=== PATIENT | female | born 1945 | race Caucasian/White ===

== ENCOUNTER → 2019-10-17 | Outpatient (CLI) | payer OTHER, SELFPAY ==
[2019-10-17 10:38] LABS: Anion Gap 2 (5-15); BUN 23 mg/dL (7-18); Calcium,Total 9.3 mg/dL (8.5-10.1); Chloride 108 mmol/L (98-107); Cholesterol 159 mg/dL (200); Creatinine, Serum 0.96 mg/dL (0.55-1.02); EST Glomerular Filtration Rate 61 mL/min (>60); Est Glom Filt Rate - Afr Amer 73 mL/min (>60); Glucose 96 mg/dL (74-106); High Density Lipoprotein 46 mg/dL; Potassium 4.1 mmol/L (3.5-5.1); Sodium Level 140 mmol/L (136-145); Thyroid Stim Hormone (TSH) 2.59 uIU/mL (0.358-3.74); Triglycerides 89 mg/dL; Very Low Density Lipoprotein 18 mg/dL (5-40)
[2019-10-17 10:46] LABS: Vitamin D,25 Hydroxy 95.5 ng/mL
[2019-10-18 10:52] LABS: Carcinoembryonic Antigen 1.2 ng/mL (0.0-4.7)
== END | disposition home or self-care (01) ==
LOC: MFPLAB 08:21
PROVIDERS: PCP Family Medicine; Referring Provider Family Medicine; Visit Provider Family Medicine
DX: I10 Essential (primary) hypertension (principal); E55.9 Vitamin D deficiency, unspecified; Z85.038 Personal history of other malignant neoplasm of large intestine
CPT/HCPCS: 36415; 80048; 80061; 82306; 82378; 84443

== ENCOUNTER → 2020-01-27 11:17 | Outpatient (CLI) | payer OTHER, SELFPAY ==
[2020-01-27 09:33] VITALS: BMI 27.7
[2020-01-27 12:34] LABS: Absolute Lymphocyte Count 0.74 X10^3/uL (0.83-4.51); Basophil# 0.04 X10^3/uL; Basophil% 0.7 % (0-1); Eosinophil# 0.15 X10^3/uL; Eosinophils% 2.8 % (0-5); Hematocrit 42.9 % (37-47); Lymphocyte # 0.74 X10^3/ul (4.0); Lymphocyte % 13.8 % (19-41); Mean Corp Hgb Conc 30.3 g/dL (32-36); Mean Corpuscular Hgb 30.4 pg (27.0-32.0); Mean Corpuscular Volume 100.2 fL (81-99); Mean Platelet Vol. 9.4 fl (6.2-12.0); Monocyte# 0.45 X10^3/uL; Monocyte% 8.4 % (0-10); NRBC Flagged by Analyzer 0 % (0-5); Neutrophil # 3.99 X10^3/uL (2.7-7.7); Neutrophil % 74.1 % (47-70); Platelet Count 171 K/mm3 (150-450); RBC Distribution Width CV 13.5 % (11.6-14.6); RBC Distribution Width SD 49.9 fl (35.1-43.9); Red Blood Count 4.28 M/mm3 (4.2-5.4); White Blood Count 5.4 K/mm3 (4.4-11.0)
[2020-01-27 12:52] LABS: Vitamin D,25 Hydroxy 65.5 ng/mL
[2020-01-27 13:47] LABS: ALB/GLOB Ratio 1.2 RATIO (0.9-2.4); AST(SGOT) 19 U/L (15-37); Alanine Aminotransfer ALT/SGPT 23 U/L (13-56); Albumin, Serum 3.8 g/dL (3.2-5.0); Alkaline Phosphatase 57 U/L (45-117); Anion Gap 6 (5-15); BUN 18 mg/dL (7-18); BUN/Creat Ratio 20.3 RATIO (10-20); Calcium,Total 9.6 mg/dL (8.5-10.1); Chloride 109 mmol/L (98-107); Cholesterol 191 mg/dL (200); Creatinine, Serum 0.89 mg/dL (0.55-1.02); EST Glomerular Filtration Rate 66 mL/min (>60); Est Glom Filt Rate - Afr Amer 80 mL/min (>60); Globulin 3.3 g/dL (2.2-4.2); Glucose 92 mg/dL (74-106); High Density Lipoprotein 57 mg/dL; Potassium 4.2 mmol/L (3.5-5.1); Protein, Total 7.1 g/dL (6.4-8.2); Sodium Level 142 mmol/L (136-145); Thyroid Stim Hormone (TSH) 2.04 uIU/mL (0.358-3.74); Triglycerides 98 mg/dL; Very Low Density Lipoprotein 20 mg/dL (5-40)
[2020-01-27 14:15] LABS: Hemoglobin A1c 5.5 % (3.8-5.6)
== END ==
PROVIDERS: PCP Internal Medicine; Referring Provider Internal Medicine; Visit Provider Internal Medicine
DX: E03.9 Hypothyroidism, unspecified (principal); I10 Essential (primary) hypertension; R79.89 Other specified abnormal findings of blood chemistry; Z90.09 Acquired absence of other part of head and neck
CPT/HCPCS: 36415; 80053; 80061; 82306; 83036; 84443; 85025

== ENCOUNTER → 2020-06-24 10:31 | Outpatient (CLI) | payer MEDICARE, SELFPAY ==
[2020-01-27 09:33] VITALS: BMI 27.7
--- NOTE | 2020-06-24 10:34 | BI_ITS ---
MAMMOGRAPHY - BILATERAL SCREENING REASON FOR EXAM: Female, 74 years old. Routine annual screening examination. PERTINENT HISTORY: FM HX PAT GMA, PAT AUNT , P/H OF COLORECTAL CA 2008, RT MOLE MARKED, RT PORT SCAR TECHNIQUE: Digital bilateral breast henri (3D mammographic acquisition) in the CC and MLO projections. 2-D mediolateral oblique (MLO) and craniocaudad (CC) views of both breasts were obtained. CAD: Full Field Digital Mammography with Computer Added Detection was performed. COMPARISON: 12/19/2018 and 08/09/2017. FINDINGS: Breast Composition: The breasts are extremely dense, which lowers the sensitivity of mammography. There are no dominant masses or suspicious calcifications. No other significant abnormalities are identified. BI/SCRN MAMM (CAD)W/HENRI BILAT IMPRESSION: Stable bilateral screening mammogram. Yearly follow-up mammogram recommended. (A) ASSESSMENT CATEGORY: BIRADS Category 2: Benign. A letter regarding these results will be sent to the patient by the facility within 30 days. Approximately 10% of breast cancers are not detected by mammography. A normal mammogram should not delay biopsy of a clinically suspicious abnormality. [id number] Electronically Signed: Chiquita Ceballos MD at 16:36 EDT Tel , Service support ,
== END ==
PROVIDERS: PCP Internal Medicine; Referring Provider Internal Medicine; Visit Provider Internal Medicine
DX: Z12.31 Encounter for screening mammogram for malignant neoplasm of breast (principal)
CPT/HCPCS: 77063; 77067

== ENCOUNTER → 2020-11-02 11:28 | Outpatient (CLI) | payer MEDICARE, SELFPAY ==
[2020-11-02 10:16] VITALS: BMI 27.1
[2020-11-02 12:37] LABS: Anion Gap 3 (5-15); BUN 24 mg/dL (7-18); BUN/Creat Ratio 29.8 RATIO (10-20); Calcium,Total 9.5 mg/dL (8.5-10.1); Chloride 107 mmol/L (98-107); EST Glomerular Filtration Rate 74 mL/min (>60); Est Glom Filt Rate - Afr Amer 89 mL/min (>60); Glucose 97 mg/dL (74-106); Potassium 4.5 mmol/L (3.5-5.1); Sodium Level 141 mmol/L (136-145)
[2020-11-04 11:32] LABS: Carcinoembryonic Antigen 2139 1.4 ng/mL (0.0-4.7)
== END ==
PROVIDERS: PCP Internal Medicine; Referring Provider Internal Medicine; Visit Provider Internal Medicine
DX: E03.9 Hypothyroidism, unspecified (principal); I10 Essential (primary) hypertension; Z85.038 Personal history of other malignant neoplasm of large intestine
CPT/HCPCS: 36415; 80048; 82378

== ENCOUNTER 2021-05-24 08:56 | Outpatient (CLI) | payer MEDICARE, SELFPAY ==
[2021-05-24 12:08] LABS: Absolute Lymphocyte Count 0.91 X10^3/uL (0.83-4.51); Absolute Neutrophil Count 3.6 X10^3/uL (2.0-7.7); Basophil# 0.03 X10^3/uL; Basophil% 0.6 % (0-1); Eosinophil# 0.18 X10^3/uL; Eosinophils% 3.4 % (0-5); Hematocrit 42.9 % (37-47); Hemoglobin 13.4 g/dL (12.0-15.0); Lymphocyte # 0.91 X10^3/ul (0.83-4.51); Lymphocyte % 17.4 % (19-41); Mean Corp Hgb Conc 31.2 g/dL (32-36); Mean Corpuscular Hgb 31.6 pg (27.0-32.0); Mean Corpuscular Volume 101.2 fL (81-99); Monocyte# 0.55 X10^3/uL; Monocyte% 10.5 % (0-10); NRBC Flagged by Analyzer 0 % (0-5); Neutrophil # 3.55 X10^3/uL (2.7-7.7); Neutrophil % 67.7 % (47-70); Platelet Count 183 K/mm3 (150-450); RBC Distribution Width CV 13.5 % (11.6-14.6); RBC Distribution Width SD 50.5 fl (35.1-43.9); Red Blood Count 4.24 M/mm3 (4.2-5.4); White Blood Count 5.2 K/mm3 (4.4-11.0)
[2021-05-24 12:27] LABS: Vitamin B12 353 pg/mL (211-911); Vitamin D,25 Hydroxy 71.9 ng/mL
[2021-05-24 12:39] LABS: ALB/GLOB Ratio 1.2 RATIO (0.9-2.4); AST(SGOT) 17 U/L (15-37); Alanine Aminotransfer ALT/SGPT 17 U/L (13-56); Albumin, Serum 3.7 g/dL (3.2-5.0); Alkaline Phosphatase 63 U/L (45-117); Anion Gap 3 (5-15); BUN 24 mg/dL (7-18); BUN/Creat Ratio 25.6 RATIO (10-20); Chloride 107 mmol/L (98-107); Cholesterol 183 mg/dL (200); Creatinine, Serum 0.94 mg/dL (0.55-1.02); EST Glomerular Filtration Rate 62 mL/min (>60); Est Glom Filt Rate - Afr Amer 75 mL/min (>60); Globulin 3.2 g/dL (2.2-4.2); Glucose 96 mg/dL (74-106); High Density Lipoprotein 50 mg/dL; Potassium 4.1 mmol/L (3.5-5.1); Protein, Total 6.9 g/dL (6.4-8.2); Sodium Level 140 mmol/L (136-145); Thyroid Stim Hormone (TSH) 3.18 uIU/mL (0.358-3.74); Triglycerides 91 mg/dL; Very Low Density Lipoprotein 18 mg/dL (5-40)
[2021-05-25 14:17] LABS: Carcinoembryonic Antigen 2139 1.1 ng/mL (0.0-4.7)
== END 2021-05-24 23:59 | disposition home or self-care (01) ==
PROVIDERS: PCP Internal Medicine; Referring Provider Internal Medicine; Visit Provider Internal Medicine
DX: E03.9 Hypothyroidism, unspecified (principal); I10 Essential (primary) hypertension; E55.9 Vitamin D deficiency, unspecified; E53.8 Deficiency of other specified B group vitamins; Z85.038 Personal history of other malignant neoplasm of large intestine; R71.8 Other abnormality of red blood cells
CPT/HCPCS: 36415; 80053; 80061; 82306; 82378; 82607; 82746; 84443; 85025

== ENCOUNTER 2021-06-02 12:49 | Outpatient (CLI) | payer MEDICARE, SELFPAY ==
--- NOTE | 2021-06-02 12:51 | RAD_ITS ---
STUDY: X-RAY - CERVICAL SPINE REASON FOR EXAM: Female, 75 years old. Cervical pain TECHNIQUE: XR Spine Cervical 2 or 3 Views COMPARISON: None FINDINGS: Normal anterior atlantoaxial articulation. The odontoid process is obscured by the overlying hard palate on the open mouth view. Therefore, it is not fully evaluated by plain film. There is straightening of the normal cervical lordosis. There is multi-level endplate spondylosis. There is multi-level degenerative disc disease with multilevel disc space narrowing. There is multi-level osseous foraminal stenosis. The soft tissue structures are unremarkable. RAD/Cerv Spine 2 or 3 Views IMPRESSION: There are degenerative changes as noted above. The odontoid process is obscured by the overlying hard palate on the open mouth view. Therefore, it is not fully evaluated by plain film. Electronically Signed: Reji Parra MD at 17:11 EDT ,
--- NOTE | 2021-06-02 12:51 | RAD_ITS ---
STUDY: X-RAY - THORACIC SPINE REASON FOR EXAM: Female, 75 years old. Thoracic and neck pain TECHNIQUE: 3 view(s) of the thoracic spine were ordered. However only 2 were obtained. COMPARISON: None. FINDINGS: Normal kyphosis of the thoracic spine. There is no substantial scoliosis. There is demineralization of the thoracic spine. There is multilevel disc space narrowing of the thoracic spine. There are atherosclerotic vascular calcifications. RAD/Thoracic Spine 3 Views IMPRESSION: Normal x-ray examination of the thoracic spine. Electronically Signed: Reji Parra MD at 17:12 EDT Reading Location ID and State: [facility] / [place] , Service support ,
== END 2021-06-02 23:59 | disposition home or self-care (01) ==
LOC: MTRAD 12:51
PROVIDERS: PCP Internal Medicine; Referring Provider Internal Medicine; Visit Provider Internal Medicine
DX: M54.6 Pain in thoracic spine (principal); M54.2 Cervicalgia
CPT/HCPCS: 72040; 72072

== ENCOUNTER → 2021-08-31 | Outpatient (CLI) | payer MEDICARE, SELFPAY ==
--- NOTE | 2021-08-31 12:21 | BI_ITS ---
MAMMOGRAPHY - BILATERAL SCREENING REASON FOR EXAM: Female, 75 years old. Routine annual screening examination. PERTINENT HISTORY: Grandmother with breast cancer. Grandmother with breast cancer. History of colorectal carcinoma. TECHNIQUE: Digital bilateral breast henri (3D mammographic acquisition) in the CC and MLO projections. 2-D mediolateral oblique (MLO) and craniocaudad (CC) views of both breasts were obtained. CAD: Full Field Digital Mammography with Computer Added Detection was performed. COMPARISON: Comparison is made with prior examination dated 06/24/2020 and 12/09/2011. FINDINGS: Breast Composition: The breasts are extremely dense, which lowers the sensitivity of mammography. There are no dominant masses or suspicious calcifications. Stable small benign-appearing bilateral axillary lymph nodes. No other significant abnormalities are identified. There has been no significant change since the prior study. BI/SCRN MAMM (CAD)W/HENRI BILAT IMPRESSION: Stable bilateral screening mammogram. Yearly follow-up mammogram recommended. (A) ASSESSMENT CATEGORY: BIRADS Category 2: Benign. A letter regarding these results will be sent to the patient by the facility within 30 days. Approximately 10% of breast cancers are not detected by mammography. A normal mammogram should not delay biopsy of a clinically suspicious abnormality. [id number] Electronically Signed: Dagoberto Graves MD at 14:08 EDT ,
--- NOTE | 2021-08-31 12:45 | BD_ITS ---
STUDY: DUAL ENERGY X-RAY ABSORPTIOMETRY / DXA REASON FOR EXAM: Female, 75 years old. osteoporosis TECHNIQUE: Bone Mineral Density (BMD) measurements of lumbar spine and bilateral hips were obtained. COMPARISON: None. FINDINGS: Lumbar Spine (L1-L4): g/cm2 (0.624) / T-score (-3.8) / Z-score (-1.4) Findings are suggestive of osteoporosis with a high fracture risk. Left Femur Total: g/cm2 (0.649) / T-score (-2.4) / Z-score (-0.6) Left Femoral Neck: g/cm2 (0.551) / T-score (-2.7) / Z-score (-0.6) Right Femur Total: g/cm2 (0.66) / T-score (-2.2) / Z-score (-0.4) Right Femoral Neck: g/cm2 (0.579) / T-score (-2.4) / Z-score (-0.3) BD/Dexa Bone Density Study IMPRESSION: The patient is considered osteoporotic as outlined below according to World [place] Organization (WHO) criteria with a high fracture risk. Reference Information: The T-score is the number of standard deviations above or below the standard which is normal for young adults at their peak bone mineral density. The World Health Organization (WHO) interprets the T-scores as follows: Above -1 Normal bone density Between -1 and -2.5 Osteopenia Equal to / or below -2.5 Osteoporosis As a practical clinical guideline, osteopenia may be graded as follows: Mild -1 through -1.5 Moderate -1.6 through -2.0 Severe -2.1 through -2.4 The Z-score is the number of standard deviations above or below age-matched controls. A Z-score of less than -1.5 would be considered abnormal. References: 1. NIH Osteoporosis and Related Bone Diseases www osteo.org 2. International Society for Clinical Densitometry www iscd.org 3. National Osteoporosis Foundation www nof.org Electronically Signed: Dagoberto Graves MD at 15:18 EDT ,
== END | disposition home or self-care (01) ==
LOC: OPBD 12:20
PROVIDERS: PCP Internal Medicine; Referring Provider Internal Medicine; Visit Provider Internal Medicine
DX: Z12.31 Encounter for screening mammogram for malignant neoplasm of breast (principal); M81.0 Age-related osteoporosis without current pathological fracture
CPT/HCPCS: 77063; 77067; 77080

== ENCOUNTER → 2022-06-21 | Outpatient (CLI) | payer MEDICARE, SELFPAY ==
[2022-06-21 08:46] LABS: Absolute Neutrophil Count 3.6 X10^3/uL (2.0-7.7); Basophil# 0.03 X10^3/uL; Basophil% 0.6 % (0-1); Eosinophil# 0.17 X10^3/uL; Eosinophils% 3.1 % (0-5); Hematocrit 43.3 % (37-47); Hemoglobin 13.6 g/dL (12.0-15.0); Lymphocyte % 20.2 % (19-41); Mean Corp Hgb Conc 31.4 g/dL (32-36); Mean Corpuscular Hgb 31.9 pg (27.0-32.0); Mean Corpuscular Volume 101.4 fL (81-99); Mean Platelet Vol. 9.5 fl (6.2-12.0); Monocyte# 0.54 X10^3/uL; Monocyte% 9.9 % (0-10); NRBC Flagged by Analyzer 0 % (0-5); Neutrophil # 3.59 X10^3/uL (2.7-7.7); Platelet Count 151 K/mm3 (150-450); RBC Distribution Width CV 13.3 % (11.6-14.6); RBC Distribution Width SD 49.7 fl (35.1-43.9); Red Blood Count 4.27 M/mm3 (4.2-5.4); White Blood Count 5.4 K/mm3 (4.4-11.0)
[2022-06-21 09:18] LABS: Vitamin B12 412 pg/mL (211-911); Vitamin D,25 Hydroxy 89.8 ng/mL
[2022-06-21 09:27] LABS: ALB/GLOB Ratio 1.2 RATIO (0.9-2.4); AST(SGOT) 18 U/L (15-37); Alanine Aminotransfer ALT/SGPT 18 U/L (13-56); Albumin, Serum 3.7 g/dL (3.2-5.0); Alkaline Phosphatase 59 U/L (45-117); Anion Gap 3 (5-15); BUN 24 mg/dL (7-18); Calcium,Total 9.6 mg/dL (8.5-10.1); Chloride 108 mmol/L (98-107); Cholesterol 168 mg/dL (200); EST Glomerular Filtration Rate 57 mL/min (>60); Est Glom Filt Rate - Afr Amer 69 mL/min (>60); Free T3 2.6 pg/mL (2.18-3.98); Globulin 3.2 g/dL (2.2-4.2); Glucose 102 mg/dL (74-106); High Density Lipoprotein 50 mg/dL; Potassium 4.2 mmol/L (3.5-5.1); Protein, Total 6.9 g/dL (6.4-8.2); Sodium Level 139 mmol/L (136-145); T4 Free Direct 1.04 ng/dL (0.76-1.46); Thyroid Stim Hormone (TSH) 3.38 uIU/mL (0.358-3.74); Triglycerides 104 mg/dL; Very Low Density Lipoprotein 21 mg/dL (5-40)
[2022-06-23 14:21] LABS: Carcinoembryonic Antigen 2139 1.5 ng/mL (0.0-4.7)
== END | disposition home or self-care (01) ==
PROVIDERS: PCP Internal Medicine; Referring Provider Internal Medicine; Visit Provider Internal Medicine
DX: I10 Essential (primary) hypertension (principal); E03.9 Hypothyroidism, unspecified; E53.8 Deficiency of other specified B group vitamins; E55.9 Vitamin D deficiency, unspecified; M81.0 Age-related osteoporosis without current pathological fracture; Z85.038 Personal history of other malignant neoplasm of large intestine
CPT/HCPCS: 36415; 80053; 80061; 82306; 82378; 82607; 84439; 84443; 84481; 85025

== ENCOUNTER → 2022-10-07 | Outpatient (CLI) | payer MEDICARE, SELFPAY ==
[2022-10-07 12:13] LABS: Absolute Lymphocyte Count 0.83 X10^3/uL (0.83-4.51); Absolute Neutrophil Count 3.3 X10^3/uL (2.0-7.7); Basophil# 0.02 X10^3/uL; Basophil% 0.4 % (0-1); Eosinophil# 0.11 X10^3/uL; Eosinophils% 2.3 % (0-5); Hematocrit 40.3 % (37-47); Hemoglobin 12.7 g/dL (12.0-15.0); Lymphocyte # 0.83 X10^3/ul (0.83-4.51); Lymphocyte % 17.6 % (19-41); Mean Corp Hgb Conc 31.5 g/dL (32-36); Mean Corpuscular Hgb 31.7 pg (27.0-32.0); Mean Corpuscular Volume 100.5 fL (81-99); Mean Platelet Vol. 9.9 fl (6.2-12.0); Monocyte% 8.5 % (0-10); NRBC Flagged by Analyzer 0 % (0-5); Neutrophil # 3.33 X10^3/uL (2.7-7.7); Neutrophil % 70.8 % (47-70); Platelet Count 171 K/mm3 (150-450); RBC Distribution Width CV 13.5 % (11.6-14.6); Red Blood Count 4.01 M/mm3 (4.2-5.4); White Blood Count 4.7 K/mm3 (4.4-11.0)
[2022-10-07 12:44] LABS: ALB/GLOB Ratio 1.3 RATIO (0.9-2.4); AST(SGOT) 21 U/L (15-37); Alanine Aminotransfer ALT/SGPT 17 U/L (13-56); Albumin, Serum 3.7 g/dL (3.2-5.0); Alkaline Phosphatase 54 U/L (45-117); Anion Gap 5 (5-15); BUN 20 mg/dL (7-18); BUN/Creat Ratio 22.1 RATIO (10-20); Calcium,Total 9.1 mg/dL (8.5-10.1); Chloride 109 mmol/L (98-107); Cholesterol 162 mg/dL (200); Creatinine, Serum 0.91 mg/dL (0.55-1.02); EST Glomerular Filtration Rate 64 mL/min (>60); Est Glom Filt Rate - Afr Amer 77 mL/min (>60); Globulin 2.8 g/dL (2.2-4.2); Glucose 107 mg/dL (74-106); High Density Lipoprotein 52 mg/dL; Magnesium 2.2 mg/dL (1.6-2.6); Protein, Total 6.5 g/dL (6.4-8.2); Sodium Level 142 mmol/L (136-145); Thyroid Stim Hormone (TSH) 2.04 uIU/mL (0.358-3.74); Triglycerides 102 mg/dL; Very Low Density Lipoprotein 20 mg/dL (5-40)
[2022-10-07 13:05] LABS: Vitamin D,25 Hydroxy 97.1 ng/mL
== END | disposition home or self-care (01) ==
LOC: LAB 11:25
PROVIDERS: PCP Internal Medicine; Referring Provider Internal Medicine; Visit Provider Internal Medicine
DX: R71.8 Other abnormality of red blood cells (principal); E53.8 Deficiency of other specified B group vitamins; E55.9 Vitamin D deficiency, unspecified; E03.9 Hypothyroidism, unspecified; I10 Essential (primary) hypertension; Z13.220 Encounter for screening for lipoid disorders
CPT/HCPCS: 36415; 80053; 80061; 82306; 83735; 84443; 85025

== ENCOUNTER → 2022-11-01 | Outpatient (CLI) | payer MEDICARE, SELFPAY ==
--- NOTE | 2022-11-01 10:20 | BI_ITS ---
MAMMOGRAPHY - BILATERAL SCREENING REASON FOR EXAM: Female, 76 years old. Routine annual screening examination. PERTINENT HISTORY: Grandmother with breast cancer. Aunt with breast cancer. TECHNIQUE: Digital bilateral breast henri (3D mammographic acquisition) in the CC and MLO projections. 2-D mediolateral oblique (MLO) and craniocaudad (CC) views of both breasts were obtained. CAD: Full Field Digital Mammography with Computer Added Detection was performed. COMPARISON: Comparison is made with prior study dated August 31, 2021 and June 24, 2020. FINDINGS: Breast Composition: The breasts are extremely dense, which lowers the sensitivity of mammography. There are no dominant masses or suspicious calcifications. Stable small benign-appearing bilateral axillary lymph nodes. No other significant abnormalities are identified. There has been no significant change since the prior study. BI/SCRN MAMM (CAD)W/HENRI BILAT IMPRESSION: Stable bilateral screening mammogram. Yearly follow-up mammogram recommended. (A) ASSESSMENT CATEGORY: BIRADS Category 2: Benign. A letter regarding these results will be sent to the patient by the facility within 30 days. Approximately 10% of breast cancers are not detected by mammography. A normal mammogram should not delay biopsy of a clinically suspicious abnormality. [id number] Electronically Signed: Dagoberto Graves MD at 13:25 EDT ,
== END | disposition home or self-care (01) ==
LOC: OPBI 10:20
PROVIDERS: PCP Internal Medicine; Referring Provider Internal Medicine; Visit Provider Internal Medicine
DX: Z12.31 Encounter for screening mammogram for malignant neoplasm of breast (principal)
CPT/HCPCS: 77063; 77067

== ENCOUNTER 2024-02-04 10:18 | Emergency (ER) | payer MEDICARE, SELFPAY ==
[2024-02-04 10:19] VITALS: BP 102/84; PULSE 92; RESP 16; TEMP 36.4; O2SAT 98; BMI 21.1
--- NOTE | 2024-02-04 10:35 | EX.ED.DYSGE1 ---
HPI History of Present Illness Chief Complaint: Complaint Informant: patient, spouse/S.O. and family ( and daughter accompany the patient.) Onset/Context/Timing Onset: Weeks Context: Gradual Onset Timing: Continuous Current Severity: Mild Maximum Severity: Mild Narrative Narrative: 78-year-old female history of hypertension, valvular heart disease and prior colon cancer years ago that reportedly had not spread. According to the family patient has had some urinary incontinence the last several weeks. She has had with a term as brain fog. She denies any vomiting, diarrhea, fever or dysuria. No headache. No falls or head trauma. Saw her primary care physician at [facility]. She had screening labs done and these were unremarkable. Urinalysis was not done the family was just hoping to get a urinalysis done to evaluate for possible urinary tract infection. Prior similar symptoms: No Recent Illness/Hospitalization: No PFSH PFSH Medical History Hypothyroidism Hypertension Bilateral leg pain Depression Fibromyalgia Arthritis of left knee Osteoporosis History of colon cancer (2007) Cardiac murmur Tricuspid insufficiency Mitral insufficiency Home Medications ?Medication ?Instructions ?Recorded ?Last Taken ?Type lactobacillus combo no.13 1 1 cap PO DAILY 12/01/17 Unknown History billion cell capsule,delayed release (Probiotic Pearls Complete) cholecalciferol (vitamin D3) 125 125 mcg PO DAILY 01/21/20 Unknown History mcg (5,000 unit) capsule Handicap Placard #1 ea 11/12/20 Unknown Rx multivitamin 1 tab PO DAILY 12/06/21 Unknown History omega 9-gud-prz-fish oil 300 1 cap PO DAILY 10/05/22 Unknown History mg-1,000 mg capsule (Fish Oil) selenium 25 mcg tablet 25 mcg PO DAILY 01/04/23 Unknown History cephalexin 500 mg capsule 500 mg PO Q6 7 days #28 CAPSULES 02/04/24 Unknown Rx propranolol 20 mg tablet 20 mg PO TID 02/04/24 Unknown History Allergy/AdvReac Type Severity Reaction Status Date / Time amlodipine Allergy Severe anxiety Verified 02/04/24 10:19 meloxicam Allergy Severe weight gain Verified 02/04/24 10:19 pollen extracts Allergy Intermediate Rhinitis Verified 02/04/24 10:19 atenolol (From Tenoretic) Allergy Unknown Unknown Verified 02/04/24 10:19 chlorthalidone (From Allergy Unknown Unknown Verified 02/04/24 10:19 Tenoretic) ciprofloxacin AdvReac Severe joint pain Verified 02/04/24 10:19 pregabalin (From Lyrica) AdvReac Severe Tremors Verified 02/04/24 10:19 lisinopril AdvReac Intermediate cough Verified 02/04/24 10:19 indomethacin AdvReac Unknown unknown Verified 02/04/24 10:19 Family History Father Hypertension Heart disease Brother Hypertension Diabetes Mother Diabetes Heart disease Aunt Breast cancer Grandmother Breast cancer Surgical History History of partial thyroidectomy (2009) History of vaginal hysterectomy (1977) History of colon surgery (2007) Social History Smoking Status: Never smoker alcohol intake: never substance use type: does not use what type of physical activity do you participate in: walking frequency: daily ROS ROS ED ROS Narrative Denies recent illness. She has an 11 pound weight loss in 1 to 2 months. Constitutional Constitutional ED: Denies chills or fever(s) Eyes Eyes: Denies blurry vision ENT ENT ED: Denies ear pain Cardiovascular Cardiovascular: Denies chest pain Respiratory/Chest Respiratory/Chest: Denies cough or dyspnea Gastrointestinal Gastrointestinal: Denies abdominal pain Genitourinary Genitourinary ED: Denies dysuria or hematuria Musculoskeletal Musculoskeletal: Denies arthralgias Integumentary Denies abscess Neurologic Neurologic: Denies headache(s) Psychiatric Psychiatric: Reports anxiety Endocrine Endocrinology: Denies cold intolerance or heat intolerance Hematologic/Lymphatic Hematologic/Lymphatic: Reports none Allergic/Immunologic Allergic/Immunologic ED: Denies mouth swelling, tongue swelling or urticaria EXAM Physical Exam Narrative Exam Narrative: Well-appearing 78-year-old female. Vital signs are stable afebrile. Pulse ox 98% on room air no hypoxia. Patient is no distress. As I was talking to her family she walked into the room from the bathroom after giving a urine sample. H EENT exam unremarkable atraumatic. Pupils round react light. Moist mucous membranes. No trauma. Neck nontender. Back nontender. Lungs clear to auscultation bilaterally. Heart regular rate and rhythm rate about 90 no murmur. Chest wall and ribs nontender. Abdomen soft nontender. Normal bowel sounds no peritoneal signs. Moving all 4 extremities. 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 Dorsi plantarflexion intact. She can lift either leg off the bed. She ambulates without difficulty. Patient is awake and alert. She knows day of the week, month and year. She is answering questions following commands. Const Vital Signs: 02/04/24 10:19 Temperature 97.6 F L Temperature Source Oral Pulse Rate 92 Respiratory Rate 16 Blood Pressure 102/84 H Blood Pressure Mean 90 Pulse Ox 98 Oxygen Delivery Method Room Air Positive well nourished and well developed; Negative for obese, cachectic, contractures or unkempt General Appearance ED: well developed and NAD; Negative for unkempt, cachectic, contractures, cyanotic, diaphoretic or pallor Nutritional Appearance: Negative for cachectic or obese HEENT Reports moist mucous membranes Negative for trauma or tenderness Eyes PERRL and EOMs intact bilaterally General Eye ED: Negative for pale conjunctiva or scleral icterus Neck no lymphadenopathy, supple and no JVD General: Negative for tenderness Lymph Lymphatic: Negative for other Chest Wall inspection of chest normal and palpation of chest normal Resp normal respiratory effort and clear to auscultation bilaterally Effort and Inspection: Negative for retractions Auscultation: Negative for rales, rhonchi, wheezes or diminished lung sounds Cardio regular rate, regular rhythm, S1 normal heart sound, S2 normal heart sound and no murmurs Palpation: Negative for palpable S3 Rate: Negative for bradycardia or tachycardic Rhythm: Negative for abnormal rhythm GI normal to inspection, nondistended, normoactive bowel sounds, non-tender, non-distended and no masses Inspection: Negative for abdominal distention Auscultation: normoactive bowel sounds Palpation: soft; Negative for tender, guarding or rebound tenderness present Back/Spine no CVA tenderness General Back: Negative for CVA tenderness Cervical Spine: Negative for cervical spine tenderness Thoracic Spine / Upper Back: Negative for thoracic spinal tenderness or paraspinal muscle tenderness Lumbar Spine / Lower Back: Negative for lumbar spinal tenderness Extremity normal to inspection General Extremety ED: Negative for edema or tenderness General Extremity: Negative for edema Neuro oriented x3 and CN's II-XII intact bilaterally Sensorium / Orientation: alert; Negative for orientation impaired, lethargic or stuporous Motor Exam: strength 5/5 throughout Psych mental status grossly normal Appearance: Negative for unkempt Attitude: No agitated Mood & Affect: Negative for anxious or tearful Skin no rashes or lesions noted, no wounds and skin turgor normal General Skin Exam: elasticity normal; Negative for jaundice or pallor Lesions: No lesion noted Rashes: No rashes noted Trauma: Negative for abrasion Wounds: Negative for wounds noted MDM MDM MDM Narrative Medical decision making narrative: 78-year-old female family would like a urinalysis checked. She has had recent anxiety. Some weight loss. Had recent laboratory workup done her primary care physician office which reportedly was negative. I offered additional labs today they just wanted the urine checked. I also offered a CAT scan of the brain again they are just looking for a urinalysis. Patient's exam is benign and unremarkable. Repeat exam unchanged. I went over the urinalysis results with the family. Explained him that could be contamination but with the being a number of nitrates, bacteria and white cells we will treat this as UTI and send a culture. Should be started on Keflex 500 4 times daily for a week. First dose given in the ER. They are comfortable with the plan. History & Record Review Discussion w/independent historian: Patient and Family Additional record(s) reviewed:: Prior inpatient record, Prior outpatient record, Prior ED visit and Prior labs Lab Data Attestation: I reviewed the patient's lab results. Lab results narrative: Urinalysis shows urinalysis shows positive nitrates, 5-10 red cells, 50-100 white cells and 4+ bacteria. It is contaminated with 10-25 epithelial cells however with her symptoms and family's concern we will treat as a UTI. Culture will be sent. Labs: Laboratory Results - last 24 hr 02/04/24 10:30 Urine Color Yellow Urine Clarity Cloudy Urine pH 6.0 Ur Specific Greer 1.025 Urine Protein 100 H Urine Glucose (UA) Normal Urine Ketones 15 H Urine Occult Blood 150 H Urine Nitrite Positive H Urine Bilirubin Negative Urine Urobilinogen 1 H Ur Leukocyte Esterase 500 H Urine RBC 5-10 SEEN Urine WBC 50-100 SEEN Ur Squamous Epith Cells 10-25 SEEN Ur Transition Epith Cell 0-5 SEEN Urine Bacteria 4+ Urine Mucus 0 SEEN Discharge Plan Triage Chief Complaint: Complaint ED Provider: Constantin Harley Dx/Rx/DC Orders Clinical Impression: Urinary tract infection Instructions: Urinary Tract Infections in Women Prescriptions: New cephalexin 500 mg capsule 500 mg PO Q6 7 Days Qty: 28 0RF No Action lactobacillus combo no.13 [Probiotic Pearls Complete] 1 billion cell capsule,delayed release(DR/EC) 1 cap PO DAILY cholecalciferol (vitamin D3) 125 mcg (5,000 unit) capsule 125 mcg PO DAILY multivitamin Tablet 1 tab PO DAILY omega 2-occ-buc-fish oil [Fish Oil] 300-1,000 mg capsule 1 cap PO DAILY selenium 25 mcg tablet 25 mcg PO DAILY propranolol 20 mg tablet 20 mg PO TID (DME) Handicap Placard See Rx Instructions .Route .MEDSUPPLY Qty: 1 0RF Rx Instructions: As directed for medical reasons Duration 4 years Primary Care Provider: Naveed Martinez Referrals: NOT,DEFINED [Non-Staff] - Activity Restrictions/Additional Instructions: Plenty of fluids and rest. Cranberry juice. Take her antibiotic Keflex 1 pill 4 times a day for the next 7 days. This should get rid of the urinary tract infection. A urine culture was sent. Follow-up with your doctor if not improving or return if worse. Print Language: Mauritian
[2024-02-04 10:40] LABS: Mucous, Urine 0 SEEN /hpf (<or=2+)
[2024-02-04 10:42] LABS: Color, Urine Yellow (Yellow); Glucose, Dipstick Normal (Normal); Ketone-Dipstick 15 mg/dl (Negative); Leukocyte Esterase-Dipstick 500 /ul (Negative); Nitrite-Dipstick Positive (Negative); Occult Blood-Urine 150 /ul (Negative); Protein-Dipstick 100 mg/dl (Negative); Specific Gravity, Urine 1.025 (1.002-1.030); Urine Bilirubin Dipstick Negative (Negative); Urine Clarity Cloudy (Clear); Urine Urobilinogen 1 mg/dl (Normal)
[2024-02-04 10:49] LABS: Bacteria 4+ /hpf (None Seen); Squamous Epithelial Cells - UA 10-25 SEEN /hpf (5-10); Transitional Epithelial - Ur 0-5 SEEN /hpf (0-5); White Blood Cells 50-100 SEEN /hpf (0-5)
[2024-02-04 10:50] LABS: Red Blood Cells-Urine 5-10 SEEN /hpf (0-5)
[2024-02-04] MEDS: Cephalexin 250 MG Capsule 500 MG PO (11:25)
[2024-02-04 11:27] VITALS: BP 172/89
== END 2024-02-04 11:29 | disposition home or self-care (01) ==
PROVIDERS: Emergency Provider Emergency Medicine; PCP Family Medicine; Visit Provider Emergency Medicine
DX: N39.0 Urinary tract infection, site not specified (principal); I10 Essential (primary) hypertension; I34.0 Nonrheumatic mitral (valve) insufficiency; I36.1 Nonrheumatic tricuspid (valve) insufficiency; Z88.1 Allergy status to other antibiotic agents; Z85.038 Personal history of other malignant neoplasm of large intestine; Z79.899 Other long term (current) drug therapy
CPT/HCPCS: 81001; 87086; 87088; 87186; 99282

== ENCOUNTER 2024-03-06 14:38 | Emergency (ER) | payer MEDICARE, SELFPAY ==
[2024-03-06 14:40] VITALS: BP 132/89; PULSE 96; RESP 22; TEMP 36.6; O2SAT 96; BMI 17.7
--- NOTE | 2024-03-06 15:07 | EKG12_ITS ---
Test Reason : Blood Pressure : */* mmHG Vent. Rate : 81 BPM Atrial Rate : 81 BPM P-R Int : 166 ms QRS Dur : 78 ms QT Int : 368 ms P-R-T Axes : 65 14 32 degrees QTcB Int : 427 ms Sinus rhythm with Premature atrial complexes Otherwise normal ECG Confirmed by ZION TURNER, ANGELIA ([id number]), editor index FLAKITO MARTINEZ ([id number]) on 03/08/2024 8:09:31 AM Referred By: AGNIESZKA Confirmed By: ANGELIA DONOVAN MD
--- NOTE | 2024-03-06 15:07 | CT_ITS ---
EXAM: CT HEAD WITHOUT INTRAVENOUS CONTRAST CLINICAL INDICATION: Acute change in mental status, unintentional weigh TECHNIQUE: Multiple axial images were obtained of the head without intravenous contrast. This CT exam was performed using one or more of the following dose reduction techniques: automated exposure control, adjustment of the mA and/or kV according to patient size, and/or use of iterative reconstruction technique. COMPARISON: No relevant prior studies available. FINDINGS: BRAIN AND EXTRA-AXIAL SPACES: There is mild enlargement of ventricular and cortical sulci. There is hypoattenuation in the periventricular white matter. No intra- or extra-axial hemorrhage. No evidence of acute infarct. No intracranial mass or mass effect. There is preservation of the sellers/white matter interface. Posterior fossa structures are unremarkable. Basal cisterns are patent. BONES/JOINTS: Unremarkable. No discrete lytic or blastic abnormalities. SINUSES: Unremarkable as visualized. Clear. MASTOID AIR CELLS: Unremarkable. Clear. ORBITS: Visualized globes, extraocular muscles, optic nerves and retrobulbar fat appear unremarkable. CT/Brain/Head without Contrast IMPRESSION: 1. No acute intracranial abnormality. 2. Senescent change with small vessel ischemia. Electronically Signed: Edi Roa MD at 16:19 EST ,
[2024-03-06 15:29] LABS: Absolute Lymphocyte Count 0.39 X10^3/uL (0.83-4.51); Basophil# 0.02 X10^3/uL; Basophil% 0.3 % (0-1); Eosinophil# 0.02 X10^3/uL; Eosinophils% 0.3 % (0-5); Hematocrit 36.8 % (37-47); Hemoglobin 11.8 g/dL (12.0-15.0); Lymphocyte # 0.39 X10^3/ul (0.83-4.51); Lymphocyte % 6.5 % (19-41); Mean Corp Hgb Conc 32.1 g/dL (32-36); Mean Corpuscular Hgb 31.6 pg (27.0-32.0); Mean Corpuscular Volume 98.4 fL (81-99); Mean Platelet Vol. 9.3 fl (6.2-12.0); Monocyte# 0.64 X10^3/uL; Monocyte% 10.6 % (0-10); NRBC Flagged by Analyzer 0 % (0-5); Neutrophil # 4.95 X10^3/uL (2.7-7.7); Neutrophil % 82.1 % (47-70); POSITIVE DIFFERENTIAL YES; Platelet Count 230 K/mm3 (150-450); RBC Distribution Width CV 12.9 % (11.6-14.6); RBC Distribution Width SD 46.8 fl (35.1-43.9); Red Blood Count 3.74 M/mm3 (4.2-5.4)
--- NOTE | 2024-03-06 15:40 | EX.ED.VIS.PS ---
HPI HPI - Psych History of Present Illness Chief Complaint: Anxiety Detail of Chief Complaint: Anxiousness, paranoia and weight loss Informant: patient, spouse/S.O. and family (Daughter) Onset/Context/Timing Onset: Weeks Context: Uncertain worse over the past 1 to 2 months Timing: Continuous and Waxes and wanes Current Severity: Moderate Maximum Severity: Severe Worsened by: Situational factors and Alcohol intoxication Relieved by: Nothing Associated Symptoms Associated Symptoms - Psych: Positive for Depressed, Change in Eating, Change in sleeping, Decreased Concentration, Increased activity, Pressured Speech and Paranoia; Negative for Hopelessness, Suicidal Thoughts, Easily distracted, Grandiosity, Flight of Ideas, Agitated, Angry, Hostile, Threatening, Confusion, Visual Hallucinations or Auditory Hallucinations Specific plan (suicidal thought): Not applicable Narrative Narrative: Patient is a 78-year-old woman. She has history of hypothyroidism status post partial thyroidectomy, colon cancer, hypertension, valvular insufficiency who was brought in because of significant weight loss, no desire to eat, depression with symptoms consistent with depression. Patient knows she is anxious. She states she cannot do anything about it. She seems very hypervigilant and very concerned that her answers are correct. Patient has no suicidal homicidal thoughts. There is no known psychiatric disorder. History is limited because patient becomes very anxious and essentially denies everything other than being anxious and having no appetite. Prior similar symptoms: No Recent Illness/Hospitalization: Yes [facility] Medical History Hypothyroidism Hypertension Bilateral leg pain Depression Fibromyalgia Arthritis of left knee Osteoporosis History of colon cancer (2007) Cardiac murmur Tricuspid insufficiency Mitral insufficiency Home Medications ?Medication ?Instructions ?Recorded ?Last Taken ?Type lactobacillus combo no.13 1 1 cap PO DAILY 12/01/17 Unknown History billion cell capsule,delayed release (Probiotic Pearls Complete) cholecalciferol (vitamin D3) 125 125 mcg PO DAILY 01/21/20 Unknown History mcg (5,000 unit) capsule Handicap Placard #1 ea 11/12/20 Unknown Rx multivitamin 1 tab PO DAILY 12/06/21 Unknown History omega 4-dzg-zbw-fish oil 300 1 cap PO DAILY 10/05/22 Unknown History mg-1,000 mg capsule (Fish Oil) selenium 25 mcg tablet 25 mcg PO DAILY 01/04/23 Unknown History cephalexin 500 mg capsule 500 mg PO Q6 7 days #28 CAPSULES 02/04/24 Unknown Rx propranolol 20 mg tablet 20 mg PO TID PRN anxiety 02/04/24 Unknown History Allergy/AdvReac Type Severity Reaction Status Date / Time amlodipine Allergy Severe anxiety Verified 03/06/24 14:44 meloxicam Allergy Severe weight gain Verified 03/06/24 14:44 pollen extracts Allergy Intermediate Rhinitis Verified 03/06/24 14:44 atenolol (From Tenoretic) Allergy Unknown Unknown Verified 03/06/24 14:44 chlorthalidone (From Allergy Unknown Unknown Verified 03/06/24 14:44 Tenoretic) ciprofloxacin AdvReac Severe joint pain Verified 03/06/24 14:44 pregabalin (From Lyrica) AdvReac Severe Tremors Verified 03/06/24 14:44 lisinopril AdvReac Intermediate cough Verified 03/06/24 14:44 indomethacin AdvReac Unknown unknown Verified 03/06/24 14:44 Family History Father Hypertension Heart disease Brother Hypertension Diabetes Mother Diabetes Heart disease Aunt Breast cancer Grandmother Breast cancer Surgical History History of partial thyroidectomy (2009) History of vaginal hysterectomy (1977) History of colon surgery (2007) Social History Smoking Status: Never smoker alcohol intake: never substance use type: does not use what type of physical activity do you participate in: walking frequency: daily ROS ROS ED Constitutional Constitutional ED: Denies chills, fever(s), subjective or sweats Eyes Eyes: Denies blurry vision or change in vision ENT ENT ED: Denies ear pain, rhinorrhea or sore throat Cardiovascular Cardiovascular: Denies chest pain, orthopnea, palpitations or paroxysmal nocturnal dyspnea Respiratory/Chest Respiratory/Chest: Denies cough, dyspnea, dyspnea on exertion, orthopnea or paroxysmal nocturnal dyspnea Gastrointestinal Gastrointestinal: Reports constipation; Denies abdominal pain, diarrhea, nausea or vomiting Genitourinary Genitourinary ED: Denies dysuria, hematuria or urinary frequency Musculoskeletal Musculoskeletal: Denies arthralgias or myalgias Integumentary Denies rash Neurologic Neurologic: Denies headache(s), paresthesias or weakness Psychiatric Psychiatric: Reports anxiety and depression; Denies suicidal ideation or suicidal thoughts Hematologic/Lymphatic Hematologic/Lymphatic: Denies easy bleeding or easy bruising EXAM Physical Exam Const Vital Signs: 03/06/24 14:40 03/06/24 16:30 03/06/24 17:00 Temperature 97.8 F Temperature Source Temporal Pulse Rate 96 75 82 Respiratory Rate 22 H 25 H 29 H Blood Pressure 132/89 H 157/73 H 156/79 H Blood Pressure Mean 103 97 103 Pulse Ox 96 Oxygen Delivery Method Room Air 03/06/24 18:30 03/06/24 20:00 03/06/24 22:00 Temperature Temperature Source Pulse Rate 84 83 67 Respiratory Rate 27 H 30 H 26 H Blood Pressure 165/73 H 165/88 H Blood Pressure Mean 99 109 Pulse Ox 95 Oxygen Delivery Method Positive well nourished and well developed Constitutional Narrative: Patient is very anxious and hyperactive. Her speech is slightly pressured. She does not have suicidal homicidal thoughts. General Appearance ED: well developed; Negative for pallor HEENT Denies moist mucous membranes normocephalic and atraumatic Eyes PERRL and EOMs intact bilaterally Eyes Narrative: There is no nystagmus. General Eye ED: Negative for pale conjunctiva or scleral icterus Neck no lymphadenopathy, supple and no JVD Resp normal respiratory effort and clear to auscultation bilaterally Cardio S1 normal heart sound, S2 normal heart sound and no murmurs Rate: regular rate Rhythm: regular rhythm GI non-tender, non-distended and no masses Auscultation: normoactive bowel sounds Palpation: soft Back/Spine no CVA tenderness Extremity normal to inspection General Extremety ED: Negative for edema or tenderness General Extremity: Negative for edema Neuro oriented x3, CN's II-XII intact bilaterally, no sensory deficits noted and deep tendon reflexes 2+ bilaterally [place] Coma Scale: document GCS findings Spontaneous Obeys Commands Oriented 15 Sensorium / Orientation: alert Psych Appearance: grossly normal Attitude: paranoid Activity / Motor Behavior: appropriate eye contact, psychomotor agitation, fidgetting and hyperactive Speech: rapid Mood & Affect: depressed Thought Process: normal thought process Thought Content: normal thought content Attention / Concentration: attention grossly intact and concentration grossly intact Memory / Cognition: memory grossly intact and memory grossly impaired Skin General Skin Exam: Negative for jaundice or pallor MDM MDM MDM Narrative Medical decision making narrative: Differential diagnosis would include dementia, depression, pseudodementia due to depression, metabolic or infectious cause. Patient's urine from prior visit was a contaminated specimen and in my opinion was not a UTI. Since I do not believe patient can give an clean specimen straight cath was ordered. Spoke with Aleyda harrison social work for the ER and family. Plan is psychiatric admission to a [facility] facility unless there is a metabolic or infectious reason for her symptoms. Thyroid was obtained as well. 1 would expect her to be tachycardic and hyperreflexic and have GI symptoms of diarrhea and not constipation Since February 03 patient has lost 19 pounds. History & Record Review Discussion w/independent historian: Patient, Family and Significant other Additional record(s) reviewed:: Prior ED visit and Prior labs Lab Data Attestation: I reviewed the patient's lab results. Lab results narrative: CBC reveals mild anemia. H&H was 12.7 and 40.19 September 2022. Straight cath urinalysis macro is positive for a spec gravity 1.025, protein, ketones, occult blood with bili Owen and urobilinogen. Leukoesterase was negative as well as nitrites. [facility] metabolic panel is remarkable for BUN/creatinine ratio 26:1. BUN is 22 with a creatinine of 0.83. TSH is normal at 1.44. Labs: Laboratory Results - last 24 hr 03/06/24 03/06/24 03/06/24 15:15 15:20 17:25 WBC 6.0 RBC 3.74 L Hgb 11.8 L Hct 36.8 L MCV 98.4 MCH 31.6 MCHC 32.1 RDW Std Deviation 46.8 H RDW Coeff of Fuentes 12.9 Plt Count 230 MPV 9.3 Immature Gran % (Auto) 0.200 Neut % (Auto) 82.1 H Lymph % (Auto) 6.5 L [place] % (Auto) 10.6 H Eos % (Auto) 0.3 Baso % (Auto) 0.3 Absolute Neuts (auto) 5.0 Absolute Lymphs (auto) 0.39 L Nucleated RBC % 0 Sodium 137 Potassium 3.6 Chloride 104 Carbon Dioxide 25.0 Anion Gap 8 BUN 22 H Creatinine 0.83 Estim Creat Clear Calc 37.56 Est GFR (MDRD) Af Amer 86 Est GFR (MDRD) Non-Af 71 BUN/Creatinine Ratio 26.6 H Glucose 101 Calcium 9.8 Total Bilirubin 1.40 H AST 27 ALT 29 Alkaline Phosphatase 75 Total Protein 6.8 Albumin 3.3 Globulin 3.5 Albumin/Globulin Ratio 0.9 TSH 1.440 Urine Color Straw Urine Clarity Clear Urine pH 5.0 Ur Specific [place] 1.025 Urine Protein 30 H Urine Glucose (UA) Normal Urine Ketones 50 H Urine Occult Blood 25 H Urine Nitrite Negative Urine Bilirubin 1 H Urine Urobilinogen 4 H Ur Leukocyte Esterase Negative Urine RBC 5-10 SEEN Urine WBC 0-5 SEEN Ur Squamous Epith Cells 0-5 SEEN Calcium Oxalate Crystal 1+ Urine Bacteria 1+ Hyaline Casts 0-5 SEEN Urine Mucus 1+ Ethyl Alcohol < 3.0 Urine reveals bacteria however there is no pyuria. Leukoesterase and nitrites were negative. By definition patient has asymptomatic bacteremia and based on recent discussion at department meeting with pharmacist recommendation is no treatment. Radiography Diagnostic Testing: Clinical Impression(s) from Imaging Studies Brain CT 03/06/24 15:07 IMPRESSION: 1. No acute intracranial abnormality. 2. Senescent change with small vessel ischemia. Electronically Signed: Edi Roa MD at 16:19 EST , CT of the head without contrast reveals age-appropriate atrophy. There is no AMY sinus disease. There is no evidence of mass or mass effect. There is no obvious stroke noted either. Awaiting formal read by radiologist, [id number]. EKG Initial EKG: Attestation: I personally reviewed and interpreted this EKG as follows: Interpretation: Sinus Rhythm (Rate is 81. There is premature atrial beats other than the premature atrial beats the EKG is normal. NE interval is under 6 6 ms. History 70 ms. QT duration 368 ms. [place] is normal) Management Discussion w/another healthcare provider: open hearth worker/Case management (Consult placed to case management, Aleyda. Aleyda was made aware of my concerns. Aleyda informing that she was excepted into 2 different facilities however her insurance prohibited her from going to those institutions. She turned the case over to the crisis social media project manager to try other facilities. ) Treatment and Re-Evaluation Narrative: The night physician was made aware the patient since she will require admission and presently the licensed physical therapy assistant is working on disposition/placement. There is difficulty because of insurance issues. Discharge Plan Triage Chief Complaint: Anxiety ED Provider: Lucien Ramirez Dx/Rx/DC Orders Clinical Impression: Anxious depression, Hypertension, Hypothyroidism, Vitamin D deficiency, Vitamin B12 deficiency, Unintentional weight loss of more than 10 pounds, Paranoia Prescriptions: No Action lactobacillus combo no.13 [Probiotic Pearls Complete] 1 billion cell capsule,delayed release(DR/EC) 1 cap PO DAILY cholecalciferol (vitamin D3) 125 mcg (5,000 unit) capsule 125 mcg PO DAILY multivitamin Tablet 1 tab PO DAILY omega 0-pgp-ags-fish oil [Fish Oil] 300-1,000 mg capsule 1 cap PO DAILY selenium 25 mcg tablet 25 mcg PO DAILY propranolol 20 mg tablet 20 mg PO TID PRN (Reason: anxiety) cephalexin 500 mg capsule 500 mg PO Q6 7 Days Qty: 28 0RF (DME) Handicap Placard See Rx Instructions .Route .MEDSUPPLY Qty: 1 0RF Rx Instructions: As directed for medical reasons Duration 4 years Primary Care Provider: Naveed Martinez Referrals: Naveed Martinez DO [Primary Care Provider] - Print Language: Turkmen Disposition Disposition: Psychiatric Hospital or Unit
[2024-03-06 15:41] LABS: Color, Urine Straw (Yellow); Glucose, Dipstick Normal (Normal); Ketone-Dipstick 50 mg/dl (Negative); Leukocyte Esterase-Dipstick Negative /ul (Negative); Nitrite-Dipstick Negative (Negative); Occult Blood-Urine 25 /ul (Negative); Protein-Dipstick 30 mg/dl (Negative); Specific Gravity, Urine 1.025 (1.002-1.030); Urine Clarity Clear (Clear); Urine Urobilinogen 4 mg/dl (Normal)
[2024-03-06 15:42] LABS: Urine Bilirubin Dipstick 1 mg/dL (Negative)
[2024-03-06 15:52] LABS: ALB/GLOB Ratio 0.9 RATIO (0.9-2.4); AST(SGOT) 27 U/L (15-37); Alanine Aminotransfer ALT/SGPT 29 U/L (13-56); Albumin, Serum 3.3 g/dL (3.2-5.0); Alkaline Phosphatase 75 U/L (45-117); Anion Gap 8 (5-15); BUN 22 mg/dL (7-18); BUN/Creat Ratio 26.6 RATIO (10-20); Calcium,Total 9.8 mg/dL (8.5-10.1); Chloride 104 mmol/L (98-107); Creatinine, Serum 0.83 mg/dL (0.55-1.02); EST Glomerular Filtration Rate 71 mL/min (>60); Est Glom Filt Rate - Afr Amer 86 mL/min (>60); Estimated Creatinine Clearance 37.56 ml/min; Globulin 3.5 g/dL (2.2-4.2); Glucose 101 mg/dL (74-106); Potassium 3.6 mmol/L (3.5-5.1); Protein, Total 6.8 g/dL (6.4-8.2); Sodium Level 137 mmol/L (136-145)
[2024-03-06 16:18] LABS: Hyaline Cast 0-5 SEEN /lpf (0-5); Squamous Epithelial Cells - UA 0-5 SEEN /hpf (5-10); White Blood Cells 0-5 SEEN /hpf (0-5)
[2024-03-06 16:19] LABS: Bacteria 1+ /hpf (None Seen); Calcium Oxalate Crystals Ur 1+ /hpf (<or=2+); Mucous, Urine 1+ /hpf (<or=2+); Red Blood Cells-Urine 5-10 SEEN /hpf (0-5)
[2024-03-06 16:30] VITALS: BP 157/73; PULSE 75; RESP 25
[2024-03-06 17:00] VITALS: BP 156/79; PULSE 82; RESP 29
--- NOTE | 2024-03-06 17:44 | CM.ED ---
? Social Work Psychiatric Assessment Reason for consult: Anxiety Informant(s): ?patient, patients , patients daughter, and medical record Chief Complaint: ?patient presented to ED with and daughter.? states that patient has been in an increased anxious state for several months. and daughter report patient has never demonstrated this behavior and has never been diagnosed with any mental health disorders.? ? states that ?everything negatively affects her?, patient worries about things that are nonexistent, and redirection is ineffective.? Patient will become preoccupied with a certain worry and fixate on that problem for hours or days.? Patient had not been able to sleep more than a few hours a night and has not been eating regularly resulting in a 20 pound weight loss in three months. states she will only eat a few bites at time, patient reports to not having an appetite. Patient will wander in circles at times, has been unable to make basic decisions such as opening the door for her daughter because she ?wasn?t sure she should?.? ?Patient makes repetitive statements such as ?no,no,no? and ?don?t do it?. ?During the assessment, patient was unable to sit still, constantly fidgeting with the blanket or her clothes, making paranoid statements such as ?I don?t know if I should answer that, I don?t really know you?.? Patient is alert and oriented x 3.?? Marital/Social History: ? Living Situation: Lives with spouse Support/Resources: ? and daughter History: None Education and Employment History: ?patient graduated high school. Was gainfully employed outside the home until [employer]. Mental Health Treatment/History: patient was taken to [facility] last month for evaluation of her symptoms, was prescribed zoloft which family states has had no effect. Triggers/Stressors to mental health: Family report that patient had cataract surgery scheduled in December, since the appointment had been scheduled patient has shown a dramatic increase in anxious behaviors.? Coping Skills: patient reports not being able to calm her anxiety History of Abuse (physical/sexual/verbal/emotional): none Substance Abuse Current/Historical: none Risk to Self/Others: ? Suicidal (thought/plan/intent/attempt): none ? Access to Lethal Means: n/a ? Homicidal (thought/plan/intent/attempt): none ? History of Violence (self/others/objects): Mental Status Exam: none ?? Appearance/General Behavior: ?clean, agitated/restless Mood/Affect: ?anxious, elevated Communication Pattern: ?rapid, repetitive speech, unable to complete sentences Thought Process: ?paranoid, preoccupied General Intellectual Functioning:?? average Judgment: ?poor Insight: poor Plan? Due to patients dramatic increase in anxiety, inability to sleep, and significant weight loss, inpatient hospitalization is recommended for stabilization of symptoms.?? Discussed with physician who agrees with inpatient treatment. Aleyda Blackwood, BOOKING AGENT, HEAT SET OPERATOR
[2024-03-06 18:08] LABS: Alcohol, Blood (Medical)-Serum < 3.0 mg/dL
[2024-03-06 18:30] VITALS: BP 165/73; PULSE 84; RESP 27
--- NOTE | 2024-03-06 18:54 | CM.ED ---
Social Work Referral sent to [facility]. Plan: Inpatient psychiatric hospitalization pending acceptance. Aleyda Blackwood OUTSIDE SOLAR SALES CONSULTANT, PAPER STRIPPER
[2024-03-06 20:00] VITALS: BP 165/88; PULSE 83; RESP 30; O2SAT 95
--- NOTE | 2024-03-06 20:36 | CM.ED ---
Social Work [facility] unable to accept due to insurance. Referral sent to [facility]. Aleyda Blackwood, HOUSE WORKER GENERAL, MOBILE QA TESTER
--- NOTE | 2024-03-06 21:31 | CM.ED ---
Social Work Patient denied by [employer] due to insurance. Verbal handoff given to Nayeli at Crisis to continue working on placement, paperwork faxed. Aleyda Blackwood, MEDICAL SERVICE TECHNICIAN, PUBLIC WELFARE WORKER
[2024-03-06 22:00] VITALS: PULSE 67; RESP 26
[2024-03-06] MEDS: Zolpidem Tartrate 5 MG Tablet PO (22:05)
--- NOTE | 2024-03-06 22:07 | ED.RN ---
CHART FAXED TO SAFIA AT [facility]
[2024-03-07] VITALS: BP 145/68; PULSE 69; RESP 12; O2SAT 99
[2024-03-07 01:00] VITALS: RESP 14
[2024-03-07 01:50] VITALS: PULSE 59
[2024-03-07 03:00] VITALS: BP 136/91; PULSE 81; RESP 18; O2SAT 98
--- NOTE | 2024-03-07 03:50 | ED.RN ---
DECLINED FROM GENERATIONS, REFERRED TO [facility]
[2024-03-07 07:00] VITALS: PULSE 74; RESP 18; O2SAT 95
--- NOTE | 2024-03-07 07:30 | ED.RN ---
ALSO BEING REFERRED TO [facility]
--- NOTE | 2024-03-07 08:11 | ED.RN ---
ACCEPTED AT [facility] @[id number]
--- NOTE | 2024-03-07 08:15 | CM.ED ---
Social Work [place] slip faxed to [facility] Aleyda Blackwood, NUISANCE WILDLIFE CONTROL OPERATOR, PROJECT ASSISTANT
[2024-03-07 10:06] VITALS: BP 130/84; PULSE 80; RESP 16; TEMP 36.6; O2SAT 98
--- NOTE | 2024-03-07 10:14 | ED.RN ---
attempted to call report x 2. no answer
== END 2024-03-07 09:40 ==
PROVIDERS: Emergency Provider Emergency Medicine; Visit Provider Emergency Medicine
DX: F41.8 Other specified anxiety disorders (principal); F22 Delusional disorders; E55.9 Vitamin D deficiency, unspecified; E53.8 Deficiency of other specified B group vitamins; R63.4 Abnormal weight loss; D64.9 Anemia, unspecified; I49.1 Atrial premature depolarization; I10 Essential (primary) hypertension; E89.0 Postprocedural hypothyroidism; I34.0 Nonrheumatic mitral (valve) insufficiency; M79.7 Fibromyalgia; M81.0 Age-related osteoporosis without current pathological fracture; M17.12 Unilateral primary osteoarthritis, left knee; Z85.038 Personal history of other malignant neoplasm of large intestine
CPT/HCPCS: 70450; 80053; 81001; 82077; 84443; 85025; 93005; 99284; P9612

== ENCOUNTER 2024-04-23 09:34 | Emergency (ER) | payer MEDICARE, SELFPAY ==
[2024-04-23 09:34] VITALS: BP 129/91; PULSE 99; RESP 14; TEMP 36.8; O2SAT 97; BMI 18.1
--- NOTE | 2024-04-23 10:00 | ED.VIS.GI ---
HPI HPI - GI History of Present Illness Chief Complaint: Diarrhea Detail of Chief Complaint: Diarrhea and dehydration Informant: patient and family Narrative Narrative: Patient presents to the emergency department with complaint of diarrhea that she has had for more than 3 weeks. Her daughter states she was admitted to a psychiatric facility or in 3 weeks ago and they were given her Imodium while at the facility. Sometime in February she had a UTI and was treated with antibiotics. Patient continues to have frequent diarrhea and is receiving Imodium which is not helping her symptoms. Family's concerned about about dehydration. Patient denies significant abdominal discomfort just some occasional mild cramping. She denies any blood in her stool or black tarry stool. [facility] Medical History Hypothyroidism Hypertension Bilateral leg pain Depression Fibromyalgia Arthritis of left knee Osteoporosis History of colon cancer (2007) Cardiac murmur Tricuspid insufficiency Mitral insufficiency Home Medications ?Medication ?Instructions ?Recorded ?Last Taken ?Type lactobacillus combo no.13 1 1 cap PO DAILY 12/01/17 Unknown History billion cell capsule,delayed release (Probiotic Pearls Complete) cholecalciferol (vitamin D3) 125 125 mcg PO DAILY 01/21/20 Unknown History mcg (5,000 unit) capsule Handicap Placard #1 ea 11/12/20 Unknown Rx multivitamin 1 tab PO DAILY 12/06/21 Unknown History omega 5-ssw-gep-fish oil 300 1 cap PO DAILY 10/05/22 Unknown History mg-1,000 mg capsule (Fish Oil) propranolol 20 mg tablet 20 mg PO TID PRN anxiety 02/04/24 Unknown History bromfenac 0.075 % eye drops 1 drp ophthalmic (eye) DAILY 03/06/24 Unknown History (BromSite) hydroxyzine HCl 25 mg tablet 25 mg PO TID PRN PRN anxiety 03/06/24 Unknown History sertraline 25 mg tablet 25 mg PO DAILY 03/06/24 Unknown History Allergy/AdvReac Type Severity Reaction Status Date / Time amlodipine Allergy Severe anxiety Verified 04/23/24 09:34 meloxicam Allergy Severe weight gain Verified 04/23/24 09:34 pollen extracts Allergy Intermediate Rhinitis Verified 04/23/24 09:34 atenolol (From Tenoretic) Allergy Unknown Unknown Verified 04/23/24 09:34 chlorthalidone (From Allergy Unknown Unknown Verified 04/23/24 09:34 Tenoretic) ciprofloxacin AdvReac Severe joint pain Verified 04/23/24 09:34 pregabalin (From Lyrica) AdvReac Severe Tremors Verified 04/23/24 09:34 lisinopril AdvReac Intermediate cough Verified 04/23/24 09:34 indomethacin AdvReac Unknown unknown Verified 04/23/24 09:34 Family History Father Hypertension Heart disease Brother Hypertension Diabetes Mother Diabetes Heart disease Aunt Breast cancer Grandmother Breast cancer Surgical History History of partial thyroidectomy (2009) History of vaginal hysterectomy (1977) History of colon surgery (2007) Social History Smoking Status: Never smoker alcohol intake: never substance use type: does not use what type of physical activity do you participate in: walking frequency: daily ROS ROS ED Review of Systems ROS Unobtainable: other Constitutional Constitutional ED: Reports lethargy; Denies chills, fever(s), sweats or weight loss Eyes Eyes: Denies blurry vision, change in vision or diplopia ENT ENT ED: Denies rhinorrhea or sore throat Cardiovascular Cardiovascular: Denies chest pain, orthopnea or racing heartbeat Respiratory/Chest Respiratory/Chest: Denies cough, dyspnea, dyspnea on exertion, orthopnea or sputum Gastrointestinal Gastrointestinal: Reports abdominal pain and diarrhea; Denies nausea or vomiting Genitourinary Genitourinary ED: Denies dysuria, hematuria or urinary frequency Musculoskeletal Musculoskeletal: Denies arthralgias, back pain, myalgias or neck pain Integumentary Denies abscess, Abrasions or rash Neurologic Neurologic: Denies headache(s) or weakness Psychiatric Psychiatric: Denies anxiety, depression or suicidal thoughts Endocrine Endocrinology: Denies polydipsia, polyphagia or polyuria Hematologic/Lymphatic Hematologic/Lymphatic: Denies easy bleeding, easy bruising or lymphadenopathy Allergic/Immunologic Allergic/Immunologic ED: Denies mouth swelling, tongue swelling or urticaria EXAM Physical Exam Const Vital Signs: 04/23/24 09:34 Temperature 98.2 F Temperature Source Oral Pulse Rate 99 Respiratory Rate 14 Blood Pressure 129/91 H Blood Pressure Mean 103 Pulse Ox 97 Oxygen Delivery Method Room Air Positive well nourished and well developed General Appearance ED: well developed and NAD HEENT Reports TM's clear and dry mucous membranes normocephalic and atraumatic; Negative for trauma or tenderness Tympanic Membrane ED: Yes TM's clear Mouth ED: Yes dry mucous membranes Mouth: dry mucous membranes Eyes PERRL and EOMs intact bilaterally General Eye ED: Negative for pale conjunctiva or scleral icterus Neck no lymphadenopathy, supple and no JVD General: Negative for tenderness Chest Wall inspection of chest normal and palpation of chest normal Chest: Negative for tenderness Resp normal respiratory effort and clear to auscultation bilaterally Effort and Inspection: Negative for respiratory distress or pain with movement Auscultation: Negative for rhonchi, wheezes or diminished lung sounds Cardio regular rate, regular rhythm, S1 normal heart sound, S2 normal heart sound and no murmurs Peripheral Pulses: pulses 2+ throughout GI soft to palpation, non-tender, non-distended and no masses; Negative for normal to inspection, nondistended, normoactive bowel sounds GI Narrative: Hyperactive bowel sounds Back/Spine no CVA tenderness and no thoracic nor lumbar tenderness Extremity normal to inspection General Extremety ED: Negative for edema General Extremity: Negative for edema Neuro oriented x3, CN's II-XII intact bilaterally, no sensory deficits noted and gait normal Sensorium / Orientation: awake, alert, oriented to person, oriented to place and oriented to time Motor Exam: strength 5/5 throughout and strength abnormal Psych mental status grossly normal Skin no rashes or lesions noted and no wounds MDM MDM MDM Narrative Medical decision making narrative: Patient presents to the emergency department with more than 3 weeks worth of diarrhea. Had been on antibiotics for UTI prior. In the differential would be enteric pathogen versus C. difficile. IV line established. She was given a liter normal same fluid bolus. CBC with differential obtained showed a normal white count of 6.7 with hemoglobin 11.6 and platelet count of 197. Chemistries unremarkable. Lactate was normal at 1.0. I did order stool for C. difficile as well as enteric pathogen's. She was able to give a very small sample of stool but it was formed and not watery or diarrhea-like. She did receive a liter fluid bolus. Clinically she looks well. I do not believe any imaging is indicated as her abdominal exam is benign and she is not complaining of abdominal pain. Also has unremarkable lab workup. I will refer to a GI for follow-up for possible further testing Lab Data Attestation: I reviewed the patient's lab results. Labs: Laboratory Results - last 24 hr 04/23/24 10:15 WBC 6.7 RBC 3.72 L Hgb 11.6 L Hct 38.0 MCV 102.2 H MCH 31.2 MCHC 30.5 L RDW Std Deviation 53.6 H RDW Coeff of Fuentes 14.2 Plt Count 197 MPV 9.3 Immature Gran % (Auto) 0.300 Neut % (Auto) 84.5 H Lymph % (Auto) 6.6 L [place] % (Auto) 7.6 Eos % (Auto) 0.7 Baso % (Auto) 0.3 Absolute Neuts (auto) 5.7 Absolute Lymphs (auto) 0.44 L Nucleated RBC % 0 Sodium 144 Potassium 3.9 Chloride 110 H Carbon Dioxide 27.0 Anion Gap 7 BUN 22 H Creatinine 0.83 Estim Creat Clear Calc 38.40 Est GFR (MDRD) Af Amer 85 Est GFR (MDRD) Non-Af 71 BUN/Creatinine Ratio 26.5 H Glucose 89 Lactic Acid 1.0 Calcium 9.2 Total Bilirubin 0.90 AST 15 ALT 15 Alkaline Phosphatase 66 Total Protein 6.6 Albumin 3.1 L Globulin 3.5 Albumin/Globulin Ratio 0.9 Discharge Plan Triage Chief Complaint: Diarrhea ED Provider: Jose M Contreras Dx/Rx/DC Orders Clinical Impression: Diarrhea Instructions: ED Diarrhea, Unknown Cause Prescriptions: No Action lactobacillus combo no.13 [Probiotic Pearls Complete] 1 billion cell capsule,delayed release(DR/EC) 1 cap PO DAILY cholecalciferol (vitamin D3) 125 mcg (5,000 unit) capsule 125 mcg PO DAILY multivitamin Tablet 1 tab PO DAILY omega 2-ukw-yzt-fish oil [Fish Oil] 300-1,000 mg capsule 1 cap PO DAILY propranolol 20 mg tablet 20 mg PO TID PRN (Reason: anxiety) sertraline 25 mg tablet 25 mg PO DAILY hydroxyzine HCl 25 mg tablet 25 mg PO TID PRN PRN (Reason: anxiety) bromfenac [BromSite] 0.075 % drops 1 drp ophthalmic (eye) DAILY (DME) Handicap Placard See Rx Instructions .Route .MEDSUPPLY Qty: 1 0RF Rx Instructions: As directed for medical reasons Duration 4 years Primary Care Provider: Naveed Martinez Referrals: Mulugeta Peterson DO [Med Staff - Active Staff] - 3-5 Days Naveed Martinez DO [Primary Care Provider] - Print Language: Iraqi Disposition Disposition: Home, Self Care
[2024-04-23] MEDS: 0.9% Normal Saline (1000mL) 1,000 ML 999 ML IV (10:22)
[2024-04-23 10:35] LABS: Absolute Lymphocyte Count 0.44 X10^3/uL (0.83-4.51); Absolute Neutrophil Count 5.7 X10^3/uL (2.0-7.7); Basophil# 0.02 X10^3/uL; Basophil% 0.3 % (0-1); Eosinophil# 0.05 X10^3/uL; Eosinophils% 0.7 % (0-5); Hemoglobin 11.6 g/dL (12.0-15.0); Lymphocyte # 0.44 X10^3/ul (0.83-4.51); Lymphocyte % 6.6 % (19-41); Mean Corp Hgb Conc 30.5 g/dL (32-36); Mean Corpuscular Hgb 31.2 pg (27.0-32.0); Mean Corpuscular Volume 102.2 fL (81-99); Mean Platelet Vol. 9.3 fl (6.2-12.0); Monocyte# 0.51 X10^3/uL; Monocyte% 7.6 % (0-10); NRBC Flagged by Analyzer 0 % (0-5); Neutrophil # 5.65 X10^3/uL (2.7-7.7); Neutrophil % 84.5 % (47-70); POSITIVE DIFFERENTIAL YES; Platelet Count 197 K/mm3 (150-450); RBC Distribution Width CV 14.2 % (11.6-14.6); RBC Distribution Width SD 53.6 fl (35.1-43.9); Red Blood Count 3.72 M/mm3 (4.2-5.4); White Blood Count 6.7 K/mm3 (4.4-11.0)
[2024-04-23 10:58] LABS: ALB/GLOB Ratio 0.9 RATIO (0.9-2.4); AST(SGOT) 15 U/L (15-37); Alanine Aminotransfer ALT/SGPT 15 U/L (13-56); Albumin, Serum 3.1 g/dL (3.2-5.0); Alkaline Phosphatase 66 U/L (45-117); Anion Gap 7 (5-15); BUN 22 mg/dL (7-18); BUN/Creat Ratio 26.5 RATIO (10-20); Calcium,Total 9.2 mg/dL (8.5-10.1); Chloride 110 mmol/L (98-107); Creatinine, Serum 0.83 mg/dL (0.55-1.02); EST Glomerular Filtration Rate 71 mL/min (>60); Est Glom Filt Rate - Afr Amer 85 mL/min (>60); Globulin 3.5 g/dL (2.2-4.2); Glucose 89 mg/dL (74-106); Potassium 3.9 mmol/L (3.5-5.1); Protein, Total 6.6 g/dL (6.4-8.2); Sodium Level 144 mmol/L (136-145)
[2024-04-23 11:38] VITALS: BP 123/89; BP 124/87; BP 128/90; PULSE 87; PULSE 90; PULSE 92
--- NOTE | 2024-04-23 14:10 | CM.ED ---
Social Work SW met with patients daughter to follow up from last visit where patient had been placed for psychiatric care. Daughter stated that patient had been doing very well until the last few weeks when she began to have chronic diarrhea. Daughter stated that patients mental health had been much improved and they were hoping to get her physically well. Emotional support provided. Aleyda Blackwood, MANAGER HOME, CERTIFIED RESIDENTIAL MEDICATION AIDE
== END 2024-04-23 11:40 | disposition home or self-care (01) ==
PROVIDERS: Emergency Provider Emergency Medicine; Visit Provider Emergency Medicine
DX: R19.7 Diarrhea, unspecified (principal); I10 Essential (primary) hypertension; F32.A Depression, unspecified; I34.0 Nonrheumatic mitral (valve) insufficiency; M79.7 Fibromyalgia; M81.0 Age-related osteoporosis without current pathological fracture; Z88.1 Allergy status to other antibiotic agents; Z85.038 Personal history of other malignant neoplasm of large intestine; Z87.440 Personal history of urinary (tract) infections; Z79.899 Other long term (current) drug therapy
CPT/HCPCS: 80053; 83605; 85025; 87493; 87506; 96360; 99284; A4216

== ENCOUNTER 2024-06-14 09:11 | Inpatient (IN) | payer MEDICARE, SELFPAY ==
[2024-06-14] VITALS (7 sets, daily range): BP systolic 128–164; BP diastolic 62–88; PULSE 57–65; RESP 16–20; TEMP 36.4–37.1; O2SAT 98–100; BMI 17.4; BMI 16.7
--- NOTE | 2024-06-14 09:50 | EKG12_ITS ---
Test Reason : WEAKNESS Blood Pressure : */* mmHG Vent. Rate : 57 BPM Atrial Rate : 57 BPM P-R Int : 192 ms QRS Dur : 86 ms QT Int : 428 ms P-R-T Axes : 66 31 53 degrees QTcB Int : 416 ms Sinus bradycardia Otherwise normal ECG Confirmed by ZION TURNER, ANGELIA ([id number]), marketing editor KELLY GRAYSON ([id number]) on 06/17/2024 9:15:33 AM Referred By: Confirmed By: ANGELIA DONOVAN MD
--- NOTE | 2024-06-14 10:30 | RAD_ITS ---
PROCEDURE: CHEST 1 VIEW (PORTABLE) 06/14/2024 REASON FOR EXAM: SOB TECHNIQUE: Frontal view of the chest. COMPARISON: None FINDINGS: There is minimal hazy airspace opacity in the right lung base laterally, possibly due to early pneumonia. No pleural effusion or pneumothorax. The cardiac silhouette is enlarged. The thoracic aorta is tortuous. No acute osseous or soft tissue abnormality. A surgical clip is noted at the right lower neck. RAD/Chest 1 View (Portable) IMPRESSION: 1. Trace right lung base airspace disease, possibly due to early pneumonia. Reading Location: [facility]
[2024-06-14 10:42] LABS: Absolute Lymphocyte Count 0.43 X10^3/uL (0.83-4.51); Basophil# 0.02 X10^3/uL; Basophil% 0.3 % (0-1); Eosinophil# 0.07 X10^3/uL; Eosinophils% 1.2 % (0-5); Hematocrit 38.3 % (37-47); Hemoglobin 12.2 g/dL (12.0-15.0); Lymphocyte # 0.43 X10^3/ul (0.83-4.51); Lymphocyte % 7.3 % (19-41); Mean Corp Hgb Conc 31.9 g/dL (32-36); Mean Corpuscular Volume 100.5 fL (81-99); Mean Platelet Vol. 9.3 fl (6.2-12.0); Monocyte# 0.42 X10^3/uL; Monocyte% 7.1 % (0-10); NRBC Flagged by Analyzer 0 % (0-5); Neutrophil # 4.95 X10^3/uL (2.7-7.7); Neutrophil % 83.8 % (47-70); POSITIVE DIFFERENTIAL YES; Platelet Count 138 K/mm3 (150-450); RBC Distribution Width CV 14.2 % (11.6-14.6); RBC Distribution Width SD 53.1 fl (35.1-43.9); Red Blood Count 3.81 M/mm3 (4.2-5.4); White Blood Count 5.9 K/mm3 (4.4-11.0)
[2024-06-14] MEDS: Fluconazole IVPB 200 MG/100 ML BAG 100 MG IV (10:48)
[2024-06-14] MEDS: Ondansetron 4 MG/2 ML Vial IV (10:48)
[2024-06-14] MEDS: 0.9% Normal Saline (1000mL) 1,000 ML 1000 ML IV (10:48)
--- NOTE | 2024-06-14 10:59 | EDS_ITS ---
HPI History of Present Illness Chief Complaint: Weakness Narrative Narrative: Patient is a 78-year-old female who is presenting to the ER today with chief complaint of oral thrush this been in her mouth since Monday, and therefore is causing patient not able to eat, drink. There is concern for dehydration, patient is talking quieter than she normally does. Patient is at bedside. He has frustration because he cannot take care of her at home currently, patient did see the PCP office on Monday. Patient was placed on chlorhexidine mouthwash along with nystatin swish and swallow. Patient states that she cannot use the nystatin swish or swallow or the chlorhexidine secondary to it burning in her mouth. There is an effort component to this as well per . Patient did weigh over 120 pounds prior to the recent holidays or Liz. Now patient weighs approximately 80 pounds. Patient was in a psychiatric facility in [place] for over a month in March secondary anxiety and other mental health issues. Patient has been declining at home since. Patient did have diarrhea when she was discharged in psychiatric facility in March, that did slow down and eventually stopped. Patient had loose stool today. Patient is incontinent of stool, she can urinate on her own. Patient is very frail. Patient came in by EMS. Patient does have moderate amount of thrush on her tongue. You can barely hear patient speak secondary to her effort. There is some noted to the posterior pharynx as well. [facility] Medical History Hypothyroidism Hypertension Bilateral leg pain Depression Fibromyalgia Arthritis of left knee Osteoporosis History of colon cancer (2007) Cardiac murmur Tricuspid insufficiency Mitral insufficiency Home Medications ?Medication ?Instructions ?Recorded ?Last Taken ?Type lactobacillus combo no.13 1 1 cap PO DAILY 12/01/17 Un known History billion cell capsule,delayed release (Probiotic Pearls Complete) Handicap Placard #1 ea 11/12/20 Unknown Rx multivitamin 1 tab PO DAILY 12/06/21 Unkn own History omega 6-cxt-ptc-fish oil 300 1 cap PO DAILY 10/05/22 U nknown History mg-1,000 mg capsule (Fish Oil) chlorhexidine gluconate 0.12 % 1 applic mucous membran e QHS 06/14/24 Unknown History mouthwash dentures lorazepam 1 mg tablet 1 mg PO TID 06/14/2406/13/ 5 History mirtazapine 45 mg tablet 45 mg PO QHS 06/14/24 History nystatin 100,000 unit/mL oral 5 ml PO 4X/DAY 06/14/24 06/13/24 History suspension olanzapine 5 mg tablet 2.5 - 5 mg PO DAILY 06/14/24 Unknown History Allergy/AdvReac Type Severity Reaction Status Date / Time amlodipine Allergy Severe anxiety Verified 04/23/24 09:34 meloxicam Allergy Severe weight gain Verified 04/23/24 09:34 pollen extracts Allergy Intermediate Rhinitis Verified 04/23/24 09:34 atenolol (From Tenoretic) Allergy Unknown Unknown Verified 04/23/24 09:34 chlorthalidone (From Allergy Unknown Unknown Verified 04/23/24 09:34 Tenoretic) ciprofloxacin AdvReac Severe joint pain Verified 04/23/24 09:34 pregabalin (From Lyrica) AdvReac Severe Tremors Verified 04/23/24 09:34 lisinopril AdvReac Intermediate cough Verified 04/23/24 09:34 indomethacin AdvReac Unknown unknown Verified 04/23/24 09:34 Family History Father Hypertension Heart disease Brother Hypertension Diabetes Mother Diabetes Heart disease Aunt Breast cancer Grandmother Breast cancer Surgical History History of partial thyroidectomy (2009) History of vaginal hysterectomy (1977) History of colon surgery (2007) Social History Smoking Status: Never smoker alcohol intake: never substance use type: does not use what type of physical activity do you participate in: walking frequency: daily ROS ROS ED ROS Narrative REVIEW OF SYSTEMS: Unless otherwise stated in this report the patient's positive and negative responses for review of systems for constitutional, eyes, ENT, cardiovascular, respiratory, gastrointestinal, neurological, , musculoskeletal, and integument systems and related systems to the presenting problem are either stated in the history of present illness or were not pertinent or were negative for the symptoms and/or complaints related to the presenting medical problem. EXAM Physical Exam Narrative Exam Narrative: Vital signs reviewed and patient is not hypoxic. Patient is cachectic in appearance, this has been going on since March, not new or acute. General: The patient appears mild distress secondary to week, poor effort inREVIEW OF SYSTEMS: Unless otherwise stated in this report the patient's positive and negative responses for review of systems for constitutional, eyes, ENT, cardiovascular, respiratory, gastrointestinal, neurological, , musculoskeletal, and integument systems and related systems to the presenting problem are either stated in the history of present illness or were not p ertinent or were negative for the symptoms and/or complaints related to the presenting medical problem. speaking, sick but not toxic. Patient is resting uncomfortably on cart. No trismus. Not toxic, lethargic, or listless. Skin: Warm, dry, no pallor noted. There is no rash noted. Head: Normocephalic, atraumatic. Eye: Normal conjunctiva, no drainage, EOMI. PERRL. Ears, Nose, Mouth, and Throat: oral mucosa is dry, patient has thick oral thrush noted to tongue, not able to be scraped off. No signs of thrush to her buccal mucosa bilateral referral mild, mild thrush noted to the posterior pharynx. No other signs of intraoral infection, no signs of Lupillo angina. Nares patent. Mouth without vesicles. Cardiovascular: Regular Rate and Rhythm, no murmurs, gallops, or rubs Respiratory: Patient is in no distress, no accessory muscle use, lungs are clear to auscultation, no wheezing, rales or rhonchi Back: non-tender, no CVA tenderness bilaterally to percussion. NO CTLS midline or paraspinal tenderness to palpation. GI: Soft, no tenderness to palpation, no masses appreciated. No rebound, guarding, or rigidity noted. Musculoskeletal: The patient has full range of motion of all extremities and joints with no difficulty. Patient has no motor, no sensory deficits. Neurological: A&O x4, extremely soft spoken normal speech, no focal neurological deficits. Psychiatric: Cooperative Const Vital Signs: 06/14/24 09:11 06/14/24 09:44 06/14/24 10:15 Temperature 97.6 F L 97.6 F L Temperature Source Oral Oral Pulse Rate 62 57 L Respiratory Rate 16 16 Respiratory Effort Normal Respiratory Pattern Normal Blood Pressure 158/63 H 131/88 H Blood Pressure Mean 94 102 Pulse Ox 98 98 Oxygen Delivery Method Room Air Room Air 06/14/24 11:00 06/14/24 11:23 Temperature 97.8 F 97.8 F Temperature Source Axillary Axillary Pulse Rate 61 58 L Respiratory Rate 16 16 Respiratory Effort Respiratory Pattern Blood Pressure 136/64 H 128/62 H Blood Pressure Mean 88 84 Pulse Ox 99 99 Oxygen Delivery Method Room Air Room Air MDM MDM MDM Narrative Medical decision making narrative: Patient seen and examined: Decreased oral intake, oral thrush. Patient had IV, IV fluids given, IV Diflucan was given. Patient has chlorhexidine and her nystatin swish and swallow at bedside. Differential diagnosis includes but is not limited to: Oral thrush, decreased oral intake, electrolyte abnormality, dehydration, depression Relevant laboratory interpretation: Patient CO2 level was 17. Anion gap normal. Patient the pain and creatinine were 19/0.79. Patient has evidence of malnourishment, protein and albumin levels were low. Radiological studies: Chest x-ray shows no acute cardiopulmonary disease, no f iltrate, no effusion. Reevaluation: Social barriers to healthcare: There are no food insecurities, there is no issue with transportation, there are no insurance barriers After patient had been here about an hour, patient blood sugar was in the 50s. Patient was given IV Diflucan. Patient attempted to give her oral nystatin swish and swallow, patient does not tolerate it well, will spit most of it out. Patient drink minimal orange juice. Patient has a lack of effort as well to drink and appear to help herself. Patient was started on a dextrose drip. Patient will be admitted. Patient was seen and evaluated in the ER by hospitalist, Dr. Rahman. Patient is aware of this and agrees. agrees. Patient will need PT, OT, possible placement in rehab. Disposition: Admit 1210PM to Dr Rahman Diagnosis: Lab Data Attestation: I reviewed the patient's lab results. Labs: Laboratory Results - last 24 hr 06/14/24 06/14/24 10:30 11:28 WBC 5.9 RBC 3.81 L Hgb 12.2 Hct 38.3 MCV 100.5 H MCH 32.0 MCHC 31.9 L RDW Std Deviation 53.1 H RDW Coeff of Fuentes 14.2 Plt Count 138 L MPV 9.3 Immature Gran % (Auto) 0.300 Neut % (Auto) 83.8 H Lymph % (Auto) 7.3 L [place] % (Auto) 7.1 Eos % (Auto) 1.2 Baso % (Auto) 0.3 Absolute Neuts (auto) 5.0 Absolute Lymphs (auto) 0.43 L Nucleated RBC % 0 Sodium 140 Potassium 4.3 Chloride 107 Carbon Dioxide 17.6 L Anion Gap 15 BUN 19 Creatinine 0.79 Estim Creat Clear Calc 38.34 L Est GFR (MDRD) Non-Af 77 BUN/Creatinine Ratio 24.6 H Glucose 69 L Calcium 9.4 Total Bilirubin 0.54 AST 19 ALT < 5 Alkaline Phosphatase 74 Troponin T High Sens 13 Total Protein 5.3 L Albumin 3.2 L Globulin 2.0 L Albumin/Globulin Ratio 1.6 Lipase 19 POC Glucose 50 L Radiography Chest X-Ray - ED: Read by ED Physician (Chest x-ray shows no acute cardiopulmonary disease, no filtrate, no effusion.) Diagnostic Testing: Clinical Impression(s) from Imaging Studies Chest X-Ray 06/14/24 10:30 IMPRESSION: 1. Trace right lung base airspace disease, possibly due to early pneumonia. Reading Location: [facility] EKG Initial EKG: Attestation: I personally reviewed and interpreted this EKG as follows: (Normal sinus rhythm, no acute ectopy.) Discharge Plan Dx/Rx/DC Orders Clinical Impression: Candidiasis of mouth, Dysphagia, Hypoglycemia Disposition Disposition: Acute Care Hospital [facility] Discharge Date/Time: 06/14/24 12:44
[2024-06-14 11:07] LABS: Lipase 19 U/L (13-75)
[2024-06-14 11:15] LABS: ALB/GLOB Ratio 1.6 RATIO (0.9-2.4); AST(SGOT) 19 U/L (<=31); Alanine Aminotransfer ALT/SGPT < 5 U/L (<=34); Albumin, Serum 3.2 g/dL (3.4-4.8); Alkaline Phosphatase 74 U/L (35-104); Anion Gap 15 (5-15); BUN 19 mg/dL (4-19); BUN/Creat Ratio 24.6 RATIO (10-20); Calcium,Total 9.4 mg/dL (7.6-11.0); Carbon Dioxide 17.6 mmol/L (21.0-32.0); Chloride 107 mmol/L (98-108); Creatinine, Serum 0.79 mg/dL (0.70-1.20); EST Glomerular Filtration Rate 77 (>60); Estimated Creatinine Clearance 38.34 ml/min (50-250); Glucose 69 mg/dL (70-99); Potassium 4.3 mmol/L (3.3-5.1); Protein, Total 5.3 g/dL (5.9-8.4); Sodium Level 140 mmol/L (133-145); Total Bilirubin 0.54 mg/dL (0.00-1.30)
[2024-06-14 11:43] LABS: Troponin T High Sensitivity 13 ng/L (<=14)
[2024-06-14 11:47] LABS: Bedside Glucose 50 mg/dL (74-106)
--- NOTE | 2024-06-14 11:51 | ED.RN ---
DR VENCES ADVISED THIS NURSE TO HAVE PT USE HER HOME MED OF NYSTATIN TO COAT THE MOUTH AND SWALLOW. PTS BS IS 50 AND WE WANT HER TO DRINK JIUCE TO RAISE HER BS. PT HAS BEEN REFUSING TO EAT OR DRINK D/T THE PAIN OF THE THRUSH IN HER MOUTH. PT USED HER HOME NYSTATIN AND CURRENTLY TRYING SMALL SIP OF JUICE.
--- NOTE | 2024-06-14 12:22 | PCM.HP.STD ---
HPI - General General Date of Service: 06/14/24 Chief Complaint: Debility. Decreased oral intake. HPI Narrative SHABNAM CANO, is a 78 F who presents presents due to weakness. Patient is a poor historian so history is obtained through the emergency room physician. Patient has been at home and recent diagnosed with thrush and was ordered nystatin but she has not been able to take it because her mouth is so sore. So she presented to the emergency room where she clearly had thrush involving her tongue and oropharynx. She received a dose of 20 mg of IV fluconazole. Is also noted that her blood sugar was low at 50. The try to give her juice but she refused it because of her mouth being sore so she received a bolus of D5 500 cc. Patient also been very debilitated and the has been no longer able to care for her because she is so weak. [facility] Medical History Hypothyroidism Hypertension Bilateral leg pain Depression Fibromyalgia Arthritis of left knee Osteoporosis History of colon cancer (2007) Cardiac murmur Tricuspid insufficiency Mitral insufficiency Home Medications ?Medication ?Instructions ?Recorded ?Last Taken ?Type lactobacillus combo no.13 1 1 cap PO DAILY 12/01/17 Unknown History billion cell capsule,delayed release (Probiotic Pearls Complete) Handicap Placard #1 ea 11/12/20 Unknown Rx multivitamin 1 tab PO DAILY 12/06/21 Unknown History omega [id number]-acz-[id number]-fish oil 300 1 cap PO DAILY 10/05/22 Unknown History mg-1,000 mg capsule (Fish Oil) chlorhexidine gluconate 0.12 % 1 applic QHS dentures 06/14/24 Unknown History mouthwash lorazepam 1 mg tablet 1 mg PO TID 06/14/24 06/13/24 History mirtazapine 45 mg tablet 45 mg PO QHS 06/14/24 06/13/24 History nystatin 100,000 unit/mL oral 5 ml PO 4X/DAY 06/14/24 06/13/24 History suspension olanzapine 5 mg tablet 2.5 - 5 mg PO DAILY 06/14/24 Unknown History Allergy/AdvReac Type Severity Reaction Status Date / Time amlodipine Allergy Severe anxiety Verified 04/23/24 09:34 meloxicam Allergy Severe weight gain Verified 04/23/24 09:34 pollen extracts Allergy Intermediate Rhinitis Verified 04/23/24 09:34 atenolol (From Tenoretic) Allergy Unknown Unknown Verified 04/23/24 09:34 chlorthalidone (From Allergy Unknown Unknown Verified 04/23/24 09:34 Tenoretic) ciprofloxacin AdvReac Severe joint pain Verified 04/23/24 09:34 pregabalin (From Lyrica) AdvReac Severe Tremors Verified 04/23/24 09:34 lisinopril AdvReac Intermediate cough Verified 04/23/24 09:34 indomethacin AdvReac Unknown unknown Verified 04/23/24 09:34 Family History Father Hypertension Heart disease Brother Hypertension Diabetes Mother Diabetes Heart disease Aunt Breast cancer Grandmother Breast cancer Surgical History History of partial thyroidectomy (2009) History of vaginal hysterectomy (1977) History of colon surgery (2007) Social History Smoking Status: Never smoker alcohol intake: never substance use type: does not use what type of physical activity do you participate in: walking frequency: daily ROS ROS Narrative Unable to adequately obtain as the patient is just very weak and not able to effectively answer questions because of her weak voice. Vital Signs Vital Signs Vital Signs: 06/14/24 09:11 06/14/24 09:44 06/14/24 10:15 Temperature 36.4 C L 36.4 C L Temperature Source Oral Oral Pulse Rate 62 57 L Respiratory Rate 16 16 Respiratory Effort Normal Respiratory Pattern Normal Blood Pressure 158/63 H 131/88 H Blood Pressure Mean 94 102 Pulse Ox 98 98 Oxygen Delivery Method Room Air Room Air 06/14/24 11:00 06/14/24 11:23 Temperature 36.6 C 36.6 C Temperature Source Axillary Axillary Pulse Rate 61 58 L Respiratory Rate 16 16 Respiratory Effort Respiratory Pattern Blood Pressure 136/64 H 128/62 H Blood Pressure Mean 88 84 Pulse Ox 99 99 Oxygen Delivery Method Room Air Room Air Weight Weight: 41.9 kg Body Mass Index (BMI) 17.4 Physical Exam Const Constitutional Narrative: Cachectic. Afebrile. HEENT normocephalic, head/scalp atraumatic, hearing grossly normal bilaterally and moist oral mucous membranes HEENT Narrative: Marked thrush involving her tongue and oropharynx. Resp normal respiratory effort, no retractions, no use of accessory muscles and clear to auscultation bilaterally Cardio regular rate, regular rhythm, S1 normal heart sound and S2 normal heart sound GI normal to inspection, nondistended, normoactive bowel sounds, soft to palpation, non-tender and non-distended Extremity normal to inspection Neuro Sensorium / Orientation: awake and alert Results Lab / Micro Data 06/14/24 10:30 06/14/24 10:30 Labs: Laboratory Results - last 24 hr 06/14/24 10:30: WBC 5.9, RBC 3.81 L, Hgb 12.2, Hct 38.3, MCV 100.5 H, MCH 32.0, MCHC 31.9 L, RDW Std Deviation 53.1 H, RDW Coeff of Fuentes 14.2, Plt Count 138 L, MPV 9.3, Immature Gran % (Auto) 0.300, Neut % (Auto) 83.8 H, Lymph % (Auto) 7.3 L, Christian % (Auto) 7.1, Eos % (Auto) 1.2, Baso % (Auto) 0.3, Absolute Neuts (auto) 5.0, Absolute Lymphs (auto) 0.43 L, Nucleated RBC % 0, Sodium 140, Potassium 4.3, Chloride 107, Carbon Dioxide 17.6 L, Anion Gap 15, BUN 19, Creatinine 0.79, Estim Creat Clear Calc 38.34 L, Est GFR (MDRD) Non-Af 77, BUN/Creatinine Ratio 24.6 H, Glucose 69 L, Calcium 9.4, Total Bilirubin 0.54, AST 19, ALT < 5, Alkaline Phosphatase 74, Troponin T High Sens 13, Total Protein 5.3 L, Albumin 3.2 L, Globulin 2.0 L, Albumin/Globulin Ratio 1.6, Lipase 19 06/14/24 11:28: POC Glucose 50 L Imaging Radiology Impression Chest X-Ray 06/14/24 10:30 IMPRESSION: 1. Trace right lung base airspace disease, possibly due to early pneumonia. Reading Location: [facility] Assessment & Plan Assessment/Plan (1) Thrush: PLAN: Unclear if she has been on antibiotics as contributed to this but patient has not been able to take her nystatin. Very marked. Patient unable to take any oral right now due to the thrush and likely due to lack of trying as well. Will add viscous lidocaine if the patient would permit that would be very concerned that she may not even want to try that. Continue with IV fluconazole for now. Transition over to oral when she is able. Continue the nystatin swish and swallow as the patient permits. (2) Hypoglycemia: PLAN: Does not appear to be symptomatic but concerning because she has not been eating much that this could continued to worsen. Patient received bolus of 500 cc of D5. Will give her another liter of D5 half-normal saline and monitor. (3) Debility: PLAN: Likely multifactorial due to progressive weight loss. PT OT evaluate and treat. Case management to assist on disposition. (4) Severe protein-calorie malnutrition: PLAN: Unclear if this is due to thrush or thrush is somehow related with her being immunocompromise due to severe nutritional deficiency. I will consult nutrition for recommendations. Would avoid putting in NG tube as she would likely not tolerate at all. And additionally not can for TPN as her gut works. PLAN: Plan Psychiatric history: Continue with olanzapine. Complicates care and recovery. Will determine during course of her hospitalization if she is a further risk to herself and that it if she would need a psychiatric facility. It is unclear at this time. VTE prophylaxis with enoxaparin Charges/Coding Visit Charges Inpatient E&M: 47003 Init Hosp L3
[2024-06-14 13:14] LABS: Troponin T High Sens 2 HR 13 ng/L (<=14)
[2024-06-14] MEDS: Dext 5%-0.45% NS 1,000 ML 125 ML IV (13:44)
[2024-06-14] MEDS: Lidocaine 2% Viscous15 ML UDC 5 ML PO (13:50)
[2024-06-14] MEDS: NYSTATIN 500,000 UNIT/5 ML UDC 500000 UNIT PO ×3 (13:50→22:31)
[2024-06-14 15:38] LABS: Troponin T High Sens 4 HR 12 ng/L (<=14)
[2024-06-15 04:08] VITALS: BP 136/71; PULSE 68; RESP 16; TEMP 37.1; O2SAT 96
[2024-06-15 05:54] LABS: ALB/GLOB Ratio 1.4 RATIO (0.9-2.4); AST(SGOT) 15 U/L (<=31); Alanine Aminotransfer ALT/SGPT < 5 U/L (<=34); Albumin, Serum 3.1 g/dL (3.4-4.8); Alkaline Phosphatase 70 U/L (35-104); Anion Gap 10 (5-15); BUN 13 mg/dL (4-19); BUN/Creat Ratio 16.4 RATIO (10-20); Calcium,Total 9.1 mg/dL (7.6-11.0); Carbon Dioxide 22.2 mmol/L (21.0-32.0); Chloride 106 mmol/L (98-108); Creatinine, Serum 0.76 mg/dL (0.70-1.20); EST Glomerular Filtration Rate 80 (>60); Estimated Creatinine Clearance 36.73 ml/min (50-250); Globulin 2.2 g/dL (2.2-4.2); Glucose 78 mg/dL (70-99); Potassium 3.7 mmol/L (3.3-5.1); Protein, Total 5.3 g/dL (5.9-8.4); Sodium Level 139 mmol/L (133-145); Total Bilirubin 0.53 mg/dL (0.00-1.30)
--- NOTE | 2024-06-15 07:19 | PN.HOSP_ITS ---
Reason for Visit Reason for Visit: Diagnoses Candidal stomatitis (06/14/24) Hypoglycemia, unspecified (06/14/24) Unspecified severe protein-calorie malnutrition (06/14/24) Other malaise (06/14/24) Subjective Subjective Able to take some oral with clears and some medications. Objective Data Objective Data Vital Signs: Vital Signs Temp Pulse Resp BP Pulse Ox O2 Del Method 37.1 C 68 16 136/71 H 96 Room Air 06/15/24 04:08 06/15/24 04:08 06/15/24 04:08 06/15/24 04:08 06/15/24 04:08 06/15/24 04:08 Oxygen Delivery Method Room Air Weight: 40.143 kg Body Mass Index (BMI) 16.7 Intake & Output: Intake and Output for Last 24 Hours 06/13/24 06/14/24 06/15/24 23:59 23:59 23:59 Intake Total 2149 / 2149 50 / 50 Balance 2149 50 / 50 Medical Nutrition Assessment Dietitian: Malnutrition Criteria Met Start: 06/14/24 15:30 Freq: Status: Active Protocol: Document 06/14/24 15:30 SB (Rec: 06/14/24 15:31 SB [id number]) Nutrition Malnutrition Evidence of Yes Malnutrition Exists Evidenced By Suboptimal Energy Intake (Severe),Weight Loss (Severe), Physical Changes (Severe) Clinical Problem Chronic Disease or Condition Related Malnutrition Etiology severe related to inadequate oral intake and difficulty chewing/swallowing Signs/Symptoms as evidenced by PO meeting <75% of estimated nutrition needs x 4 months, 8% unintentional weight loss x 1.5 months, and severe wasting in clavicle, temples, and orbital region. Status Active Problem Recommendation Dietitian Recommend NPO until TRAIN ELECTRONIC TECHNICIAN has evaluated pt. Recommendations/ Recommend advanced diet as tolerated to regular diet Changes per TRAIN ELECTRONIC TECHNICIAN consistency/texture recommendations. Will consult TRAIN ELECTRONIC TECHNICIAN per pt's difficulty chewing/swallowing foods. Will offer ONS at time of follow-up after TRAIN ELECTRONIC TECHNICIAN has evaluated pt. If PO and weight continue to declines, recommend nutrition support. Will monitor weight trends. Lab / Micro Data 06/14/24 10:30 06/15/24 03:51 Labs: Laboratory Results - last 24 hr 06/14/24 10:30: WBC 5.9, RBC 3.81 L, Hgb 12.2, Hct 38.3, MCV 100.5 H, MCH 32.0, MCHC 31.9 L, RDW Std Deviation 53.1 H, RDW Coeff of Fuentes 14.2, Plt Count 138 L, MPV 9.3, Immature Gran % (Auto) 0.300, Neut % (Auto) 83.8 H, Lymph % (Auto) 7.3 L, [place] % (Auto) 7.1, Eos % (Auto) 1.2, Baso % (Auto) 0.3, Absolute Neuts (auto) 5.0, Absolute Lymphs (auto) 0.43 L, Nucleated RBC % 0, Sodium 140, Potassium 4.3, Chloride 107, Carbon Dioxide 17.6 L, Anion Gap 15, BUN 19, Creatinine 0.79, Estim Creat Clear Calc 38.34 L, Est GFR (MDRD) Non-Af 77, BUN/Creatinine Ratio 24.6 H, Glucose 69 L, Calcium 9.4, Total Bilirubin 0.54, AST 19, ALT < 5, Alkaline Phosphatase 74, Troponin T High Sens 13, Total Protein 5.3 L, Albumin 3.2 L, Globulin 2.0 L, Albumin/Globulin Ratio 1.6, Lipase 19 06/14/24 11:28: POC Glucose 50 L 06/14/24 12:37: Troponin T Hi Sens 2 Hr 13 06/14/24 14:20: Troponin T Hi Sens 4Hr 12 06/15/24 03:51: Sodium 139, Potassium 3.7, Chloride 106, Carbon Dioxide 22.2, Anion Gap 10, BUN 13, Creatinine 0.76, Estim Creat Clear Calc 36.73 L, Est GFR (MDRD) Non-Af 80, BUN/Creatinine Ratio 16.4, Glucose 78, Calcium 9.1, Total Bilirubin 0.53, AST 15, ALT < 5, Alkaline Phosphatase 70, Total Protein 5.3 L, A lbumin 3.1 L, Globulin 2.2, Albumin/Globulin Ratio 1.4, TSH 3.240 Radiography Diagnostic Testing: Radiology Impression Chest X-Ray 06/14/24 10:30 IMPRESSION: 1. Trace right lung base airspace disease, possibly due to early pneumonia. Reading Location: [facility] Physical Exam Const alert and no apparent distress Constitutional Narrative: up in chair. HEENT head/scalp atraumatic and moist oral mucous membranes HEENT Narrative: decreased thrush on tongue. Eyes PERRL and EOMs intact bilaterally Neuro Sensorium / Orientation: awake Psych affect normal Assessment & Plan Assessment/Plan (1) Thrush: PLAN: Unclear if she has been on antibiotics as contributed to this but patient has not been able to take her nystatin. Very marked. Patient unable to take any oral right now due to the thrush and likely due to lack of trying as well. Will add viscous lidocaine if the patient would permit that would be very concerned that she may not even want to try that. Continue with IV fluconazole for now. Transition over to oral when she is able. Continue the nystatin swish and swallow as the patient permits. (2) Hypoglycemia: PLAN: Improved Does not appear to be symptomatic but concerning because she has not been eating much that this could continued to worsen. Patient received bolus of 500 cc of D5. Will give her another liter of D5 half-normal saline and monitor. (3) Debility: PLAN: Likely multifactorial due to progressive weight loss. PT OT evaluate and treat. Case management to assist on disposition. (4) Severe protein-calorie malnutrition: PLAN: Unclear if this is due to thrush or thrush is somehow related with her being immunocompromise due to severe nutritional deficiency. I will consult nutrition for recommendations. Would avoid putting in NG tube as she would likely not tolerate at all. And additionally not candidate for TPN as her gut works. PLAN: Plan Psychiatric history: Continue with olanzapine. Complicates care and recovery. Will determine during course of her hospitalization if she is a further risk to herself and that it if she would need a psychiatric facility. It is unclear at this time. VTE prophylaxis with enoxaparin Charges/Coding Visit Charges Inpatient E&M: 85923 Subs Hosp L2
[2024-06-15 07:59] VITALS: BP 126/78; PULSE 67; RESP 16; TEMP 36.8; O2SAT 100
[2024-06-15] MEDS: Lidocaine 2% Viscous15 ML UDC 5 ML PO (08:13)
[2024-06-15] MEDS: OLANZapine 2.5 MG Tablet PO (08:13)
[2024-06-15] MEDS: Enoxaparin 40 MG/0.4 ML Syringe SC (08:13)
[2024-06-15] MEDS: NYSTATIN 500,000 UNIT/5 ML UDC 500000 UNIT PO ×4 (08:13→22:04)
--- NOTE | 2024-06-15 10:09 | CASEMGMT ---
Social Work- SW met with pt and pt spouse to conduct initial assessment. SW introduced self and role; pt agreeable to meeting and having spouse present. SW verified contacts and insurance coverage. Pt was seated in chair, alert and able to meaningfully participate in discussion. Pt was soft spoken, reporting that she could not speak at all yesterday. Pt spouse noted today is a significant improvement in her ability to speak. Pt reports that she has trouble swallowing water and eating food. Pt reports that it feels as if things get stuck and she feels full after two bites. Pt spouse reported that pt coughed the other day and coughed up two objects the size of almond slices despite having not eaten anything. Pt spouse reports that he feels pt becomes dehydrated and has low blood sugar because of her inability to have PO intake from swallowing issues. SW followed up with charge nurse who notified hospitalist. Pt spouse reports that he provides 24/7 care which is challenging at times, as he likes to be outside and ride his motorcycle. SW discussed [place] day programs and SNF respite. Pt and pt spouse refuse as pt becomes very anxious when around people. SW discussed therapy recommendations and inquired into preferences for discharge plans. Pt reports she would not want SNF or HHC at this time. Pt spouse reports that HHC may be beneficial; pt agreeable to seeing how she progresses during stay. NOK: spouse, Robert. [facility] Will: pt reports. No copy on file. SW requested pt provide as able HCPOA: pt reports spouse as agent. No copy on file. SW requested pt provide as able PCP: Juan Specialist: [facility]: [facility] Prescription coverage: Yes Lives with: Spouse Housing: basement apartment with 0 steps. Pt spouse has concerns that there are 4 radon pumps outside of apartment and questions if this would impact cognitive status. Pt and spouse have lived in basement 2.5 years; they report no cognitive issues prior. ADL: pt was sweeping the floor, helping do dishes and laundry the day before admit. Pt ambulates independently in the home and walks laps around the apartment most days. Pt does have a cane if needed for community distances. Quality of family relationships: Pt and are very close and were observed to be pleasant and considerate towards one another. They enjoy walking on trails, riding motorcycle, going on drives, and going to eat when pt feels well. Pt dtr lives close and works 2-11, but will assist pt spouse by watching pt as dtr's schedule allows. Pt feel safe at home: Yes Transportation: Pt spouse Current DME: rail/grab bars, cane. Pt does not use shower chair/bench, but spouse stands beside the shower for SBA if needed. SW remains available to follow for discharge needs. BOBY Angulo
[2024-06-15] MEDS: Fluconazole IVPB 200 MG/100 ML BAG 100 MG IV (11:06)
[2024-06-15] MEDS: 0.9% Normal Saline (100mL Bag) 100 ML 15 ML IV (11:06)
[2024-06-15] MEDS: 0.9% Saline Lock 10 ML Syringe IV ×2 (11:06→22:02)
[2024-06-15 14:00] VITALS: BP 109/74; PULSE 75; RESP 18; TEMP 37.2; O2SAT 97
[2024-06-15] MEDS: Menthol/Lanolin/Calamine/Znox 113 GM Tube 1 APPLIC TOPICAL ×3 (14:21→22:03)
[2024-06-15 18:53] LABS: Color, Urine Yellow (Yellow); Glucose, Dipstick Normal (Normal); Ketone-Dipstick 15 mg/dl (Negative); Leukocyte Esterase-Dipstick 500 /ul (Negative); Nitrite-Dipstick Positive (Negative); Occult Blood-Urine 25 /ul (Negative); Protein-Dipstick 100 mg/dl (Negative); Specific Gravity, Urine 1.025 (1.002-1.030); Urine Clarity Cloudy (Clear); Urine Urobilinogen 4 mg/dl (Normal)
[2024-06-15 19:04] LABS: Bacteria 2+ /hpf (None Seen); Calcium Oxalate Crystals Ur 2+ /hpf (<or=2+); Mucous, Urine 1+ /hpf (<or=2+); Red Blood Cells-Urine 0 SEEN /hpf (0-5); Squamous Epithelial Cells - UA 0-5 SEEN /hpf (5-10); Urine Bilirubin Dipstick 1 mg/dL (Negative); White Blood Cells 25-50 SEEN /hpf (0-5)
[2024-06-15 21:45] VITALS: BP 129/58; PULSE 64; RESP 20; TEMP 36.8; O2SAT 100
[2024-06-16 06:02] VITALS: BP 116/62; PULSE 62; RESP 18; TEMP 36.7; O2SAT 96
--- NOTE | 2024-06-16 07:48 | PN.HOSP_ITS ---
Reason for Visit Reason for Visit: Diagnoses Candidal stomatitis (06/14/24) Hypoglycemia, unspecified (06/14/24) Unspecified severe protein-calorie malnutrition (06/14/24) Other malaise (06/14/24) Subjective Subjective Feeling better. Speaking better. Swallowing better. Objective Data Objective Data Vital Signs: Vital Signs Temp Pulse Resp BP Pulse Ox O2 Del Method 36.8 C 64 20 H 129/58 H 100 Room Air 06/15/24 21:45 06/15/24 21:45 06/15/24 21:45 06/15/24 21:45 06/15/24 21:45 06/15/24 22:28 Oxygen Delivery Method Room Air Weight: 40.143 kg Body Mass Index (BMI) 16.7 Intake & Output: Intake and Output for Last 24 Hours 06/14/24 06/15/24 06/16/24 23:59 23:59 23:59 Intake Total 2150 / 2150 610 / 610 Balance 2150 / 215 610 / 610 Medical Nutrition Assessment Dietitian: Malnutrition Criteria Met Start: 06/14/24 15:30 Freq: Status: Active Protocol: Document 06/14/24 15:30 SB (Rec: 06/14/24 15:31 SB [id number]) Nutrition Malnutrition Evidence of Yes Malnutrition Exists Evidenced By Suboptimal Energy Intake (Severe),Weight Loss (Severe), Physical Changes (Severe) Clinical Problem Chronic Disease or Condition Related Malnutrition Etiology severe related to inadequate oral intake and difficulty chewing/swallowing Signs/Symptoms as evidenced by PO meeting <75% of estimated nutrition needs x 4 months, 8% unintentional weight loss x 1.5 months, and severe wasting in clavicle, temples, and orbital region. Status Active Problem Recommendation Dietitian Recommend NPO until FOUR SLIDE MACHINE SETTER has evaluated pt. Recommendations/ Recommend advanced diet as tolerated to regular diet Changes per FOUR SLIDE MACHINE SETTER consistency/texture recommendations. Will consult FOUR SLIDE MACHINE SETTER per pt's difficulty chewing/swallowing foods. Will offer ONS at time of follow-up after FOUR SLIDE MACHINE SETTER has evaluated pt. If PO and weight continue to declines, recommend nutrition support. Will monitor weight trends. Lab / Micro Data 06/14/24 10:30 06/15/24 03:51 Labs: Laboratory Results - last 24 hr 06/15/24 18:33: Urine Color Yellow, Urine Clarity Cloudy, Urine pH 6.0, Ur Specific [place] 1.025, Urine Protein 100 H, Urine Glucose (UA) Normal, Urine Ketones 15 H, Urine Occult Blood 25 H, Urine Nitrite Positive H, Urine Bilirubin 1 H, Urine Urobilinogen 4 H, Ur Leukocyte Esterase 500 H, Urine RBC 0 SEEN, Urine WBC 25-50 SEEN, Ur Squamous Epith Cells 0-5 SEEN, Calcium Oxalate Crystal 2+, Urine Bacteria 2+, Urine Mucus 1+ Physical Exam Const alert and no apparent distress HEENT head/scalp atraumatic and moist oral mucous membranes Resp normal respiratory effort and no retractions Cardio regular rate, regular rhythm, S1 normal heart sound and S2 normal heart sound GI normal to inspection, nondistended, normoactive bowel sounds, soft to palpation, non-tender and non-distended Extremity normal to inspection Neuro Sensorium / Orientation: awake and alert Assessment & Plan Assessment/Plan (1) Thrush: PLAN: Unclear if she has been on antibiotics as contributed to this but patient has not been able to take her nystatin. Very marked. Patient unable to take any oral right now due to the thrush and likely due to lack of trying as well. Will add viscous lidocaine if the patient would permit that would be very concerned that she may not even want to try that. Continue fluconazole, change to PO and treat for total of 14 days (through 06/27) given severity upon admission. Continue the nystatin swish and swallow as the patient permits. (2) Hypoglycemia: PLAN: Improved Does not appear to be symptomatic but concerning because she has not been eating much that this could continued to worsen. Patient received bolus of 500 cc of D5. (3) Debility: PLAN: Likely multifactorial due to progressive weight loss. PT OT evaluate and treat. Case management to assist on disposition. (4) Severe protein-calorie malnutrition: PLAN: Unclear if this is due to thrush or thrush is somehow related with her being immunocompromise due to severe nutritional deficiency. I will consult nutrition for recommendations. Would avoid putting in NG tube as she would likely not tolerate at all. And additionally not candidate for TPN as her gut works. (5) Dysphagia: PLAN: At least partially due to thrush. Speech therapy on consult. PLAN: Plan Psychiatric history: Continue with olanzapine. Complicates care and recovery. No overt concerns that necessitate her being admitted to psychiatric facility at this time. Her lack of nutritional intake is due to her severe wen oropharyngitis, at this time. VTE prophylaxis with enoxaparin DW patient's at bedside. Charges/Coding Visit Charges Inpatient E&M: 69102 Subs Hosp L2
[2024-06-16 09:27] VITALS: BP 133/80; PULSE 77; RESP 18; TEMP 36.8; O2SAT 94
[2024-06-16] MEDS: Enoxaparin 40 MG/0.4 ML Syringe SC (09:30)
[2024-06-16] MEDS: Menthol/Lanolin/Calamine/Znox 113 GM Tube 1 APPLIC TOPICAL ×2 (09:30→14:04)
[2024-06-16] MEDS: OLANZapine 2.5 MG Tablet PO (09:31)
[2024-06-16] MEDS: NYSTATIN 500,000 UNIT/5 ML UDC 500000 UNIT PO ×3 (09:31→17:33)
[2024-06-16] MEDS: Fluconazole IVPB 200 MG/100 ML BAG 100 MG IV (09:38)
[2024-06-16] MEDS: 0.9% Normal Saline (100mL Bag) 100 ML 15 ML IV (09:42)
--- NOTE | 2024-06-16 10:18 | NURSING ---
downtime documentation 06/16/24 12am until 7am
[2024-06-16] MEDS: Ceftriaxone 1 GM/50 ML BAG IV (10:43)
[2024-06-16 15:03] VITALS: BP 107/64; PULSE 66; RESP 18; TEMP 36.5; O2SAT 98
--- NOTE | 2024-06-16 17:32 | DS.PCM_ITS ---
Providers Date of Admission: 06/14/24 Primary Care Physician: Dr. Naveed Martinez, DO Reason For Visit: SEVERE THRUSH OROPHARYNGITIS, HYPOGLYCEMIA Diagnosis Discharge Diagnosis (1) Thrush: Status: Acute Code(s): B37.0 - Candidal stomatitis Plan: Unclear if she has been on antibiotics as contributed to this but patient has not been able to take her nystatin. Very marked. Patient unable to take any oral right now due to the thrush and likely due to lack of trying as well. Will add viscous lidocaine if the patient would permit that would be very concerned that she may not even want to try that. Continue fluconazole, change to PO and treat for total of 14 days (through 06/27) given severity upon admission. Continue the nystatin swish and swallow as the patient permits. (2) Hypoglycemia: Status: Acute Code(s): E16.2 - Hypoglycemia, unspecified Plan: Improved Does not appear to be symptomatic but concerning because she has not been eating much that this could continued to worsen. Patient received bolus of 500 cc of D5. (3) Debility: Status: Acute Code(s): R53.81 - Other malaise Plan: Likely multifactorial due to progressive weight loss. PT OT evaluate and treat. Case management to assist on disposition. (4) Severe protein-calorie malnutrition: Status: Acute Code(s): E43 - Unspecified severe protein-calorie malnutrition Plan: Unclear if this is due to thrush or thrush is somehow related with her being immunocompromise due to severe nutritional deficiency. I will consult nutrition for recommendations. Would avoid putting in NG tube as she would likely not tolerate at all. And additionally not candidate for TPN as her gut works. (5) Dysphagia: Status: Acute Code(s): R13.10 - Dysphagia, unspecified Plan: At least partially due to thrush. Speech therapy on consult. Plan Psychiatric history: Continue with olanzapine. Complicates care and recovery. No overt concerns that necessitate her being admitted to psychiatric facility at this time. Her lack of nutritional intake is due to her severe wen oropharyngitis, at this time. VTE prophylaxis with enoxaparin DW patient's at bedside. Medications at Discharge Home Medications lactobacillus combo no.13 1 billion cell capsule,delayed release (Probiotic Pearls Complete) 1 cap PO DAILY 12/01/17 Handicap Placard #1 ea 11/12/20 multivitamin 1 tab PO DAILY 12/06/21 omega 9-aeq-dgu-fish oil 300 mg-1,000 mg capsule (Fish Oil) 1 cap PO DAILY 10/05/22 chlorhexidine gluconate 0.12 % mouthwash 1 applic mucous membrane QHS dentures 06/14/24 lorazepam 1 mg tablet 1 mg PO TID 06/14/24 mirtazapine 45 mg tablet 45 mg PO QHS 06/14/24 nystatin 100,000 unit/mL oral suspension 5 ml PO 4X/DAY 06/14/24 olanzapine 5 mg tablet 2.5 - 5 mg PO DAILY 06/14/24 acetaminophen 500 mg tablet 1,000 mg (2 x 500 mg) PO Q8 PRN pain #0 tabs 06/16/24 fluconazole 100 mg tablet 100 mg PO DAILY #11 tabs 06/16/24 lidocaine HCl 2 % mucosal solution 5 ml PO Q3H PRN SORE THROAT 10 days #100 mL 06/16/24 Hospital Course Operations None Procedures None Summary of Care Provided Minutes Spent on Discharge: 35 Hospital Course: Patient presents with hypophonia and dysphagia secondary to his severe thrush or pharyngitis. Patient was started on IV fluconazole as patient was unable to tolerate even the oral nystatin that she had previously. Patient's tongue was completely coated in thrush and just after 2 days of the IV fluconazole there is just a small segment still on her tongue. So doing much better. Patient's diet was advanced and she tolerated that well. She has done well also with physical therapy getting up and ambulating without difficulty. So plan is to discharge her. I did discuss with the patient's this morning as well as his evening and she will be discharged today. She did have some transient hypoglycemia when she presented and is likely due to poor oral intake. Patient was on D5 infusion for short period of time. Medical Records Data Medical Nutrition Assessment Dietitian: Malnutrition Criteria Met Start: 06/14/24 15:30 Freq: Status: Active Protocol: Document 06/14/24 15:30 SB (Rec: 06/14/24 15:31 SB [id number]) Nutrition Malnutrition Evidence of Yes Malnutrition Exists Evidenced By Suboptimal Energy Intake (Severe),Weight Loss (Severe), Physical Changes (Severe) Clinical Problem Chronic Disease or Condition Related Malnutrition Etiology severe related to inadequate oral intake and difficulty chewing/swallowing Signs/Symptoms as evidenced by PO meeting <75% of estimated nutrition needs x 4 months, 8% unintentional weight loss x 1.5 months, and severe wasting in clavicle, temples, and orbital region. Status Active Problem Recommendation Dietitian Recommend NPO until PUBLIC HEALTH SPECIALIST has evaluated pt. Recommendations/ Recommend advanced diet as tolerated to regular diet Changes per PUBLIC HEALTH SPECIALIST consistency/texture recommendations. Will consult PUBLIC HEALTH SPECIALIST per pt's difficulty chewing/swallowing foods. Will offer ONS at time of follow-up after PUBLIC HEALTH SPECIALIST has evaluated pt. If PO and weight continue to declines, recommend nutrition support. Will monitor weight trends. Weight / BMI Weight Weight: 40.143 kg Body Mass Index (BMI) 16.7 ABG / Lab / Microbiology Data 06/14/24 10:30 06/15/24 03:51 Laboratory: Laboratory Results - last 24 hr 06/15/24 18:33: Urine Color Yellow, Urine Clarity Cloudy, Urine pH 6.0, Ur Specific [place] 1.025, Urine Protein 100 H, Urine Glucose (UA) Normal, Urine Ketones 15 H, Urine Occult Blood 25 H, Urine Nitrite Positive H, Urine Bilirubin 1 H, Urine Urobilinogen 4 H, Ur Leukocyte Esterase 500 H, Urine RBC 0 SEEN, Urine WBC 25-50 SEEN, Ur Squamous Epith Cells 0-5 SEEN, Calcium Oxalate Crystal 2+, Urine Bacteria 2+, Urine Mucus 1+ D/C Instructions Discharge Diet: - (Soft, easy to chew food and then advance as tolerated.) DC O2, CPAP, BIPAP Needs Home O2 Discharge instructions: No Meaningful Use Info Meaningful Use Meaningful Use Diagnoses (Choose all that apply): None applicable Ischemic Stroke Statin Dosing Therapy Reference: STATIN DOSE THERAPY REFERENCE: * Patients > 75 years receive moderate or high dose statin therapy. * Patients 75 years or YOUNGER should receive HIGH intensity statin dose unless contraindicated. You will be required to document reason for non-treatment if statin daily dose does not meet guidelines. HIGH DOSE STATIN THERAPY DAILY Atorvastatin > than or = to 40 mg Rosuvastatin > than or = to 20 mg Amlodipine + Atorvastatin > than or = to 2.5/40 mg Ezetimibe + Simvastatin 10/80 mg Simvastatin 80mg Discharge Plan Admission Admit Date/Time: 06/14/24 12:15 Primary Reason for Your Visit: [facility] Attending Provider: Ezra Rahman Primary Care Provider: Naveed Martinez Discharge Orders/Prescriptions Prescriptions: New acetaminophen 500 mg Tablet 1,000 mg PO Q8 PRN (Reason: pain) Qty: 0 0RF fluconazole 100 mg Tablet 100 mg PO DAILY Qty: 11 0RF lidocaine HCl 2 % Solution 5 ml PO Q3H PRN (Reason: SORE THROAT) 10 Days Qty: 100 0RF Continued multivitamin Tablet 1 tab PO DAILY Patient Comments: PT TAKES SPARINGLY, UNABLE TO SWALLOW omega 5-xft-xlh-fish oil [Fish Oil] 300-1,000 mg capsule 1 cap PO DAILY Patient Comments: PT TAKES SPARINGLY, UNABLE TO SWALLOW chlorhexidine gluconate 0.12 % mouthwash 1 applic mucous membrane QHS Rx Instructions: SOAK DENTURES IN SOLUTION EVERY NIGHT nystatin 100,000 unit/mL suspension 5 ml PO 4X/DAY olanzapine 5 mg tablet 2.5 - 5 mg PO DAILY mirtazapine 45 mg tablet 45 mg PO QHS lorazepam 1 mg tablet 1 mg PO TID (DME) Handicap Placard See Rx Instructions .Route .MEDSUPPLY Qty: 1 0RF Rx Instructions: As directed for medical reasons Duration 4 years No Action lactobacillus combo no.13 [Probiotic Pearls Complete] 1 billion cell capsule,delayed release(DR/EC) 1 cap PO DAILY Patient Comments: PT TAKES SPARINGLY, UNABLE TO SWALLOW Referrals / Follow Up: Naveed Martinez DO [Primary Care Provider] - Within 2 Weeks Disposition Disposition (needs filled in before D/C Order can be placed): Home, Self Care Charges/Coding Visit Charges Inpatient E&M: 27933 Disch Hosp >30min
== END 2024-06-16 18:26 | disposition home or self-care (01) | DRG 157 ==
LOC: ED 12:13 → MS3 12:28
PROVIDERS: Emergency Provider Emergency Medicine
DX: B37.0 Candidal stomatitis (principal); E43 Unspecified severe protein-calorie malnutrition; D84.9 Immunodeficiency, unspecified; Z68.1 Body mass index [BMI] 19.9 or less, adult; I10 Essential (primary) hypertension; I08.1 Rheumatic disorders of both mitral and tricuspid valves; F32.A Depression, unspecified; E89.0 Postprocedural hypothyroidism; F41.9 Anxiety disorder, unspecified; M79.7 Fibromyalgia; E16.2 Hypoglycemia, unspecified; M17.12 Unilateral primary osteoarthritis, left knee; R53.81 Other malaise; Z79.2 Long term (current) use of antibiotics; Z90.710 Acquired absence of both cervix and uterus; Z79.890 Hormone replacement therapy; Z79.899 Other long term (current) drug therapy; R01.1 Cardiac murmur, unspecified; Z88.8 Allergy status to other drugs, medicaments and biological substances; Z88.1 Allergy status to other antibiotic agents; Z85.038 Personal history of other malignant neoplasm of large intestine; Z98.890 Other specified postprocedural states; R13.10 Dysphagia, unspecified
CPT/HCPCS: 36415; 71045; 80053; 81001; 82962; 83690; 84443; 84484; 85025; 92526; 92610; 93005; 97116; 97162; 97166; 97530; 97535; 97802; 99285; A4216; J2405

== ENCOUNTER → 2024-11-11 | Outpatient (CLI) | payer MEDICARE, SELFPAY ==
[2024-11-11 20:24] LABS: Mucous, Urine 0 SEEN /hpf (<or=2+)
--- OUTSIDE RECORDS SUMMARY | 2024-11-11 20:24 | XMS RPT_ITS | CCD ---
Author Organization [facility] CliniSyvt Care Team Providers Care Service Team Leader Name Role Phone MAYI SMART MD Admitting Unavailable MAYI SMART MD Attending Unavailable MAYI SMART MD Primary Care Unavailable MAYI SMART MD Consulting Unavailable PROVIDER, UNKNOWN Consulting Unavailable PROVIDER, UNKNOWN Consulting Unavailable PROVIDER, UNKNOWN Consulting Unavailable LOUIS GUAN MD Admitting Unavailable LOUIS GUAN MD Attending Unavailable LOUIS GUAN MD Primary Care Unavailable MAYI SMART MD Consulting Unavailable PROVIDER, UNKNOWN Consulting Unavailable PROVIDER, UNKNOWN Consulting Unavailable PROVIDER, UNKNOWN Consulting Unavailable MAYI SMART MD Admitting Unavailable MAYI SMART MD Attending Unavailable MAYI SMART MD Primary Care Unavailable MAYI SMART MD Consulting Unavailable PROVIDER, UNKNOWN Consulting Unavailable PROVIDER, UNKNOWN Consulting Unavailable PROVIDER, UNKNOWN Consulting Unavailable MAYI SMART MD Admitting Unavailable MAYI SMART MD Attending Unavailable MAYI MSART MD Primary Care Unavailable MAYI SMART MD Consulting Unavailable PROVIDER, UNKNOWN Consulting Unavailable PROVIDER, UNKNOWN Consulting Unavailable PROVIDER, UNKNOWN Consulting Unavailable MAYI SMART MD Admitting Unavailable MAYI SMART MD Attending Unavailable MAYI SMART MD Primary Care Unavailable MAYI SMART MD Consulting Unavailable PROVIDER, UNKNOWN Consulting Unavailable PROVIDER, UNKNOWN Consulting Unavailable PROVIDER, UNKNOWN Consulting Unavailable MAYI SMART MD Admitting Unavailable MAYI SMART MD Attending Unavailable MAYI SMART MD Primary Care Unavailable MAYI SMART MD Consulting Unavailable PROVIDER, UNKNOWN Consulting Unavailable PROVIDER, UNKNOWN Consulting Unavailable PROVIDER, UNKNOWN Consulting Unavailable MAYI SMART MD Admitting Unavailable MAYI SMART MD Attending Unavailable MAYI SMART MD Primary Care Unavailable MAYI SMART MD Consulting Unavailable PROVIDER, UNKNOWN Consulting Unavailable PROVIDER, UNKNOWN Consulting Unavailable PROVIDER, UNKNOWN Consulting Unavailable MAYI SMART MD Admitting Unavailable MAYI SMART MD Attending Unavailable MAYI SMART MD Primary Care Unavailable MAYI SMART MD Consulting Unavailable PROVIDER, UNKNOWN Consulting Unavailable PROVIDER, UNKNOWN Consulting Unavailable PROVIDER, UNKNOWN Consulting Unavailable MAYI SMART MD Admitting Unavailable MAYI SMART MD Attending Unavailable MAYI SMART MD Primary Care Unavailable MAYI SMART MD Consulting Unavailable PROVIDER, UNKNOWN Consulting Unavailable PROVIDER, UNKNOWN Consulting Unavailable PROVIDER, UNKNOWN Consulting Unavailable MAYI SMART MD Admitting Unavailable MAYI SMART MD Attending Unavailable MAYI SMART MD Primary Care Unavailable MAYI SMART MD Consulting Unavailable PROVIDER, UNKNOWN Consulting Unavailable PROVIDER, UNKNOWN Consulting Unavailable PROVIDER, UNKNOWN Consulting Unavailable Dr. Mayi Smart Primary Care Provider Dr. Mayi Smart Attending Provider [phone] Dr. Mayi Smart Referring Provider [phone] Dr. Mayi Smart Primary Care Provider Dr. Mayi Smart Attending Provider [phone] Dr. Mayi Smart Primary Care Provider Dr. Mayi Smart Attending Provider MAYI SMART MD Primary Care Physician [phone] NAVEED DYE DO Primary Care Physician NAVEED DYE DO Attending Unavailable NAVEED DYE DO Primary Care Unavailable MAYI SMART MD Primary Care Unavailable VIRGILIO TURNER, DR CHAIM Franco Attending Unaini [facility] NAVEED DYE DO Attending Unavailable NAVEED DYE DO Primary Care Unavailable Dr. Lucien Ramirez MD Attending Provider Dr. Lucien Ramirez MD Emergency Provider Dr. Naveed Dye DO Primary Care Provider [phone] Dr. Jose M Contreras DO Attending Provider Dr. Jose M Contreras DO Emergency Provider Dr. Gary Kim DO Emergency Provider Dr. Ezra Rahman DO Admit Provider Dr. Ezra Rahman DO Attending Provider [phone] Dr. Ezra Rahman DO Other Provider [phone] Lucien Ramirez Attending Unavailable Dye, Naveed Primary Care Unavailable Jopperi, Ezra Admitting Unavailable Dye, Naveed Primary Care Unavailable Ezra Rahman Attending Unavailable Jotony, Ezra Admitting Unavailable Dye, Naveed Primary Care Unavailable Josiah, Ezra Consulting Unavailable Ezra Rahman Attending Unavailable Constantin Harley Attending Unavailable Dye OLS, Naveed Primary Care Unavailable Jose M Contreras Attending Unavailable Dye, Naveed Primary Care Unavailable Dye, Naveed Primary Care Unavailable Jolanta Cope Attending Unavailable DYE DO, NAVEED E Attending Unavailable DYE DO, NAVEED E Primary Care Unavailable DYE DO, NAVEED E Attending Unavailable DYE DO, NAVEED E Primary Care Unavailable SHONNA TUNA PURSE SEINER-COMMERCIAL ADMINISTRATOR, [place] Attending Unanadia lable HARDIK DO, NAVEED E Primary Care Unavailable DYE DO, NAVEED E Primary Care Unavailable SAKSHI KYLE DO Attending Unavailable DYE DO, NAVEED E Primary Care Unavailable MELINDA TUNA PURSE SEINER-COMMERCIAL ADMINISTRATOR, DAX Attending Unavai lable DYE DO, NAVEED E Primary Care Unavailable MELINDA TUNA PURSE SEINER-COMMERCIAL ADMINISTRATOR, DAX Attending Unavai lable DYE DO, NAVEED E Attending Unavailable DYE DO, NAVEED E Primary Care Unavailable Allergies Allergy Classification Reported Allergen(s) Allergy Type Date of Onset Reaction(s) Facility (13 sources) amLODIPine; Translations: [amlodipine] Drug Allergy 2 Anxiety (finding) [facility] (13 sources) Atenolol; Translations: [atenolol] Drug Allergy 2 Respiratory distress (finding) [facility] (6 sources) Chlorthalidone Drug Allergy 2 Unknown [facility] (13 sources) Ciprofloxacin; Translations: [ciprofloxacin] Drug Allergy 2 Pain (finding) [facility] (13 sources) Indomethacin; Translations: [indomethacin] Drug Allergy 2 Headache (finding) [facility] (13 sources) Lisinopril; Translations: [lisinopril] Drug Allergy 2 Headache (finding), Coughing - function (qualifier value) [facility] (13 sources) meloxicam; Translations: [meloxicam] Drug Allergy 2 Weight gain [facility] (6 sources) Pollen Allergy to substance 2 Rhinitis [facility] (13 sources) pregabalin; Translations: [pregabalin] Drug Allergy 2 Tremor (finding) [facility] (7 sources) dilTIAZem; Translations: [diltiazem] Drug Allergy nerve pain [facility] (1 source) amLODIPine Drug Allergy 5 [facility] (1 source) Atenolol Drug Allergy 5 [facility] (1 source) Chlorthalidone Drug Allergy 5 [facility] (1 source) Ciprofloxacin Drug Allergy 5 [facility] (1 source) Indomethacin Drug Allergy 5 [facility] (1 source) Lisinopril Drug Allergy 5 [facility] (1 source) meloxicam Drug Allergy 5 [facility] (1 source) Pollen Drug allergy (disorder) 5 [facility] (1 source) pregabalin Drug Allergy 5 [facility] (1 source) misc non-codified allergy 1 Drug allergy Loose stool (finding) [facility] Comment on above: SSRI medications Medications Current Medications Medication Drug Class(es) Dates Sig (Normalized) Sig (Original) acetaminophen 500 mg oral tablet (1 source) Start: 06-16-2024 take 2 tablets by mouth every eight hours as needed for pain Acetaminophen 500 mg Tablet Active 1000 mg PO EVERY 8 HOURS as needed for pain 0 June 16, 2024 12:00am bromfenac 0.75 mg/ml ophthalmic solution (2 sources) Nonsteroidal Anti-inflammatory Drug Start: 01-19-2024 BromSite 0.075% ophthalmic solution 0 Refill(s) Start Date: 01/19/24 Status: Ordered Calcium (3 sources) Phosphate Binder, Calcium Start: 10-16-2023 calcium (as carbonate) 500 mg oral tablet 0 Refill(s) Start Date: 10/16/23 Status: Ordered chlorhexidine gluconate 1.2 mg/ml mouthwash (2 sources) Start: 06-14-2024 Chlorhexidine Gluconate 0.12 % mouthwash Active 1 NMA MUCOUS MEM AT BEDTIME June 14, 2024 12:00am SOAK DENTURES IN SOLUTION EVERY NIGHT [place] 6-Vuz-Aik-Fish Oil (4 sources) Start: 10-05-2022 [place] 6-Mol-Xee-Fish Oil (Fish Oil) 300-1,000 mg capsule Active 1 NMA PO DAILY October 05, 2022 12:00am Start: 10-05-2022 take 300-1000 mg by mouth once daily [place] 6-Zqr-Ctm-Fish Oil (Fish Oil) 300-1,000 mg capsule Active 1 CAP PO DAILY October 05, 2022 12:00am Fish Oils (1 source) Start: 07-26-2023 Fish Oil 1000 mg oral capsule mg = cap(s), Oral, 0 Refill(s) Start Date: 07/26/23 Status: Ordered fluconazole 100 mg oral tablet (1 source) Azole Antifungal Start: 06-16-2024 take 1 tablet by mouth once daily Fluconazole 100 mg Tablet Active 100 mg PO DAILY June 16, 2024 12:00am Folate Forte (1 source) Start: 07-26-2023 Folate Forte O ral, qDay, 0 Refill(s) Start Date: 07/26/23 Status: Ordered Handicap Placard (18 sources) Start: 11-12-[address] Active 0 .Route .MEDSUPPLY November 12, 2020 8:57am As directed for medical reasons Duration 4 years Start: 11-12-2020 End: 11-12-2020 Handicap Placard Discontinue d 0 .Route .MEDSUPPLY November 12, 2020 8:49am November 12, 2020 8:59am As directed for medical reasons Duration 4 years Start: 11-02-2020 End: 11-12-2020 Handicap Placard Discontinue d 0 .Route .MEDSUPPLY November 02, 2020 12:00am November 02, 2025 12:00am November 12, 2020 8:50am As directed for medical reasons Start: 11-02-2020 End: 11-12-2020 Handicap Placard Discontinue d 0 .Route .MEDSUPPLY 1 November 02, 2020 12:00am November 12, 2020 8:50am As directed for medical reasons Lactobacillus Combo No.13 (Probiotic Pearls Complete) 1 billion cell capsule,delayed release(DR/EC) (6 sources) Start: 12-01-2017 take 1 capsule by mouth once daily Lactobacillus Combo No.13 (Probiotic Pearls Complete) 1 billion cell capsule,delayed release(DR/EC) Active 1 NMA PO DAILY December 01, 2017 12:00am Start: 12-01-2017 Lactobacillus Combo No.13 (Probiotic Pearls Complete) 1 billion cell capsule,delayed release(DR/EC) Active 1 CAP PO DAILY December 01, 2017 12:00am Lidocaine (1 source) Antiarrhythmic, Amide Local Anesthetic Start: 06-16-2024 take 1 mL by mouth every three hours as needed Lidocaine Hcl 2 % Solution Active 5 mL PO Q3H as needed for SORE THROAT 100 10 June 16, 2024 12:00am LORazepam 0.5 mg oral tablet (4 sources) Benzodiazepine Start: 08-06-2024 End: 11-09-2024 LORazepam 0.5 mg oral tablet Dose : 0.5 mg = 1 tab(s), Oral, qDay, Fill 10/10/24, R0, # 30 tab(s), 0 Refill(s), Pharmacy: [id number], Anxiety, 151.2, cm, 10/08/24 11:52:00 EDT, Height, 38.8, kg, 10/08/24 11:52:00 EDT, Dosing Weight Start Date: 10/10/24 Stop Date: 11/09/24 Status: Ordered Quantity: 30.0 Unit: tab(s) Repeat number: 1 Indications: Anxiety disorder, unspecified; Start: 06-14-2024 take 1 tablet by megan th three times daily Lorazepam 1 mg tablet Active 1 mg PO THREE TIMES A DAY June 14, 2024 12:00am Magnesium glycinate (5 sources) Start: 05-30-2023 magnesium glyc inate 200 mg oral tablet mg = tab(s), Oral, 0 Refill(s) Start Date: 05/30/23 Status: Ordered mirtazapine 15 mg oral table t (3 sources) Start: 08-06-2024 mirtazapine 15 mg oral tablet Dose : 15 mg = 1 tab(s), Oral, qHS, # 100 tab(s), 0 Refill(s), Pharmacy: [facility], 150, cm, 08/06/24 13:59:00 EDT, Height, kg, 08/06/24 13:59:00 EDT, Dosing Weight Start Date: 08/06/24 Status: Ordered Quantity: 100.0 Unit: tab(s) Repeat number: 1 Start: 06-14-2024 take 1 tablet by megan th at bedtime Mirtazapine 45 mg tablet Active 45 mg PO AT BEDTIME June 14, 2024 12:00am Multivitamin preparation (6 sources) Start: 10-16-2023 take 1 tablet by mouth once daily Multivitamin Dose = 1 tab(s), Oral, Daily, 0 Refill(s) Start Date: 10/16/23 Status: Ordered Start: 12-06-2021 take 1 tablet by megan th once daily Multivitamin Active 1 TABLET PO DAILY December 06, 2021 12:00am Multivitamin tablet (2 sources) Start: 12-06-2021 Multivitamin tablet Active 1 {tbl} PO DAILY December 06, 2021 12:00am nitrofurantoin, macrocrystals 25 mg / nitrofurantoin, monohydrate 75 mg oral capsule (1 source) Nitrofuran Antibacterial Start: 10-08-2024 End: 10-15-2024 Macrobid 100 mg oral capsule Dose : 100 mg = 1 cap(s), Oral, BID, Take with food, X 7 day(s), # 14 cap(s), 0 Refill(s), 10/15/24 12:05:00 PM EDT, Pharmacy: [id number], Acute cystitis without hematuria, 151.2, cm, 10/08/24 11:52:00 EDT, Height, 38.8, kg, 10/08/24 11:52:00 EDT, Dosing Weight Start Date: 10/08/24 Stop Date: 10/15/24 Status: Ordered Quantity: 14.0 Unit: cap(s) Repeat number: 1 Indications: Acute cystitis without hematuria; nystatin [id number] unt/ml oral suspension (2 sources) Polyene Antifungal Start: 06-14-2024 take 1 mL by mouth four times daily Nystatin 100,000 unit/mL suspension Active 5 mL PO 4 TIMES DAILY June 14, 2024 12:00am OLANZapine 5 mg oral tablet (2 sources) Atypical Antipsychotic Start: 06-14-2024 take 2.5-5 mg by mouth once daily Olanzapine 5 mg tablet Active 2.5 - 5 mg PO DAILY June 14, 2024 12:00am polymyxin b 30128 unt/ml / trimethoprim 1 mg/ml ophthalmic solution (2 sources) Dihydrofolate Reductase Inhibitor Antibacterial, Polymyxin-class Antibacterial Start: 01-19-2024 polymyxin B-trimethoprim 10,000 units-1 mg/mL ophthalmic solution 0 Refill(s) Start Date: 01/19/24 Status: Ordered Probiotic (5 sources) Start: 05-30-2023 Probiotic 0 Refill(s) Start Date: 05/30/23 Status: Ordered Selenium (5 sources) Start: 05-30-2023 selenium Oral, qDay, 0 Refill(s) Start Date: 05/30/23 Status: Ordered traZODone hydrochloride 50 mg oral tablet (2 sources) Serotonin Reuptake Inhibitor Start: 01-19-2024 traZODone 50 mg oral tablet Dose : 50 mg = 1 tab(s), Oral, qHS, # 15 tab(s), 0 Refill(s), Pharmacy: [facility] #[id number], Insomnia, 152.3, cm, 01/19/24 9:16:00 EDT, Height, kg, 01/19/24 9:16:00 EDT, Dosing Weight Start Date: 01/19/24 Status: Ordered Vitamin D3 (5 sources) Start: 05-30-2023 Vitamin D3 qDay, 0 Refill(s) Start Date: 05/30/23 Status: Ordered Completed/Discontinued Medications Medication Drug Class(es) Dates Sig (Normalized) Sig (Original) aspirin 81 mg delayed release oral tablet (6 sources) Platelet Aggregation Inhibitor, Nonsteroidal Anti-inflammatory Drug Start: 12-01-2017 End: 01-27-2020 take 1 tablet by mouth once daily Aspirin (Adult Aspirin Regimen) 81 mg tablet,delayed release (DR/EC) Discontinued 81 mg PO DAILY December 01, 2017 12:00am January 27, 2020 10:43am Bromfenac (Bromfenac 0.075 % Eye Drops) 0.075 % drops (2 sources) Start: 03-06-2024 End: 06-14-2024 Bromfenac (Bromfenac 0.075 % Eye Drops) 0.075 % drops Discontinued 1 NMA OPHTHALMIC DAILY March 06, 2024 1:00am June 14, 2024 10:42am Ca-D3-Mag Zc-Ywvt-Vfe-Terry-Bor (4 sources) Start: 12-01-2017 End: 01-21-2020 take 1 tablet by mouth once daily Ca-D3-Mag Bg-Yoyo-Zve-Terry-Bor Discontinued 1 TABLET PO DAILY December 01, 2017 12:00am January 21, 2020 9:21am Ca-D3-Mag Lm-Yqcu-Elp-Terry-Bor 600 mg calcium- 800 unit-50 mg tablet (2 sources) Start: 12-01-2017 End: 01-21-2020 Ca-D3-Mag Fk-Epms-Mkk-Terry-Bor 600 mg calcium- 800 unit-50 mg tablet Discontinued 1 {tbl} PO DAILY December 01, 2017 12:00am January 21, 2020 9:21am cephalexin 500 mg oral capsule (2 sources) Cephalosporin Antibacterial Start: 02-04-2024 End: 03-06-2024 take 1 capsule by mouth every six hours Cephalexin 500 mg capsule Discontinued 500 mg PO EVERY 6 HOURS 14 10February 04, 2024 1:00am March 07, 2024 12:47am cholecalciferol 0.125 mg oral capsule (6 sources) Vitamin D Start: 01-21-2020 End: 06-14-2024 take 1 capsule by mouth once daily Cholecalciferol (Vitamin D3) 125 mcg (5,000 unit) capsule Discontinued 125 ug PO DAILY January 21, 2020 1:00am June 14, 2024 10:42am 1 ml denosumab 60 mg/ml prefilled syringe (3 sources) RANK Ligand Inhibitor Start: 10-16-2023 Prolia 60 mg/mL subcutaneous solution Dose : 60 mg = 1 mL, Subcutaneous, q6mo, M81.0, # 1 mL, 1 Refill(s), Preventative health care Osteoporosis Start Date: 10/16/23 Status: Ordered folic acid 0.8 mg oral tablet (6 sources) Start: 01-21-2020 End: 12-06-2021 take 0.8 mg by mouth once daily Folic Acid 800 mcg tablet Discontinued 0.8 mg PO DAILY January 21, 2020 1:00am December 06, 2021 10:04am Start: 01-21-2020 End: 12-06-2021 take 0.8 mg by mouth once daily Folic Acid Discontinued 0.8 MG PO DAILY January 21, 2020 1:00am December 06, 2021 10:04am hydrOXYzine hydrochloride 25 mg oral tablet (2 sources) Antihistamine Start: 03-06-2024 End: 06-14-2024 take 1 tablet by mouth three times daily as needed for anxiety Hydroxyzine Hcl 25 mg tablet Discontinued 25 mg PO 3 TIMES DAILY NEEDED as needed for anxiety March 06, 2024 1:00am June 14, 2024 10:42am Iodine (6 sources) Start: 12-01-2017 End: 01-21-2020 take 1 tablet by mouth once daily Iodine (Kelp) (Kelp) tablet Discontinued 1 {tbl} PO DAILY December 01, 2017 12:00am January 21, 2020 9:21am Start: 12-01-2017 End: 01-21-2020 take 1 tablet by mouth once daily Iodine (Kelp) (Kelp) tablet Discontinued 1 TABLET PO DAILY December 01, 2017 12:00am January 21, 2020 9:21am levothyroxine sodium 0.025 mg oral tablet (6 sources) l-Thyroxine Start: 12-01-2017 End: 01-21-2020 take 1 tablet by mouth once daily Levothyroxine 25 mcg tablet Discontinued 25 ug PO DAILY December 01, 2017 12:00am January 21, 2020 9:22am lutein 6 mg oral capsule (6 sources) Start: 12-01-2017 End: 06-02-2021 take 1 capsule by mouth once daily Lutein 6 mg capsule Discontinued 6 mg PO DAILY December 01, 2017 12:00am June 02, 2021 10:02am methylPREDNISolone 4 mg oral tablet (17 sources) Corticosteroid Start: 07-26-2023 End: 07-28-2023 take 1 tablet by mouth once daily as needed for pain Medrol Dosepak 4 mg oral tablet 1 tab, Oral, qDay, PRN Pain, Using in an atypical way for prn pain 1 tab for 2 days, occasional flares, # 1 packet(s), 0 Refill(s), Pharmacy: [facility], High serum folic acid level High vitamin D level, 151.8, cm, 07/26/23 12:48:00 EDT, Height, kg, 07/26/23 12:48:00 EDT, Dosing Weight Start Date: 07/26/23 Stop Date: 07/28/23 Status: Ordered Start: 01-26-2022 End: 06-06-2022 take 1 tablet by mouth once Methylprednisolone (Medrol (Steve)) 4 mg tablets,dose pack Discontinued 0 PO per package directions March 17, 2022 2:58pm June 06, 2022 9:59am PO PER PKG DIR Start: 10-14-2021 End: 12-06-2021 take 1 tablet by mouth once Methylprednisolone (Medrol (Steve)) 4 mg tablets,dose pack Discontinued 0 PO per package directions October 14, 2021 12:00am December 06, 2021 10:04am PO PER PKG DIR 24 hr metoprolol succinate 25 mg extended release oral tablet (20 sources) beta-Adrenergic Yenny Start: 01-04-2023 End: 02-04-2024 take 1 tablet by mouth once daily Metoprolol Succinate 25 mg tablet extended release 24 hr Discontinued 25 mg PO DAILY January 04, 2023 10:36am February 04, 2024 11:28am Start: 10-05-2022 End: 01-04-2023 take 2 tablets by mouth once daily Metoprolol Succinate 25 mg tablet extended release 24 hr Discontinued 12.5 mg PO DAILY October 05, 2022 2:35pm January 04, 2023 9:32am Start: 10-05-2022 take 12.5 mg by mout h once daily Metoprolol Succinate Active 12.5 MG PO DAILY October 05, 2022 2:35pm Start: 12-01-2017 End: 10-05-2022 take 1 tablet by mouth once daily Metoprolol Succinate 25 mg tablet extended release 24 hr Discontinued 25 mg PO DAILY January 14, 2022 7:24pm October 05, 2022 2:36pm 24 hr mirabegron 25 mg extended release oral tablet (5 sources) beta3-Adrenergic Agonist Start: 11-23-2021 End: 06-06-2022 take 1 tablet by mouth once daily Mirabegron (Myrbetriq) 25 mg tablet extended release 24 hr Discontinued 25 mg PO DAILY November 23, 2021 12:00am June 06, 2022 9:59am naproxen sodium 220 mg oral capsule (6 sources) Nonsteroidal Anti-inflammatory Drug Start: 12-01-2017 End: 01-21-2020 take 1 capsule by mouth once daily as needed Naproxen Sodium 220 mg capsule Discontinued 220 mg PO DAILY as needed December 01, 2017 12:00am January 21, 2020 9:22am predniSONE 10 mg oral tablet (6 sources) Start: 06-16-2020 End: 11-02-2020 Prednisone 10 mg tablet Discontinued 10 mg PO DAILY June 16, 2020 12:00am November 02, 2020 10:02am 3 tabs daily for 3 days then 2 tabs daily for 3 days then 1 tab daily for three days then stop. propranolol hydrochloride 20 mg oral tablet (5 sources) beta-Adrenergic Yenny Start: 01-19-2024 End: 06-14-2024 take 1 tablet by mouth three times daily as needed for anxiety Propranolol 20 mg tablet Discontinued 20 mg PO THREE TIMES A DAY as needed for anxiety February 04, 2024 1:00am June 14, 2024 10:43am Start: 01-05-2024 propranolol 20 mg oral tablet Dose : 20 mg = 1 tab(s), Oral, TID, Take 30-60 min before triggering events Consider taking twice daily every day to help, # 60 tab(s), 1 Refill(s), Pharmacy: [id number], Anxiety Tremor, 151.8, cm, 01/05/24 14:09:00 EDT, Height, kg, 01/05/24 14:09:00 EDT, Dosing Weight Start Date: 01/05/24 Status: Ordered salmon calcitonin 200 unt/actuat nasal spray (6 sources) Calcitonin Start: 12-01-2017 End: 01-21-2020 Calcitonin ([place]) 200 unit/actuation spray,non-aerosol Discontinued 1 NMA Intranasal (ALT) DAILY December 01, 2017 12:00am January 21, 2020 9:21am Start: 12-01-2017 End: 01-21-2020 Calcitonin ([place]) Disconti nued 1 SPRAY Intranasal (ALT) DAILY December 01, 2017 12:00am January 21, 2020 9:21am selenium 200 mcg capsule (4 sources) Start: 12-01-2017 End: 01-21-2020 take 1 capsule by mouth once daily selenium 200 mcg capsule Discontinued 200 MCG PO DAILY December 01, 2017 12:00am January 21, 2020 9:22am Selenium 200 mcg capsule (2 sources) Start: 12-01-2017 End: 01-21-2020 take 1 capsule by mouth once daily Selenium 200 mcg capsule Discontinued 200 ug PO DAILY December 01, 2017 12:00am January 21, 2020 9:22am Selenium 25 mcg tablet (2 sources) Start: 01-04-2023 End: 03-06-2024 take 1 tablet by mouth once daily Selenium 25 mcg tablet Discontinued 25 ug PO DAILY January 04, 2023 12:00am March 07, 2024 12:48am sertraline 25 mg oral tablet (2 sources) Serotonin Reuptake Inhibitor Start: 03-06-2024 End: 06-14-2024 take 1 tablet by mouth once daily Sertraline 25 mg tablet Discontinued 25 mg PO DAILY March 06, 2024 1:00am June 14, 2024 10:43am spironolactone 25 mg oral tablet (5 sources) Aldosterone Antagonist Start: 01-19-2023 End: 02-04-2024 Spironolactone 25 mg tablet Discontinued 12.5 mg PO DAILY January 25, 2023 9:01am February 04, 2024 11:28am Take one/half tablet daily. tricalcium phosphate (4 sources) Start: 10-05-2022 End: 01-04-2023 take 500 mg by mouth once daily tricalcium phosphate Discontinued PO October 05, 2022 12:00am January 04, 2023 9:31am 500 mg daily Start: 10-05-2022 take 500 mg by mouth once martín y tricalcium phosphate Active PO October 05, 2022 12:00am 500 mg daily vitamin b12 0.5 mg oral tablet (6 sources) Vitamin B12 Start: 01-21-2020 End: 12-06-2021 take 1 tablet by mouth once daily Cyanocobalamin (Vitamin B-12) (Vitamin B-12) 500 mcg tablet Discontinued 500 ug PO DAILY January 21, 2020 1:00am December 06, 2021 10:04am vitamin b6 100 mg oral tablet (6 sources) Start: 01-21-2020 End: 12-06-2021 take 1 tablet by mouth once daily Pyridoxine (Vitamin B6) (Vitamin B-6) 100 mg tablet Discontinued 100 mg PO DAILY January 21, 2020 1:00am December 06, 2021 10:05am zeaxanthin (6 sources) Start: 12-01-2017 End: 01-21-2020 take 240 ug by mouth once daily zeaxanthin 240 mcg Discontinued PO DAILY December 01, 2017 12:00am January 21, 2020 9:22am Start: 12-01-2017 End: 01-21-2020 zeaxanthin Discontinued PO D AILY December 01, 2017 12:00am January 21, 2020 9:22am Problems Active Problems Problem Classification Problem Date Documented Da te Episodic/Chronic Anxiety disorders (3 sources) Mixed anxiety and depressive disorder; Translations: [Other specified anxiety disorders] Onset: 5 03-15-2024 Chronic Cancer of colon (2 sources) Malignant neoplasm of colon, unspecified; Translations: [Malignant neoplasm of colon, unspecified] Onset: 9 Chronic Cancer of colon (19 sources) History of malignant neoplasm of colon; Translations: [Personal history of other malignant neoplasm of large intestine] Onset: 8 Episodic Comment on above: Had surgery, chemoth erapy and radiation Complications of surgical procedures or medical care (2 sources) Postprocedural hypothyroidism; Translations: [Postprocedural hypothyroidism] Onset: 4 Chronic Congestive heart failure; nonhypertensive (10 sources) Heart failure with normal ejection fraction; Translations: [Unspecified diastolic (congestive) heart failure] Onset: 4 05-30-2023 Chronic Essential hypertension (20 sources) Essential (primary) hypertension; Translations: [Hypertensive disorder] Onset: 9 Chronic Fluid and electrolyte disorders (1 source) Dehydration; Translations: [Dehydration] Onset: 4 Episodic Genitourinary symptoms and ill-defined conditions (1 source) Unspecified urinary incontinence; Translations: [Unspecified urinary incontinence] Onset: 4 Chronic Genitourinary symptoms and ill-defined conditions (2 sources) Unspecified symptoms and signs involving the genitourinary system; Translations: [Unspecified symptoms and signs involving the genitourinary system] Onset: 5 Episodic Heart valve disorders (20 sources) Aortic valve regurgitation; Translations: [Nonrheumatic aortic (valve) insufficiency] 12-01-2017 Chronic Comment on above: Mild per echo with mild focal thickening Moderate per echo , with mild diffuse thickening. RVSP 32 mmhg. Mild per echo 2013: mild mitral annular calcification with rheumatic appearing mitral valve, sclerosis without stenosis. Heart valve disorders (6 sources) Heart murmur; Translations: [Cardiac murmur, unspecified] 12-01-2017 Episodic Immunity disorders (1 source) Patient immunocompromised 06-18-2024 Chronic Malaise and fatigue (6 sources) Asthenia; Translations: [Other malaise] Onset: 5 06-14-2024 Episodic Nutritional deficiencies (15 sources) Vitamin D deficiency; Translations: [Vitamin D deficiency, unspecified] Onset: 5 Chronic Nutritional deficiencies (11 sources) Cobalamin deficiency; Translations: [Deficiency of other specified B group vitamins] Episodic Osteoarthritis (3 sources) Primary osteoarthritis, right wrist; Translations: [Primary osteoarthritis, right wrist] Onset: 9 Chronic Osteoporosis (19 sources) Osteoporosis; Translations: [Age-related osteoporosis without current pathological fracture] Onset: 4 Chronic Other ear and sense organ disorders (2 sources) Impacted cerumen; Translations: [Impacted cerumen, unspecified ear] 01-04-2023 Episodic Other endocrine disorders (4 sources) Hypoglycemia; Translations: [Hypoglycemia, unspecified] 06-14-2024 Chronic Other endocrine disorders (1 source) Hypoglycemia, unspecified; Translations: [Hypoglycemia, unspecified] Onset: 5 Chronic Other gastrointestinal disorders (4 sources) Dysphagia; Translations: [Dysphagia, unspecified] 06-14-2024 Episodic Other gastrointestinal disorders (2 sources) Diarrhea; Translations: [Diarrhea, unspecified] 05-01-2024 Episodic Other gastrointestinal disorders (1 source) Dysphagia, unspecified; Translations: [Dysphagia, unspecified] Onset: 5 Episodic Other gastrointestinal disorders (1 source) Diarrhea, unspecified; Translations: [Diarrhea, unspecified] Onset: 5 Episodic Other hematologic conditions (6 sources) Macrocytosis - no anemia 05-30-2023 Chronic Other hematologic conditions (2 sources) Other specified diseases of blood and blood-forming organs; Translations: [Other specified diseases of blood and blood-forming organs] Onset: 4 Chronic Other hematologic conditions (6 sources) MCV - raised; Translations: [Other abnormality of red blood cells] 05-24-2021 Episodic Other hematologic conditions (1 source) Other abnormality of red blood cells; Translations: [Other abnormality of red blood cells] Episodic Other infections; including parasitic (1 source) H/O: infectious disease 06-18-2024 Episodic Other non-traumatic joint disorders (5 sources) Acute ankle pain; Translations: [Pain in right ankle and joints of right foot] 10-14-2021 Episodic Other nutritional; endocrine; and metabolic disorders (5 sources) 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 Chronic Other nutritional; endocrine; and metabolic disorders (2 sources) Hypervitaminosis D; 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] Onset: Chronic Other nutritional; endocrine; and metabolic disorders (2 sources) Unintentional weight loss; Translations: [Abnormal weight loss] 03-15-2024 Episodic Other nutritional; endocrine; and metabolic disorders (1 source) Adult failure to thrive syndrome 06-18-2024 Episodic Other nutritional; endocrine; and metabolic disorders (1 source) Body mass index less than 20 06-18-2024 Episodic Other skin disorders (6 sources) Venous mckeon; Translations: [Other skin changes] 08-17-2021 Episodic Other skin disorders (1 source) Other skin changes; Translations: [Hemangioma of skin and subcutaneous tissue] Episodic Residual codes; unclassified (4 sources) History of subtotal thyroidectomy 01-05-2024 Episodic Residual codes; unclassified (1 source) Not for resuscitation 06-18-2024 Episodic Schizophrenia and other psychotic disorders (2 sources) Paranoid disorder; Translations: [Delusional disorders] 03-15-2024 Chronic Spondylosis; intervertebral disc disorders; other back problems (14 sources) Acute thoracic back pain; Translations: [Pain in thoracic spine] Episodic Thyroid disorders (12 sources) Hypothyroidism, unspecified; Translations: [Hypothyroidism] Onset: 9 Chronic Unclassified (6 sources) Atrophy of right kidney 05-30-2023 Unclassified (5 sources) Blood substance level above reference range 07-26-2023 Unclassified (5 sources) Serum folate above reference range 07-26-2023 Urinary tract infections (5 sources) Urinary tract infection, site not specified; Translations: [Urinary tract infectious disease] Onset: 02-12-2024 Episodic Varicose veins of lower extremity (7 sources) Varicose veins of lower extremity; Translations: [Asymptomatic varicose veins of bilateral lower extremities] Episodic Past or Other Problems Problem Classification Problem Date Documented Da te Episodic/Chronic Mycoses (11 sources) Candidiasis of mouth; Translations: [Candidal stomatitis] Onset: 06-12-2024 06-14-2024 Episodic Other connective tissue disease (8 sources) Fibromyalgia; Translations: [Fibromyalgia] Onset: 07-18-2023 05-30-2023 Episodic Other connective tissue disease (2 sources) Fibromyalgia; Translations: [Fibromyalgia] Onset: 07-18-2023 Episodic Other diseases of kidney and ureters (4 sources) Disorder of kidney and ureter, unspecified; Translations: [Disorder of kidney and ureter, unspecified] Onset: 07-18-2023 Episodic Other nutritional; endocrine; and metabolic disorders (2 sources) Abnormal weight loss; Translations: [Abnormal weight loss] Onset: 01-05-2024 Episodic Other screening for suspected conditions (not mental disorders or infectious disease) (17 sources) Encounter for screening mammogram for malignant neoplasm of breast; Translations: [Abnormal renal function] Onset: 12-19-2018 05-30-2023 Episodic Results Test Name Value Interpretation Reference Range Facility No Panel Informationon 10-08 Culture Urine <10,000 cfu/ml. No Significant growth. Sensitivity not indicated. [facility] Work Phone: Anion gap in Serum or Plasma Ordered By: Ezra Rahman on 06-15-2024 Anion gap [Moles/Vol] 10 mmol/L 5-15 [facility] BUN/creatinine ratioOrdered By: Ezra Rahman on 06-15-2024 Urea nitrogen/Creatinine [Mass ratio] 16.4 mg/mg 10-20 [facility] Bilirubin Test strip Ql (U)O rdered By: Gary Kim on 06-15-2024 Bilirubin Ql (U) 1 mg/dL High Negative [facility] Comment on above: COLOR OF URINE MAY A FFECT DIPSTICK RESULTS. Bilirubin, totalOrdered By: Ezra Rahman on 06-15-2024 Bilirubin [Mass/Vol] 0.53 mg/dL 0.00-1.30 [facility] Calcium oxalate crystals LM Ql (Urine sed)Ordered By: Gary Kim on 06-15-2024 Urine Calcium Oxalate Crystals 2+ /hpf [facility] Carbon dioxide, total [Moles /volume] in Central venous bloodOrdered By: Ezra Rahman on 06-15-2024 CO2 [Moles/Vol] 22.2 mmol/L 21.0-32.0 [facility] Chloride assayOrdered By: Ruel Rahman on 06-15-2024 Chloride [Moles/Vol] 106 mmol/L 98-108 [facility] Comprehensive Metabolic Prof ilon 06-15-2024 Albumin [Mass/Vol] 3.1 g/dL Low 3.4-4.8 [facility] Comment on above: Performed By: #### L [id number] #### [facility] [address] [place], [address] Albumin/Globulin [Mass ratio] 1.4 {ratio} Normal 0.9-2.4 [facility] Comment on above: Performed By: #### L [id number] #### [facility] [address] [place], [address] ALK PHOS 70 U/L Normal 35-104 [facility] Comment on above: Performed By: #### L [id number] #### [facility] [address] [place], [address] ALT [Catalytic activity/Vol] U/L Normal <=34 [facility] Comment on above: Performed By: #### L [id number] #### [facility] [address] [place], [address] AST [Catalytic activity/Vol] 15 U/L Normal <=31 [facility] Comment on above: Performed By: #### L [id number] #### [facility] [address] [place], [address] Bilirubin [Mass/Vol] 0.53 mg/dL Normal 0.00-1.30 [facility] Comment on above: Performed By: #### L [id number] #### [facility] [address] [place], [address] BUN/CRE 16.4 RATIO Normal 10-20 [facility] Comment on above: Performed By: #### L [id number] #### [facility] [address] [place], [address] Calcium [Mass/Vol] 9.1 mg/dL Normal 7.6-11.0 [facility] Comment on above: Performed By: #### L [id number] #### [facility] [address] [place], [address] Chloride [Moles/Vol] 106 mmol/L Normal 98-108 [facility] Comment on above: Performed By: #### L [id number] #### [facility] [address] [place], [address] CO2 [Moles/Vol] 22.2 mmol/L Normal 21.0-32.0 [facility] Comment on above: Performed By: #### [id number] #### [facility] [address] [place], [address] Creatinine [Mass/Vol] 0.76 mg/dL Normal 0.70-1.20 [facility] Comment on above: Performed By: #### L [id number] #### [facility] [address] [place], [address] ECRCL 36.73 ml/min Low 50-250 [facility] Comment on above: Performed By: #### L [id number] #### [facility] [address] [place], [address] GAP 10 Normal 5-15 [facility] Comment on above: Performed By: #### L [id number] #### [facility] [address] [place], [address] GFR/1.73 sq M.predicted among non-blacks MDRD (S/P/Bld) [Vol rate/Area] 80 mL/min/{1.73_m2} Normal >60 [facility] Comment on above: Result Comment: mL/m in/1.73m2 CKD-EPI Creatinine Equation (2020) Performed By: #### L [id number] #### [facility] [address] [place], [address] Globulin (S) [Mass/Vol] 2.2 g/dL Normal 2.2-4.2 [facility] Comment on above: Performed By: #### L [id number] #### [facility] [address] [place], [address] Glucose [Mass/Vol] 78 mg/dL Normal 70-99 [facility] Comment on above: Performed By: #### L [id number] #### [facility] [address] [place], [address] Potassium [Moles/Vol] 3.7 mmol/L Normal 3.3-5.1 [facility] Comment on above: Performed By: #### L [id number] #### [facility] [address] [place], [address] Sodium [Moles/Vol] 139 mmol/L Normal 133-145 [facility] Comment on above: Performed By: #### L [id number] #### [facility] [address] [place], [address] T PROT 5.3 g/dL Low 5.9-8.4 [facility] Comment on above: Performed By: #### L [id number] #### [facility] [address] [place], [place], [id number] Urea nitrogen [Mass/Vol] 13 mg/dL Normal 4-19 [facility] Comment on above: Performed By: #### L [id number] #### [facility] [address] [place], [place], [id number] Epithelial cells.squamous LM Ql (Urine sed)Ordered By: Gary Kim on 06-15-2024 Epithelial cells.squamous LM.HPF (Urine sed) [#/Area] 0 /[HPF] 5-10 [facility] Estimation of creatinine gonzalo aranceOrdered By: Ezra Rahman on 06-15-2024 Estimated Creatinine Clearance Calc 36.73 ml/min Low 50-250 [facility] GFR/1.73 sq M.predicted phuc g non-blacks MDRD (S/P/Bld) [Vol rate/Area]Ordered By: Ezra Rahman on 06-15-2024 Estimated GFR (MDRD) Non-Af Amer 80 >60 [facility] Comment on above: mL/min/1.73m2 CKD-EP I Creatinine Equation (2020) Glucose Ql (U)Ordered By: Armin Kim on 06-15-2024 Urine Glucose (UA) Normal mg/dl Normal [facility] Ketones Test strip Ql (U)Ord ered By: Gary Kim on 06-15-2024 Ketones Ql (U) 15 mg/dl High Negative [facility] - Chemistry and C hemistry - challengeOrdered By: Ezra Rahman on 06-15-2024 AST [Catalytic activity/Vol] 15 U/L <32 [facility] Microscopic analysis of urin e for red blood cells (RBC)Ordered By: Gary Kim on 06-15-2024 Urine RBC 0 SEEN /hpf 0-5 [facility] Mucus LM Ql (Urine sed)Order ed By: Gary Kim on 06-15-2024 Mucus Ql (Urine sed) 1+ /hpf [facility] Nitrite Test strip Ql (U)Ord ered By: Gary Kim on 06-15-2024 Nitrite Ql (U) Positive High Negative [facility] Potassium (Unsp spec) [Mass/ Vol]Ordered By: Ezra Rahman on 06-15-2024 Potassium [Moles/Vol] 3.7 mmol/L 3.3-5.1 [facility] Protein Test strip Ql (U)Ord ered By: Gary Kim on 06-15-2024 Protein Ql (U) 100 mg/dl High Negative [facility] Serum creatinine measurement (mass/volume)Ordered By: Ezra Rahman on 06-15-2024 Creatinine [Mass/Vol] 0.76 mg/dL 0.70-1.20 [facility] Serum globulin measurementOr dered By: Ezra Rahman on 06-15-2024 Globulin (S) [Mass/Vol] 2.2 g/dL 2.2-4.2 [facility] Serum glucose measurement (m ass/volume)Ordered By: Ezra Rahman on 06-15-2024 Glucose [Mass/Vol] 78 mg/dL 70-99 [facility] Serum or plasma alanine lynn otransferase (ALT) measurementOrdered By: Ezra Rahman on 06-15-2024 ALT [Catalytic activity/Vol] U/L <35 [facility] Serum or plasma albumin alvaro urement (mass/volume)Ordered By: Ezra Rahman on 06-15-2024 Albumin [Mass/Vol] 3.1 g/dL Low 3.4-4.8 [facility] Serum or plasma albumin/glob ulin mass ratioOrdered By: Ezra Rahman on 06-15-2024 Albumin/Globulin [Mass ratio] 1.4 {ratio} 0.9-2.4 [facility] Serum or plasma alkaline john sphatase measurementOrdered By: Ezra Rahman on 06-15-2024 ALP [Catalytic activity/Vol] 70 U/L 35-104 [facility] Serum or plasma calcium alvaro urement (mass/volume)Ordered By: Ezra Rahman on 06-15-2024 Calcium [Mass/Vol] 9.1 mg/dL 7.6-11.0 [facility] Serum or plasma urea nitroge n measurement (mass/volume)Ordered By: Ezra Rahman on 06-15-2024 Urea nitrogen [Mass/Vol] 13 mg/dL 4-19 [facility] Sodium levelOrdered By: Ezra Rahman on 06-15-2024 Sodium [Moles/Vol] 139 mmol/L 133-145 [facility] TSH DL <= 0.005 mIU/L QnOrde red By: Ezra Rahman on 06-15-2024 Thyroid Stimulating Hormone (TSH) 3.240 uIU/mL 0.300-4.20 0 [facility] Thyroid Stim Hormone (TSH)on 06-15-2024 TSH 3.240 uIU/mL Normal 0.300-4.20 0 [facility] Comment on above: Performed By: #### L [id number] #### [facility] [address] [place], [place], [id number] Total proteinOrdered By: Li Rahman on 06-15-2024 Protein [Mass/Vol] 5.3 g/dL Low 5.9-8.4 [facility] Urinalysis, Completeon 06-15 BACTERIA 2+ /hpf Normal None Seen [facility] Comment on above: Order Comment: [place] LABEL [place] [facility] [place] Performed By: #### L [id number] #### [facility] [address] [place], [place], [id number] CA OX CRYSTAL 2+ /hpf Normal [facility] Comment on above: Order Comment: SENT LABEL TO [facility] [place]AN CATCH Performed By: #### L [id number] #### [facility] [address] [place], [place], [id number] EPI,SQUAMOUS 0-5 SEEN Normal 5-10 [facility] Comment on above: Order Comment: SENT LABEL TO [facility] [place]AN C[place] Performed By: #### L [id number] #### [facility] [address] [place], [place], [id number] Mucus Ql (Urine sed) 1+ /hpf Normal [facility] Comment on above: Order Comment: SENT LABEL TO [facility] TO COLLECT CLEAN CATCH Performed By: #### L [id number] #### [facility] [address] [place], [address] RBC 0 SEEN Normal 0-5 [facility] Comment on above: Order Comment: SENT LABEL TO [facility] TO COLLECT CLEAN CATCH Performed By: #### L [id number] #### [facility] [address] [place], [place], [id number] WBC 25-50 SEEN Normal 0-5 [facility] Comment on above: Order Comment: SENT LABEL TO [facility] TO COLLECT CLEAN CATCH Performed By: #### L [id number] #### [facility] [address] [place], [place], [id number] Urine blood detectionOrdered By: Gary Kim on 06-15-2024 Urine Occult Blood 25 /ul High Negative [facility] Urine clarityOrdered By: Mark Kim on 06-15-2024 Clarity (U) Cloudy Clear [facility] Urine color determinationOrd ered By: Gary Kim on 06-15-2024 Color (U) Yellow Yellow [facility] Urine leukocyte esterase det ection by dipstickOrdered By: Gary Kim on 06-15-2024 Leukocyte esterase Test strip Ql (U) 500 /ul High Negative [facility] Urine pHOrdered By: Gary Kim on 06-15-2024 pH (U) 6.0 [pH] 5.0 - 8.0 [facility] Urine sediment bacteria coun t by microscopy (number/high power field)Ordered By: Gary Kim on 06-15-2024 Bacteria LM.HPF (Urine sed) [#/Area] 2 /[HPF] None Seen [facility] Urine specific gravity measu rementOrdered By: Gary Kim on 06-15-2024 Specific gravity (U) [Rel density] 1.025 1.002-1.03 0 [facility] Urobilinogen Ql (U)Ordered B y: Gary Kim on 06-15-2024 Urobilinogen (U) [Mass/Vol] 4 mg/dL High Normal [facility] White blood cell countOrdere d By: Gary Kim on 06-15-2024 Urine WBC 25-50 SEEN /hpf 0-5 [facility] 12 Lead EKGon 06-14-2024 12 Lead EKG [facility] [address] [place] [address] 12 Lead EKG 06/14/24 0955 MR#: [id number] Acct: [id number] Name: SHABNAM CANO Rep #: [id number] : 1945 78 From: Pravin Shelton MD Attending Dr: Dr. Ezra Rahman DO Status: DIS IN Ordering Dr: Gary Kim DO Date: 06/14/24 [place] [facility] Sex: F C Admitted: 06/14/24 Test Reason : WEAKNESS Blood Pressure : */* mmHG Vent. Rate : 57 BPM Atrial Rate : 57 BPM P-R Int : 192 ms QRS Dur : 86 ms QT Int : 428 ms P-R-T Axes : 66 31 53 degrees QTcB Int : 416 ms Sinus bradycardia Otherwise normal ECG Confirmed by ZION TURNER, PRAVIN ([id number]), associate entertainment editor KELLY GRAYSON ([id number]) on 06/17/2024 9:15:33 AM Referred By: Confirmed By: PRAVIN SHELTON MD 06/17/2415 Date Pravin Shelton MD CC: Dr. Ezra Rahman DO; Dr. Gary Kim DO; Dr. Naveed Dye DO Signed Normal [facility] Absolute neutrophil countOrd ered By: Gary Kim on 06-14-2024 Neutrophils (Bld) [#/Vol] 5.0 10*3/uL 2.0-7.7 [facility] Anion gap in Serum or Plasma Ordered By: Gary Kim on 06-14-2024 Anion gap [Moles/Vol] 15 mmol/L 5-15 [facility] BUN/creatinine ratioOrdered By: Gary Kim on 06-14-2024 Urea nitrogen/Creatinine [Mass ratio] 24.6 mg/mg High 10-20 [facility] Basophil percentageOrdered B y: Gary Kim on 06-14-2024 Basophils/100 WBC (Bld) 0.3 % 0-1 [facility] Bedside Glucoseon 06-14-2024 FINGERSTICK GLU 50 mg/dL Low 74-106 [facility] Comment on above: Result Comment: TEODORA WOOD OF PATIENT CARE PER NURSING PROTOCOL Performed By: #### L 501.080 #### [facility] [address] [place], [address] Bilirubin, totalOrdered By: Gary Kim on 06-14-2024 Bilirubin [Mass/Vol] 0.54 mg/dL 0.00-1.30 [facility] CBC W/Diff, Automatedon 05-19 Absolute Lymph 0.43 X10 3/uL Low 0.83-4.51 [facility] Comment on above: Performed By: #### L [id number] #### [facility] [address] [place], [address] Absolute Neut 5.0 X10 3/uL Normal 2.0-7.7 [facility] Comment on above: Performed By: #### L [id number] #### [facility] [address] [place], [address] Basophils/100 WBC (Bld) 0.3 % Normal 0-1 [facility] Comment on above: Performed By: #### L 499.0043 #### [facility] [address] [place], [address] Eosinophils/100 WBC (Bld) 1.2 % Normal 0-5 [facility] Comment on above: Performed By: #### L [id number] #### [facility] [address] [place], [address] Erythrocyte distribution width (RBC) [Ratio] 14.2 % Normal 11.6-14.6 [facility] Comment on above: Performed By: #### L 499.0043 #### [facility] [address] [place], [address] Hematocrit (Bld) [Volume fraction] 38.3 % Normal 37-47 [facility] Comment on above: Performed By: #### L 499.0043 #### [facility] [address] [place], [address] Hemoglobin (Bld) [Mass/Vol] 12.2 g/dL Normal 12.0-15.0 [facility] Comment on above: Performed By: #### L 499.0043 #### [facility] [address] [place], [address] IG% 0.300 Normal 0.0-0.9 [facility] Comment on above: Result Comment: IG% - Immature Granulocytes (promyelocytes, myelocytes and metamyelocytes) > 1% indicates that a LEFT SHIFT is Present. Performed By: #### L [id number] #### [facility] [address] [place], [address] Lymphocytes/100 WBC (Bld) 7.3 % Low 19-41 [facility] Comment on above: Performed By: #### L 499.0043 #### [facility] [address] [place], [address] MCH (RBC) [Entitic mass] 32.0 pg Normal 27.0-32.0 [facility] Comment on above: Performed By: #### L [id number] #### [facility] [address] [place], [address] MCHC (RBC) [Mass/Vol] 31.9 g/dL Low 32-36 [facility] Comment on above: Performed By: #### L [id number] #### [facility] [address] [place], [address] MCV (RBC) [Entitic vol] 100.5 fL High 81-99 [facility] Comment on above: Performed By: #### L [id number] #### [facility] [address] [place], [address] Monocytes/100 WBC (Bld) 7.1 % Normal 0-10 [facility] Comment on above: Performed By: #### L [id number] #### [facility] [address] [place], [address] Neutrophils/100 WBC (Bld) 83.8 % High 47-70 [facility] Comment on above: Performed By: #### L [id number] #### [facility] [address] [place], [address] Nucleated RBC (Bld) [#/Vol] 0 10*3/uL Normal 0-5 [facility] Comment on above: Performed By: #### L [id number] #### [facility] [address] [place], [address] Platelet mean volume (Bld) [Entitic vol] 9.3 fL Normal 6.2-12.0 [facility] Comment on above: Performed By: #### L [id number] #### [facility] [address] [place], [address] Platelets (Bld) [#/Vol] 138 10*3/uL Low 150-450 [facility] Comment on above: Performed By: #### L [id number] #### [facility] [address] [place], [address] RBC (Bld) [#/Vol] 3.81 10*6/uL Low 4.2-5.4 [facility] Comment on above: Performed By: #### L 499.0043 #### [facility] [address] [place], [address] RDW SD 53.1 fl High 35.1-43.9 [facility] Comment on above: Performed By: #### L 499.0043 #### [facility] [address] [place], [place], [address] WBC (Bld) [#/Vol] 5.9 10*3/uL Normal 4.4-11.0 [facility] Comment on above: Performed By: #### L [id number] #### [facility] [address] [place], [place], [address] Carbon dioxide, total [Moles /volume] in Central venous bloodOrdered By: Gary Kim on 06-14-2024 CO2 [Moles/Vol] 17.6 mmol/L Low 21.0-32.0 [facility] Chest 1 View (Portable)on Chest 1 View (Portable) [facility] Imaging Services [address] [place], [place] [address] Chest 1 View (Portable) MR#: [id number] Acct: [id number] Name: SHABNAM CANO Rep #: [id number] : 1945 F 78 From: Laurie Marie MD PCP: Dr. Naveed Dye DO Status: REG ER Study: Chest 1 View (Portable) Date of Exam: 06/14/24 Exam# [id number] Ordering Dr: Gary Kim DO PROCEDURE: CHEST 1 VIEW (PORTABLE) 06/14/2024 REASON FOR EXAM: SOB TECHNIQUE: Frontal view of the chest. COMPARISON: None FINDINGS: There is minimal hazy airspace opacity in the right lung base laterally, possibly due to early pneumonia. No pleural effusion or pneumothorax. The cardiac silhouette is enlarged. The thoracic aorta is tortuous. No acute osseous or soft tissue abnormality. A surgical clip is noted at the right lower neck. RAD/Chest 1 View (Portable) IMPRESSION: 1. Trace right lung base airspace disease, possibly due to early pneumonia. Reading Location: [facility] CC: Dr. Gary Kim DO; Dr. Naveed Dye DO Dietary Tech: Signed Normal [facility] Chloride assayOrdered By: Armin Kim on 06-14-2024 Chloride [Moles/Vol] 107 mmol/L 98-108 [facility] Comprehensive Metabolic Prof ilon 06-14-2024 Albumin [Mass/Vol] 3.2 g/dL Low 3.4-4.8 [facility] Comment on above: Performed By: #### L 501.4021 #### [facility] [address] [place], [address] Albumin/Globulin [Mass ratio] 1.6 {ratio} Normal 0.9-2.4 [facility] Comment on above: Performed By: #### L 501.4021 #### [facility] [address] [place], [address] ALK PHOS 74 U/L Normal 35-104 [facility] Comment on above: Performed By: #### L [id number] #### [facility] [address] [place], [address] ALT [Catalytic activity/Vol] U/L Normal <=34 [facility] Comment on above: Performed By: #### L 501.4021 #### [facility] [address] [place], [address] AST [Catalytic activity/Vol] 19 U/L Normal <=31 [facility] Comment on above: Performed By: #### L [id number] #### [facility] [address] [place], [address] Bilirubin [Mass/Vol] 0.54 mg/dL Normal 0.00-1.30 [facility] Comment on above: Performed By: #### L [id number] #### [facility] [address] [place], [address] BUN/CRE 24.6 RATIO High 10-20 [facility] Comment on above: Performed By: #### L [id number] #### [facility] [address] [place], [address] Calcium [Mass/Vol] 9.4 mg/dL Normal 7.6-11.0 [facility] Comment on above: Performed By: #### L [id number] #### [facility] [address] [place], [address] Chloride [Moles/Vol] 107 mmol/L Normal 98-108 [facility] Comment on above: Performed By: #### L [id number] #### [facility] [address] [place], [address] CO2 [Moles/Vol] 17.6 mmol/L Low 21.0-32.0 [facility] Comment on above: Performed By: #### L [id number] #### [facility] [address] [place], [address] Creatinine [Mass/Vol] 0.79 mg/dL Normal 0.70-1.20 [facility] Comment on above: Performed By: #### L [id number] #### [facility] [address] [place], [address] ECRCL 38.34 ml/min Low 50-250 [facility] Comment on above: Performed By: #### L [id number] #### [facility] [address] [place], [address] GAP 15 Normal 5-15 [facility] Comment on above: Performed By: #### L [id number] #### [facility] [address] [place], [address] GFR/1.73 sq M.predicted among non-blacks MDRD (S/P/Bld) [Vol rate/Area] 77 mL/min/{1.73_m2} Normal >60 [facility] Comment on above: Result Comment: mL/m in/1.73m2 CKD-EPI Creatinine Equation (2020) Performed By: #### L 501.4021 #### [facility] [address] [place], [address] Globulin (S) [Mass/Vol] 2.0 g/dL Low 2.2-4.2 [facility] Comment on above: Performed By: #### L [id number] #### [facility] [address] [place], [address] Glucose [Mass/Vol] 69 mg/dL Low 70-99 [facility] Comment on above: Performed By: #### L [id number] #### [facility] [address] [place], [address] Potassium [Moles/Vol] 4.3 mmol/L Normal 3.3-5.1 [facility] Comment on above: Performed By: #### L [id number] #### [facility] [address] [place], [address] Sodium [Moles/Vol] 140 mmol/L Normal 133-145 [facility] Comment on above: Performed By: #### L 501.4021 #### [facility] [address] [place], [address] T PROT 5.3 g/dL Low 5.9-8.4 [facility] Comment on above: Performed By: #### L [id number] #### [facility] [address] [place], [address] Urea nitrogen [Mass/Vol] 19 mg/dL Normal 4-19 [facility] Comment on above: Performed By: #### L [id number] #### [facility] [address] [place], [address] Emergency Department Summary on 06-14-2024 Emergency Department Summary [facility] Medical Records Department [address] [place] [address] Emergency Department Summary 06/14/24 MR#: [id number] Acct: [id number] Name: CANOSHABNAM E Rep #: [id number] : 1945 78 From: Gary Kim DO PCP: Dr. Naveed Dye, DO Status:ADM IN Location: MS3 [id number] HPI History of Present Illness Chief Complaint: Weakness Narrative Narrative: Patient is a 78-year-old female who is presenting to the ER today with chief complaint of oral thrush this been in her mouth since Monday, and therefore is causing patient not able to eat, drink. There is concern for dehydration, patient is talking quieter than she normally does. Patient is at bedside. He has frustration because he cannot take care of her at home currently, patient did see the PCP office on Monday. Patient was placed on chlorhexidine mouthwash along with nystatin swish and swallow. Patient states that she cannot use the nystatin swish or swallow or the chlorhexidine secondary to it burning in her mouth. There is an effort component to this as well per . Patient did weigh over 120 pounds prior to the recent holidays or [place]. Now patient weighs approximately 80 pounds. Patient was in a psychiatric facility in [place] for over a month in March secondary anxiety and other mental health issues. Patient has been declining at home since. Patient did have diarrhea when she was discharged in psychiatric facility in March, that did slow down and eventually stopped. Patient had loose stool today. Patient is incontinent of stool, she can urinate on her own. Patient is very frail. Patient came in by EMS. Patient does have moderate amount of thrush on her tongue. You can barely hear patient speak secondary to her effort. There is some noted to the posterior pharynx as well. [facility] Medical History Hypothyroidism Hypertension Bilateral leg pain Depression Fibromyalgia Arthritis of left knee Osteoporosis History of colon cancer (2007) Cardiac murmur Tricuspid insufficiency Mitral insufficiency Home Medications ???Medication ???Instructions ???Recorded ???Last Taken ???Type lactobacillus combo no.13 1 1 cap PO DAILY 12/01/17 Unknown Hi story billion cell capsule,delayed release (Probiotic Pearls Complete) Handicap Placard #1 ea 11/12/20 Unknown Rx multivitamin 1 tab PO DAILY 12/06/21 Unknown Hi story omega 6-blo-pzk-fish oil 300 1 cap PO DAILY 10/05/22 Unknown Hi story mg-1,000 mg capsule (Fish Oil) chlorhexidine gluconate 0.12 % 1 applic mucous membrane QHS 06/14 Unknown History mouthwash dentures lorazepam 1 mg tablet 1 mg PO TID 06/14/24 06/13/24 Hist ory mirtazapine 45 mg tablet 45 mg PO QHS 06/14/24 06/13/24 His tory nystatin 100,000 unit/mL oral 5 ml PO 4X/DAY 06/14/24 06/13/24 H istory suspension olanzapine 5 mg tablet 2.5 - 5 mg PO DAILY 06/14/24 Unkno wn History Allergy/AdvReac Type Severity Reaction Status Date / Time amlodipine Allergy Severe anxiety Verified 04/23/24 09:34 meloxicam Allergy Severe weight gain Verified 04/23/24 09:34 pollen extracts Allergy Intermediate Rhinitis Verified 04/23/24 09:34 atenolol (From Tenoretic) Allergy Unknown Unknown Verified 04/23/24 09:34 chlorthalidone (From Allergy Unknown Unknown Verified 04/23/24 09:34 Tenoretic) ciprofloxacin AdvReac Severe joint pain Verified 04/23/24 09:34 pregabalin (From Lyrica) AdvReac Severe Tremors Verified 04/23/24 09:34 lisinopril AdvReac Intermediate cough Verified 04/23/24 09:34 indomethacin AdvReac Unknown unknown Verified 04/23/24 09:34 Family History Father Hypertension Heart disease Brother Hypertension Diabetes Mother Diabetes Heart disease Aunt Breast cancer Grandmother Breast cancer Surgical History History of partial thyroidectomy (2009) History of vaginal hysterectomy (1977) History of colon surgery (2007) Social History Smoking Status: Never smoker alcohol intake: never substance use type: does not use what type of physical activity do you participate in: walking frequency: daily ROS ROS ED ROS Narrative REVIEW OF SYSTEMS: Unless otherwise stated in this report the patient's positive and negative responses for review of systems for constitutional, eyes, ENT, cardiovascular, respiratory, gastrointestinal, neurological, , musculoskeletal, and integument systems and related systems to the presenting problem are either stated in the history of present illness or were not pertinent or were negative for the symptoms and/or complaints related to the presenting medical problem. (more content not included)... Normal [facility] Eosinophil percentageOrdered By: Gary Kim on 06-14-2024 Eosinophils/100 WBC (Bld) 1.2 % 0-5 [facility] Erythrocyte distribution wid th ratioOrdered By: Gary Kim on 06-14-2024 Erythrocyte distribution width (RBC) [Ratio] 14.2 % 11.6-14.6 [facility] Erythrocyte distribution wid th standard deviationOrdered By: Gary Kim on 06-14-2024 Erythrocyte distribution width (RBC) [Entitic vol] 53.1 fL High 35.1-43.9 [facility] Estimation of creatinine gonzalo aranceOrdered By: Gary Kim on 06-14-2024 Estimated Creatinine Clearance Calc 38.34 ml/min Low 50-250 [facility] GFR/1.73 sq M.predicted phuc g non-blacks MDRD (S/P/Bld) [Vol rate/Area]Ordered By: Gary Julio on 06-14-2024 Estimated GFR (MDRD) Non-Af Amer 77 >60 [facility] Comment on above: mL/min/1.73m2 CKD-EP I Creatinine Equation (2020) Glucose measurement at bedsi deOrdered By: Gary Kim on 06-14-2024 Bedside Glucose (Misc Panel) 50 mg/dL Low 74-106 [facility] Comment on above: MANAGEMENT OF PATIEN T CARE PER NURSING PROTOCOL H AND P Exam - Hospitaliston 06-14-2024 H&P Exam - Hospitalist [facility] Medical Records Department [address] [place] [address] H P Exam - Hospitalist 06/14/24 1222 MR#: [id number] Acct: [id number] Name: SHABNAM CANO Rep #: [id number] : 1945 78 From: Ezra Rahman DO PCP: Dr. Naveed Dye, DO Status:ADM IN Location[place] [facility] [id number] HPI - General General Date of Service: 06/14/24 Chief Complaint: Debility. Decreased oral intake. HPI Narrative SHABNAM CANO, is a 78 F who presents presents due to weakness. Patient is a poor historian so history is obtained through the emergency room physician. Patient has been at home and recent diagnosed with thrush and was ordered nystatin but she has not been able to take it because her mouth is so sore. So she presented to the emergency room where she clearly had thrush involving her tongue and oropharynx. She received a dose of 20 mg of IV fluconazole. Is also noted that her blood sugar was low at 50. The try to give her juice but she refused it because of her mouth being sore so she received a bolus of D5 500 cc. Patient also been very debilitated and the has been no longer able to care for her because she is so weak. [facility] Medical History Hypothyroidism Hypertension Bilateral leg pain Depression Fibromyalgia Arthritis of left knee Osteoporosis History of colon cancer (2007) Cardiac murmur Tricuspid insufficiency Mitral insufficiency Home Medications ???Medication ???Instructions ???Recorded ???Last Taken ???Type lactobacillus combo no.13 1 1 cap PO DAILY 12/01/17 Unknown Hi story billion cell capsule,delayed release (Probiotic Pearls Complete) Handicap Placard #1 ea 11/12/20 Unknown Rx multivitamin 1 tab PO DAILY 12/06/21 Unknown Hi story omega 0-buv-eeb-fish oil 300 1 cap PO DAILY 10/05/22 Unknown Hi story mg-1,000 mg capsule (Fish Oil) chlorhexidine gluconate 0.12 % 1 applic QHS dentures 06/14/24 Unk nown History mouthwash lorazepam 1 mg tablet 1 mg PO TID 06/14/24 06/13/24 Hist ory mirtazapine 45 mg tablet 45 mg PO QHS 06/14/24 06/13/24 His tory nystatin 100,000 unit/mL oral 5 ml PO 4X/DAY 06/14/24 06/13/24 H istory suspension olanzapine 5 mg tablet 2.5 - 5 mg PO DAILY 06/14/24 Unkno wn History Allergy/AdvReac Type Severity Reaction Status Date / Time amlodipine Allergy Severe anxiety Verified 04/23/24 09:34 meloxicam Allergy Severe weight gain Verified 04/23/24 09:34 pollen extracts Allergy Intermediate Rhinitis Verified 04/23/24 09:34 atenolol (From Tenoretic) Allergy Unknown Unknown Verified 04/23/24 09:34 chlorthalidone (From Allergy Unknown Unknown Verified 04/23/24 09:34 Tenoretic) ciprofloxacin AdvReac Severe joint pain Verified 04/23/24 09:34 pregabalin (From Lyrica) AdvReac Severe Tremors Verified 04/23/24 09:34 lisinopril AdvReac Intermediate cough Verified 04/23/24 09:34 indomethacin AdvReac Unknown unknown Verified 04/23/24 09:34 Family History Father Hypertension Heart disease Brother Hypertension Diabetes Mother Diabetes Heart disease Aunt Breast cancer Grandmother Breast cancer Surgical History History of partial thyroidectomy (2009) History of vaginal hysterectomy (1977) History of colon surgery (2007) Social History Smoking Status: Never smoker alcohol intake: never substance use type: does not use what type of physical activity do you participate in: walking frequency: daily ROS ROS Narrative Unable to adequately obtain as the patient is just very weak and not able to effectively answer questions because of her weak voice. Vital Signs Vital Signs Vital Signs: 06/14/24 09:11 06/14/24 09:44 06/14/24 10:15 Temperature 36.4 C L 36.4 C L Temperature Source Oral Oral Pulse Rate 62 57 L Respiratory Rate 16 16 Respiratory Effort Normal Respiratory Pattern Normal Blood Pressure 158/63 H 131/88 H Blood Pressure Mean 94 102 Pulse Ox 98 98 Oxygen Delivery Method Room Air Room Air 06/14/24 11:00 06/14/24 11:23 Temperature 36.6 C 36.6 C Temperature Source Axillary Axillary Pulse Rate 61 58 L Respiratory Rate 16 16 Respiratory Effort Respiratory Pattern Blood Pressure 136/64 H 128/62 H Blood Pressure Mean 88 84 Pulse Ox 99 99 Oxygen Delivery Method Room Air Room Air Weight Weight: 41.9 kg Body Mass Index (BMI) 17.4 Physical Exam Const Constitutional Narrative: Cachectic. Afebrile. HEENT normocephalic, head/scalp atraumatic, hearing grossly normal bilaterally and moist oral mucous membranes HEENT Narrative: Marked th (more content not included)... Normal [facility] Hematocrit Auto (Bld) [Volum e fraction]Ordered By: Gary Kim on 06-14-2024 Hematocrit (Bld) [Volume fraction] 38.3 % 37-47 [facility] Hemoglobin measurementOrdere d By: Gary Kim on 06-14-2024 Hemoglobin (Bld) [Mass/Vol] 12.2 g/dL 12.0-15.0 [facility] Immature granulocytes/100 WB C Auto (Bld)Ordered By: Gary Kim on 06-14-2024 Immature granulocytes/100 WBC (Bld) 0.300 % 0.0-0.9 [facility] Comment on above: IG% - Immature Granu locytes (promyelocytes, myelocytes and metamyelocytes) > 1% indicates that a LEFT SHIFT is Present. L499.0042on 06-14-2024 Trop T High Sen 13 ng/L Normal <=14 [facility] Comment on above: Performed By: #### L 499.0043 #### [facility] [address] [place], [place], [address] L499.0043on 06-14-2024 Trop T High Sen 12 ng/L Normal <=14 [facility] Comment on above: Performed By: #### L 499.0043 #### [facility] [address] [place], [place], [address] L501.4021on 06-14-2024 Trop T High Sen 13 ng/L Normal <=14 [facility] Comment on above: Performed By: #### L 501.4021 #### [facility] [address] [facility] [place], [place], [id number] Laboratory - Chemistry and C hemistry - challengeOrdered By: Gary Kim on 06-14-2024 AST [Catalytic activity/Vol] 19 U/L <32 [facility] Lipaseon 06-14-2024 Lipase [Catalytic activity/Vol] 19 U/L Normal 13-75 [facility] Comment on above: Result Comment: Valdo pichardo note: LIPASE revised reference range effective 22. New Lipase methodology. Expected to produce lower values than the previous assay method. NEW Reference Range: 13 - 75 U/L Performed By: #### L 499.0043 #### [facility] [place], [address] Lipase measurementOrdered By : Gary Kim on 06-14-2024 Lipase [Catalytic activity/Vol] 19 U/L 13-75 [facility] Comment on above: Please note:LIPASE r evised reference range effective 22. New Lipase methodology. Expected to produce lower values than the previous assay method. NEW Reference Range: 13 - 75 U/L Lymphocytes Auto (Unsp spec) [#/Vol]Ordered By: Gary Kim on 06-14-2024 Lymphocytes (Bld) [#/Vol] 0.43 10*3/uL Low 0.83-4.51 [facility] Lymphocytes/100 WBC Auto (Un sp spec)Ordered By: Gary Kim on 06-14-2024 Lymphocytes/100 WBC (Bld) 7.3 % Low 19-41 [facility] MCV (mean corpuscular volume ) determinationOrdered By: Gary Kim on 06-14-2024 MCV (RBC) [Entitic vol] 100.5 fL High 81-99 [facility] Mean corpuscular hemoglobin (MCH) determinationOrdered By: Gary Kim on 06-14-2024 MCH (RBC) [Entitic mass] 32.0 pg 27.0-32.0 [facility] Mean corpuscular hemoglobin concentration (MCHC) determinationOrdered By: Gary Kim on 06-14-2024 MCHC (RBC) [Mass/Vol] 31.9 g/dL Low 32-36 [facility] Mean platelet volume determi nationOrdered By: Gary Kim on 06-14-2024 Platelet mean volume (Bld) [Entitic vol] 9.3 fL 6.2-12.0 [facility] Monocyte percentageOrdered B y: Gary Kim on 06-14-2024 Monocytes/100 WBC (Bld) 7.1 % 0-10 [facility] Neutrophil percentageOrdered By: Gary Kim on 06-14-2024 Neutrophils/100 WBC (Bld) 83.8 % High 47-70 [facility] No Panel InformationOrdered By: Gary Kim on 06-14-2024 Troponin T High Sensitivity 13 ng/L <14 [facility] Nucleated red blood cell per centageOrdered By: Gary Kim on 06-14-2024 Nucleated RBC/100 WBC (Bld) [Ratio] 0 % 0-5 [facility] Platelet countOrdered By: Armin Kim on 06-14-2024 Platelets (Bld) [#/Vol] 138 10*3/uL Low 150-450 [facility] Potassium (Unsp spec) [Mass/ Vol]Ordered By: Gary Kim on 06-14-2024 Potassium [Moles/Vol] 4.3 mmol/L 3.3-5.1 [facility] RBC Auto (Bld) [#/Vol]Ordere d By: Gary Kim on 06-14-2024 RBC (Bld) [#/Vol] 3.81 10*6/uL Low 4.2-5.4 [facility] Serum creatinine measurement (mass/volume)Ordered By: Gary Kim on 06-14-2024 Creatinine [Mass/Vol] 0.79 mg/dL 0.70-1.20 [facility] Serum globulin measurementOr dered By: Gary Kim on 06-14-2024 Globulin (S) [Mass/Vol] 2.0 g/dL Low 2.2-4.2 [facility] Serum glucose measurement (m ass/volume)Ordered By: Gary Kim on 06-14-2024 Glucose [Mass/Vol] 69 mg/dL Low 70-99 [facility] Serum or plasma alanine lynn otransferase (ALT) measurementOrdered By: Gary Kim on 06-14-2024 ALT [Catalytic activity/Vol] U/L <35 [facility] Serum or plasma albumin alvaro urement (mass/volume)Ordered By: Gary Kim on 06-14-2024 Albumin [Mass/Vol] 3.2 g/dL Low 3.4-4.8 [facility] Serum or plasma albumin/glob ulin mass ratioOrdered By: Gary iKm on 06-14-2024 Albumin/Globulin [Mass ratio] 1.6 {ratio} 0.9-2.4 [facility] Serum or plasma alkaline john sphatase measurementOrdered By: Gary Kim on 06-14-2024 ALP [Catalytic activity/Vol] 74 U/L 35-104 [facility] Serum or plasma calcium alvaro urement (mass/volume)Ordered By: Gary Kim on 06-14-2024 Calcium [Mass/Vol] 9.4 mg/dL 7.6-11.0 [facility] Serum or plasma urea nitroge n measurement (mass/volume)Ordered By: Gary Kim on 06-14-2024 Urea nitrogen [Mass/Vol] 19 mg/dL 4-19 [facility] Sodium levelOrdered By: Constantin Kim on 06-14-2024 Sodium [Moles/Vol] 140 mmol/L 133-145 [facility] Total proteinOrdered By: Mark Kim on 06-14-2024 Protein [Mass/Vol] 5.3 g/dL Low 5.9-8.4 [facility] Troponin T.cardiac High sens itivity method [Mass/Vol]Ordered By: Gary Kim on 06-14-2024 Troponin T High Sensitivity 4 Hour 12 ng/L <14 [facility] Troponin T High Sensitivity 2 Hour 13 ng/L <14 [facility] White blood cell (WBC) count Ordered By: Gary Kim on 06-14-2024 WBC (Bld) [#/Vol] 5.9 10*3/uL 4.4-11.0 [facility] .Auto Diffon 06-12-2024 Basophil, Absolute 0.0 10 3/mcL Normal 0.0-0.2 [facility] Comment on above: Performed By: #### 7 56120, TSH, FT4, FES, VIDH, CMP, GFR, ESR, 207741, 172411, 715213, CBC, ADIFF, ANEU, PBNP, FERR, MG, PHOS #### [facility] [address] [place], [place] [address] #### HOMO, CRPHS, PRALB, FOL #### [address] [address] Basophils/100 WBC (Bld) 0.4 % Normal 0.0-2.5 [facility] Comment on above: Performed By: #### 7 42395, TSH, FT4, FES, VIDH, CMP, GFR, ESR, 975421, 028085, 565929, CBC, ADIFF, ANEU, PBNP, FERR, MG, PHOS #### [place] [address] #### HOMO, CRPHS, PRALB, FOL #### [address] [address] Eosinophil, Absolute 0.0 10 3/mcL Normal 0.0-0.7 [facility] Comment on above: Performed By: #### 7 27768, TSH, FT4, FES, VIDH, CMP, GFR, ESR, 892257, 698661, 787255, CBC, ADIFF, ANEU, PBNP, FERR, MG, PHOS #### [place] [address] #### HOMO, CRPHS, PRALB, FOL #### [address] [address] Eosinophils/100 WBC (Bld) 0.2 % Normal 0.0-7.0 [facility] Comment on above: Performed By: #### 7 [address]8560, TSH, FT4, FES, VIDH, CMP, GFR, ESR, 766661, 471675, 119126, CBC, ADIFF, ANEU, PBNP, FERR, MG, PHOS #### [place] [address] #### HOMO, CRPHS, PRALB, FOL #### [address] [address] Lymphocyte, Absolute 0.3 10 3/mcL Low 0.9-4.3 [facility] Comment on above: Performed By: #### 7 [address]11[address], TSH, FT4, FES, VIDH, CMP, GFR, ESR, 554954, 682371, 405217, CBC, ADIFF, ANEU, PBNP, FERR, MG, PHOS #### [address] [address] #### HOMO, CRPHS, PRALB, FOL #### [address] [address] Lymphocytes/100 WBC (Bld) 4.2 % Low 20.0-40.0 [facility] Comment on above: Performed By: #### 7 [address]27[address], TSH, FT4, FES, VIDH, CMP, GFR, ESR, 254224, 057235, 041058, CBC, ADIFF, ANEU, PBNP, FERR, MG, PHOS #### [address] [address] #### HOMO, CRPHS, PRALB, FOL #### [address] [address] Monocyte, Absolute 0.4 10 3/mcL Normal 0.1-1.4 [facility] Comment on above: Performed By: #### 7 00238, TSH, FT4, FES, VIDH, CMP, GFR, ESR, 886696, 019934, 452415, CBC, ADIFF, ANEU, PBNP, FERR, MG, PHOS #### [address] [address] #### HOMO, CRPHS, PRALB, FOL #### [address] [address] Monocytes/100 WBC (Bld) 5.1 % Normal 2.0-13.0 [facility] Comment on above: Performed By: #### 7 [address], TSH, FT4, FES, VIDH, CMP, GFR, ESR, 180532, 455155, 872471, CBC, ADIFF, ANEU, PBNP, FERR, MG, PHOS #### [address] [address] #### HOMO, CRPHS, PRALB, FOL #### [address] [address] Neutrophils/100 WBC (Bld) 90.1 % High 50.0-75.0 [facility] Comment on above: Performed By: #### 7 [address], TSH, FT4, FES, VIDH, CMP, GFR, ESR, 312256, 523928, 117151, CBC, ADIFF, ANEU, PBNP, FERR, MG, PHOS #### [address] [address] #### HOMO, CRPHS, PRALB, FOL #### [address] [address] .GFRon 06-12-2024 Estimated Glomerular Filtration Rate 58 ml/min/1.73sqm Normal [facility] Comment on above: Result Comment: Stages of Chronic Kidney Disease (CKD) Stage Description eGFR(ml/min/1.73 sq.m.) CKD 1 Normal kidney function or >=90 normal kindney function with possible kidney damage (ex. Proteinuria) CKD 2 Kidney damage with mild loss 60-89 of kidney function CKD 3a Mild to moderate loss of kidney 45-59 function CKD 3b Moderate to severe loss of 30-44 of kindey function CKD 4 Severe loss of kidney function 15-29 CKD 5 Kidney failure <15 Note: (go live 2024) the eGFR calculation was updated to the 2020 CKD-EPI creatinine equation without a race factor to calculate the eGFR results. Performed By: #### 7 06226, TSH, FT4, FES, VIDH, CMP, GFR, ESR, 851740, 189006, 808094, CBC, ADIFF, ANEU, PBNP, FERR, MG, PHOS #### [place] [address] #### HOMO, CRPHS, PRALB, FOL #### [address] [address] .NEUABSon 06-12-2024 Neutrophil, Absolute 7.2 10 3/mcL Normal 2.3-8.1 [facility] Comment on above: Performed By: #### 7 29263, TSH, FT4, FES, VIDH, CMP, GFR, ESR, 225276, 520245, 557242, CBC, ADIFF, ANEU, PBNP, FERR, MG, PHOS #### [place] [id number] #### HOMO, CRPHS, PRALB, FOL #### [address] [address] A1Con 06-12-2024 Glucose [Mass/Vol] 100 mg/dL Normal [facility] Comment on above: Result Comment: Shellie mated Average Glucose calculated by equation ((28.7xA1C)-46.7) Estimated average glucose (eAG) is a calculated value from Hemoglobin A1C and is sales representative girls[employer]arel of the average blood glucose level in the last 2-3 month period. Normal range: less than 114 mg/dL Performed By: #### 7 60736, TSH, FT4, FES, VIDH, CMP, GFR, ESR, 175651, 046661, 796058, CBC, ADIFF, ANEU, PBNP, FERR, MG, PHOS #### [address] [address] #### HOMO, CRPHS, PRALB, FOL #### [address] [address] HbA1c (Bld) [Mass fraction] 5.1 % Normal 4.3-6.4 [facility] Comment on above: Performed By: #### 7 97800, TSH, FT4, FES, VIDH, CMP, GFR, ESR, 959914, 044208, 960135, CBC, ADIFF, ANEU, PBNP, FERR, MG, PHOS #### [address] [address] #### HOMO, CRPHS, PRALB, FOL #### [address] [address] CBCon 06-12-2024 Erythrocyte distribution width (RBC) [Ratio] 15.4 % Normal 11.5-15.5 [facility] Comment on above: Performed By: #### 7 18363, TSH, FT4, FES, VIDH, CMP, GFR, ESR, 112466, 090965, 518931, CBC, ADIFF, ANEU, PBNP, FERR, MG, PHOS #### [address] [address] #### HOMO, CRPHS, PRALB, FOL #### [place] [address] Hematocrit (Bld) [Volume fraction] 41.7 % Normal 34.0-46.0 [facility] Comment on above: Performed By: #### 7 21280, TSH, FT4, FES, VIDH, CMP, GFR, ESR, 518535, 640336, 430283, CBC, ADIFF, ANEU, PBNP, FERR, MG, PHOS #### [place] [address] #### HOMO, CRPHS, PRALB, FOL #### [place] [address] Hgb 13.8 G/dL Normal 12.0-16.0 [facility] Comment on above: Performed By: #### 7 56794, TSH, FT4, FES, VIDH, CMP, GFR, ESR, 893131, 362771, 360252, CBC, ADIFF, ANEU, PBNP, FERR, MG, PHOS #### [place] [address] #### HOMO, CRPHS, PRALB, FOL #### [place] [id number] MCH (RBC) [Entitic mass] 31.9 pg Normal 27.0-33.0 [facility] Comment on above: Performed By: #### 7 04515, TSH, FT4, FES, VIDH, CMP, GFR, ESR, 652229, 079622, 428482, CBC, ADIFF, ANEU, PBNP, FERR, MG, PHOS #### [place] [address] #### HOMO, CRPHS, PRALB, FOL #### [place] [address] MCHC 33.2 G/dL Normal 32.0-36.0 [facility] Comment on above: Performed By: #### 7 52905, TSH, FT4, FES, VIDH, CMP, GFR, ESR, 149174, 137102, 540752, CBC, ADIFF, ANEU, PBNP, FERR, MG, PHOS #### [place] [address] #### HOMO, CRPHS, PRALB, FOL #### [address] [address] MCV (RBC) [Entitic vol] 96.2 fL Normal 80.0-99.0 [facility] Comment on above: Performed By: #### 7 73517, TSH, FT4, FES, VIDH, CMP, GFR, ESR, 840891, 275266, 975496, CBC, ADIFF, ANEU, PBNP, FERR, MG, PHOS #### [place] [address] #### HOMO, CRPHS, PRALB, FOL #### [place] [address] Platelet 170 10 3/mcL Normal 150-450 [facility] Comment on above: Performed By: #### 7 09516, TSH, FT4, FES, VIDH, CMP, GFR, ESR, 798508, 472955, 548273, CBC, ADIFF, ANEU, PBNP, FERR, MG, PHOS #### [place] [address] #### HOMO, CRPHS, PRALB, FOL #### [address] [address] Platelet mean volume (Bld) [Entitic vol] 7.8 fL Normal 6.6-10.5 [facility] Comment on above: Performed By: #### 7 38451, TSH, FT4, FES, VIDH, CMP, GFR, ESR, 391769, 167628, 863212, CBC, ADIFF, ANEU, PBNP, FERR, MG, PHOS #### [place] [address] #### HOMO, CRPHS, PRALB, FOL #### [place] [address] RBC 4.33 10 6/mcL Normal 4.10-5.30 [facility] Comment on above: Performed By: #### 7 58958, TSH, FT4, FES, VIDH, CMP, GFR, ESR, 857905, 679647, 528491, CBC, ADIFF, ANEU, PBNP, FERR, MG, PHOS #### [place] [address] #### HOMO, CRPHS, PRALB, FOL #### [place] [address] WBC 8.0 10 3/mcL Normal 4.5-10.8 [facility] Comment on above: Performed By: #### 7 89423, TSH, FT4, FES, VIDH, CMP, GFR, ESR, 471844, 048573, 891643, CBC, ADIFF, ANEU, PBNP, FERR, MG, PHOS #### [place] [address] #### HOMO, CRPHS, PRALB, FOL #### [place] [address] CMPon 06-12-2024 ALT [Catalytic activity/Vol] 12 U/L Low 14-59 [facility] Comment on above: Performed By: #### 7 45029, TSH, FT4, FES, VIDH, CMP, GFR, ESR, 325645, 018733, 991191, CBC, ADIFF, ANEU, PBNP, FERR, MG, PHOS #### [place] [address] #### HOMO, CRPHS, PRALB, FOL #### [place] [address] Albumin Level 3.7 G/dL Normal 3.4-4.8 [facility] Comment on above: Performed By: #### 7 08689, TSH, FT4, FES, VIDH, CMP, GFR, ESR, 946632, 530751, 746555, CBC, ADIFF, ANEU, PBNP, FERR, MG, PHOS #### [place] [address] #### HOMO, CRPHS, PRALB, FOL #### [address] [address] Albumin/Globulin [Mass ratio] 1.1 {ratio} Normal 1.1-2.5 [facility] Comment on above: Performed By: #### 7 69614, TSH, FT4, FES, VIDH, CMP, GFR, ESR, 736617, 845178, 983702, CBC, ADIFF, ANEU, PBNP, FERR, MG, PHOS #### [place] [address] #### HOMO, CRPHS, PRALB, FOL #### [place] [address] ALP [Catalytic activity/Vol] 89 U/L Normal 40-135 [facility] Comment on above: Performed By: #### 7 61898, TSH, FT4, FES, VIDH, CMP, GFR, ESR, 150148, 219529, 067631, CBC, ADIFF, ANEU, PBNP, FERR, MG, PHOS #### [place] [address] #### HOMO, CRPHS, PRALB, FOL #### [place] [id number] AST [Catalytic activity/Vol] 17 U/L Normal 10-40 [facility] Comment on above: Performed By: #### 7 10807, TSH, FT4, FES, VIDH, CMP, GFR, ESR, 534667, 269756, 013642, CBC, ADIFF, ANEU, PBNP, FERR, MG, PHOS #### [place] [address] #### HOMO, CRPHS, PRALB, FOL #### [place] [address] Bili Total 0.8 mg/dL Normal 0.2-1.0 [facility] Comment on above: Result Comment: Use of this assay is not recommended for patients undergoing treatment with eltrombopag due to the potential for falsely elevated results. Performed By: #### 7 85776, TSH, FT4, FES, VIDH, CMP, GFR, ESR, 073516, 864197, 938037, CBC, ADIFF, ANEU, PBNP, FERR, MG, PHOS #### [address] [address] #### HOMO, CRPHS, PRALB, FOL #### [address] [address] BUN/Creatinine Ratio 25 ratio Normal 7-27 [facility] Comment on above: Performed By: #### 7 45488, TSH, FT4, FES, VIDH, CMP, GFR, ESR, 233790, 210776, 972729, CBC, ADIFF, ANEU, PBNP, FERR, MG, PHOS #### [place] [address] #### HOMO, CRPHS, PRALB, FOL #### [address] [address] Calcium [Mass/Vol] 10.2 mg/dL Normal 8.4-10.2 [facility] Comment on above: Performed By: #### 7 10395, TSH, FT4, FES, VIDH, CMP, GFR, ESR, 933925, 090733, 643885, CBC, ADIFF, ANEU, PBNP, FERR, MG, PHOS #### [place] [address] #### HOMO, CRPHS, PRALB, FOL #### [address] [address] Chloride [Moles/Vol] 102 mmol/L Normal 98-107 [facility] Comment on above: Performed By: #### 7 73821, TSH, FT4, FES, VIDH, CMP, GFR, ESR, 153401, 795916, 851209, CBC, ADIFF, ANEU, PBNP, FERR, MG, PHOS #### [place] [address] #### HOMO, CRPHS, PRALB, FOL #### [address] [address] CO2 [Moles/Vol] 26 mmol/L Normal 23-31 [facility] Comment on above: Performed By: #### 7 09291, TSH, FT4, FES, VIDH, CMP, GFR, ESR, 697641, 222942, 466156, CBC, ADIFF, ANEU, PBNP, FERR, MG, PHOS #### [address] [address] #### HOMO, CRPHS, PRALB, FOL #### [address] [address] Creatinine [Mass/Vol] 0.99 mg/dL Normal 0.55-1.02 [facility] Comment on above: Result Comment: Test ing performed on Siemens Dimension EXL analyzer using a modified kinetic Nixon technique. Performed By: #### 7 25078, TSH, FT4, FES, VIDH, CMP, GFR, ESR, 885462, 049471, 821505, CBC, ADIFF, ANEU, PBNP, FERR, MG, PHOS #### [place] [address] #### HOMO, CRPHS, PRALB, FOL #### [address] [address] Electrolyte Balance 11.0 mEq/L Normal 4.0-15.0 [facility] Comment on above: Performed By: #### 7 29224, TSH, FT4, FES, VIDH, CMP, GFR, ESR, 895719, 454836, 348252, CBC, ADIFF, ANEU, PBNP, FERR, MG, PHOS #### [address] [address] #### HOMO, CRPHS, PRALB, FOL #### [address] [address] Globulin 3.4 G/dL Normal 1.5-3.8 [facility] Comment on above: Performed By: #### 7 76559, TSH, FT4, FES, VIDH, CMP, GFR, ESR, 625952, 892935, 330715, CBC, ADIFF, ANEU, PBNP, FERR, MG, PHOS #### [address] [address] #### HOMO, CRPHS, PRALB, FOL #### [address] [address] Glucose [Mass/Vol] 60 mg/dL Low 83-110 [facility] Comment on above: Performed By: #### 7 07716, TSH, FT4, FES, VIDH, CMP, GFR, ESR, 952588, 498308, 611518, CBC, ADIFF, ANEU, PBNP, FERR, MG, PHOS #### [address] [address] #### HOMO, CRPHS, PRALB, FOL #### [address] [address] Potassium [Moles/Vol] 4.0 mmol/L Normal 3.5-5.1 [facility] Comment on above: Performed By: #### 7 84614, TSH, FT4, FES, VIDH, CMP, GFR, ESR, 713041, 734383, 158529, CBC, ADIFF, ANEU, PBNP, FERR, MG, PHOS #### [address] [address] #### HOMO, CRPHS, PRALB, FOL #### [address] [address] Sodium [Moles/Vol] 139 mmol/L Normal 136-145 [facility] Comment on above: Performed By: #### 7 47901, TSH, FT4, FES, VIDH, CMP, GFR, ESR, 736704, 125224, 162735, CBC, ADIFF, ANEU, PBNP, FERR, MG, PHOS #### [address] [address] #### HOMO, CRPHS, PRALB, FOL #### [address] [address] Total Protein 7.1 G/dL Normal 6.4-8.2 [facility] Comment on above: Performed By: #### 7 87700, TSH, FT4, FES, VIDH, CMP, GFR, ESR, 817862, 636448, 993092, CBC, ADIFF, ANEU, PBNP, FERR, MG, PHOS #### [place] [address] [place], [place] [address] #### HOMO, CRPHS, PRALB, FOL #### [facility] [address] [place] [address] Urea nitrogen [Mass/Vol] 25 mg/dL High 7-18 [facility] Comment on above: Performed By: #### 7 405[address], TSH, FT4, FES, VIDH, CMP, GFR, ESR, 181967, 824191, 186571, CBC, ADIFF, ANEU, PBNP, FERR, MG, PHOS #### [place] [address] [place], [place] [address] #### HOMO, CRPHS, PRALB, FOL #### [place] [address] [place] [address] Absolute neutrophil countOrd ered By: Jose M Contreras on 04-23-2024 Neutrophils (Bld) [#/Vol] 5.7 10*3/uL 2.0-7.7 [facility] Albumin to globulin ratioOrd ered By: Jose M Contreras on 04-23-2024 Albumin/Globulin [Mass ratio] 0.9 {ratio} 0.9-2.4 [facility] Basophil percentageOrdered B y: Jose M Contreras on 04-23-2024 Basophils/100 WBC (Bld) 0.3 % 0-1 [facility] Bilirubin, totalOrdered By: Jose M Contreras on 04-23-2024 Bilirubin [Mass/Vol] 0.90 mg/dL 0.20-1.00 [facility] Comment on above: For patients on eltr ombopag therapy, use of Dimension [place] TBIL is not recommended. Blood urea nitrogen (BUN)/cr eatinine ratioOrdered By: Jose M Contreras on 04-23-2024 Urea nitrogen/Creatinine [Mass ratio] 26.5 mg/mg High 10-20 [facility] C. difficile DNA CLAUDIA+probe Q l (Unsp spec)Ordered By: Jose M Contreras on 04-23-2024 Clostridioides difficile (PCR) [facility] C. difficile Ql (Stl)Ordered By: Jose M Contreras on 04-23-2024 C. difficile GDH Antigen & Toxins [facility] CBC W/Diff, Automatedon Absolute Lymph 0.44 X10 3/uL Low 0.83-4.51 [facility] Comment on above: Performed By: #### L 400.0001 #### [facility] [address] [place], [address] Absolute Neut 5.7 X10 3/uL Normal 2.0-7.7 [facility] Comment on above: Performed By: #### L 400.0001 #### [facility] [address] [place], [address] Basophils/100 WBC (Bld) 0.3 % Normal 0-1 [facility] Comment on above: Performed By: #### L 400.0001 #### [facility] [address] [place], [address] Eosinophils/100 WBC (Bld) 0.7 % Normal 0-5 [facility] Comment on above: Performed By: #### L 400.0001 #### [facility] [address] [place], [address] Erythrocyte distribution width (RBC) [Ratio] 14.2 % Normal 11.6-14.6 [facility] Comment on above: Performed By: #### L 400.0001 #### [facility] [address] [place], [address] Hematocrit (Bld) [Volume fraction] 38.0 % Normal 37-47 [facility] Comment on above: Performed By: #### L 400.0001 #### [facility] [address] [place], [address] Hemoglobin (Bld) [Mass/Vol] 11.6 g/dL Low 12.0-15.0 [facility] Comment on above: Performed By: #### L 400.0001 #### [facility] [address] [place], [address] IG% 0.300 Normal 0.0-0.9 [facility] Comment on above: Result Comment: IG% - Immature Granulocytes (promyelocytes, myelocytes and metamyelocytes) > 1% indicates that a LEFT SHIFT is Present. Performed By: #### L 400.0001 #### [facility] [address] [place], [address] Lymphocytes/100 WBC (Bld) 6.6 % Low 19-41 [facility] Comment on above: Performed By: #### L 400.0001 #### [facility] [address] [place], [address] MCH (RBC) [Entitic mass] 31.2 pg Normal 27.0-32.0 [facility] Comment on above: Performed By: #### L 400.0001 #### [facility] [address] [place], [address] MCHC (RBC) [Mass/Vol] 30.5 g/dL Low 32-36 [facility] Comment on above: Performed By: #### L 400.0001 #### [facility] [address] [place], [address] MCV (RBC) [Entitic vol] 102.2 fL High 81-99 [facility] Comment on above: Performed By: #### L 400.0001 #### [facility] [address] [place], [address] Monocytes/100 WBC (Bld) 7.6 % Normal 0-10 [facility] Comment on above: Performed By: #### L 400.0001 #### [facility] [address] [place], [address] Neutrophils/100 WBC (Bld) 84.5 % High 47-70 [facility] Comment on above: Performed By: #### L 400.0001 #### [facility] [address] [place], [address] Nucleated RBC (Bld) [#/Vol] 0 10*3/uL Normal 0-5 [facility] Comment on above: Performed By: #### L 400.0001 #### [facility] [address] [place], [address] Platelet mean volume (Bld) [Entitic vol] 9.3 fL Normal 6.2-12.0 [facility] Comment on above: Performed By: #### L 400.0001 #### [facility] [address] [place], [address] Platelets (Bld) [#/Vol] 197 10*3/uL Normal 150-450 [facility] Comment on above: Performed By: #### L 400.0001 #### [facility] [address] [place], [address] RBC (Bld) [#/Vol] 3.72 10*6/uL Low 4.2-5.4 [facility] Comment on above: Performed By: #### L 400.0001 #### [facility] [address] [place], [address] RDW SD 53.6 fl High 35.1-43.9 [facility] Comment on above: Performed By: #### L 400.0001 #### [facility] [address] [place], [address] WBC (Bld) [#/Vol] 6.7 10*3/uL Normal 4.4-11.0 [facility] Comment on above: Performed By: #### L 400.0001 #### [facility] [address] [place], [address] CDIFF (PCR)on 04-23-2024 CDIFF Is the patient recei ving laxatives? N Above criteria not met but test indicated N New/unexplained onset of 3 or more stools in past 24 hrs? Y A positive C. difficile molecular test does not differentiate between an active C. difficile infection and C. difficile colonization. Use clinical judgement and paired toxin/antigen testing to identify true infection and need for treatment. C diff DNA Spec Ql CLAUDIA+probe Reference Range: Negative [employer] GeneXpert: polymerase chain reaction (PCR) 027 027 NAP1-B1 Presumptive Negative *for epidemiolologic???use C. Diff PCR A Positive-Toxigenic C. Difficile Detected A Normal [facility] Comment on above: Performed By: #### L 499.0043 #### [facility] [address] [place], [address] Carbon dioxide measurementOr dered By: Jose M Contreras on 04-23-2024 CO2 [Moles/Vol] 27.0 mmol/L 21.0-32.0 [facility] Chloride measurementOrdered By: Jsoe M Contreras on 04-23-2024 Chloride [Moles/Vol] 110 mmol/L High 98-107 [facility] Clostridium Diff Toxin/Agon 04-23-2024 CDIFF (EIA) Is the patient recei ving laxatives? N Above criteria not met but test indicated N New/unexplained onset of 3 or more stools in past 24 hrs? Y Interpretation of C. diff by EIA Method C diff Stl Ql POS for Antigen and NEG for Toxin = Positive for toxigenic C. Difficile gene but the active toxin production NOT detected. May be a colonized carrier or toxin level is below limit of detection. C. difficile Antigen A Positive C. diff A/B Antigen A C. difficile Toxin Negative C. diff Toxin Normal [facility] Comment on above: Performed By: #### L 499.0043 #### [facility] [address] [place], [place], [address] Comprehensive Metabolic Prof ilon 04-23-2024 Albumin [Mass/Vol] 3.1 g/dL Low 3.2-5.0 [facility] Comment on above: Performed By: #### L 400.0001 #### [facility] [address] [place], [address] Albumin/Globulin [Mass ratio] 0.9 {ratio} Normal 0.9-2.4 [facility] Comment on above: Performed By: #### L 400.0001 #### [facility] [address] [place], [address] ALK P 66 U/L Normal 45-117 [facility] Comment on above: Performed By: #### L 400.0001 #### [facility] [address] [place], [address] ALT [Catalytic activity/Vol] 15 U/L Normal 13-56 [facility] Comment on above: Performed By: #### L 400.0001 #### [facility] [address] [place], [address] AST [Catalytic activity/Vol] 15 U/L Normal 15-37 [facility] Comment on above: Performed By: #### L 400.0001 #### [facility] [address] [place], [address] Bilirubin [Mass/Vol] 0.90 mg/dL Normal 0.20-1.00 [facility] Comment on above: Result Comment: For patients on eltrombopag therapy, use of Dimension [place] TBIL is not recommended. Performed By: #### L 400.0001 #### [facility] [address] [place], [address] BUN/CRE 26.5 RATIO High 10-20 [facility] Comment on above: Performed By: #### L 400.0001 #### [facility] [address] [place], [address] CA,Total 9.2 mg/dL Normal 8.5-10.1 [facility] Comment on above: Performed By: #### L 400.0001 #### [facility] [address] [place], [address] Chloride [Moles/Vol] 110 mmol/L High 98-107 [facility] Comment on above: Performed By: #### L 400.0001 #### [facility] [address] [place], [address] CO2 [Moles/Vol] 27.0 mmol/L Normal 21.0-32.0 [facility] Comment on above: Performed By: #### L 400.0001 #### [facility] [address] [place], [address] Creatinine [Mass/Vol] 0.83 mg/dL Normal 0.55-1.02 [facility] Comment on above: Result Comment: The validity of the calculated GFR GFRAA in patients over 70 years has not been determined. Clinical correlation is essential. Performed By: #### L 400.0001 #### [facility] [address] [place], [address] ECRCL 38.40 ml/min Normal [facility] Comment on above: Performed By: #### L 400.0001 #### [facility] [address] [place], [address] EST GFR - AA 85 mL/min Normal >60 [facility] Comment on above: Result Comment: Afri can Cypriot GFR Calc Performed By: #### L 400.0001 #### [facility] [address] [place], [address] GAP 7 Normal 5-15 [facility] Comment on above: Performed By: #### L 400.0001 #### [facility] [address] [place], [address] GFR/1.73 sq M.predicted among non-blacks MDRD (S/P/Bld) [Vol rate/Area] 71 mL/min/{1.73_m2} Normal >60 [facility] Comment on above: Result Comment: Non- GFR Calc Performed By: #### L 400.0001 #### [facility] [address] [place], [address] Globulin (S) [Mass/Vol] 3.5 g/dL Normal 2.2-4.2 [facility] Comment on above: Performed By: #### L 400.0001 #### [facility] [address] [place], [address] Glucose [Mass/Vol] 89 mg/dL Normal 74-106 [facility] Comment on above: Performed By: #### L 400.0001 #### [facility] [address] [place], [address] Potassium [Moles/Vol] 3.9 mmol/L Normal 3.5-5.1 [facility] Comment on above: Performed By: #### L 400.0001 #### [facility] [address] [place], [address] Sodium [Moles/Vol] 144 mmol/L Normal 136-145 [facility] Comment on above: Performed By: #### L 400.0001 #### [facility] [address] [place], [address] T PROT 6.6 g/dL Normal 6.4-8.2 [facility] Comment on above: Performed By: #### L 400.0001 #### [facility] [address] [place], [address] Urea nitrogen [Mass/Vol] 22 mg/dL High 7-18 [facility] Comment on above: Performed By: #### L 400.0001 #### [facility] [address] [place], [address] ENTERIC PATHOGEN PANEL STOOL on 04-23-2024 EP PANEL Is the patient recei ving laxatives? N Above criteria not met but test indicated N New/unexplained onset of 3 or more stools in past 24 hrs? Y CAMPYLOBACTER Not Detected Norovirus Not Detected Rotavirus Not Detected Salmonella Not Detected Shiga Toxin Not Detected Shigella sp. Not Detected VIBRIO Not Detected Yersinia Not Detected Normal [facility] Comment on above: Performed By: #### L 499.0043 #### [facility] [address] [place], [address] Emergency Department Summary on 04-23-2024 Emergency Department Summary [facility] Medical Records Department [address] [place] [address] Emergency Department Summary 04/23/24 MR#: [id number] Acct: [id number] Name: SHABNAM CANO Rep #: [id number] : 1945 78 From: Jose M Contreras DO PCP: Dr. Naveed Dye, DO Status:DEP ER Location: ED HPI HPI - GI History of Present Illness Chief Complaint: Diarrhea Detail of Chief Complaint: Diarrhea and dehydration Informant: patient and family Narrative Narrative: Patient presents to the emergency department with complaint of diarrhea that she has had for more than 3 weeks. Her daughter states she was admitted to a psychiatric facility or in 3 weeks ago and they were given her Imodium while at the facility. Sometime in February she had a UTI and was treated with antibiotics. Patient continues to have frequent diarrhea and is receiving Imodium which is not helping her symptoms. Family's concerned about about dehydration. Patient denies significant abdominal discomfort just some occasional mild cramping. She denies any blood in her stool or black tarry stool. [facility] Medical History Hypothyroidism Hypertension Bilateral leg pain Depression Fibromyalgia Arthritis of left knee Osteoporosis History of colon cancer (2007) Cardiac murmur Tricuspid insufficiency Mitral insufficiency Home Medications ???Medication ???Instructions ???Recorded ???Last Taken ???Type lactobacillus combo no.13 1 1 cap PO DAILY 12/01/17 Unknown Hi story billion cell capsule,delayed release (Probiotic Pearls Complete) cholecalciferol (vitamin D3) 125 125 mcg PO DAILY 01/21/20 Unknown History mcg (5,000 unit) capsule Handicap Placard #1 ea 11/12/20 Unknown Rx multivitamin 1 tab PO DAILY 12/06/21 Unknown Hi story omega 7-zvn-vrr-fish oil 300 1 cap PO DAILY 10/05/22 Unknown Hi story mg-1,000 mg capsule (Fish Oil) propranolol 20 mg tablet 20 mg PO TID PRN anxiety 02/04/24 Unknown History bromfenac 0.075 % eye drops 1 drp ophthalmic (eye) DAILY 03/06 Unknown History (BromSite) hydroxyzine HCl 25 mg tablet 25 mg PO TID PRN PRN anxiety 03/06 Unknown History sertraline 25 mg tablet 25 mg PO DAILY 03/06/24 Unknown Hi story Allergy/AdvReac Type Severity Reaction Status Date / Time amlodipine Allergy Severe anxiety Verified 04/23/24 09:34 meloxicam Allergy Severe weight gain Verified 04/23/24 09:34 pollen extracts Allergy Intermediate Rhinitis Verified 04/23/24 09:34 atenolol (From Tenoretic) Allergy Unknown Unknown Verified 04/23/24 09:34 chlorthalidone (From Allergy Unknown Unknown Verified 04/23/24 09:34 Tenoretic) ciprofloxacin AdvReac Severe joint pain Verified 04/23/24 09:34 pregabalin (From Lyrica) AdvReac Severe Tremors Verified 04/23/24 09:34 lisinopril AdvReac Intermediate cough Verified 04/23/24 09:34 indomethacin AdvReac Unknown unknown Verified 04/23/24 09:34 Family History Father Hypertension Heart disease Brother Hypertension Diabetes Mother Diabetes Heart disease Aunt Breast cancer Grandmother Breast cancer Surgical History History of partial thyroidectomy (2009) History of vaginal hysterectomy (1977) History of colon surgery (2007) Social History Smoking Status: Never smoker alcohol intake: never substance use type: does not use what type of physical activity do you participate in: walking frequency: daily ROS ROS ED Review of Systems ROS Unobtainable: other Constitutional Constitutional ED: Reports lethargy; Denies chills, fever(s), sweats or weight loss Eyes Eyes: Denies blurry vision, change in vision or diplopia ENT ENT ED: Denies rhinorrhea or sore throat Cardiovascular Cardiovascular: Denies chest pain, orthopnea or racing heartbeat Respiratory/Chest Respiratory/Chest: Denies cough, dyspnea, dyspnea on exertion, orthopnea or sputum Gastrointestinal Gastrointestinal: Reports abdominal pain and diarrhea; Denies nausea or vomiting Genitourinary Genitourinary ED: Denies dysuria, hematuria or urinary frequency Musculoskeletal Musculoskeletal: Denies arthralgias, back pain, myalgias or neck pain Integumentary Denies abscess, Abrasions or rash Neurologic Neurologic: Denies headache(s) or weakness Psychiatric Psychiatric: Denies anxiety, depression or suicidal thoughts Endocrine Endocrinology: Denies polydipsia, polyphagia or polyuria Hematologic/Lymphatic Hematologic/Lymphatic: Denies easy bleeding, easy bruising or lymphadenopathy Allergic/Immunologic Allergic/Immunologic ED: Denies mouth swelling, tongue swelling or urticaria EXAM Physical Exam Const Vital Signs (more content not included)... Normal [facility] Eosinophil percentageOrdered By: Jose M Contreras on 04-23-2024 Eosinophils/100 WBC (Bld) 0.7 % 0-5 [facility] Erythrocyte distribution wid th ratioOrdered By: Jose M Contreras on 04-23-2024 Erythrocyte distribution width (RBC) [Ratio] 14.2 % 11.6-14.6 [facility] Erythrocyte distribution wid th standard deviationOrdered By: Jose M Contreras on 04-23-2024 Erythrocyte distribution width (RBC) [Entitic vol] 53.6 fL High 35.1-43.9 [facility] Estimated glomerular filtrat ion rate (GFR) AmericanOrdered By: Jose M Contreras on 04-23-2024 Estimated GFR (MDRD) Amer 85 mL/min >60 [facility] Comment on above: GFR Calc Estimation of creatinine gonzalo aranceOrdered By: Jose M Contreras on 04-23-2024 Estimated Creatinine Clearance Calc 38.40 ml/min [facility] Glomerular filtration rate ( GFR) estimationOrdered By: Jose M Contreras on 04-23-2024 Estimated GFR (MDRD) Non-Af Amer 71 mL/min >60 [facility] Comment on above: Non- GFR Calc Glucose measurementOrdered B y: Jose M Contreras on 04-23-2024 Glucose [Mass/Vol] 89 mg/dL 74-106 [facility] Hematocrit Auto (Bld) [Volum e fraction]Ordered By: Jose M Contreras on 04-23-2024 Hematocrit (Bld) [Volume fraction] 38.0 % 37-47 [facility] Hemoglobin measurementOrdere d By: Jose M Contreras on 04-23-2024 Hemoglobin (Bld) [Mass/Vol] 11.6 g/dL Low 12.0-15.0 [facility] Immature granulocytes/100 WB C Auto (Bld)Ordered By: Jose M Contreras on 04-23-2024 Immature granulocytes/100 WBC (Bld) 0.300 % 0.0-0.9 [facility] Comment on above: IG% - Immature Granu locytes (promyelocytes, myelocytes and metamyelocytes) > 1% indicates that a LEFT SHIFT is Present. Laboratory - Chemistry and C hemistry - challengeOrdered By: Jose M Contreras on 04-23-2024 AST [Catalytic activity/Vol] 15 U/L 15-37 [facility] Lactic Acidon 04-23-2024 Lactate [Moles/Vol] 1.0 mmol/L Normal 0.4-1.9 [facility] Comment on above: Order Comment: SENT LABEL TO MS3 TO COLLECT CLEAN CATCH Performed By: #### L 400.0001 #### [facility] [address] [place] [address]. [place], [place], [id number] Lactic acid measurementOrder ed By: Jose M Contreras on 04-23-2024 Lactate [Moles/Vol] 1.0 mmol/L 0.4-2.0 [facility] Lymphocytes Auto (Unsp spec) [#/Vol]Ordered By: Jose M Contreras on 04-23-2024 Lymphocytes (Bld) [#/Vol] 0.44 10*3/uL Low 0.83-4.51 [facility] Lymphocytes/100 WBC Auto (Un sp spec)Ordered By: Jose M Contreras on 04-23-2024 Lymphocytes/100 WBC (Bld) 6.6 % Low 19-41 [facility] MCV (mean corpuscular volume ) determinationOrdered By: Jose M Contreras on 04-23-2024 MCV (RBC) [Entitic vol] 102.2 fL High 81-99 [facility] Mean corpuscular hemoglobin (MCH) determinationOrdered By: Jose M Contreras on 04-23-2024 MCH (RBC) [Entitic mass] 31.2 pg 27.0-32.0 [facility] Mean corpuscular hemoglobin concentration (MCHC) determinationOrdered By: Jose M Contreras on 04-23-2024 MCHC (RBC) [Mass/Vol] 30.5 g/dL Low 32-36 [facility] Mean platelet volume determi nationOrdered By: Jose M Contreras on 04-23-2024 Platelet mean volume (Bld) [Entitic vol] 9.3 fL 6.2-12.0 [facility] Monocyte percentageOrdered B y: Jose M Contreras on 04-23-2024 Monocytes/100 WBC (Bld) 7.6 % 0-10 [facility] Neutrophil percentageOrdered By: Jose M Ungnadira on 04-23-2024 Neutrophils/100 WBC (Bld) 84.5 % High 47-70 [facility] Nucleated red blood cell per centageOrdered By: Jose M Contreras on 04-23-2024 Nucleated RBC/100 WBC (Bld) [Ratio] 0 % 0-5 [facility] Platelet countOrdered By: Kaitlin Contreras on 04-23-2024 Platelets (Bld) [#/Vol] 197 10*3/uL 150-450 [facility] Potassium measurementOrdered By: Jose M Contreras on 04-23-2024 Potassium [Moles/Vol] 3.9 mmol/L 3.5-5.1 [facility] RBC Auto (Bld) [#/Vol]Ordere d By: Jose M Contreras on 04-23-2024 RBC (Bld) [#/Vol] 3.72 10*6/uL Low 4.2-5.4 [facility] Serum anion gap measurementO rdered By: Jose M Contreras on 04-23-2024 Anion gap [Moles/Vol] 7 mmol/L 5-15 [facility] Serum globulin measurementOr dered By: Jose M Contreras on 04-23-2024 Globulin (S) [Mass/Vol] 3.5 g/dL 2.2-4.2 [facility] Serum or plasma alanine lynn otransferase (ALT) measurementOrdered By: Jose M Contreras on 04-23-2024 ALT [Catalytic activity/Vol] 15 U/L 13-56 [facility] Serum or plasma albumin alvaro urement (mass/volume)Ordered By: Remus Ungur on 04-23-2024 Albumin [Mass/Vol] 3.1 g/dL Low 3.2-5.0 [facility] Serum or plasma alkaline john sphatase measurementOrdered By: Remus Ungur on 04-23-2024 ALP [Catalytic activity/Vol] 66 U/L 45-117 [facility] Serum or plasma calcium alvaro urement (mass/volume)Ordered By: Remus Ungur on 04-23-2024 Calcium [Mass/Vol] 9.2 mg/dL 8.5-10.1 [facility] Serum or plasma creatinine m easurement (mass/volume)Ordered By: Remus Ungur on 04-23-2024 Creatinine [Mass/Vol] 0.83 mg/dL 0.55-1.02 [facility] Comment on above: The validity of the calculated GFR & GFRAA in patients over 70 years has not been determined. Clinical correlation is essential. Serum or plasma urea nitroge n measurement (mass/volume)Ordered By: Remus Ungnadira on 04-23-2024 Urea nitrogen [Mass/Vol] 22 mg/dL High 7-18 [facility] Sodium levelOrdered By: Remu s Ben on 04-23-2024 Sodium [Moles/Vol] 144 mmol/L 136-145 [facility] Stool enteric pathogen panel by probe and target amplification methodOrdered By: Remus Ungnadira on 04-23-2024 Enteric Bacteriology [facility] Total proteinOrdered By: Rem us Ungnadira on 04-23-2024 Protein [Mass/Vol] 6.6 g/dL 6.4-8.2 [facility] White blood cell (WBC) count Ordered By: Remus Ungnadira on 04-23-2024 WBC (Bld) [#/Vol] 6.7 10*3/uL 4.4-11.0 [facility] 12 Lead EKGon 03-06-2024 12 Lead EKG [facility] Cardiovascular Services [address] [place] [address] 12 Lead EKG 03/06/24 1529 MR#: [id number] Acct: [id number] Name: SHABNAM CANO Rep #: [id number] : 1945 78 From: Pravin Shelton MD Attending Dr: Status: DEP ER Ordering Dr: Lucien Ramirez MD Date: 03/06/24 Location: ED Sex: F C Admitted: Test Reason : Blood Pressure : */* mmHG Vent. Rate : 81 BPM Atrial Rate : 81 BPM P-R Int : 166 ms QRS Dur : 78 ms QT Int : 368 ms P-R-T Axes : 65 14 32 degrees QTcB Int : 427 ms Sinus rhythm with Premature atrial complexes Otherwise normal ECG Confirmed by PRAVIN SHELTON MD ([id number]), associate entertainment editor FLAKITO MARTINEZ ([id number]) on 03/08/2024 8:09:31 AM Referred By: [email or web address] Confirmed By: PRAVIN SHELTON MD 03/08/24 08 Date Pravin Shelton MD CC: Dr. Naveed Dye DO; Dr. Lucien Ramirez MD Signed Normal [facility] Absolute neutrophil countOrd ered By: Lucien Ramirez on 03-06-2024 Neutrophils (Bld) [#/Vol] 5.0 10*3/uL 2.0-7.7 [facility] Albumin to globulin ratioOrd ered By: Lucien Ramirez on 03-06-2024 Albumin/Globulin [Mass ratio] 0.9 {ratio} 0.9-2.4 [facility] Alcohol, Blood (Medical)-Ser umon 03-06-2024 SERUM ETOH < 3.0 Normal [facility] Comment on above: Result Comment: The serum:whole blood ethanol ratio is approximately 1.14 and varies slightly with hematocrit. Medical Alcohol reference interval and critical value in non-tolerant individuals; 50 - 100 Impairment 100 Intoxication 100 - 250 Severe Poisoning 250 - 400 Deep/possible fatal coma Performed By: #### L 501.9100 #### [facility] [address] [place], [address] Basophil percentageOrdered B y: Lucien Ramirez on 03-06-2024 Basophils/100 WBC (Bld) 0.3 % 0-1 [facility] Bilirubin Test strip Ql (U)O rdered By: Lucien Ramirez on 03-06-2024 Bilirubin Ql (U) 1 mg/dL High Negative [facility] Comment on above: COLOR OF URINE MAY A FFECT DIPSTICK RESULTS. Bilirubin, totalOrdered By: Lucien Ramirez on 03-06-2024 Bilirubin [Mass/Vol] 1.40 mg/dL High 0.20-1.00 [facility] Comment on above: For patients on eltr ombopag therapy, use of Dimension [place] TBIL is not recommended. Blood urea nitrogen (BUN)/cr eatinine ratioOrdered By: Lucien Ramirez on 03-06-2024 Urea nitrogen/Creatinine [Mass ratio] 26.6 mg/mg High 10-20 [facility] Brain/Head without Contrasto n 03-06-2024 Brain/Head without Contrast [facility] Imaging Services [facility] [place], [place] [address] Brain/Head without Contrast MR#: [id number] Acct: [id number] Name: SHABNAM CAON Rep #: [id number] : 1945 F 78 From: Edi Roa MD PCP: Dr. Naveed Dye, DO Status: REG ER Study: Brain/Head without Contrast Date of Exam: 02/17 11/10 Exam# [id number] Ordering Dr: Lucien Ramirez MD [id number] EXAM: CT HEAD WITHOUT INTRAVENOUS CONTRAST CLINICAL INDICATION: Acute change in mental status, unintentional weigh TECHNIQUE: Multiple axial images were obtained of the head without intravenous contrast. This CT exam was performed using one or more of the following dose reduction techniques: automated exposure control, adjustment of the mA and/or kV according to patient size, and/or use of iterative reconstruction technique. COMPARISON: No relevant prior studies available. FINDINGS: BRAIN AND EXTRA-AXIAL SPACES: There is mild enlargement of ventricular and cortical sulci. There is hypoattenuation in the periventricular white matter. No intra- or extra-axial hemorrhage. No evidence of acute infarct. No intracranial mass or mass effect. There is preservation of the sellers/white matter interface. Posterior fossa structures are unremarkable. Basal cisterns are patent. BONES/JOINTS: Unremarkable. No discrete lytic or blastic abnormalities. SINUSES: Unremarkable as visualized. Clear. MASTOID AIR CELLS: Unremarkable. Clear. ORBITS: Visualized globes, extraocular muscles, optic nerves and retrobulbar fat appear unremarkable. CT/Brain/Head without Contrast IMPRESSION: 1. No acute intracranial abnormality. 2. Senescent change with small vessel ischemia. Electronically Signed: Edi Roa MD at 16:19 EST , CC: Dr. Naveed Dye DO; Dr. Lucien Ramirez MD Dietary Tech: Signed Normal [facility] CBC W/Diff, Automatedon 02-17 Absolute Lymph 0.39 X10 3/uL Low 0.83-4.51 [facility] Comment on above: Performed By: #### L 500.4050, L100.0100, L501.9520 #### [facility] [address] [place], [address] Absolute Neut 5.0 X10 3/uL Normal 2.0-7.7 [facility] Comment on above: Performed By: #### L 500.4050, L100.0100, L501.9520 #### [facility] [address] [place], [address] Basophils/100 WBC (Bld) 0.3 % Normal 0-1 [facility] Comment on above: Performed By: #### L 500.4050, L100.0100, L501.9520 #### [facility] [address] [place], [address] Eosinophils/100 WBC (Bld) 0.3 % Normal 0-5 [facility] Comment on above: Performed By: #### L 500.4050, L100.0100, L501.9520 #### [facility] [address] [place], [address] Erythrocyte distribution width (RBC) [Ratio] 12.9 % Normal 11.6-14.6 [facility] Comment on above: Performed By: #### L 500.4050, L100.0100, L501.9520 #### [facility] [address] [place], [address] Hematocrit (Bld) [Volume fraction] 36.8 % Low 37-47 [facility] Comment on above: Performed By: #### L 500.4050, L100.0100, L501.9520 #### [facility] [address] [place], [address] Hemoglobin (Bld) [Mass/Vol] 11.8 g/dL Low 12.0-15.0 [facility] Comment on above: Performed By: #### L 500.4050, L100.0100, L501.9520 #### [facility] [address] [place], [address] IG% 0.200 Normal 0.0-0.9 [facility] Comment on above: Result Comment: IG% - Immature Granulocytes (promyelocytes, myelocytes and metamyelocytes) > 1% indicates that a LEFT SHIFT is Present. Performed By: #### L 500.4050, L100.0100, L501.9520 #### [facility] [address] [place], [address] Lymphocytes/100 WBC (Bld) 6.5 % Low 19-41 [facility] Comment on above: Performed By: #### L 500.4050, L100.0100, L501.9520 #### [facility] [address] [place], [address] MCH (RBC) [Entitic mass] 31.6 pg Normal 27.0-32.0 [facility] Comment on above: Performed By: #### L 500.4050, L100.0100, L501.9520 #### [facility] [address] [place], [address] MCHC (RBC) [Mass/Vol] 32.1 g/dL Normal 32-36 [facility] Comment on above: Performed By: #### L 500.4050, L100.0100, L501.9520 #### [facility] [address] [place], [address] MCV (RBC) [Entitic vol] 98.4 fL Normal 81-99 [facility] Comment on above: Performed By: #### L 500.4050, L100.0100, L501.9520 #### [facility] [address] [place], [address] Monocytes/100 WBC (Bld) 10.6 % High 0-10 [facility] Comment on above: Performed By: #### L 500.4050, L100.0100, L501.9520 #### [facility] [address] [place], [address] Neutrophils/100 WBC (Bld) 82.1 % High 47-70 [facility] Comment on above: Performed By: #### L 500.4050, L100.0100, L501.9520 #### [facility] [address] [place], [address] Nucleated RBC (Bld) [#/Vol] 0 10*3/uL Normal 0-5 [facility] Comment on above: Performed By: #### L 500.4050, L100.0100, L501.9520 #### [facility] [address] [place], [address] Platelet mean volume (Bld) [Entitic vol] 9.3 fL Normal 6.2-12.0 [facility] Comment on above: Performed By: #### L 500.4050, L100.0100, L501.9520 #### [facility] [address] [place], [address] Platelets (Bld) [#/Vol] 230 10*3/uL Normal 150-450 [facility] Comment on above: Performed By: #### L 500.4050, L100.0100, L501.9520 #### [facility] [address] [place], [address] RBC (Bld) [#/Vol] 3.74 10*6/uL Low 4.2-5.4 [facility] Comment on above: Performed By: #### L 500.4050, L100.0100, L501.9520 #### [facility] [address] [place], [address] RDW SD 46.8 fl High 35.1-43.9 [facility] Comment on above: Performed By: #### L 500.4050, L100.0100, L501.9520 #### [facility] [address] [place], [address] WBC (Bld) [#/Vol] 6.0 10*3/uL Normal 4.4-11.0 [facility] Comment on above: Performed By: #### L 500.4050, L100.0100, L501.9520 #### [facility] [address] [place], [address] Calcium oxalate crystals LM Ql (Urine sed)Ordered By: Lucien Ramirez on 03-06-2024 Urine Calcium Oxalate Crystals 1+ /hpf [facility] Carbon dioxide measurementOr dered By: Lucien Ramirez on 03-06-2024 CO2 [Moles/Vol] 25.0 mmol/L 21.0-32.0 [facility] Chloride measurementOrdered By: Lucien Ramirez on 03-06-2024 Chloride [Moles/Vol] 104 mmol/L 98-107 [facility] Comprehensive Metabolic Prof ilon 03-06-2024 Albumin [Mass/Vol] 3.3 g/dL Normal 3.2-5.0 [facility] Comment on above: Performed By: #### L 500.4050, L100.0100, L501.9520 #### [facility] [address] [place], [address] Albumin/Globulin [Mass ratio] 0.9 {ratio} Normal 0.9-2.4 [facility] Comment on above: Performed By: #### L 500.4050, L100.0100, L501.9520 #### [facility] [address] [place], [address] ALK P 75 U/L Normal 45-117 [facility] Comment on above: Performed By: #### L 500.4050, L100.0100, L501.9520 #### [facility] [address] [place], [address] ALT [Catalytic activity/Vol] 29 U/L Normal 13-56 [facility] Comment on above: Performed By: #### L 500.4050, L100.0100, L501.9520 #### [facility] [address] [place], [address] AST [Catalytic activity/Vol] 27 U/L Normal 15-37 [facility] Comment on above: Performed By: #### L 500.4050, L100.0100, L501.9520 #### [facility] [address] [place], [address] Bilirubin [Mass/Vol] 1.40 mg/dL High 0.20-1.00 [facility] Comment on above: Result Comment: For patients on eltrombopag therapy, use of Dimension [place] TBIL is not recommended. Performed By: #### L 500.4050, L100.0100, L501.9520 #### [facility] [address] [place], [address] BUN/CRE 26.6 RATIO High 10-20 [facility] Comment on above: Performed By: #### L 500.4050, L100.0100, L501.9520 #### [facility] [address] [place], [address] CA,Total 9.8 mg/dL Normal 8.5-10.1 [facility] Comment on above: Performed By: #### L 500.4050, L100.0100, L501.9520 #### [facility] [address] [place], [address] Chloride [Moles/Vol] 104 mmol/L Normal 98-107 [facility] Comment on above: Performed By: #### L 500.4050, L100.0100, L501.9520 #### [facility] [address] [place], [address] CO2 [Moles/Vol] 25.0 mmol/L Normal 21.0-32.0 [facility] Comment on above: Performed By: #### L 500.4050, L100.0100, L501.9520 #### [facility] [address] [place], [address] Creatinine [Mass/Vol] 0.83 mg/dL Normal 0.55-1.02 [facility] Comment on above: Result Comment: The validity of the calculated GFR GFRAA in patients over 70 years has not been determined. Clinical correlation is essential. Performed By: #### L 500.4050, L100.0100, L501.9520 #### [facility] [address] [place], [address] ECRCL 37.56 ml/min Normal [facility] Comment on above: Performed By: #### L 500.4050, L100.0100, L501.9520 #### [facility] [address] [place], [address] EST GFR - AA 86 mL/min Normal >60 [facility] Comment on above: Result Comment: Afri can Cypriot GFR Calc Performed By: #### L 500.4050, L100.0100, L501.9520 #### [facility] [address] [place], [address] GAP 8 Normal 5-15 [facility] Comment on above: Performed By: #### L 500.4050, L100.0100, L501.9520 #### [facility] [address] [place], [address] GFR/1.73 sq M.predicted among non-blacks MDRD (S/P/Bld) [Vol rate/Area] 71 mL/min/{1.73_m2} Normal >60 [facility] Comment on above: Result Comment: Non- GFR Calc Performed By: #### L 500.4050, L100.0100, L501.9520 #### [facility] [address] [place], [address] Globulin (S) [Mass/Vol] 3.5 g/dL Normal 2.2-4.2 [facility] Comment on above: Performed By: #### L 500.4050, L100.0100, L501.9520 #### [facility] [address] [place], [address] Glucose [Mass/Vol] 101 mg/dL Normal 74-106 [facility] Comment on above: Result Comment: Fast ing Glucose result from 100 to 125 mg/dL suggests IMPAIRED HOMEOSTASIS per A.D.A. criteria. Performed By: #### L 500.4050, L100.0100, L501.9520 #### [facility] [address] [place], [address] Potassium [Moles/Vol] 3.6 mmol/L Normal 3.5-5.1 [facility] Comment on above: Performed By: #### L 500.4050, L100.0100, L501.9520 #### [facility] [address] [place], [address] Sodium [Moles/Vol] 137 mmol/L Normal 136-145 [facility] Comment on above: Performed By: #### L 500.4050, L100.0100, L501.9520 #### [facility] [address] [place], [address] T PROT 6.8 g/dL Normal 6.4-8.2 [facility] Comment on above: Performed By: #### L 500.4050, L100.0100, L501.9520 #### [facility] [address] [place], [address] Urea nitrogen [Mass/Vol] 22 mg/dL High 7-18 [facility] Comment on above: Performed By: #### L 500.4050, L100.0100, L501.9520 #### [facility] [address] [place], [address] Emergency Department Summary on 03-06-2024 Emergency Department Summary [facility] Medical Records Department [address] [place] [address] Emergency Department Summary 03/06/24 MR#: [id number] Acct: [id number] Name: SHABNAM CANO Rep #: [id number] : 1945 78 From: Lucien Ramirez MD PCP: Dr. Naveed Dye, DO Status:REG ER Location: ED HPI HPI - Psych History of Present Illness Chief Complaint: Anxiety Detail of Chief Complaint: Anxiousness, paranoia and weight loss Informant: patient, spouse/S.O. and family (Daughter) Onset/Context/Timing Onset: Weeks Context: Uncertain worse over the past 1 to 2 months Timing: Continuous and Waxes and wanes Current Severity: Moderate Maximum Severity: Severe Worsened by: Situational factors and Alcohol intoxication Relieved by: Nothing Associated Symptoms Associated Symptoms - Psych: Positive for Depressed, Change in Eating, Change in sleeping, Decreased Concentration, Increased activity, Pressured Speech and Paranoia; Negative for Hopelessness, Suicidal Thoughts, Easily distracted, Grandiosity, Flight of Ideas, Agitated, Angry, Hostile, Threatening, Confusion, Visual Hallucinations or Auditory Hallucinations Specific plan (suicidal thought): Not applicable Narrative Narrative: Patient is a 78-year-old woman. She has history of hypothyroidism status post partial thyroidectomy, colon cancer, hypertension, valvular insufficiency who was brought in because of significant weight loss, no desire to eat, depression with symptoms consistent with depression. Patient knows she is anxious. She states she cannot do anything about it. She seems very hypervigilant and very concerned that her answers are correct. Patient has no suicidal homicidal thoughts. There is no known psychiatric disorder. History is limited because patient becomes very anxious and essentially denies everything other than being anxious and having no appetite. Prior similar symptoms: No Recent Illness/Hospitalization: [facility] Medical History Hypothyroidism Hypertension Bilateral leg pain Depression Fibromyalgia Arthritis of left knee Osteoporosis History of colon cancer (2007) Cardiac murmur Tricuspid insufficiency Mitral insufficiency Home Medications ???Medication ???Instructions ???Recorded ???Last Taken ???Type lactobacillus combo no.13 1 1 cap PO DAILY 12/01/17 Unknown History billion cell capsule,delayed release (Probiotic Pearls Complete) cholecalciferol (vitamin D3) 125 125 mcg PO DAILY 01/21/20 Unknown History mcg (5,000 unit) capsule Handicap Placard #1 ea 11/12/20 Unknown Rx multivitamin 1 tab PO DAILY 12/06/21 Unknown History omega 4-voz-cqx-fish oil 300 1 cap PO DAILY 10/05/22 Unknown History mg-1,000 mg capsule (Fish Oil) selenium 25 mcg tablet 25 mcg PO DAILY 01/04/23 Unknown History cephalexin 500 mg capsule 500 mg PO Q6 7 days #28 CAPSULES 02/04/24 Unknown Rx propranolol 20 mg tablet 20 mg PO TID PRN anxiety 02/04/24 Unknown History Allergy/AdvReac Type Severity Reaction Status Date / Time amlodipine Allergy Severe anxiety Verified 03/06/24 14:44 meloxicam Allergy Severe weight gain Verified 03/06/24 14:44 pollen extracts Allergy Intermediate Rhinitis Verified 03/06/24 14:44 atenolol (From Tenoretic) Allergy Unknown Unknown Verified 03/06/24 14:44 chlorthalidone (From Allergy Unknown Unknown Verified 03/06/24 14:44 Tenoretic) ciprofloxacin AdvReac Severe joint pain Verified 03/06/24 14:44 pregabalin (From Lyrica) AdvReac Severe Tremors Verified 03/06/24 14:44 lisinopril AdvReac Intermediate cough Verified 03/06/24 14:44 indomethacin AdvReac Unknown unknown Verified 03/06/24 14:44 Family History Father Hypertension Heart disease Brother Hypertension Diabetes Mother Diabetes Heart disease Aunt Breast cancer Grandmother Breast cancer Surgical History History of partial thyroidectomy (2009) History of vaginal hysterectomy (1977) History of colon surgery (2007) Social History Smoking Status: Never smoker alcohol intake: never substance use type: does not use what type of physical activity do you participate in: walking frequency: daily ROS ROS ED Constitutional Constitutional ED: Denies chills, fever(s), subjective or sweats Eyes Eyes: Denies blurry vision or change in vision ENT ENT ED: Denies ear pain, rhinorrhea or sore throat Cardiovascular Cardiovascular: Denies chest pain, orthopnea, palpitations or paroxysmal nocturnal dyspnea Respiratory/Chest Respiratory/Chest: Denies cough, dyspnea, dyspnea on exertion, orthopnea or paroxysmal nocturnal dyspnea Gastrointestinal Gastrointestinal: Reports constipat (more content not included)... Normal [facility] Eosinophil percentageOrdered By: Lucien Ramirez on 03-06-2024 Eosinophils/100 WBC (Bld) 0.3 % 0-5 [facility] Epithelial cells.squamous LM Ql (Urine sed)Ordered By: Lucien Ramirez on 03-06-2024 Epithelial cells.squamous LM.HPF (Urine sed) [#/Area] 0 /[HPF] 5-10 [facility] Erythrocyte distribution wid th ratioOrdered By: Lucien Ramirez on 03-06-2024 Erythrocyte distribution width (RBC) [Ratio] 12.9 % 11.6-14.6 [facility] Erythrocyte distribution wid th standard deviationOrdered By: Lucien Ramirez on 03-06-2024 Erythrocyte distribution width (RBC) [Entitic vol] 46.8 fL High 35.1-43.9 [facility] Estimated glomerular filtrat ion rate (GFR) AmericanOrdered By: Lucien Ramirez on 03-06-2024 Estimated GFR (MDRD) Amer 86 mL/min >60 [facility] Comment on above: GFR Calc Estimation of creatinine gonzalo aranceOrdered By: Lucien Ramirez on 03-06-2024 Estimated Creatinine Clearance Calc 37.56 ml/min [facility] Glomerular filtration rate ( GFR) estimationOrdered By: Lucien Ramirez on 03-06-2024 Estimated GFR (MDRD) Non-Af Amer 71 mL/min >60 [facility] Comment on above: Non- GFR Calc Glucose Ql (U)Ordered By: Segun Ramirez on 03-06-2024 Urine Glucose (UA) Normal mg/dl Normal [facility] Glucose measurementOrdered B y: Lucien Ramirez on 03-06-2024 Glucose [Mass/Vol] 101 mg/dL 74-106 [facility] Comment on above: Fasting Glucose resu lt from 100 to 125 mg/dL suggests IMPAIRED HOMEOSTASIS per A.D.A. criteria. Hematocrit Auto (Bld) [Volum e fraction]Ordered By: Lucien Ramirez on 03-06-2024 Hematocrit (Bld) [Volume fraction] 36.8 % Low 37-47 [facility] Hemoglobin measurementOrdere d By: Lucien Ramirez on 03-06-2024 Hemoglobin (Bld) [Mass/Vol] 11.8 g/dL Low 12.0-15.0 [facility] Hyaline casts LM.LPF (Urine sed) [#/Area]Ordered By: Lucien Ramirez on 03-06-2024 Hyaline casts LM Ql (Urine sed) 0-5 SEEN /lpf 0-5 [facility] Immature granulocytes/100 WB C Auto (Bld)Ordered By: Lucien Ramirez on 03-06-2024 Immature granulocytes/100 WBC (Bld) 0.200 % 0.0-0.9 [facility] Comment on above: IG% - Immature Granu locytes (promyelocytes, myelocytes and metamyelocytes) > 1% indicates that a LEFT SHIFT is Present. Ketones Test strip Ql (U)Ord ered By: Lucien Ramirez on 03-06-2024 Ketones Ql (U) 50 mg/dl High Negative [facility] - Chemistry and C hemistry - challengeOrdered By: Lucien Ramirez on 03-06-2024 AST [Catalytic activity/Vol] 27 U/L 15-37 [facility] Lymphocytes Auto (Unsp spec) [#/Vol]Ordered By: Luciengiovanna Ramirez on 03-06-2024 Lymphocytes (Bld) [#/Vol] 0.39 10*3/uL Low 0.83-4.51 [facility] Lymphocytes/100 WBC Auto (Un sp spec)Ordered By: Lucien Ramirez on 03-06-2024 Lymphocytes/100 WBC (Bld) 6.5 % Low 19-41 [facility] MCV (mean corpuscular volume ) determinationOrdered By: Lucien Ramirez on 03-06-2024 MCV (RBC) [Entitic vol] 98.4 fL 81-99 [facility] Mean corpuscular hemoglobin (MCH) determinationOrdered By: Luciengiovanna Ramirez on 03-06-2024 MCH (RBC) [Entitic mass] 31.6 pg 27.0-32.0 [facility] Mean corpuscular hemoglobin concentration (MCHC) determinationOrdered By: Luciengiovanna Ramirez on 03-06-2024 MCHC (RBC) [Mass/Vol] 32.1 g/dL 32-36 [facility] Mean platelet volume determi nationOrdered By: Luciengiovanna Ramirez on 03-06-2024 Platelet mean volume (Bld) [Entitic vol] 9.3 fL 6.2-12.0 [facility] Microscopic analysis of urin e for red blood cells (RBC)Ordered By: Lucien Ramirez on 03-06-2024 Urine RBC 5-10 SEEN /hpf 0-5 [facility] Monocyte percentageOrdered B y: Lucien Ramirez on 03-06-2024 Monocytes/100 WBC (Bld) 10.6 % High 0-10 [facility] Mucus LM Ql (Urine sed)Order ed By: Lucien Ramirez on 03-06-2024 Mucus Ql (Urine sed) 1+ /hpf [facility] Neutrophil percentageOrdered By: Lucien Ramirez on 03-06-2024 Neutrophils/100 WBC (Bld) 82.1 % High 47-70 [facility] Nitrite Test strip Ql (U)Ord ered By: Lucien Ramirez on 03-06-2024 Nitrite Ql (U) Negative Negative [facility] Nucleated red blood cell per centageOrdered By: Lucien Ramirez on 03-06-2024 Nucleated RBC/100 WBC (Bld) [Ratio] 0 % 0-5 [facility] Platelet countOrdered By: Ug o Ramirez on 03-06-2024 Platelets (Bld) [#/Vol] 230 10*3/uL 150-450 [facility] Potassium measurementOrdered By: Lucien Ramirez on 03-06-2024 Potassium [Moles/Vol] 3.6 mmol/L 3.5-5.1 [facility] Protein Test strip Ql (U)Ord ered By: Lucien Ramirez on 03-06-2024 Protein Ql (U) 30 mg/dl High Negative [facility] RBC Auto (Bld) [#/Vol]Ordere d By: Lucien Ramirez on 03-06-2024 RBC (Bld) [#/Vol] 3.74 10*6/uL Low 4.2-5.4 [facility] Serum anion gap measurementO rdered By: Lucien Ramirez on 03-06-2024 Anion gap [Moles/Vol] 8 mmol/L 5-15 [facility] Serum ethanol measurementOrd ered By: Lucien Ramirez on 03-06-2024 Ethyl Alcohol Level < 3.0 mg/dL [facility] Comment on above: The serum:whole bloo d ethanol ratio is approximately 1.14and varies slightly with hematocrit. Medical Alcohol reference interval and critical value innon-tolerant individuals; 50 - 100 Impairment 100 Intoxication 100 - 250 Severe Poisoning 250 - 400 Deep/possible fatal coma Serum globulin measurementOr dered By: Lucien Ramirez on 03-06-2024 Globulin (S) [Mass/Vol] 3.5 g/dL 2.2-4.2 [facility] Serum or plasma alanine lynn otransferase (ALT) measurementOrdered By: Lucien Ramirez on 03-06-2024 ALT [Catalytic activity/Vol] 29 U/L 13-56 [facility] Serum or plasma albumin alvaro urement (mass/volume)Ordered By: Lucien Ramirez on 03-06-2024 Albumin [Mass/Vol] 3.3 g/dL 3.2-5.0 [facility] Serum or plasma alkaline john sphatase measurementOrdered By: [facility] on 03-06-2024 ALP [Catalytic activity/Vol] 75 U/L 45-117 [facility] Serum or plasma calcium alvaro urement (mass/volume)Ordered By: [facility] on 03-06-2024 Calcium [Mass/Vol] 9.8 mg/dL 8.5-10.1 [facility] Serum or plasma creatinine m easurement (mass/volume)Ordered By: Lucien [facility] on 03-06-2024 Creatinine [Mass/Vol] 0.83 mg/dL 0.55-1.02 [facility] Comment on above: The validity of the calculated GFR & GFRAA in patients over 70 years has not been determined. Clinical correlation is essential. Serum or plasma urea nitroge n measurement (mass/volume)Ordered By: Lucien Ramirez on 03-06-2024 Urea nitrogen [Mass/Vol] 22 mg/dL High -18 [facility] Sodium levelOrdered By: Lucien Ramriez on 03-06-2024 Sodium [Moles/Vol] 137 mmol/L 136-145 [facility] TSH QnOrdered By: Lucien Ramirez on 03-06-2024 Thyroid Stimulating Hormone (TSH) 1.440 uIU/mL 0.358-3.74 0 [facility] Thyroid Stim Hormone (TSH)on 03-06-2024 TSH 1.440 uIU/mL Normal 0.358-3.74 0 [facility] Comment on above: Performed By: #### L 500.4050, L100.0100, L501.9520 #### [facility] [address] [facility] [place], [place], [id number] Total proteinOrdered By: Luciengiovanna Ramirez on 03-06-2024 Protein [Mass/Vol] 6.8 g/dL 6.4-8.2 [facility] Urinalysis, Completeon 03-06 BACTERIA 1+ /hpf Normal None Seen [facility] Comment on above: Order Comment: SONJA TER SPECIMEN Performed By: #### L 400.0001 #### [facility] [address] [place], [address] CA OX CRYSTAL 1+ /hpf Normal [facility] Comment on above: Order Comment: SONJA TER SPECIMEN Performed By: #### L 400.0001 #### [facility] [address] [place], [address] Mucus Ql (Urine sed) 1+ /hpf Normal [facility] Comment on above: Order Comment: SONJA TER SPECIMEN Performed By: #### L [id number] #### [facility] [address] [place], [address] RBC 5-10 SEEN Normal 0-5 [facility] Comment on above: Order Comment: SONJA TER SPECIMEN Performed By: #### L [id number] #### [facility] [address] [place], [address] CAST,HYALINE 0-5 SEEN Normal 0-5 [facility] Comment on above: Order Comment: SONJA TER SPECIMEN Performed By: #### L [id number] #### [facility] [address] [place], [address] EPI,SQUAMOUS 0-5 SEEN Normal 5-10 [facility] Comment on above: Order Comment: SONJA TER SPECIMEN Performed By: #### L [id number] #### [facility] [address] [place], [address] WBC 0-5 SEEN Normal 0-5 [facility] Comment on above: Order Comment: SONJA TER SPECIMEN Performed By: #### L [id number] #### [facility] [address] [place], [address] Urine blood detectionOrdered By: Lucien Ramirez on 03-06-2024 Urine Occult Blood 25 /ul High Negative [facility] Urine clarityOrdered By: Lucien Ramirez on 03-06-2024 Clarity (U) Clear Clear [facility] Urine color determinationOrd ered By: Lucien Ramirez on 03-06-2024 Color (U) Straw Yellow [facility] Urine leukocyte esterase det ection by dipstickOrdered By: Lucien Ramirez on 03-06-2024 Leukocyte esterase Test strip Ql (U) Negative Negative [facility] Urine pHOrdered By: Lucien Gall o on 03-06-2024 pH (U) 5.0 [pH] 5.0 - 8.0 [facility] Urine sediment bacteria coun t by microscopy (number/high power field)Ordered By: Lucien Ramirez on 03-06-2024 Bacteria LM.HPF (Urine sed) [#/Area] 1 /[HPF] None Seen [facility] Urine specific gravity measu rementOrdered By: Lucien Ramirez on 03-06-2024 Specific gravity (U) [Rel density] 1.025 1.002-1.03 0 [facility] Urobilinogen Ql (U)Ordered B y: Lucien Ramirez on 03-06-2024 Urobilinogen (U) [Mass/Vol] 4 mg/dL High Normal [facility] White blood cell (WBC) count Ordered By: Lucien Ramirez on 03-06-2024 WBC (Bld) [#/Vol] 6.0 10*3/uL 4.4-11.0 [facility] White blood cell countOrdere d By: Lucien Ramirez on 03-06-2024 Urine WBC 0-5 SEEN /hpf 0-5 [facility] .Auto Diffon 02-17-2024 Basophil, Absolute 0.0 10 3/mcL Normal 0.0-0.2 [facility] Comment on above: Performed By: #### 7 14663, TSH, FT4, FES, VIDH, CMP, GFR, ESR, 715920, 836791, 762575, CBC, ADIFF, ANEU, PBNP, FERR, MG, PHOS #### [address] [address] #### HOMO, CRPHS, PRALB, FOL #### [address] [address] Basophils/100 WBC (Bld) 0.5 % Normal 0.0-2.5 [facility] Comment on above: Performed By: #### 7 01388, TSH, FT4, FES, VIDH, CMP, GFR, ESR, 881027, 154027, 678758, CBC, ADIFF, ANEU, PBNP, FERR, MG, PHOS #### [address] [address] #### HOMO, CRPHS, PRALB, FOL #### [address] [address] Eosinophil, Absolute 0.0 10 3/mcL Normal 0.0-0.7 [facility] Comment on above: Performed By: #### 7 10041, TSH, FT4, FES, VIDH, CMP, GFR, ESR, 634406, 943028, 178944, CBC, ADIFF, ANEU, PBNP, FERR, MG, PHOS #### [address] [address] #### HOMO, CRPHS, PRALB, FOL #### [address] [address] Eosinophils/100 WBC (Bld) 0.8 % Normal 0.0-7.0 [facility] Comment on above: Performed By: #### 7 45629, TSH, FT4, FES, VIDH, CMP, GFR, ESR, 527444, 386700, 799557, CBC, ADIFF, ANEU, PBNP, FERR, MG, PHOS #### [address] [address] #### HOMO, CRPHS, PRALB, FOL #### [address] [address] Lymphocyte, Absolute 0.4 10 3/mcL Low 0.9-4.3 [facility] Comment on above: Performed By: #### 7 00188, TSH, FT4, FES, VIDH, CMP, GFR, ESR, 990359, 120786, 313482, CBC, ADIFF, ANEU, PBNP, FERR, MG, PHOS #### [address] [address] #### HOMO, CRPHS, PRALB, FOL #### [address] [address] Lymphocytes/100 WBC (Bld) 7.1 % Low 20.0-40.0 [facility] Comment on above: Performed By: #### 7 24224, TSH, FT4, FES, VIDH, CMP, GFR, ESR, 111672, 186950, 449598, CBC, ADIFF, ANEU, PBNP, FERR, MG, PHOS #### [address] [address] #### HOMO, CRPHS, PRALB, FOL #### [address] [address] Monocyte, Absolute 0.4 10 3/mcL Normal 0.1-1.4 [facility] Comment on above: Performed By: #### 7 12639, TSH, FT4, FES, VIDH, CMP, GFR, ESR, 962091, 753695, 643354, CBC, ADIFF, ANEU, PBNP, FERR, MG, PHOS #### [address] [address] #### HOMO, CRPHS, PRALB, FOL #### [address] [address] Monocytes/100 WBC (Bld) 8.3 % Normal 2.0-13.0 [facility] Comment on above: Performed By: #### 7 11936, TSH, FT4, FES, VIDH, CMP, GFR, ESR, 552337, 983274, 580245, CBC, ADIFF, ANEU, PBNP, FERR, MG, PHOS #### [address] [address] #### HOMO, CRPHS, PRALB, FOL #### [address] [address] Neutrophils/100 WBC (Bld) 83.3 % High 50.0-75.0 [facility] Comment on above: Performed By: #### 7 87303, TSH, FT4, FES, VIDH, CMP, GFR, ESR, 580524, 638600, 468915, CBC, ADIFF, ANEU, PBNP, FERR, MG, PHOS #### [address] [address] #### HOMO, CRPHS, PRALB, FOL #### [address] [address] .GFRon 02-17-2024 GFR 75 ml/min/1.73sqm [facility] Comment on above: Result Comment: GFR Population mean for , Non- Americans Ages 20-29 = 116 mL/min/1.73 sq.m. Ages 30-39 = 107 mL/min/1.73 sq.m. Ages 40-49 = 99 mL/min/1.73 sq.m. Ages 50-59 = 93 mL/min/1.73 sq.m. Ages 60-69 = 85 mL/min/1.73 sq.m. Ages 70+ = 75 mL/min/1.73 sq.m. Chronic Kidney Disease: Less than 60 mL/min/1.73 square meters End Stage Renal Disease: Less than 15 mL/min/1.73 square meters Performed By: #### 7 34812, TSH, FT4, FES, VIDH, CMP, GFR, ESR, 261557, 893076, 963432, CBC, ADIFF, ANEU, PBNP, FERR, MG, PHOS #### [address] [address] #### HOMO, CRPHS, PRALB, FOL #### [address] [address] GFR Non- 62 ml/min/1.73sqm [facility] Comment on above: Result Comment: GFR Population mean for , Non- Americans Ages 20-29 = 116 mL/min/1.73 sq.m. Ages 30-39 = 107 mL/min/1.73 sq.m. Ages 40-49 = 99 mL/min/1.73 sq.m. Ages 50-59 = 93 mL/min/1.73 sq.m. Ages 60-69 = 85 mL/min/1.73 sq.m. Ages 70+ = 75 mL/min/1.73 sq.m. Chronic Kidney Disease: Less than 60 mL/min/1.73 square meters End Stage Renal Disease: Less than 15 mL/min/1.73 square meters Performed By: #### 7 69544, TSH, FT4, FES, VIDH, CMP, GFR, ESR, 174851, 474088, 547256, CBC, ADIFF, ANEU, PBNP, FERR, MG, PHOS #### [place] [address] #### HOMO, CRPHS, PRALB, FOL #### [address] [address] .MDWon 02-17-2024 Monocyte Distribution Width 17.92 Normal 0.00-20.00 [facility] Comment on above: Result Comment: For ED adult patients suspected of sepsis, MDW<=20.0 does not rule out sepsis or risk of sepsis Performed By: #### 7 59763, TSH, FT4, FES, VIDH, CMP, GFR, ESR, 077172, 011136, 806245, CBC, ADIFF, ANEU, PBNP, FERR, MG, PHOS #### [address] [address] #### HOMO, CRPHS, PRALB, FOL #### [address] [address] .NEUABSon 02-17-2024 Neutrophil, Absolute 4.2 10 3/mcL Normal 2.3-8.1 [facility] Comment on above: Performed By: #### 7 54342, TSH, FT4, FES, VIDH, CMP, GFR, ESR, 420599, 896541, 306182, CBC, ADIFF, ANEU, PBNP, FERR, MG, PHOS #### [place] [id number] #### HOMO, CRPHS, PRALB, FOL #### [address] [address] BMPon 02-17-2024 BUN/Creatinine Ratio 26 ratio Normal 7-27 [facility] Comment on above: Performed By: #### 7 55991, TSH, FT4, FES, VIDH, CMP, GFR, ESR, 654066, 000561, 380869, CBC, ADIFF, ANEU, PBNP, FERR, MG, PHOS #### [address] [address] #### HOMO, CRPHS, PRALB, FOL #### [address] [address] Calcium [Mass/Vol] 9.9 mg/dL Normal 8.4-10.2 [facility] Comment on above: Performed By: #### 7 42248, TSH, FT4, FES, VIDH, CMP, GFR, ESR, 783465, 152713, 538618, CBC, ADIFF, ANEU, PBNP, FERR, MG, PHOS #### [address] [address] #### HOMO, CRPHS, PRALB, FOL #### [address] [address] Chloride [Moles/Vol] 102 mmol/L Normal 98-107 [facility] Comment on above: Performed By: #### 7 22301, TSH, FT4, FES, VIDH, CMP, GFR, ESR, 074345, 300805, 506027, CBC, ADIFF, ANEU, PBNP, FERR, MG, PHOS #### [address] [address] #### HOMO, CRPHS, PRALB, FOL #### [address] [address] CO2 [Moles/Vol] 29 mmol/L Normal 23-31 [facility] Comment on above: Performed By: #### 7 07682, TSH, FT4, FES, VIDH, CMP, GFR, ESR, 188858, 659522, 626088, CBC, ADIFF, ANEU, PBNP, FERR, MG, PHOS #### [address] [address] #### HOMO, CRPHS, PRALB, FOL #### [address] [address] Creatinine [Mass/Vol] 0.88 mg/dL Normal 0.55-1.02 [facility] Comment on above: Result Comment: Test ing performed on Siemens Dimension EXL analyzer using a modified kinetic Nixon technique. Performed By: #### 7 09034, TSH, FT4, FES, VIDH, CMP, GFR, ESR, 237308, 263569, 153223, CBC, ADIFF, ANEU, PBNP, FERR, MG, PHOS #### [address] [address] #### HOMO, CRPHS, PRALB, FOL #### [address] [address] Electrolyte Balance 10.0 mEq/L Normal 4.0-15.0 [facility] Comment on above: Performed By: #### 7 70135, TSH, FT4, FES, VIDH, CMP, GFR, ESR, 659225, 123231, 826978, CBC, ADIFF, ANEU, PBNP, FERR, MG, PHOS #### [address] [address] #### HOMO, CRPHS, PRALB, FOL #### [address] [address] Glucose [Mass/Vol] 94 mg/dL Normal 83-110 [facility] Comment on above: Performed By: #### 7 94864, TSH, FT4, FES, VIDH, CMP, GFR, ESR, 171442, 036744, 280689, CBC, ADIFF, ANEU, PBNP, FERR, MG, PHOS #### [address] [address] #### HOMO, CRPHS, PRALB, FOL #### [address] [address] Potassium [Moles/Vol] 3.9 mmol/L Normal 3.5-5.1 [facility] Comment on above: Performed By: #### 7 36458, TSH, FT4, FES, VIDH, CMP, GFR, ESR, 834810, 694625, 448908, CBC, ADIFF, ANEU, PBNP, FERR, MG, PHOS #### [address] [address] #### HOMO, CRPHS, PRALB, FOL #### [address] [address] Sodium [Moles/Vol] 141 mmol/L Normal 136-145 [facility] Comment on above: Performed By: #### 7 28070, TSH, FT4, FES, VIDH, CMP, GFR, ESR, 765267, 229601, 186684, CBC, ADIFF, ANEU, PBNP, FERR, MG, PHOS #### [place] [address] #### HOMO, CRPHS, PRALB, FOL #### [address] [address] Urea nitrogen [Mass/Vol] 23 mg/dL High 7-18 [facility] Comment on above: Performed By: #### 7 74574, TSH, FT4, FES, VIDH, CMP, GFR, ESR, 149287, 155931, 087759, CBC, ADIFF, ANEU, PBNP, FERR, MG, PHOS #### [address] [address] #### HOMO, CRPHS, PRALB, FOL #### [address] [address] CBCon 02-17-2024 Erythrocyte distribution width (RBC) [Ratio] 14.1 % Normal 11.5-15.5 [facility] Comment on above: Performed By: #### 7 13537, TSH, FT4, FES, VIDH, CMP, GFR, ESR, 282112, 354669, 863065, CBC, ADIFF, ANEU, PBNP, FERR, MG, PHOS #### [address] [address] #### HOMO, CRPHS, PRALB, FOL #### [address] [address] Hematocrit (Bld) [Volume fraction] 38.8 % Normal 34.0-46.0 [facility] Comment on above: Performed By: #### 7 40961, TSH, FT4, FES, VIDH, CMP, GFR, ESR, 602091, 097026, 979694, CBC, ADIFF, ANEU, PBNP, FERR, MG, PHOS #### [address] [address] #### HOMO, CRPHS, PRALB, FOL #### [address] [address] Hgb 13.1 G/dL Normal 12.0-16.0 [facility] Comment on above: Performed By: #### 7 19079, TSH, FT4, FES, VIDH, CMP, GFR, ESR, 477918, 718867, 878754, CBC, ADIFF, ANEU, PBNP, FERR, MG, PHOS #### [place] [address] #### HOMO, CRPHS, PRALB, FOL #### [address] [address] MCH (RBC) [Entitic mass] 33.1 pg High 27.0-33.0 [facility] Comment on above: Performed By: #### 7 91682, TSH, FT4, FES, VIDH, CMP, GFR, ESR, 503592, 389143, 295531, CBC, ADIFF, ANEU, PBNP, FERR, MG, PHOS #### [address] [address] #### HOMO, CRPHS, PRALB, FOL #### [address] [address] MCHC 33.7 G/dL Normal 32.0-36.0 [facility] Comment on above: Performed By: #### 7 62484, TSH, FT4, FES, VIDH, CMP, GFR, ESR, 125014, 178145, 429100, CBC, ADIFF, ANEU, PBNP, FERR, MG, PHOS #### [address] [address] #### HOMO, CRPHS, PRALB, FOL #### [address] [address] MCV (RBC) [Entitic vol] 98.2 fL Normal 80.0-99.0 [facility] Comment on above: Performed By: #### 7 92084, TSH, FT4, FES, VIDH, CMP, GFR, ESR, 989952, 047840, 749870, CBC, ADIFF, ANEU, PBNP, FERR, MG, PHOS #### [address] [address] #### HOMO, CRPHS, PRALB, FOL #### [address] [address] Platelet 177 10 3/mcL Normal 150-450 [facility] Comment on above: Performed By: #### 7 [id number], TSH, FT4, FES, VIDH, CMP, GFR, ESR, 102449, 578242, 792127, CBC, ADIFF, ANEU, PBNP, FERR, MG, PHOS #### [address] [address] #### HOMO, CRPHS, PRALB, FOL #### [address] [address] Platelet mean volume (Bld) [Entitic vol] 7.2 fL Normal 6.6-10.5 [facility] Comment on above: Performed By: #### 7 [address]18, TSH, FT4, FES, VIDH, CMP, GFR, ESR, 981558, 929192, [id number], CBC, ADIFF, ANEU, PBNP, FERR, MG, PHOS #### [address] [address] #### HOMO, CRPHS, PRALB, FOL #### [address] [address] RBC 3.96 10 6/mcL Low 4.10-5.30 [facility] Comment on above: Performed By: #### 7 75606, TSH, FT4, FES, VIDH, CMP, GFR, ESR, 090464, 337137, 123575, CBC, ADIFF, ANEU, PBNP, FERR, MG, PHOS #### [address] [address] #### HOMO, CRPHS, PRALB, FOL #### [facility] [address] [place] [address] WBC 5.0 10 3/mcL Normal 4.5-10.8 [facility] Comment on above: Performed By: #### 7 66087, TSH, FT4, FES, VIDH, CMP, GFR, ESR, 498294, 799998, 297833, CBC, ADIFF, ANEU, PBNP, FERR, MG, PHOS #### [address] [address] #### HOMO, CRPHS, PRALB, FOL #### [place] [address] LABORATORYOrdered By: Arlene Rico on 02-17-2024 Appearance (U) Clear (02/17/24 2:31 PM) Normal Clear AO Auto Urine SS Bilirubin Ql (U) Negative (02/17/24 2:31 PM) Normal Negative AO Auto Urine SS Color (U) Yellow (02/17/24 2:31 PM) Normal AO Auto Urine SS Glucose Test strip (U) [Mass/Vol] Negative Normal Negative AO Auto Urine SS Hemoglobin Auto test strip (U) [Mass/Vol] Negative (02/17/24 2:31 PM) Normal Negative AO Auto Urine SS Ketones Ql (U) 15 mg/dL Invalid Interpretation Code Negative AO Auto Urine SS UA Leuk Est Negative (02/17/24 2:31 PM) Normal Negative AO Auto Urine SS UA Nitrite Negative (02/17/24 2:31 PM) Normal Negative AO Auto Urine SS UA pH 7.0 (02/17/24 2:31 PM) Normal 5.0 - 8.0 AO Auto Urine SS UA Protein Negative Normal Negative AO Auto Urine SS UA Spec Grav 1.010 *ABN* (02/17/24 2:31 PM) Invalid Interpretation Code 1.015-1.02 5 AO Auto Urine SS UA Specimen Type Not Given (02/17/24 2:31 PM) Normal AO Auto Urine SS UA Urobilinogen 0.2 E.U./dL Normal 0.2-1.0 AO Auto Urine SS LABORATORYOrdered By: SYSTEM SYSTEM on 02-17-2024 Basophils (Bld) [#/Vol] 0.0 103/mcL Normal 0.0 - 0.2 10^3/mcL AO Workflow SS Basophils/100 WBC (Bld) 0.5 % Normal 0.0 - 2.5 % AO Workflow SS Calcium [Mass/Vol] 9.9 mg/dL Normal 8.4 - 10. 2 mg/dL AO ADM SS Chloride [Moles/Vol] 102 mmol/L Normal 98 - 10 7 mmol/L AO ADM SS CO2 [Moles/Vol] 29 mmol/L Normal 23 - 31 mmol/L AO ADM SS Creatinine [Mass/Vol] 0.88 mg/dL Normal 0.55 - 1.02 mg/dL AO ADM SS Comment on above: Interpretive Data: T esting performed on Siemens Dimension EXL analyzer using a modified kinetic Nixon technique. Electrolyte Balance 10.0 mEq/L Normal 4.0 - 15 .0 mEq/L AO ADM SS Eosinophil, Absolute 0.0 103/mcL Normal 0.0 - 0 .7 10^3/mcL AO Workflow SS Eosinophils/100 WBC (Bld) 0.8 % Normal 0.0 - 7.0 % AO Workflow SS Erythrocyte distribution width (RBC) [Ratio] 14.1 % Normal 11.5 - 15.5 % AO Workflow SS GFR/1.73 sq M.predicted among blacks MDRD (S/P/Bld) [Vol rate/Area] 75 ml/min/1.73sqm Invalid Interpretation Code AO Chemistry S Comment on above: Interpretive Data: GFR Population mean for , Non- Americans Ages 20-29 = 116 mL/min/1.73 sq.m. Ages 30-39 = 107 mL/min/1.73 sq.m. Ages 40-49 = 99 mL/min/1.73 sq.m. Ages 50-59 = 93 mL/min/1.73 sq.m. Ages 60-69 = 85 mL/min/1.73 sq.m. Ages 70+ = 75 mL/min/1.73 sq.m. Chronic Kidney Disease: Less than 60 mL/min/1.73 square meters End Stage Renal Disease: Less than 15 mL/min/1.73 square meters GFR/1.73 sq M.predicted among non-blacks MDRD (S/P/Bld) [Vol rate/Area] 62 ml/min/1.73sqm Invalid Interpretation Code AO Chemistry S Comment on above: Interpretive Data: GFR Population mean for , Non- Americans Ages 20-29 = 116 mL/min/1.73 sq.m. Ages 30-39 = 107 mL/min/1.73 sq.m. Ages 40-49 = 99 mL/min/1.73 sq.m. Ages 50-59 = 93 mL/min/1.73 sq.m. Ages 60-69 = 85 mL/min/1.73 sq.m. Ages 70+ = 75 mL/min/1.73 sq.m. Chronic Kidney Disease: Less than 60 mL/min/1.73 square meters End Stage Renal Disease: Less than 15 mL/min/1.73 square meters Glucose [Mass/Vol] 94 mg/dL Normal 83 - 110 mg/dL AO ADM SS Hematocrit (Bld) [Volume fraction] 38.8 % Normal 34.0 - 46.0 % AO Workflow SS Hemoglobin (Bld) [Mass/Vol] 13.1 G/dL Normal 12.0 - 16.0 G/dL AO Workflow SS Lymphocytes (Bld) [#/Vol] 0.4 103/mcL Low 0.9 - 4.3 10^3/mcL AO Workflow SS Lymphocytes/100 WBC (Bld) 7.1 % Low 20.0 - 40.0 % AO Workflow SS MCH (RBC) [Entitic mass] 33.1 pg High 27.0 - 33.0 pg AO Workflow SS MCHC 33.7 G/dL Normal 32.0 - 36.0 G/dL AO Workflow SS MCV (RBC) [Entitic vol] 98.2 fL Normal 80.0 - 99.0 fL AO Workflow SS Monocyte distribution width Auto (Bld) [Entitic vol] 17.92 1 Normal 0.00 - 20.00 AO Workflow SS Comment on above: Result Comment: For ED adult patients suspected of sepsis, MDW<=20.0 does not rule out sepsis or risk of sepsis Monocytes (Bld) [#/Vol] 0.4 103/mcL Normal 0.1 - 1.4 10^3/mcL AO Workflow SS Monocytes/100 WBC (Bld) 8.3 % Normal 2.0 - 13.0 % AO Workflow SS Neutrophils (Bld) [#/Vol] 4.2 103/mcL Normal 2.3 - 8.1 10^3/mcL AO Workflow SS Neutrophils/100 WBC (Bld) 83.3 % High 50.0 - 75.0 % AO Workflow SS Platelet mean volume (Bld) [Entitic vol] 7.2 fL Normal 6.6 - 10.5 fL AO Workflow SS Platelets (Bld) [#/Vol] 177 103/mcL Normal 150 - 450 10^3/mcL AO Workflow SS Potassium [Moles/Vol] 3.9 mmol/L Normal 3.5 - 5.1 mmol/L AO ADM SS RBC (Bld) [#/Vol] 3.96 106/mcL Low 4.10 - 5.30 10^6/mcL AO Workflow SS Sodium [Moles/Vol] 141 mmol/L Normal 136 - 145 mmol/L AO ADM SS Urea nitrogen [Mass/Vol] 23 mg/dL High 7 - 18 mg/dL AO ADM SS Urea nitrogen/Creatinine [Mass ratio] 26 ratio Normal 7 - 27 ratio AO ADM SS WBC (Bld) [#/Vol] 5.0 103/mcL Normal 4.5 - 10.8 10^3/mcL AO Workflow SS UAon 02-17-2024 Color (U) Yellow Normal [facility] Comment on above: Performed By: #### 7 41699, TSH, FT4, FES, VIDH, CMP, GFR, ESR, 868602, 473369, 129804, CBC, ADIFF, ANEU, PBNP, FERR, MG, PHOS #### [facility] [address] [place], [place] [address] #### HOMO, CRPHS, PRALB, FOL #### [facility] [address] [place] [address] Glucose (U) [Mass/Vol] Negative Normal Negative [facility] Comment on above: Performed By: #### 7 16548, TSH, FT4, FES, VIDH, CMP, GFR, ESR, 261633, 842808, 914298, CBC, ADIFF, ANEU, PBNP, FERR, MG, PHOS #### [address] [address] #### HOMO, CRPHS, PRALB, FOL #### [place] [address] Ketones Ql (U) 15 mg/dL Abnormal Negative [facility] Comment on above: Performed By: #### 7 66899, TSH, FT4, FES, VIDH, CMP, GFR, ESR, 611431, 728106, 097893, CBC, ADIFF, ANEU, PBNP, FERR, MG, PHOS #### [place] [address] #### HOMO, CRPHS, PRALB, FOL #### [place] [address] UA Appear Clear Normal Clear [facility] Comment on above: Performed By: #### 7 30909, TSH, FT4, FES, VIDH, CMP, GFR, ESR, 846473, 417800, 200987, CBC, ADIFF, ANEU, PBNP, FERR, MG, PHOS #### [place] [address] #### HOMO, CRPHS, PRALB, FOL #### [place] [address] UA Blood Negative Normal Negative [facility] Comment on above: Performed By: #### 7 77747, TSH, FT4, FES, VIDH, CMP, GFR, ESR, 065803, 625981, 995340, CBC, ADIFF, ANEU, PBNP, FERR, MG, PHOS #### [place] [address] #### HOMO, CRPHS, PRALB, FOL #### [place] [address] UA Leuk Est Negative Normal Negative [facility] Comment on above: Performed By: #### 7 65923, TSH, FT4, FES, VIDH, CMP, GFR, ESR, 627648, 292283, 577088, CBC, ADIFF, ANEU, PBNP, FERR, MG, PHOS #### [address] [address] #### HOMO, CRPHS, PRALB, FOL #### [address] [address] UA Nitrite Negative Normal Negative [facility] Comment on above: Performed By: #### 7 34602, TSH, FT4, FES, VIDH, CMP, GFR, ESR, 421960, 193188, 003645, CBC, ADIFF, ANEU, PBNP, FERR, MG, PHOS #### [address] [address] #### HOMO, CRPHS, PRALB, FOL #### [place] [address] UA pH 7.0 Normal 5.0 - 8.0 [facility] Comment on above: Performed By: #### 7 19092, TSH, FT4, FES, VIDH, CMP, GFR, ESR, 564496, 041460, 643390, CBC, ADIFF, ANEU, PBNP, FERR, MG, PHOS #### [address] [address] #### HOMO, CRPHS, PRALB, FOL #### [place] [address] UA Protein Negative Normal Negative [facility] Comment on above: Performed By: #### 7 29788, TSH, FT4, FES, VIDH, CMP, GFR, ESR, 575443, 733656, 380077, CBC, ADIFF, ANEU, PBNP, FERR, MG, PHOS #### [address] [address] #### HOMO, CRPHS, PRALB, FOL #### [place] [address] UA Spec Grav 1.010 Abnormal 1.015-1.02 5 [facility] Comment on above: Performed By: #### 7 85796, TSH, FT4, FES, VIDH, CMP, GFR, ESR, 647689, 552470, 197298, CBC, ADIFF, ANEU, PBNP, FERR, MG, PHOS #### [address] [address] #### HOMO, CRPHS, PRALB, FOL #### [address] [address] UA Specimen Type Not Given Normal [facility] Comment on above: Performed By: #### 7 37820, TSH, FT4, FES, VIDH, CMP, GFR, ESR, 475521, 801352, 631222, CBC, ADIFF, ANEU, PBNP, FERR, MG, PHOS #### [address] [address] #### HOMO, CRPHS, PRALB, FOL #### [address] [address] UA Urobilinogen 0.2 E.U./dL Normal 0.2-1.0 [facility] Comment on above: Performed By: #### 7 02108, TSH, FT4, FES, VIDH, CMP, GFR, ESR, 664643, 282005, 309461, CBC, ADIFF, ANEU, PBNP, FERR, MG, PHOS #### [address] [address] #### HOMO, CRPHS, PRALB, FOL #### [address] [address] Urobilinogen (U) [Mass/Vol] Negative Normal Negative [facility] Comment on above: Performed By: #### 7 25047, TSH, FT4, FES, VIDH, CMP, GFR, ESR, 561810, 150602, 239257, CBC, ADIFF, ANEU, PBNP, FERR, MG, PHOS #### [address] [address] #### HOMO, CRPHS, PRALB, FOL #### [address] [place], [place] [address] Urine Cultureon 02-06-2024 [facility] Presumptive E. coli [place] Count >100,000 Presumptive E. coli: REACTION Ampicillin Islt NEAL <=2 Ampicillin+Sulbac Islt NEAL <=2 S ceFAZolin Islt NEAL <=4 S Cefepime Islt NEAL <=0.12 S cefTRIAXone Islt NEAL <=0.25 S Ciprofloxacin Islt NEAL <=0.25 S B-Lactamase Extended Susc Islt NEG Gentamicin Islt NEAL <=1 S Imipenem Islt NEAL <=0.25 S levoFLOXacin Islt NEAL <=0.12 S Nitrofurantoin Islt NEAL 32 S Pip+Tazo Islt NEAL <=4 S Tobramycin Islt NEAL <=1 S TMP SMX Islt NEAL <=20 S Normal [facility] Comment on above: Performed By: #### L 501.4021 #### [facility] [address] [facility] [place], [address] Emergency Department Summary on 02-04-2024 Emergency Department Summary [facility] Medical Records Department [address] [place] [address] Emergency Department Summary 02/04/24 MR#: [id number] Acct: [id number] Name: SHABNAM CANO Rep #: [id number] : 1945 78 From: Constantin Harley MD PCP: Dr. Naveed Dye MD Status:REG ER Location: ED HPI History of Present Illness Chief Complaint: Complaint Informant: patient, spouse/S.O. and family ( and daughter accompany the patient.) Onset/Context/Timing Onset: Weeks Context: Gradual Onset Timing: Continuous Current Severity: Mild Maximum Severity: Mild Narrative Narrative: 78-year-old female history of hypertension, valvular heart disease and prior colon cancer years ago that reportedly had not spread. According to the family patient has had some urinary incontinence the last several weeks. She has had with a term as brain fog. She denies any vomiting, diarrhea, fever or dysuria. No headache. No falls or head trauma. Saw her primary care physician at [facility]. She had screening labs done and these were unremarkable. Urinalysis was not done the family was just hoping to get a urinalysis done to evaluate for possible urinary tract infection. Prior similar symptoms: No Recent Illness/Hospitalization: No PFSH PFSH Medical History Hypothyroidism Hypertension Bilateral leg pain Depression Fibromyalgia Arthritis of left knee Osteoporosis History of colon cancer (2007) Cardiac murmur Tricuspid insufficiency Mitral insufficiency Home Medications ???Medication ???Instructions ???Recorded ???Last Taken ???Type lactobacillus combo no.13 1 1 cap PO DAILY 12/01/17 Unknown History billion cell capsule,delayed release (Probiotic Pearls Complete) cholecalciferol (vitamin D3) 125 125 mcg PO DAILY 01/21/20 Unknown History mcg (5,000 unit) capsule Handicap Placard #1 ea 11/12/20 Unknown Rx multivitamin 1 tab PO DAILY 12/06/21 Unknown History omega 6-stu-bdd-fish oil 300 1 cap PO DAILY 10/05/22 Unknown History mg-1,000 mg capsule (Fish Oil) selenium 25 mcg tablet 25 mcg PO DAILY 01/04/23 Unknown History cephalexin 500 mg capsule 500 mg PO Q6 7 days #28 CAPSULES 02/04/24 Unknown Rx propranolol 20 mg tablet 20 mg PO TID 02/04/24 Unknown History Allergy/AdvReac Type Severity Reaction Status Date / Time amlodipine Allergy Severe anxiety Verified 02/04/24 10:19 meloxicam Allergy Severe weight gain Verified 02/04/24 10:19 pollen extracts Allergy Intermediate Rhinitis Verified 02/04/24 10:19 atenolol (From Tenoretic) Allergy Unknown Unknown Verified 02/04/24 10:19 chlorthalidone (From Allergy Unknown Unknown Verified 02/04/24 10:19 Tenoretic) ciprofloxacin AdvReac Severe joint pain Verified 02/04/24 10:19 pregabalin (From Lyrica) AdvReac Severe Tremors Verified 02/04/24 10:19 lisinopril AdvReac Intermediate cough Verified 02/04/24 10:19 indomethacin AdvReac Unknown unknown Verified 02/04/24 10:19 Family History Father Hypertension Heart disease Brother Hypertension Diabetes Mother Diabetes Heart disease Aunt Breast cancer Grandmother Breast cancer Surgical History History of partial thyroidectomy (2009) History of vaginal hysterectomy (1977) History of colon surgery (2007) Social History Smoking Status: Never smoker alcohol intake: never substance use type: does not use what type of physical activity do you participate in: walking frequency: daily ROS ROS ED ROS Narrative Denies recent illness. She has an 11 pound weight loss in 1 to 2 months. Constitutional Constitutional ED: Denies chills or fever(s) Eyes Eyes: Denies blurry vision ENT ENT ED: Denies ear pain Cardiovascular Cardiovascular: Denies chest pain Respiratory/Chest Respiratory/Chest: Denies cough or dyspnea Gastrointestinal Gastrointestinal: Denies abdominal pain Genitourinary Genitourinary ED: Denies dysuria or hematuria Musculoskeletal Musculoskeletal: Denies arthralgias Integumentary Denies abscess Neurologic Neurologic: Denies headache(s) Psychiatric Psychiatric: Reports anxiety Endocrine Endocrinology: Denies cold intolerance or heat intolerance Hematologic/Lymphatic Hematologic/Lymphatic: Reports none Allergic/Immunologic Allergic/Immunologic ED: Denies mouth swelling, tongue swelling or urticaria EXAM Physical Exam Narrative Exam Narrative: Well-appearing 78-year-old female. Vital signs are stable afebrile. Pulse ox 98% on room air no hypoxia. Patient is no distress. As I was talking to her family she walked into the room from the bathroom after giving a urine sample. H EENT (more content not included)... Normal [facility] Urinalysis, Completeon 02-03 RBC 5-10 SEEN Normal 0-5 [facility] Comment on above: Order Comment: CLEAN CATCH Performed By: #### L 400.0001 #### [facility] [address] [place], [address] BACTERIA 4+ /hpf Normal None Seen [facility] Comment on above: Order Comment: CLEAN CATCH Performed By: #### L 400.0001 #### [facility] [address] [place], [address] EPI,SQUAMOUS 10-25 SEEN Normal 5-10 [facility] Comment on above: Order Comment: CLEAN CATCH Performed By: #### L 400.0001 #### [facility] [address] [place], [address] EPI,TRANSITION 0-5 SEEN Normal 0-5 [facility] Comment on above: Order Comment: CLEAN CATCH Performed By: #### L 400.0001 #### [facility] [address] [place], [address] WBC 50-100 SEEN Normal 0-5 [facility] Comment on above: Order Comment: CLEAN CATCH Performed By: #### L 400.0001 #### [facility] [address] [place], [address] Mucus Ql (Urine sed) 0 SEEN Normal [facility] Comment on above: Order Comment: CLEAN CATCH Performed By: #### L 400.0001 #### [facility] [address] [place], [address] .GFRon 01-15-2024 GFR 63 ml/min/1.73sqm Normal [facility] Comment on above: Result Comment: GFR Population mean for , Non- Americans Ages 20-29 = 116 mL/min/1.73 sq.m. Ages 30-39 = 107 mL/min/1.73 sq.m. Ages 40-49 = 99 mL/min/1.73 sq.m. Ages 50-59 = 93 mL/min/1.73 sq.m. Ages 60-69 = 85 mL/min/1.73 sq.m. Ages 70+ = 75 mL/min/1.73 sq.m. Chronic Kidney Disease: Less than 60 mL/min/1.73 square meters End Stage Renal Disease: Less than 15 mL/min/1.73 square meters Performed By: #### 7 53457, TSH, FT4, FES, VIDH, CMP, GFR, ESR, 705596, 856442, 968728, CBC, ADIFF, ANEU, PBNP, FERR, MG, PHOS #### [address] [address] #### HOMO, CRPHS, PRALB, FOL #### [address] [address] GFR Non- 52 ml/min/1.73sqm Normal [facility] Comment on above: Result Comment: GFR Population mean for , Non- Americans Ages 20-29 = 116 mL/min/1.73 sq.m. Ages 30-39 = 107 mL/min/1.73 sq.m. Ages 40-49 = 99 mL/min/1.73 sq.m. Ages 50-59 = 93 mL/min/1.73 sq.m. Ages 60-69 = 85 mL/min/1.73 sq.m. Ages 70+ = 75 mL/min/1.73 sq.m. Chronic Kidney Disease: Less than 60 mL/min/1.73 square meters End Stage Renal Disease: Less than 15 mL/min/1.73 square meters Performed By: #### 7 [address]40, TSH, FT4, FES, VIDH, CMP, GFR, ESR, 312205, 769961, 764994, CBC, ADIFF, ANEU, PBNP, FERR, MG, PHOS #### [address] [address] #### HOMO, CRPHS, PRALB, FOL #### [address] [address] BMPon 01-15-2024 BUN/Creatinine Ratio 21 ratio Normal 10-13 [facility] Comment on above: Performed By: #### 7 45594, TSH, FT4, FES, VIDH, CMP, GFR, ESR, 994965, 634837, 611783, CBC, ADIFF, ANEU, PBNP, FERR, MG, PHOS #### [address] [address] #### HOMO, CRPHS, PRALB, FOL #### [address] [address] Calcium [Mass/Vol] 9.4 mg/dL Normal 8.4-10.2 [facility] Comment on above: Performed By: #### 7 22062, TSH, FT4, FES, VIDH, CMP, GFR, ESR, 181082, 273130, 661639, CBC, ADIFF, ANEU, PBNP, FERR, MG, PHOS #### [address] [address] #### HOMO, CRPHS, PRALB, FOL #### [address] [address] Chloride [Moles/Vol] 102 mmol/L Normal 98-107 [facility] Comment on above: Performed By: #### 7 88721, TSH, FT4, FES, VIDH, CMP, GFR, ESR, 917368, 838884, 906671, CBC, ADIFF, ANEU, PBNP, FERR, MG, PHOS #### [address] [address] #### HOMO, CRPHS, PRALB, FOL #### [address] [address] CO2 [Moles/Vol] 29 mmol/L Normal 23-31 [facility] Comment on above: Performed By: #### 7 [address]68[address], TSH, FT4, FES, VIDH, CMP, GFR, ESR, 465861, 469877, 914571, CBC, ADIFF, ANEU, PBNP, FERR, MG, PHOS #### [address] [address] #### HOMO, CRPHS, PRALB, FOL #### [address] [address] Creatinine [Mass/Vol] 1.03 mg/dL High 0.55-1.02 [facility] Comment on above: Result Comment: Test ing performed on Siemens Dimension EXL analyzer using a modified kinetic Nixon technique. Performed By: #### 7 12324, TSH, FT4, FES, VIDH, CMP, GFR, ESR, 241919, 748248, 689716, CBC, ADIFF, ANEU, PBNP, FERR, MG, PHOS #### [address] [address] #### HOMO, CRPHS, PRALB, FOL #### [address] [address] Electrolyte Balance 8.0 mEq/L Normal 4.0-15.0 [facility] Comment on above: Performed By: #### 7 [address], TSH, FT4, FES, VIDH, CMP, GFR, ESR, 146998, 774833, 445986, CBC, ADIFF, ANEU, PBNP, FERR, MG, PHOS #### [place] [address] #### HOMO, CRPHS, PRALB, FOL #### [address] [address] Glucose [Mass/Vol] 148 mg/dL High 83-110 [facility] Comment on above: Performed By: #### 7 98469, TSH, FT4, FES, VIDH, CMP, GFR, ESR, 506770, 103434, 757148, CBC, ADIFF, ANEU, PBNP, FERR, MG, PHOS #### [place] [address] #### HOMO, CRPHS, PRALB, FOL #### [address] [address] Potassium [Moles/Vol] 4.5 mmol/L Normal 3.5-5.1 [facility] Comment on above: Performed By: #### 7 701[address], TSH, FT4, FES, VIDH, CMP, GFR, ESR, 744138, 948720, 064150, CBC, ADIFF, ANEU, PBNP, FERR, MG, PHOS #### [place] [address] #### HOMO, CRPHS, PRALB, FOL #### [address] [address] Sodium [Moles/Vol] 139 mmol/L Normal 136-145 [facility] Comment on above: Performed By: #### 7 88870, TSH, FT4, FES, VIDH, CMP, GFR, ESR, 772846, 361620, 935070, CBC, ADIFF, ANEU, PBNP, FERR, MG, PHOS #### [place] [address] #### HOMO, CRPHS, PRALB, FOL #### [address] [address] Urea nitrogen [Mass/Vol] 22 mg/dL High 7-18 [facility] Comment on above: Performed By: #### 7 29165, TSH, FT4, FES, VIDH, CMP, GFR, ESR, 115672, 888876, 732723, CBC, ADIFF, ANEU, PBNP, FERR, MG, PHOS #### [facility] [address] [place], [place] [address] #### HOMO, CRPHS, PRALB, FOL #### [place] [id number] [address] [place] [address] LABORATORYOrdered By: SYSTEM SYSTEM on 01-15-2024 Calcium [Mass/Vol] 9.4 mg/dL Normal 8.4 - 10. 2 mg/dL AO ADM SS Chloride [Moles/Vol] 102 mmol/L Normal 98 - 10 7 mmol/L AO ADM SS CO2 [Moles/Vol] 29 mmol/L Normal 23 - 31 mmol/L AO ADM SS Creatinine [Mass/Vol] 1.03 mg/dL High 0.55 - 1.02 mg/dL AO ADM SS Comment on above: Interpretive Data: T esting performed on Siemens Dimension EXL analyzer using a modified kinetic Nixon technique. Electrolyte Balance 8.0 mEq/L Normal 4.0 - 15 .0 mEq/L AO ADM SS GFR/1.73 sq M.predicted among blacks MDRD (S/P/Bld) [Vol rate/Area] 63 ml/min/1.73sqm Invalid Interpretation Code AO Chemistry S Comment on above: Interpretive Data: GFR Population mean for , Non- Americans Ages 20-29 = 116 mL/min/1.73 sq.m. Ages 30-39 = 107 mL/min/1.73 sq.m. Ages 40-49 = 99 mL/min/1.73 sq.m. Ages 50-59 = 93 mL/min/1.73 sq.m. Ages 60-69 = 85 mL/min/1.73 sq.m. Ages 70+ = 75 mL/min/1.73 sq.m. Chronic Kidney Disease: Less than 60 mL/min/1.73 square meters End Stage Renal Disease: Less than 15 mL/min/1.73 square meters GFR/1.73 sq M.predicted among non-blacks MDRD (S/P/Bld) [Vol rate/Area] 52 ml/min/1.73sqm Invalid Interpretation Code AO Chemistry S Comment on above: Interpretive Data: GFR Population mean for , Non- Americans Ages 20-29 = 116 mL/min/1.73 sq.m. Ages 30-39 = 107 mL/min/1.73 sq.m. Ages 40-49 = 99 mL/min/1.73 sq.m. Ages 50-59 = 93 mL/min/1.73 sq.m. Ages 60-69 = 85 mL/min/1.73 sq.m. Ages 70+ = 75 mL/min/1.73 sq.m. Chronic Kidney Disease: Less than 60 mL/min/1.73 square meters End Stage Renal Disease: Less than 15 mL/min/1.73 square meters Glucose [Mass/Vol] 148 mg/dL High 83 - 110 mg/dL AO ADM SS Potassium [Moles/Vol] 4.5 mmol/L Normal 3.5 - 5.1 mmol/L AO ADM SS Sodium [Moles/Vol] 139 mmol/L Normal 136 - 145 mmol/L AO ADM SS Urea nitrogen [Mass/Vol] 22 mg/dL High 7 - 18 mg/dL AO ADM SS Urea nitrogen/Creatinine [Mass ratio] 21 ratio Normal 7 - 27 ratio AO ADM SS [facility] 01-15-2024 Methylmalonic Acid 232 nmol/L Normal 0-378 [facility] Comment on above: Result Comment: This test was developed and its performance characteristics determined by [facility]. It has not been cleared or approved by the Food and Drug Administration. Performed At: [address] [id number] Tyson Armstrong MD Ph:[phone] Performed By: #### 7 00159, TSH, FT4, FES, VIDH, CMP, GFR, ESR, 517096, 783202, 959979, CBC, ADIFF, ANEU, PBNP, FERR, MG, PHOS #### [address] [address] #### HOMO, CRPHS, PRALB, FOL #### [address] [address] [id number] 01-12-2024 Vitamin B6 Lvl 9.7 UG/L Normal 3.4-65.2 [facility] Comment on above: Result Comment: This test was developed and its performance characteristics determined by [facility]. It has not been cleared or approved by the Food and Drug Administration. Deficiency: <3.4 Marginal: 3.4 - 5.1 Adequate: >5.1 Performed At: [address] [id number] Tyson Armstrong MD Ph:[phone] Performed By: #### 7 [id number], TSH, FT4, FES, VIDH, CMP, GFR, ESR, 267056, [id number], 152426, CBC, ADIFF, ANEU, PBNP, FERR, MG, PHOS #### [address] [address] #### HOMO, CRPHS, PRALB, FOL #### [place] [address] [id number] 01-11-2024 Vitamin B1 Whl Bld 135.8 nmol/L Normal 66.5-200.0 [facility] Comment on above: Result Comment: This test was developed and its performance characteristics determined by [facility]. It has not been cleared or approved by the Food and Drug Administration. Performed At: [address] [id number] Tyson Armstrong MD Ph:[phone] Performed By: #### 7 [id number], TSH, FT4, FES, VIDH, CMP, GFR, ESR, 876308, 004550, 382259, CBC, ADIFF, ANEU, PBNP, FERR, MG, PHOS #### [address] [address] #### HOMO, CRPHS, PRALB, FOL #### [address] [address] [employer] 01-10-2024 Zinc Lvl 57 UG/DL Normal 44-115 [facility] [facility] Comment on above: Result Comment: This test was developed and its performance characteristics determined by [facility]. It has not been cleared or approved by the Food and Drug Administration. Detection Limit = 5 Performed At: Lab[address] [id number] Tyson Armstrong MD Ph:[phone] Performed By: #### 7 47895, TSH, FT4, FES, VIDH, CMP, GFR, ESR, 875694, 079035, 571679, CBC, ADIFF, ANEU, PBNP, FERR, MG, PHOS #### [address] [address] #### HOMO, CRPHS, PRALB, FOL #### [address] [address] .Auto Diffon 01-05-2024 Basophil, Absolute 0.0 10 3/mcL Normal 0.0-0.2 [facility] Comment on above: Performed By: #### 7 20110, TSH, FT4, FES, VIDH, CMP, GFR, ESR, 366536, 266774, 727201, CBC, ADIFF, ANEU, PBNP, FERR, MG, PHOS #### [address] [address] #### HOMO, CRPHS, PRALB, FOL #### [address] [address] Basophils/100 WBC (Bld) 0.5 % Normal 0.0-2.5 [facility] Comment on above: Performed By: #### 7 56891, TSH, FT4, FES, VIDH, CMP, GFR, ESR, 743789, 885445, 499651, CBC, ADIFF, ANEU, PBNP, FERR, MG, PHOS #### [address] [address] #### HOMO, CRPHS, PRALB, FOL #### [address] [address] Eosinophil, Absolute 0.0 10 3/mcL Normal 0.0-0.7 [facility] Comment on above: Performed By: #### 7 67562, TSH, FT4, FES, VIDH, CMP, GFR, ESR, 077029, 391912, 587784, CBC, ADIFF, ANEU, PBNP, FERR, MG, PHOS #### [place] [address] #### HOMO, CRPHS, PRALB, FOL #### [address] [address] Eosinophils/100 WBC (Bld) 0.4 % Normal 0.0-7.0 [facility] Comment on above: Performed By: #### 7 39121, TSH, FT4, FES, VIDH, CMP, GFR, ESR, 144775, 914155, 058100, CBC, ADIFF, ANEU, PBNP, FERR, MG, PHOS #### [place] [address] #### HOMO, CRPHS, PRALB, FOL #### [address] [address] Lymphocyte, Absolute 0.4 10 3/mcL Low 0.9-4.3 [facility] Comment on above: Performed By: #### 7 74943, TSH, FT4, FES, VIDH, CMP, GFR, ESR, 858585, 052836, 496862, CBC, ADIFF, ANEU, PBNP, FERR, MG, PHOS #### [place] [address] #### HOMO, CRPHS, PRALB, FOL #### [address] [address] Lymphocytes/100 WBC (Bld) 6.9 % Low 20.0-40.0 [facility] Comment on above: Performed By: #### 7 40280, TSH, FT4, FES, VIDH, CMP, GFR, ESR, 208468, 779959, 950881, CBC, ADIFF, ANEU, PBNP, FERR, MG, PHOS #### [place] [address] #### HOMO, CRPHS, PRALB, FOL #### [address] [address] Monocyte, Absolute 0.4 10 3/mcL Normal 0.1-1.4 [facility] Comment on above: Performed By: #### 7 61262, TSH, FT4, FES, VIDH, CMP, GFR, ESR, 176051, 648599, 804950, CBC, ADIFF, ANEU, PBNP, FERR, MG, PHOS #### [address] [address] #### HOMO, CRPHS, PRALB, FOL #### [address] [address] Monocytes/100 WBC (Bld) 7.5 % Normal 2.0-13.0 [facility] Comment on above: Performed By: #### 7 24203, TSH, FT4, FES, VIDH, CMP, GFR, ESR, 639237, 696033, 672440, CBC, ADIFF, ANEU, PBNP, FERR, MG, PHOS #### [address] [address] #### HOMO, CRPHS, PRALB, FOL #### [address] [address] Neutrophils/100 WBC (Bld) 84.7 % High 50.0-75.0 [facility] Comment on above: Performed By: #### 7 42173, TSH, FT4, FES, VIDH, CMP, GFR, ESR, 685763, 297400, 616760, CBC, ADIFF, ANEU, PBNP, FERR, MG, PHOS #### [address] [address] #### HOMO, CRPHS, PRALB, FOL #### [address] [address] .GFRon 01-05-2024 GFR 56 ml/min/1.73sqm Normal [facility] Comment on above: Result Comment: GFR Population mean for , Non- Americans Ages 20-29 = 116 mL/min/1.73 sq.m. Ages 30-39 = 107 mL/min/1.73 sq.m. Ages 40-49 = 99 mL/min/1.73 sq.m. Ages 50-59 = 93 mL/min/1.73 sq.m. Ages 60-69 = 85 mL/min/1.73 sq.m. Ages 70+ = 75 mL/min/1.73 sq.m. Chronic Kidney Disease: Less than 60 mL/min/1.73 square meters End Stage Renal Disease: Less than 15 mL/min/1.73 square meters Performed By: #### 7 47574, TSH, FT4, FES, VIDH, CMP, GFR, ESR, 964967, 479190, 044269, CBC, ADIFF, ANEU, PBNP, FERR, MG, PHOS ####[place] [address]#### HOMO, CRPHS, PRALB, FOL ####[address] [address] GFR Non- 47 ml/min/1.73sqm [facility] Comment on above: Result Comment: GFR Population mean for , Non- Americans Ages 20-29 = 116 mL/min/1.73 sq.m. Ages 30-39 = 107 mL/min/1.73 sq.m. Ages 40-49 = 99 mL/min/1.73 sq.m. Ages 50-59 = 93 mL/min/1.73 sq.m. Ages 60-69 = 85 mL/min/1.73 sq.m. Ages 70+ = 75 mL/min/1.73 sq.m. Chronic Kidney Disease: Less than 60 mL/min/1.73 square meters End Stage Renal Disease: Less than 15 mL/min/1.73 square meters Performed By: #### 7 72876, TSH, FT4, FES, VIDH, CMP, GFR, ESR, 165958, 687929, 974617, CBC, ADIFF, ANEU, PBNP, FERR, MG, PHOS ####[place] [address] [place] [address]#### HOMO, CRPHS, PRALB, FOL ####[address] [address] .NEUABSon 01-05-2024 Neutrophil, Absolute 5.0 10 3/mcL Normal 2.3-8.1 [facility] Comment on above: Performed By: #### 7 80107, TSH, FT4, FES, VIDH, CMP, GFR, ESR, 285926, 465463, 386558, CBC, ADIFF, ANEU, PBNP, FERR, MG, PHOS #### [place] [address] #### HOMO, CRPHS, PRALB, FOL #### [place] [address] CBCon 01-05-2024 Erythrocyte distribution width (RBC) [Ratio] 14.0 % Normal 11.5-15.5 [facility] Comment on above: Performed By: #### 7 05350, TSH, FT4, FES, VIDH, CMP, GFR, ESR, 042468, 174766, 426557, CBC, ADIFF, ANEU, PBNP, FERR, MG, PHOS #### [place] [address] #### HOMO, CRPHS, PRALB, FOL #### [place] [address] Hematocrit (Bld) [Volume fraction] 39.8 % Normal 34.0-46.0 [facility] Comment on above: Performed By: #### 7 46943, TSH, FT4, FES, VIDH, CMP, GFR, ESR, 507709, 515204, 427209, CBC, ADIFF, ANEU, PBNP, FERR, MG, PHOS #### [place] [address] #### HOMO, CRPHS, PRALB, FOL #### [place] [address] Hgb 13.3 G/dL Normal 12.0-16.0 [facility] Comment on above: Performed By: #### 7 53388, TSH, FT4, FES, VIDH, CMP, GFR, ESR, 358756, 968660, 477244, CBC, ADIFF, ANEU, PBNP, FERR, MG, PHOS #### [place] [address] #### HOMO, CRPHS, PRALB, FOL #### [address] [address] MCH (RBC) [Entitic mass] 32.8 pg Normal 27.0-33.0 [facility] Comment on above: Performed By: #### 7 53595, TSH, FT4, FES, VIDH, CMP, GFR, ESR, 054717, 119502, 120095, CBC, ADIFF, ANEU, PBNP, FERR, MG, PHOS #### [place] [address] #### HOMO, CRPHS, PRALB, FOL #### [place] [address] MCHC 33.3 G/dL Normal 32.0-36.0 [facility] Comment on above: Performed By: #### 7 75022, TSH, FT4, FES, VIDH, CMP, GFR, ESR, 019119, 639363, 336583, CBC, ADIFF, ANEU, PBNP, FERR, MG, PHOS #### [place] [address] #### HOMO, AICHA, PRALB, FOL #### [place] [address] MCV (RBC) [Entitic vol] 98.4 fL Normal 80.0-99.0 [facility] Comment on above: Performed By: #### 7 26625, TSH, FT4, FES, VIDH, CMP, GFR, ESR, 507269, 626887, 252567, CBC, ADIFF, ANEU, PBNP, FERR, MG, PHOS #### [place] [address] #### HOMO, CRPHS, PRALB, FOL #### [place] [address] Platelet 206 10 3/mcL Normal 150-450 [facility] Comment on above: Performed By: #### 7 62631, TSH, FT4, FES, VIDH, CMP, GFR, ESR, 729901, 117301, 617491, CBC, ADIFF, ANEU, PBNP, FERR, MG, PHOS #### [place] [address] #### HOMO, CRPHS, PRALB, FOL #### [place] [address] Platelet mean volume (Bld) [Entitic vol] 7.8 fL Normal 6.6-10.5 [facility] Comment on above: Performed By: #### 7 79085, TSH, FT4, FES, VIDH, CMP, GFR, ESR, 420741, 818440, 829509, CBC, ADIFF, ANEU, PBNP, FERR, MG, PHOS #### [place] [address] #### HOMO, CRPHS, PRALB, FOL #### [place] [address] RBC 4.04 10 6/mcL Low 4.10-5.30 [facility] Comment on above: Performed By: #### 7 03241, TSH, FT4, FES, VIDH, CMP, GFR, ESR, 178021, 854341, 291286, CBC, ADIFF, ANEU, PBNP, FERR, MG, PHOS #### [place] [address] #### HOMO, CRPHS, PRALB, FOL #### [place] [address] WBC 5.9 10 3/mcL Normal 4.5-10.8 [facility] Comment on above: Performed By: #### 7 30130, TSH, FT4, FES, VIDH, CMP, GFR, ESR, 843124, 677935, 511479, CBC, ADIFF, ANEU, PBNP, FERR, MG, PHOS #### [place] [address] #### HOMO, CRPHS, PRALB, FOL #### [place] [address] [place] [address] CMPon 01-05-2024 Albumin Level 4.2 G/dL Normal 3.4-4.8 [facility] Comment on above: Performed By: #### 7 84422, TSH, FT4, FES, VIDH, CMP, GFR, ESR, 734082, 018688, 042926, CBC, ADIFF, ANEU, PBNP, FERR, MG, PHOS ####[place] [address]#### HOMO, CRPHS, PRALB, FOL ####[address] [address] Albumin/Globulin [Mass ratio] 1.7 {ratio} Normal 1.1-2.5 [facility] Comment on above: Performed By: #### 7 76394, TSH, FT4, FES, VIDH, CMP, GFR, ESR, 704385, 202394, 497646, CBC, ADIFF, ANEU, PBNP, FERR, MG, PHOS ####[place] [address]#### HOMO, CRPHS, PRALB, FOL ####[address] [address] ALP [Catalytic activity/Vol] 72 U/L Normal 40-135 [facility] Comment on above: Performed By: #### 7 68037, TSH, FT4, FES, VIDH, CMP, GFR, ESR, 184364, 866917, 207250, CBC, ADIFF, ANEU, PBNP, FERR, MG, PHOS ####[address] [address]#### HOMO, CRPHS, PRALB, FOL ####[address] [address] ALT [Catalytic activity/Vol] 26 U/L Normal 14-59 [facility] Comment on above: Performed By: #### 7 44865, TSH, FT4, FES, VIDH, CMP, GFR, ESR, 525769, 590798, 446742, CBC, ADIFF, ANEU, PBNP, FERR, MG, PHOS ####[place] [address]#### HOMO, CRPHS, PRALB, FOL ####[address] [address] AST [Catalytic activity/Vol] 18 U/L Normal 10-40 [facility] Comment on above: Performed By: #### 7 42966, TSH, FT4, FES, VIDH, CMP, GFR, ESR, 818093, 379183, 363888, CBC, ADIFF, ANEU, PBNP, FERR, MG, PHOS ####[place] [address]#### HOMO, CRPHS, PRALB, FOL ####[place] [address] Bili Total 0.9 mg/dL Normal 0.2-1.0 [facility] Comment on above: Result Comment: Use of this assay is not recommended for patients undergoing treatment with eltrombopag due to the potential for falsely elevated results. Performed By: #### 7 74323, TSH, FT4, FES, VIDH, CMP, GFR, ESR, 508857, 458109, 156872, CBC, ADIFF, ANEU, PBNP, FERR, MG, PHOS ####[place] [address]#### HOMO, CRPHS, PRALB, FOL ####[place] [address] BUN/Creatinine Ratio 23 ratio Normal 7-27 [facility] Comment on above: Performed By: #### 7 71105, TSH, FT4, FES, VIDH, CMP, GFR, ESR, 826228, 532995, 578761, CBC, ADIFF, ANEU, PBNP, FERR, MG, PHOS ####[place] [address]#### HOMO, CRPHS, PRALB, FOL ####[address] [address] Calcium [Mass/Vol] 9.8 mg/dL Normal 8.4-10.2 [facility] Comment on above: Performed By: #### 7 87839, TSH, FT4, FES, VIDH, CMP, GFR, ESR, 307243, 338493, 932149, CBC, ADIFF, ANEU, PBNP, FERR, MG, PHOS ####[place] [address]#### HOMO, CRPHS, PRALB, FOL ####[address] [address] Chloride [Moles/Vol] 100 mmol/L Normal 98-107 [facility] Comment on above: Performed By: #### 7 33764, TSH, FT4, FES, VIDH, CMP, GFR, ESR, 612300, 367187, 639695, CBC, ADIFF, ANEU, PBNP, FERR, MG, PHOS ####[place] [address]#### HOMO, CRPHS, PRALB, FOL ####[address] [address] CO2 [Moles/Vol] 29 mmol/L Normal 23-31 [facility] Comment on above: Performed By: #### 7 53469, TSH, FT4, FES, VIDH, CMP, GFR, ESR, 451099, 038616, 204083, CBC, ADIFF, ANEU, PBNP, FERR, MG, PHOS ####[place] [address]#### HOMO, CRPHS, PRALB, FOL ####[address] [address] Creatinine [Mass/Vol] 1.13 mg/dL High 0.55-1.02 [facility] Comment on above: Result Comment: Test ing performed on [employer] EX[employer] analyzer using a modified kinetic Nixon technique. Performed By: #### 7 87420, TSH, FT4, FES, VIDH, CMP, GFR, ESR, 937564, 490146, 770822, CBC, ADIFF, ANEU, PBNP, FERR, MG, PHOS ####[place] [address]#### HOMO, CRPHS, PRALB, FOL ####[place] [address] Electrolyte Balance 7.0 mEq/L Normal 4.0-15.0 [facility] Comment on above: Performed By: #### 7 97810, TSH, FT4, FES, VIDH, CMP, GFR, ESR, 925621, 721212, 885997, CBC, ADIFF, ANEU, PBNP, FERR, MG, PHOS ####[place] [address]#### HOMO, CRPHS, PRALB, FOL ####[place] [address] Globulin 2.5 G/dL Normal [facility] Comment on above: Performed By: #### 7 68512, TSH, FT4, FES, VIDH, CMP, GFR, ESR, 180206, 049778, 772854, CBC, ADIFF, ANEU, PBNP, FERR, MG, PHOS ####[place] [address]#### HOMO, CRPHS, PRALB, FOL ####[place] [address] Glucose [Mass/Vol] 112 mg/dL High 83-110 [facility] Comment on above: Performed By: #### 7 65943, TSH, FT4, FES, VIDH, CMP, GFR, ESR, 355993, 111573, 042673, CBC, ADIFF, ANEU, PBNP, FERR, MG, PHOS ####[place] [address]#### HOMO, CRPHS, PRALB, FOL ####[place] [address] Potassium [Moles/Vol] 4.7 mmol/L Normal 3.5-5.1 [facility] Comment on above: Performed By: #### 7 53512, TSH, FT4, FES, VIDH, CMP, GFR, ESR, 695654, 704246, 411403, CBC, ADIFF, ANEU, PBNP, FERR, MG, PHOS ####[place] [address]#### HOMO, CRPHS, PRALB, FOL ####[address] [address] Sodium [Moles/Vol] 136 mmol/L Normal 136-145 [facility] Comment on above: Performed By: #### 7 58377, TSH, FT4, FES, VIDH, CMP, GFR, ESR, 808058, 164245, 296831, CBC, ADIFF, ANEU, PBNP, FERR, MG, PHOS ####[place] [address]#### HOMO, CRPHS, PRALB, FOL ####[place] [address] Total Protein 6.7 G/dL Normal 6.4-8.2 [facility] Comment on above: Performed By: #### 7 24537, TSH, FT4, FES, VIDH, CMP, GFR, ESR, 215159, 465216, 034994, CBC, ADIFF, ANEU, PBNP, FERR, MG, PHOS ####[place] [address]#### HOMO, CRPHS, PRALB, FOL ####[address] [address] Urea nitrogen [Mass/Vol] 26 mg/dL High 10-04 [facility] Comment on above: Performed By: #### 7 92785, TSH, FT4, FES, VIDH, CMP, GFR, ESR, 636611, 875569, 405258, CBC, ADIFF, ANEU, PBNP, FERR, MG, PHOS ####[place] [address]#### HOMO, CRPHS, PRALB, FOL ####[place] [address] CRPHSon 01-05-2024 CRP, High Sensitive 2.65 mg/L Normal 0.20-3.00 [facility] Comment on above: Result Comment: Rela tive Risk Category and Average hs-CRP Level: Higher Risk: > 5.0 mg/L Guidelines support that hs-CRP can be used as an independent predictor of increased coronary risk; however, hs-CRP results should only be interpreted in conjunction with other cardiac risk factors in establishing overall cardiac risk for a given patient. Performed By: #### 7 45492, TSH, FT4, FES, VIDH, CMP, GFR, ESR, 169223, 826235, 893394, CBC, ADIFF, ANEU, PBNP, FERR, MG, PHOS ####[place] [address]#### HOMO, CRPHS, PRALB, FOL ####[place] [address] ESRon 01-05-2024 Erythrocyte Sed Rate 5 mm/hr Normal 0-30 [facility] Comment on above: Performed By: #### 7 22355, TSH, FT4, FES, VIDH, CMP, GFR, ESR, 984990, 796789, 236488, CBC, ADIFF, ANEU, PBNP, FERR, MG, PHOS ####[place] [address]#### HOMO, CRPHS, PRALB, FOL ####[place] [address] Lore 01-05-2024 Ferritin [Mass/Vol] 370.0 ng/mL High 8.0-252.0 [facility] Comment on above: Performed By: #### 7 53541, TSH, FT4, FES, VIDH, CMP, GFR, ESR, 824948, 652522, 897524, CBC, ADIFF, ANEU, PBNP, FERR, MG, PHOS #### [place] [address] #### HOMO, CRPHS, PRALB, FOL #### [place] [address] FESon 01-05-2024 Iron [Mass/Vol] 51 ug/dL Normal 50-170 [facility] Comment on above: Performed By: #### 7 03199, TSH, FT4, FES, VIDH, CMP, GFR, ESR, 150327, 365591, 503914, CBC, ADIFF, ANEU, PBNP, FERR, MG, PHOS ####[place] [address]#### HOMO, CRPHS, PRALB, FOL ####[address] [address] Iron Sat 16 % Normal [facility] Comment on above: Performed By: #### 7 83388, TSH, FT4, FES, VIDH, CMP, GFR, ESR, 807909, 786424, 552395, CBC, ADIFF, ANEU, PBNP, FERR, MG, PHOS ####[place] [address]#### HOMO, CRPHS, PRALB, FOL ####[address] [address] TIBC 313 mcg/dL Normal 250-450 [facility] Comment on above: Performed By: #### 7 80785, TSH, FT4, FES, VIDH, CMP, GFR, ESR, 857091, 658087, 466039, CBC, ADIFF, ANEU, PBNP, FERR, MG, PHOS ####[place] [address]#### HOMO, CRPHS, PRALB, FOL ####[address] [address] FOLon 01-05-2024 Folate 35.40 ng/mL High 5.38-24.00 [facility] Comment on above: Performed By: #### 7 21279, TSH, FT4, FES, VIDH, CMP, GFR, ESR, 812365, 987393, 321628, CBC, ADIFF, ANEU, PBNP, FERR, MG, PHOS ####[place] [address]#### HOMO, CRPHS, PRALB, FOL ####[address] [address] FT4on 01-05-2024 Free T4 [Mass/Vol] 1.18 ng/dL Normal 0.76-1.46 [facility] Comment on above: Performed By: #### 7 64525, TSH, FT4, FES, VIDH, CMP, GFR, ESR, 144554, 225240, 294351, CBC, ADIFF, ANEU, PBNP, FERR, MG, PHOS ####[address] [address]#### HOMO, CRPHS, PRALB, FOL ####[place] [address] HIVRPon 01-05-2024 HIV p24 Antigen Non-Reactive Normal Non-Reacti ve [facility] Comment on above: Result Comment: Dete ction of p24 may be inhibited by biotin in the sample, causing false negative results in acute infection. Therefore do not test samples from patients who are taking biotin. Performed By: #### 7 06925, TSH, FT4, FES, VIDH, CMP, GFR, ESR, 932640, 918284, 161396, CBC, ADIFF, ANEU, PBNP, FERR, MG, PHOS #### [address] [address] #### HOMO, CRPHS, PRALB, FOL #### [place] [address] HIV P24 Int Non-Reactive Invalid Interpretation Code [facility] Comment on above: Performed By: #### 7 84759, TSH, FT4, FES, VIDH, CMP, GFR, ESR, 291297, 159741, 911774, CBC, ADIFF, ANEU, PBNP, FERR, MG, PHOS #### [address] [address] #### HOMO, CRPHS, PRALB, FOL #### [place] [address] Rapid HIV 1/2 Antibody Non-Reactive Normal Non-R eacti ve [facility] Comment on above: Performed By: #### 7 58067, TSH, FT4, FES, VIDH, CMP, GFR, ESR, 378619, 575371, 104167, CBC, ADIFF, ANEU, PBNP, FERR, MG, PHOS #### [place] [address] #### HOMO, CRPHS, PRALB, FOL #### [place] [address] RHIV 1/2 Ab Int Non-Reactive Invalid Interpretation Code [facility] Comment on above: Performed By: #### 7 58801, TSH, FT4, FES, VIDH, CMP, GFR, ESR, 785284, 100632, 897367, CBC, ADIFF, ANEU, PBNP, FERR, MG, PHOS #### [place] [address] #### HOMO, CRPHS, PRALB, FOL #### [place] [address] HOMOon 01-05-2024 Homocysteine 20.8 umol/l High 3.7-13.9 [facility] Comment on above: Result Comment: No te - New Reference Range in effect 19 Performed By: #### 7 13617, TSH, FT4, FES, VIDH, CMP, GFR, ESR, 671371, 198006, 148003, CBC, ADIFF, ANEU, PBNP, FERR, MG, PHOS ####[place] [address]#### HOMO, CRPHS, PRALB, FOL ####[place] [address] LABORATORYOrdered By: Moustapha montoya on 01-05-2024 HIV 1 p24 Ab Ql (S) Non-Reactive 8 (01/05/24 3:50 PM) Normal Non-Reacti ve AO Rapid Testing SS Comment on above: Interpretive Data: D etection of p24 may be inhibited by biotin in the sample, causing false negative results in acute infection. Therefore do not test samples from patients who are taking biotin. HIV 1 p24 Ab Ql (S) Non-Reactive Invalid Interpretation Code AO Rapid Testing SS HIV 1+2 Ab IA Ql Non-Reactive Invalid Interpretation Code AO Rapid Testing SS HIV 1+2 Ab IA.rapid Ql (Unsp spec) Non-Reactive (01/05/24 3:50 PM) Normal Non-Reacti ve AO Rapid Testing SS LABORATORYOrdered By: SYSTEM SYSTEM on 01-05-2024 25-hydroxyvitamin D3 [Mass/Vol] 107.6 ng/mL Invalid Interpretation Code AO ADM SS Comment on above: Interpretive Data: I nterpretive Values Based on Total 25(OH) Vitamin D: Deficient <20 ng/mL Insufficient 20 - <30 ng/mL Sufficient 30-100 ng/mL Albumin BCP dye [Mass/Vol] 4.2 G/dL Normal 3.4 - 4.8 G/dL AO ADM SS Albumin/Globulin [Mass ratio] 1.7 {ratio} Normal 1.1 - 2.5 ratio AO ADM SS ALP [Catalytic activity/Vol] 72 U/L Normal 40 - 135 U/L AO ADM SS ALT With P-5'-P [Catalytic activity/Vol] 26 U/L Normal 14 - 59 U/L AO ADM SS AST With P-5'-P [Catalytic activity/Vol] 18 U/L Normal 10 - 40 U/L AO ADM SS Basophils (Bld) [#/Vol] 0.0 103/mcL Normal 0.0 - 0.2 10^3/mcL AO Workflow SS Basophils/100 WBC (Bld) 0.5 % Normal 0.0 - 2.5 % AO Workflow SS Bilirubin [Mass/Vol] 0.9 mg/dL Normal 0.2 - 1 .0 mg/dL AO ADM SS Comment on above: Interpretive Data: U se of this assay is not recommended for patients undergoing treatment with eltrombopag due to the potential for falsely elevated results. Calcium [Mass/Vol] 9.8 mg/dL Normal 8.4 - 10. 2 mg/dL AO ADM SS Chloride [Moles/Vol] 100 mmol/L Normal 98 - 10 7 mmol/L AO ADM SS CO2 [Moles/Vol] 29 mmol/L Normal 23 - 31 mmol/L AO ADM SS Creatinine [Mass/Vol] 1.13 mg/dL High 0.55 - 1.02 mg/dL AO ADM SS Comment on above: Interpretive Data: T esting performed on [employer] analyzer using a modified kinetic Nixon technique. CRP High sensitivity method [Mass/Vol] 2.65 mg/L Normal 0.20 - 3.00 mg/L ADM SS Comment on above: Interpretive Data: R elative Risk Category and Average hs-CRP Level: Higher Risk: > 5.0 mg/L Guidelines support that hs-CRP can be used as an independent predictor of increased coronary risk; however, hs-CRP results should only be interpreted in conjunction with other cardiac risk factors in establishing overall cardiac risk for a given patient. Electrolyte Balance 7.0 mEq/L Normal 4.0 - 15 .0 mEq/L AO ADM SS Eosinophil, Absolute 0.0 103/mcL Normal 0.0 - 0 .7 10^3/mcL AO Workflow SS Eosinophils/100 WBC (Bld) 0.4 % Normal 0.0 - 7.0 % AO Workflow SS Erythrocyte distribution width (RBC) [Ratio] 14.0 % Normal 11.5 - 15.5 % AO Workflow SS Ferritin [Mass/Vol] 370.0 ng/mL High 8.0 - 252.0 ng/mL AO ADM SS Folate [Mass/Vol] 35.40 ng/mL High 5.38 - 24.00 ng/mL AH ADM SS Free T4 [Mass/Vol] 1.18 ng/dL Normal 0.76 - 1.46 ng/dL AO ADM SS GFR/1.73 sq M.predicted among blacks MDRD (S/P/Bld) [Vol rate/Area] 56 ml/min/1.73sqm Invalid Interpretation Code AO Chemistry S Comment on above: Interpretive Data: GFR Population mean for , Non- Americans Ages 20-29 = 116 mL/min/1.73 sq.m. Ages 30-39 = 107 mL/min/1.73 sq.m. Ages 40-49 = 99 mL/min/1.73 sq.m. Ages 50-59 = 93 mL/min/1.73 sq.m. Ages 60-69 = 85 mL/min/1.73 sq.m. Ages 70+ = 75 mL/min/1.73 sq.m. Chronic Kidney Disease: Less than 60 mL/min/1.73 square meters End Stage Renal Disease: Less than 15 mL/min/1.73 square meters GFR/1.73 sq M.predicted among non-blacks MDRD (S/P/Bld) [Vol rate/Area] 47 ml/min/1.73sqm Invalid Interpretation Code AO Chemistry S Comment on above: Interpretive Data: GFR Population mean for , Non- Americans Ages 20-29 = 116 mL/min/1.73 sq.m. Ages 30-39 = 107 mL/min/1.73 sq.m. Ages 40-49 = 99 mL/min/1.73 sq.m. Ages 50-59 = 93 mL/min/1.73 sq.m. Ages 60-69 = 85 mL/min/1.73 sq.m. Ages 70+ = 75 mL/min/1.73 sq.m. Chronic Kidney Disease: Less than 60 mL/min/1.73 square meters End Stage Renal Disease: Less than 15 mL/min/1.73 square meters Globulin 2.5 G/dL Invalid Interpretation Code AO ADM SS Glucose [Mass/Vol] 112 mg/dL High 83 - 110 mg/dL AO ADM SS Hematocrit (Bld) [Volume fraction] 39.8 % Normal 34.0 - 46.0 % AO Workflow SS Hemoglobin (Bld) [Mass/Vol] 13.3 G/dL Normal 12.0 - 16.0 G/dL AO Workflow SS Homocysteine [Moles/Vol] 20.8 umol/L High 3.7 - 13.9 umol/L AH ADM SS Comment on above: Interpretive Data: * *Note - New Reference Range in effect 19 Iron [Mass/Vol] 51 ug/dL Normal 50 - 170 mcg/dL AO ADM SS Iron binding capacity [Mass/Vol] 313 mcg/dL Normal 250 - 450 mcg/dL AO ADM SS Iron Sat 16 % Invalid Interpretation Code AO ADM SS Lymphocytes (Bld) [#/Vol] 0.4 103/mcL Low 0.9 - 4.3 10^3/mcL AO Workflow SS Lymphocytes/100 WBC (Bld) 6.9 % Low 20.0 - 40.0 % AO Workflow SS Magnesium [Mass/Vol] 2.1 mg/dL Normal 1.8 - 2 .4 mg/dL AO ADM SS MCH (RBC) [Entitic mass] 32.8 pg Normal 27.0 - 33.0 pg AO Workflow SS MCHC 33.3 G/dL Normal 32.0 - 36.0 G/dL AO Workflow SS MCV (RBC) [Entitic vol] 98.4 fL Normal 80.0 - 99.0 fL AO Workflow SS Monocytes (Bld) [#/Vol] 0.4 103/mcL Normal 0.1 - 1.4 10^3/mcL AO Workflow SS Monocytes/100 WBC (Bld) 7.5 % Normal 2.0 - 13.0 % AO Workflow SS Natriuretic peptide.B prohormone N-Terminal [Mass/Vol] 303 pg/mL Normal 0 - 450 pg/mL AO ADM SS Comment on above: Interpretive Data: N T-proBNP results of less than 300 pg/mL effectively rules out acute congestive heart failure with 99% negative predictive value. Neutrophils (Bld) [#/Vol] 5.0 103/mcL Normal 2.3 - 8.1 10^3/mcL AO Workflow SS Neutrophils/100 WBC (Bld) 84.7 % High 50.0 - 75.0 % AO Workflow SS Phosphate [Mass/Vol] 4.0 mg/dL Normal 2.3 - 4 .1 mg/dL AO ADM SS Platelet mean volume (Bld) [Entitic vol] 7.8 fL Normal 6.6 - 10.5 fL AO Workflow SS Platelets (Bld) [#/Vol] 206 103/mcL Normal 150 - 450 10^3/mcL AO Workflow SS Potassium [Moles/Vol] 4.7 mmol/L Normal 3.5 - 5.1 mmol/L AO ADM SS Prealbumin [Mass/Vol] 22.5 mg/dL Normal 10.0 - 40.0 mg/dL AH ADM SS Comment on above: Interpretive Data: * *Note - New Reference Range in effect 19 Protein [Mass/Vol] 6.7 G/dL Normal 6.4 - 8.2 G/dL AO ADM SS RBC (Bld) [#/Vol] 4.04 106/mcL Low 4.10 - 5.30 10^6/mcL AO Workflow SS Sodium [Moles/Vol] 136 mmol/L Normal 136 - 145 mmol/L AO ADM SS TSH Qn 1.56 m[IU]/L Normal 0.36 - 3.74 mcIU/mL AO ADM SS Urea nitrogen [Mass/Vol] 26 mg/dL High 7 - 18 mg/dL AO ADM SS Urea nitrogen/Creatinine [Mass ratio] 23 ratio Normal 7 - 27 ratio AO ADM SS WBC (Bld) [#/Vol] 5.9 103/mcL Normal 4.5 - 10.8 10^3/mcL AO Workflow SS LABORATORYOrdered By: Peggy White on 01-05-2024 ESR Photometric method (Bld) [Velocity] 5 mm/hr Normal 0 - 30 mm/hr AO Man Heme SS MGon 01-05-2024 Magnesium [Mass/Vol] 2.1 mg/dL Normal 1.8-2.4 [facility] Comment on above: Performed By: #### 7 34474, TSH, FT4, FES, VIDH, CMP, GFR, ESR, 145697, 159125, 309099, CBC, ADIFF, ANEU, PBNP, FERR, MG, PHOS #### [address] [address] #### HOMO, CRPHS, PRALB, FOL #### [place] [address] PBNPon 01-05-2024 Natriuretic peptide B (Bld) [Mass/Vol] 303 pg/mL Normal 0-450 [facility] Comment on above: Result Comment: NT-p roBNP results of less than 300 pg/mL effectively rules out acute congestive heart failure with 99% negative predictive value. Performed By: #### 7 55391, TSH, FT4, FES, VIDH, CMP, GFR, ESR, 122489, 344359, 729085, CBC, ADIFF, ANEU, PBNP, FERR, MG, PHOS #### [place] [address] #### HOMO, CRPHS, PRALB, FOL #### [place] [id number] PHOSon 01-05-2024 Phosphate [Mass/Vol] 4.0 mg/dL Normal 2.3-4.1 [facility] Comment on above: Performed By: #### 7 89942, TSH, FT4, FES, VIDH, CMP, GFR, ESR, 804347, 791812, 934774, CBC, ADIFF, ANEU, PBNP, FERR, MG, PHOS #### [place] [address] #### HOMO, CRPHS, PRALB, FOL #### [place] [address] PRALBon 01-05-2024 Prealbumin [Mass/Vol] 22.5 mg/dL Normal 10.0-40.0 [facility] Comment on above: Result Comment: No te - New Reference Range in effect 19 Performed By: #### 7 67295, TSH, FT4, FES, VIDH, CMP, GFR, ESR, 036040, 280824, 217456, CBC, ADIFF, ANEU, PBNP, FERR, MG, PHOS ####[place] [address]#### DAVID, CRPNATALIIA, PRALB, FOL ####[place] [address] TSHon 01-05-2024 TSH Qn 1.56 m[IU]/L Normal 0.36-3.74 [facility] Comment on above: Performed By: #### 7 59428, TSH, FT4, FES, VIDH, CMP, GFR, ESR, 604110, 025884, 913013, CBC, ADIFF, ANEU, PBNP, FERR, MG, PHOS #### [place] [address] #### HOMO, CRPHS, PRALB, FOL #### [place] [address] VIDHon 01-05-2024 Vit. D 25-Hydroxy 107.6 ng/mL Normal [facility] Comment on above: Result Comment: Inte rpretive Values Based on Total 25(OH) Vitamin D: Deficient <20 ng/mL Insufficient 20 - <30 ng/mL Sufficient 30-100 ng/mL Performed By: #### 7 44404, TSH, FT4, FES, VIDH, CMP, GFR, ESR, 553667, 325565, 566235, CBC, ADIFF, ANEU, PBNP, FERR, MG, PHOS ####[facility] [place], [place] [address]#### HOMO, CRPHS, PRALB, FOL ####[place] [id number] [address] [place] [address] MA MAMMOGRAM DIAGNOSTIC RIGH T W/TOMOon 09-11-2023 MA MAMMOGRAM DIAGNOSTIC RIGHT W/BENITO ORIGINAL FROM: [facility] [address], [place] [address] PROCEDURE FOR: SHABNAM CANO [address] [place] [address] Home: PID#: [id number] Exam#: [id number] : 1945 Age: 77 TO: NAVEED DYE [address] [place] [address] Fax: NO FAX EXAMINATION: DIAGNOSTIC DIGITAL RIGHT BREAST MAMMOGRAM WITH TOMOSYNTHESIS, 09/11/2023 1:20 pm TECHNIQUE: Diagnostic mammography of the right breast was performed with tomosynthesis. 2D standard and 3D tomosynthesis combination imaging performed through the right breast. Computer aided detection was utilized in the interpretation of this exam. Current study was also evaluated with a Computer Aided Detection (CAD) system. COMPARISON: 08/29/2023 and 11/01/2022 mammogram HISTORY: ORDERING SYSTEM PROVIDED HISTORY: Reason for Exam: Right breast architectural distortion FINDINGS: BREAST DENSITY: The breasts are heterogeneously dense, which may obscure small masses. Right breast 4.5 cm possible area of architectural distortion is confirmed. No significant masses, calcifications, or other findings. IMPRESSION: Right breast architectural distortion, ultrasound is recommended to further evaluate.. BIRADS: BI-RADS: 0: Incomplete: Need Additional Imaging Evaluation RECALL: immediate RECALL TYPE: US LETTER SENT: Abnormal-Needs additional work up BI-RADS 0 Interpreted by: Jayden Marti MD Preliminary Report By: Jayden Marti MD Electronically signed By Jayden Marti MD Dictated Date: 09/11/2023 2:07:27 PM Prelim Date: 09/11/2023 5:02:22 PM Sign Date: 09/11/2023 5:02:22 PM Ordering Provider: NAVEED DYE Pct: DANIEL BLACK RT (R)(M) letter sent: Abnormal-Needs additional work up BI-RADS 0 Mammogram BI-RADS: 0 Indeterminate Normal [facility] ([place]) US BREAST RIGHT LIMITEDon US BREAST RIGHT LIMITED ORIGINAL FROM: [facility] [address], [place] [address] PROCEDURE FOR: [place] [address] Home: PID#: [id number] Exam#: [id number] : 1945 Age: 77 TO: NAVEED DYE [address] [place] [address] Fax: NO FAX EXAMINATION: ULTRASOUND OF THE RIGHT BREAST 09/11/2023 1:20 pm TECHNIQUE: Color flow and real-time targeted ultrasound of the right breast were performed. COMPARISON: 09/11/2023 and 08/29/2023 mammograms, 11/01/2022 mammogram. HISTORY: ORDERING SYSTEM PROVIDED HISTORY: Reason for Exam: Right breast architectural distortion. FINDINGS: There is no visible abnormality in the right breast to correspond to the area of architectural distortion. No significant incidental findings. IMPRESSION: No ultrasound abnormality for the mammographic abnormality, mammographic abnormality is not felt to be significantly changed from 08/31/2021, there is left breast parenchyma compared to the 11/01/2022 and 08/31/2021 mammograms which most likely accounts for the apparent change on mammography. Recommend a follow-up MRI in 6 months to document stability. BIRADS: BI-RADS: 3: Probably Benign RECALL: 6 month follow-up RECALL TYPE: mammo LETTER SENT: Interpreted by: Jayden Marti MD Preliminary Report By: Jayden Marti MD Electronically signed By Jayden Marti MD Dictated Date: 09/11/2023 2:27:49 PM Prelim Date: 09/11/2023 5:04:51 PM Sign Date: 09/11/2023 5:04:51 PM Ordering Provider: NAVEED DYE CLINICAL: MAMMOGRAPHIC DENSITY RIGHT BREAST. Pct: DAMEON ROGERS RT,RDMS,RVT,RDCS letter sent: Normal BI-RADS 1 and 2 Ultrasound BI-RADS: 3 Probably benign Normal [facility] ([place]) MA MAMMOGRAM SCREENING BILAT ERAL W/TOMOon 08-30-2023 MA MAMMOGRAM SCREENING BILATERAL W/BENITO ORIGINAL FROM: [facility] [address], [place] [address] PROCEDURE FOR: SHABNAM CANO [address] [address] Home: PID#: [id number] Exam#: [id number] : 1945 Age: 77 TO: NAVEED DYE [address] [place] [address] Fax: NO FAX EXAMINATION: SCREENING DIGITAL BILATERAL MAMMOGRAM WITH TOMOSYNTHESIS, 08/29/2023 10:10 am TECHNIQUE: Screening mammography of the bilateral breasts was performed with tomosynthesis. 2D standard and 3D tomosynthesis combination imaging performed through both breasts in the MLO and CC projection. Computer aided detection was utilized in the interpretation of this exam. COMPARISON: 11/01/2022, 08/31/2021 HISTORY: Breast cancer screening. FINDINGS: BREAST DENSITY: Heterogeneously dense In the right breast at 12 o'clock middle depth, there is a 4.5 cm possible architectural distortion. No significant mass, calcification, or other abnormality is otherwise seen in either breast. IMPRESSION: Possible architectural distortion in the right breast at 12 o'clock middle depth. Additional views with spot compression tomosynthesis views in the MLO and CC projections along with a regular ML are recommended. If a mass is confirmed, an ultrasound will be recommended. rFank Montes risk calculations, generated with the history provided, report this patient's lifetime risk for developing breast cancer at 1.9%. Based on this assessment tool, if the patient's calculated lifetime risk is below 20%, then the patient is considered at average risk for developing breast cancer. If the patient's calculated lifetime risk is at or above 20%, then the patient is considered high risk for developing breast cancer and may be a candidate for supplemental breast MRI screening in addition to annual mammographic screening per the [employer]. BIRADS: MAMMOGRAM BI-RADS: 0: Needs addl evaluation RECALL: immediate RECALL TYPE: Right mammo + US LETTER SENT: Needs Additional Imaging BI-RADS 0 I have personally reviewed the images of this examination and agree with the resident's findings and interpretation. Interpreted by: Libertad Elena Preliminary Report By: Jayden Felix Electronically signed By Libertad Elena Dictated Date: 08/30/2023 3:39:26 PM Prelim Date: 08/30/2023 7:28:39 PM Sign Date: 08/30/2023 7:28:39 PM Ordering Provider: NAVEED DYE Pct: DANIEL BLACK RT (R)(M) letter sent: Abnormal-Needs additional work up BI-RADS 0 Mammogram BI-RADS: 0 Indeterminate Normal [facility] ([place]) BD BONE DENSITY DEXA AXIAL S [facility] 08-29-2023 BD BONE DENSITY DEXA AXIAL [place] ORIGINAL EXAMINATION: BONE DENSITOMETRY 08/29/2023 10:28 am TECHNIQUE: A bone density dual x-ray absorptiometry (DEXA) scan was performed of the axial (e.g. hips, spine) and/or appendicular (e.g. radius) skeleton as appropriate. COMPARISON: None. HISTORY: ORDERING SYSTEM PROVIDED HISTORY: Reason for Exam: Osteoporosis Screening FINDINGS: T Score Left Femoral Neck: -2.8 Left Femoral Neck: 0.541 (g/cm2) T Score Left Hip: -2.1 Left Hip: 0.691 (g/cm2) T Score Lumbar Spine: -4.4 Lumbar Spine: 0.562 (g/cmd2) IMPRESSION: Osteoporosis by WHO criteria. World Health Organization criteria: (Comparing with young normal sex matched population) - Normal: T-score at or above -1 SD (standard deviation) - Osteopenia: T-score between -1 and -2.5 SD - Osteoporosis: T-score at or below -2.5 SD The NOF recommends that FDA-approved medical therapies be considered in post-menopausal women and men age >/= 50 years with a: * Hip or vertebral fracture, or * T-score of /= 20% for major osteoporotic fractures or * >/= 3% for hip fractures All treatment decisions require clinical judgement and consideration of individual patient factors, including patient preferences, comorbidities, previous drug use, risk factors not captured in the FRAX registered model (e.g., frailty, falls, vitamin D deficiency, increased bone turnover, interval significant decline in bone density) and possible under- or over-estimation of fracture risk by FRAX. Interpreted by: David Baum DO Preliminary Report By: David Baum DO Electronically signed By David Baum DO Dictated Date: 08/29/2023 11:45:21 PM Prelim Date: 08/29/2023 11:45:47 PM Sign Date: 08/29/2023 11:45:47 PM Ordering Provider: NAVEED Cornejo [facility] ([place]) RFon 07-20-2023 Rheumatoid Factor <6.0 Normal <=5.9 [facility] ([place]) Comment on above: Result Comment: RF I gM Antibody by Enzyme Immunoassay: Negative < or = 6 Positive > 6 A positive result indicates the presence of RF antibodies and suggests the possibility of rheumatoid arthritis. A negative result indicates no RF IgM antibody or levels below the negative cut-off of the assay. Results of this assay should be used in conjunction with clinical findings and other serological tests. These results were obtained with the [employer] QUANTA Lite RF IgM RODOLFO. RF IgM values obtained with different manufacturers' assay methods may not be used interchangeably. The magnitude of the reported IgM levels cannot be correlated to an endpoint titer. Performed By: #### B 12, MATEO, FOL, CEA, RF, CRPHS, HOMO #### [address] [address] #### MG, VIDH, GFR, CMP, ADIFF, CBC, FT4, LIPID, TSH, A1C, ESR, ANEU #### [facility] [address] [place], [place] [address] ANAon 07-19-2023 Nuclear Ab IF (S) [Titer] 40 {titer} Normal Neg 40 [facility] ([place]) Comment on above: Result Comment: MATEO Screen and Titer methodology is an immunofluorescent technique utilizing Hep2 Substrate. Performed By: #### B 12, MATEO, FOL, CEA, RF, CRPHS, HOMO #### [place] [address] #### MG, VIDH, GFR, CMP, ADIFF, CBC, FT4, LIPID, TSH, A1C, ESR, ANEU #### [address] [address] .Auto Diffon 07-18-2023 Basophil, Absolute 0.0 10 3/mcL Normal 0.0-0.2 Counts include 234 beds at the [facility] ([place]) Comment on above: Performed By: #### B 12, MATEO, FOL, CEA, RF, CRPHS, HOMO #### [place] [address] #### MG, VIDH, GFR, CMP, ADIFF, CBC, FT4, LIPID, TSH, A1C, ESR, ANEU #### [address] [address] Basophils/100 WBC (Bld) 0.6 % Normal 0.0-2.5 [facility] ([place]) Comment on above: Performed By: #### B 12, MATEO, FOL, CEA, RF, CRPHS, HOMO #### [place] [address] #### MG, VIDH, GFR, CMP, ADIFF, CBC, FT4, LIPID, TSH, A1C, ESR, ANEU #### [address] [address] Eosinophil, Absolute 0.1 10 3/mcL Normal 0.0-0.4 [facility] ([place]) Comment on above: Performed By: #### B 12, MATEO, FOL, CEA, RF, CRPHS, HOMO #### [address] [address] #### MG, VIDH, GFR, CMP, ADIFF, CBC, FT4, LIPID, TSH, A1C, ESR, ANEU #### [address] [address] Eosinophils/100 WBC (Bld) 2.1 % Normal 0.0-7.0 [facility] ([place]) Comment on above: Performed By: #### B 12, MATEO, FOL, CEA, RF, CRPHS, HOMO #### [address] [address] #### MG, VIDH, GFR, CMP, ADIFF, CBC, FT4, LIPID, TSH, A1C, ESR, ANEU #### [address] [address] Lymphocyte, Absolute 0.8 10 3/mcL Normal 0.8-3.9 [facility] ([place]) Comment on above: Performed By: #### B 12, MATEO, FOL, CEA, RF, CRPHS, HOMO #### [place] [address] #### MG, VIDH, GFR, CMP, ADIFF, CBC, FT4, LIPID, TSH, A1C, ESR, ANEU #### [address] [address] Lymphocytes/100 WBC (Bld) 21.5 % Normal 10.0-50.0 [facility] ([place]) Comment on above: Performed By: #### B 12, MATEO, FOL, CEA, RF, CRPHS, HOMO #### [place] [address] #### MG, VIDH, GFR, CMP, ADIFF, CBC, FT4, LIPID, TSH, A1C, ESR, ANEU #### [address] [address] Monocyte, Absolute 0.4 10 3/mcL Normal 0.2-1.0 Counts include 234 beds at the [facility] ([place]) Comment on above: Performed By: #### B 12, MATEO, FOL, CEA, RF, CRPHS, HOMO #### [place] [id number] #### MG, VIDH, GFR, CMP, ADIFF, CBC, FT4, LIPID, TSH, A1C, ESR, ANEU #### [address] [address] Monocytes/100 WBC (Bld) 10.4 % Normal 1.7-13.0 [facility] ([place]) Comment on above: Performed By: #### B 12, MATEO, FOL, CEA, RF, CRPHS, HOMO #### [address] [address] #### MG, VIDH, GFR, CMP, ADIFF, CBC, FT4, LIPID, TSH, A1C, ESR, ANEU #### [address] [address] Neutrophils/100 WBC (Bld) 65.4 % Normal 37.0-80.0 [facility] ([place]) Comment on above: Performed By: #### B 12, MATEO, FOL, CEA, RF, CRPHS, HOMO #### [address] [address] #### MG, VIDH, GFR, CMP, ADIFF, CBC, FT4, LIPID, TSH, A1C, ESR, ANEU #### [address] [address] .GFRon 07-18-2023 GFR 73 ml/min/1.73sqm Normal [facility] ([place]) Comment on above: Result Comment: GFR Population mean for , Non- Americans Ages 20-29 = 116 mL/min/1.73 sq.m. Ages 30-39 = 107 mL/min/1.73 sq.m. Ages 40-49 = 99 mL/min/1.73 sq.m. Ages 50-59 = 93 mL/min/1.73 sq.m. Ages 60-69 = 85 mL/min/1.73 sq.m. Ages 70+ = 75 mL/min/1.73 sq.m. Chronic Kidney Disease: Less than 60 mL/min/1.73 square meters End Stage Renal Disease: Less than 15 mL/min/1.73 square meters Performed By: #### B 12, MATEO, FOL, CEA, RF, CRPHS, HOMO #### [address] [address] #### MG, VIDH, GFR, CMP, ADIFF, CBC, FT4, LIPID, TSH, A1C, ESR, ANEU #### [address] [address] GFR Non- 60 ml/min/1.73sqm Normal [facility] ([place]) Comment on above: Result Comment: GFR Population mean for , Non- Americans Ages 20-29 = 116 mL/min/1.73 sq.m. Ages 30-39 = 107 mL/min/1.73 sq.m. Ages 40-49 = 99 mL/min/1.73 sq.m. Ages 50-59 = 93 mL/min/1.73 sq.m. Ages 60-69 = 85 mL/min/1.73 sq.m. Ages 70+ = 75 mL/min/1.73 sq.m. Chronic Kidney Disease: Less than 60 mL/min/1.73 square meters End Stage Renal Disease: Less than 15 mL/min/1.73 square meters Performed By: #### B 12, MATEO, FOL, CEA, RF, CRPHS, HOMO #### [place] [address] #### MG, VIDH, GFR, CMP, ADIFF, CBC, FT4, LIPID, TSH, A1C, ESR, ANEU #### [address] [address] .NEUABSon 07-18-2023 Neutrophil, Absolute 2.4 10 3/mcL Low 2.9-6.2 [facility] ([place]) Comment on above: Performed By: #### B 12, MATEO, FOL, CEA, RF, CRPHS, HOMO #### [place] [address] #### MG, VIDH, GFR, CMP, ADIFF, CBC, FT4, LIPID, TSH, A1C, ESR, ANEU #### [address] [address] A1Con 07-18-2023 HbA1c (Bld) [Mass fraction] 5.6 % Normal 4.3-6.4 [facility] ([place]) Comment on above: Performed By: #### B 12, MATEO, FOL, CEA, RF, CRPHS, HOMO #### [address] [address] #### MG, VIDH, GFR, CMP, ADIFF, CBC, FT4, LIPID, TSH, A1C, ESR, ANEU #### [address] [address] B12on 07-18-2023 Cobalamin (Vitamin B12) [Mass/Vol] 559 pg/mL Normal 211-911 [facility] ([place]) Comment on above: Performed By: #### B 12, MATEO, FOL, CEA, RF, CRPHS, HOMO #### [place] [address] #### MG, VIDH, GFR, CMP, ADIFF, CBC, FT4, LIPID, TSH, A1C, ESR, ANEU #### [address] [address] CBCon 07-18-2023 Erythrocyte distribution width (RBC) [Ratio] 14.4 % Normal 11.5-14.5 [facility] ([place]) Comment on above: Performed By: #### B 12, MATEO, FOL, CEA, RF, CRPHS, HOMO #### [place] [address] #### MG, VIDH, GFR, CMP, ADIFF, CBC, FT4, LIPID, TSH, A1C, ESR, ANEU #### [address] [address] Hematocrit (Bld) [Volume fraction] 39.3 % Normal 37.0-47.0 [facility] ([place]) Comment on above: Performed By: #### B 12, MATEO, FOL, CEA, RF, CRPHS, HOMO #### [place] [address] #### MG, VIDH, GFR, CMP, ADIFF, CBC, FT4, LIPID, TSH, A1C, ESR, ANEU #### [address] [address] Hgb 13.5 G/dL Normal 12.0-16.0 [facility] ([place]) Comment on above: Performed By: #### B 12, MATEO, FOL, CEA, RF, CRPHS, HOMO #### [place] [address] #### MG, VIDH, GFR, CMP, ADIFF, CBC, FT4, LIPID, TSH, A1C, ESR, ANEU #### [address] [address] MCH (RBC) [Entitic mass] 32.1 pg High 27.0-31.2 [facility] ([place]) Comment on above: Performed By: #### B 12, MATEO, FOL, CEA, RF, CRPHS, HOMO #### [address] [address] #### MG, VIDH, GFR, CMP, ADIFF, CBC, FT4, LIPID, TSH, A1C, ESR, ANEU #### [address] [address] MCHC 34.3 G/dL Normal 33.0-37.0 [facility] ([place]) Comment on above: Performed By: #### B 12, MATEO, FOL, CEA, RF, CRPHS, HOMO #### [place] [address] #### MG, VIDH, GFR, CMP, ADIFF, CBC, FT4, LIPID, TSH, A1C, ESR, ANEU #### [address] [address] MCV (RBC) [Entitic vol] 93.5 fL Normal 80.0-94.0 [facility] ([place]) Comment on above: Performed By: #### B 12, MATEO, FOL, CEA, RF, CRPHS, HOMO #### [place] [address] #### MG, VIDH, GFR, CMP, ADIFF, CBC, FT4, LIPID, TSH, A1C, ESR, ANEU #### [address] [address] Platelet 156 10 3/mcL Normal 130-400 [facility] ([place]) Comment on above: Performed By: #### B 12, MATEO, FOL, CEA, RF, CRPHS, HOMO #### [place] [address] #### MG, VIDH, GFR, CMP, ADIFF, CBC, FT4, LIPID, TSH, A1C, ESR, ANEU #### [address] [address] Platelet mean volume (Bld) [Entitic vol] 7.7 fL Normal 7.4-10.4 [facility] ([place]) Comment on above: Performed By: #### B 12, MATEO, FOL, CEA, RF, CRPHS, HOMO #### [place] [address] #### MG, VIDH, GFR, CMP, ADIFF, CBC, FT4, LIPID, TSH, A1C, ESR, ANEU #### [address] [address] RBC 4.20 10 6/mcL Normal 4.20-5.40 [facility] ([place]) Comment on above: Performed By: #### B 12, MATEO, FOL, CEA, RF, CRPHS, HOMO #### [place] [address] #### MG, VIDH, GFR, CMP, ADIFF, CBC, FT4, LIPID, TSH, A1C, ESR, ANEU #### [address] [address] WBC 3.7 10 3/mcL Low 4.6-10.8 [facility] ([place]) Comment on above: Performed By: #### B 12, MATEO, FOL, CEA, RF, CRPHS, HOMO #### [place] [address] #### MG, VIDH, GFR, CMP, ADIFF, CBC, FT4, LIPID, TSH, A1C, ESR, ANEU #### [address] [address] CEAon 07-18-2023 CEA 1.4 ng/mL Normal 0.0-3.0 [facility] ([place]) Comment on above: Result Comment: CEA Reference Range for SMOKERS: 0.0 - 5.0 ng/mL. Testing performed on the [employer] analyzer using direct chemiluminesent technology. Patient results determined by assays using different manufacturers for methods may not be comparable. Performed By: #### B 12, MATEO, FOL, CEA, RF, CRPHS, HOMO #### [place] [address] #### MG, VIDH, GFR, CMP, ADIFF, CBC, FT4, LIPID, TSH, A1C, ESR, ANEU #### [address] [address] CMPon 07-18-2023 Albumin Level 4.0 G/dL Normal 3.4-4.8 [facility] ([place]) Comment on above: Performed By: #### B 12, MATEO, FOL, CEA, RF, CRPHS, HOMO #### [place] [address] #### MG, VIDH, GFR, CMP, ADIFF, CBC, FT4, LIPID, TSH, A1C, ESR, ANEU #### [address] [address] Albumin/Globulin [Mass ratio] 1.5 {ratio} Normal 1.1-2.5 [facility] ([place]) Comment on above: Performed By: #### B 12, MATEO, FOL, CEA, RF, CRPHS, HOMO #### [place] [address] #### MG, VIDH, GFR, CMP, ADIFF, CBC, FT4, LIPID, TSH, A1C, ESR, ANEU #### [address] [address] ALP [Catalytic activity/Vol] 69 U/L Normal 40-135 [facility] ([place]) Comment on above: Performed By: #### B 12, MATEO, FOL, CEA, RF, CRPHS, HOMO #### [place] [id number] #### MG, VIDH, GFR, CMP, ADIFF, CBC, FT4, LIPID, TSH, A1C, ESR, ANEU #### [address] [address] ALT [Catalytic activity/Vol] 27 U/L Normal 14-59 [facility] ([place]) Comment on above: Performed By: #### B 12, MATEO, FOL, CEA, RF, CRPHS, HOMO #### [place] [id number] #### MG, VIDH, GFR, CMP, ADIFF, CBC, FT4, LIPID, TSH, A1C, ESR, ANEU #### [address] [address] AST [Catalytic activity/Vol] 19 U/L Normal 10-40 [facility] ([place]) Comment on above: Performed By: #### B 12, MATEO, FOL, CEA, RF, CRPHS, HOMO #### [place] [address] #### MG, VIDH, GFR, CMP, ADIFF, CBC, FT4, LIPID, TSH, A1C, ESR, ANEU #### [address] [address] Bili Total 0.7 mg/dL Normal 0.2-1.0 [facility] ([place]) Comment on above: Result Comment: Use of this assay is not recommended for patients undergoing treatment with eltrombopag due to the potential for falsely elevated results. Performed By: #### B 12, MATEO, FOL, CEA, RF, CRPHS, HOMO #### [place] [address] #### MG, VIDH, GFR, CMP, ADIFF, CBC, FT4, LIPID, TSH, A1C, ESR, ANEU #### [address] [address] BUN/Creatinine Ratio 26 ratio Normal 7-27 Counts include 234 beds at the [facility] ([place]) Comment on above: Performed By: #### B 12, MATEO, FOL, CEA, RF, CRPHS, HOMO #### [place] [address] #### MG, VIDH, GFR, CMP, ADIFF, CBC, FT4, LIPID, TSH, A1C, ESR, ANEU #### [address] [address] Calcium [Mass/Vol] 9.3 mg/dL Normal 8.4-10.2 [facility] ([place]) Comment on above: Performed By: #### B 12, MATEO, FOL, CEA, RF, CRPHS, HOMO #### [place] [address] #### MG, VIDH, GFR, CMP, ADIFF, CBC, FT4, LIPID, TSH, A1C, ESR, ANEU #### [address] [address] Chloride [Moles/Vol] 105 mmol/L Normal 98-107 Counts include 234 beds at the [facility] ([place]) Comment on above: Performed By: #### B 12, MATEO, FOL, CEA, RF, CRPHS, HOMO #### [address] [address] #### MG, VIDH, GFR, CMP, ADIFF, CBC, FT4, LIPID, TSH, A1C, ESR, ANEU #### [address] [address] CO2 [Moles/Vol] 29 mmol/L Normal 23-31 [facility] ([place]) Comment on above: Performed By: #### B 12, MATEO, FOL, CEA, RF, CRPHS, HOMO #### [address] [id number] #### MG, VIDH, GFR, CMP, ADIFF, CBC, FT4, LIPID, TSH, A1C, ESR, ANEU #### [address] [address] Creatinine [Mass/Vol] 0.91 mg/dL Normal 0.55-1.02 [facility] ([place]) Comment on above: Performed By: #### B 12, MATEO, FOL, CEA, RF, CRPHS, HOMO #### [address] [address] #### MG, VIDH, GFR, CMP, ADIFF, CBC, FT4, LIPID, TSH, A1C, ESR, ANEU #### [address] [address] Electrolyte Balance 9.0 mEq/L Normal 4.0-15.0 [facility] ([place]) Comment on above: Performed By: #### B 12, MATEO, FOL, CEA, RF, CRPHS, HOMO #### [address] [address] #### MG, VIDH, GFR, CMP, ADIFF, CBC, FT4, LIPID, TSH, A1C, ESR, ANEU #### [address] [address] Globulin 2.7 G/dL Normal [facility] ([place]) Comment on above: Performed By: #### B 12, MATEO, FOL, CEA, RF, CRPHS, HOMO #### [address] [address] #### MG, VIDH, GFR, CMP, ADIFF, CBC, FT4, LIPID, TSH, A1C, ESR, ANEU #### [address] [address] Glucose [Mass/Vol] 86 mg/dL Normal 83-110 [facility] ([place]) Comment on above: Performed By: #### B 12, MATEO, FOL, CEA, RF, CRPHS, HOMO #### [address] [address] #### MG, VIDH, GFR, CMP, ADIFF, CBC, FT4, LIPID, TSH, A1C, ESR, ANEU #### [address] [address] Potassium [Moles/Vol] 4.2 mmol/L Normal 3.5-5.1 [facility] ([place]) Comment on above: Performed By: #### B 12, MATEO, FOL, CEA, RF, CRPHS, HOMO #### [address] [address] #### MG, VIDH, GFR, CMP, ADIFF, CBC, FT4, LIPID, TSH, A1C, ESR, ANEU #### [address] [address] Sodium [Moles/Vol] 143 mmol/L Normal 136-145 [facility] ([place]) Comment on above: Performed By: #### B 12, MATEO, FOL, CEA, RF, CRPHS, HOMO #### [address] [address] #### MG, VIDH, GFR, CMP, ADIFF, CBC, FT4, LIPID, TSH, A1C, ESR, ANEU #### [address] [address] Total Protein 6.7 G/dL Normal 6.4-8.2 [facility] ([place]) Comment on above: Performed By: #### B 12, MATEO, FOL, CEA, RF, CRPHS, HOMO #### [place] [address] #### MG, VIDH, GFR, CMP, ADIFF, CBC, FT4, LIPID, TSH, A1C, ESR, ANEU #### [address] [address] Urea nitrogen [Mass/Vol] 24 mg/dL High 7-18 [facility] ([place]) Comment on above: Performed By: #### B 12, MATEO, FOL, CEA, RF, CRPHS, HOMO #### [place] [address] #### MG, VIDH, GFR, CMP, ADIFF, CBC, FT4, LIPID, TSH, A1C, ESR, ANEU #### [address] [address] CRPHSon 07-18-2023 CRP, High Sensitive 1.56 mg/L Normal 0.20-3.00 [facility] ([place]) Comment on above: Result Comment: Rela tive Risk Category and Average hs-CRP Level: Higher Risk: > 5.0 mg/L Guidelines support that hs-CRP can be used as an independent predictor of increased coronary risk; however, hs-CRP results should only be interpreted in conjunction with other cardiac risk factors in establishing overall cardiac risk for a given patient. Performed By: #### B 12, MATEO, FOL, CEA, RF, CRPHS, HOMO #### [place] [address] #### MG, VIDH, GFR, CMP, ADIFF, CBC, FT4, LIPID, TSH, A1C, ESR, ANEU #### [address] [address] ESRon 07-18-2023 Erythrocyte Sed Rate 4 mm/hr Normal 0-30 Counts include 234 beds at the [facility] ([place]) Comment on above: Performed By: #### B 12, MATEO, FOL, CEA, RF, CRPHS, HOMO #### [place] [address] #### MG, VIDH, GFR, CMP, ADIFF, CBC, FT4, LIPID, TSH, A1C, ESR, ANEU #### [address] [address] [facility] Folate >48.00 High 5.38-24.00 [facility] ([place]) Comment on above: Performed By: #### B 12, MATEO, FOL, CEA, RF, CRPHS, HOMO #### [place] [address] #### MG, VIDH, GFR, CMP, ADIFF, CBC, FT4, LIPID, TSH, A1C, ESR, ANEU #### [address] [address] FT4on 07-18-2023 Free T4 [Mass/Vol] 0.89 ng/dL Normal 0.76-1.46 [facility] ([place]) Comment on above: Performed By: #### B 12, MATEO, FOL, CEA, RF, CRPHS, HOMO #### [place] [address] #### MG, VIDH, GFR, CMP, ADIFF, CBC, FT4, LIPID, TSH, A1C, ESR, ANEU #### [address] [address] HOMOon 07-18-2023 Homocysteine 15.2 umol/l High 3.7-13.9 [facility] ([place]) Comment on above: Result Comment: No te - New Reference Range in effect 19 Performed By: #### B 12, MATEO, FOL, CEA, RF, CRPHS, HOMO #### [place] [id number] #### MG, VIDH, GFR, CMP, ADIFF, CBC, FT4, LIPID, TSH, A1C, ESR, ANEU #### [address] [address] LABORATORYOrdered By: Greg Christie on 07-18-2023 Albumin DL <= 20 mg/L (U) [Mass/Vol] 527 mcg/dL Invalid Interpretation Code AO ADM SS Albumin/Creatinine DL <= 20 mg/L (U) [Mass ratio] 20 mcg/mg Normal 0 - 30 mcg/mg AO ADM SS Creatinine (U) [Mass/Vol] 26.9 mg/dL Low 28.0 - 117.0 mg/dL AO ADM SS LABORATORYOrdered By: SYSTEM SYSTEM on 07-18-2023 25-hydroxyvitamin D3 [Mass/Vol] 101.5 ng/mL Invalid Interpretation Code AO ADM SS Comment on above: Interpretive Data: I nterpretive Values Based on Total 25(OH) Vitamin D: Deficient <20 ng/mL Insufficient 20 - <30 ng/mL Sufficient 30-100 ng/mL Albumin BCP dye [Mass/Vol] 4.0 G/dL Normal 3.4 - 4.8 G/dL AO ADM SS Albumin/Globulin [Mass ratio] 1.5 {ratio} Normal 1.1 - 2.5 ratio AO ADM SS ALP [Catalytic activity/Vol] 69 U/L Normal 40 - 135 U/L AO ADM SS ALT With P-5'-P [Catalytic activity/Vol] 27 U/L Normal 14 - 59 U/L AO ADM SS AST With P-5'-P [Catalytic activity/Vol] 19 U/L Normal 10 - 40 U/L AO ADM SS Basophil, Absolute 0.0 103/mcL Normal 0.0 - 0.2 10^3/mcL AO Workflow SS Basophils/100 WBC (Bld) 0.6 % Normal 0.0 - 2.5 % AO Workflow SS Bilirubin [Mass/Vol] 0.7 mg/dL Normal 0.2 - 1 .0 mg/dL AO ADM SS Comment on above: Interpretive Data: U se of this assay is not recommended for patients undergoing treatment with eltrombopag due to the potential for falsely elevated results. Calcium [Mass/Vol] 9.3 mg/dL Normal 8.4 - 10. 2 mg/dL AO ADM SS Carcinoembryonic Ag [Mass/Vol] 1.4 ng/mL Normal 0.0 - 3.0 ng/mL AH ADM SS Comment on above: Interpretive Data: C EA Reference Range for SMOKERS: 0.0 - 5.0 ng/mL. Testing performed on the [employer] analyzer using direct chemiluminesent technology. Patient results determined by assays using different manufacturers for methods may not be comparable. Chloride [Moles/Vol] 105 mmol/L Normal 98 - 10 7 mmol/L AO ADM SS CO2 [Moles/Vol] 29 mmol/L Normal 23 - 31 mmol/L AO ADM SS Cobalamin (Vitamin B12) [Mass/Vol] 559 pg/mL Normal 211 - 911 pg/mL AH ADM SS Creatinine [Mass/Vol] 0.91 mg/dL Normal 0.55 - 1.02 mg/dL AO ADM SS CRP High sensitivity method [Mass/Vol] 1.56 mg/L Normal 0.20 - 3.00 mg/L AH ADM SS Comment on above: Interpretive Data: R elative Risk Category and Average hs-CRP Level: Higher Risk: > 5.0 mg/L Guidelines support that hs-CRP can be used as an independent predictor of increased coronary risk; however, hs-CRP results should only be interpreted in conjunction with other cardiac risk factors in establishing overall cardiac risk for a given patient. Electrolyte Balance 9.0 mEq/L Normal 4.0 - 15 .0 mEq/L AO ADM SS Eosinophil, Absolute 0.1 103/mcL Normal 0.0 - 0 .4 10^3/mcL AO Workflow SS Eosinophils/100 WBC (Bld) 2.1 % Normal 0.0 - 7.0 % AO Workflow SS Erythrocyte distribution width (RBC) [Ratio] 14.4 % Normal 11.5 - 14.5 % AO Workflow SS Folate [Mass/Vol] ng/mL High 5.38 - 24.00 ng/mL AH ADM SS Free T4 [Mass/Vol] 0.89 ng/dL Normal 0.76 - 1.46 ng/dL AO ADM SS GFR/1.73 sq M.predicted among blacks MDRD (S/P/Bld) [Vol rate/Area] 73 ml/min/1.73sqm Invalid Interpretation Code AO Chemistry S Comment on above: Interpretive Data: GFR Population mean for , Non- Americans Ages 20-29 = 116 mL/min/1.73 sq.m. Ages 30-39 = 107 mL/min/1.73 sq.m. Ages 40-49 = 99 mL/min/1.73 sq.m. Ages 50-59 = 93 mL/min/1.73 sq.m. Ages 60-69 = 85 mL/min/1.73 sq.m. Ages 70+ = 75 mL/min/1.73 sq.m. Chronic Kidney Disease: Less than 60 mL/min/1.73 square meters End Stage Renal Disease: Less than 15 mL/min/1.73 square meters GFR/1.73 sq M.predicted among non-blacks MDRD (S/P/Bld) [Vol rate/Area] 60 ml/min/1.73sqm Invalid Interpretation Code AO Chemistry S Comment on above: Interpretive Data: GFR Population mean for , Non- Americans Ages 20-29 = 116 mL/min/1.73 sq.m. Ages 30-39 = 107 mL/min/1.73 sq.m. Ages 40-49 = 99 mL/min/1.73 sq.m. Ages 50-59 = 93 mL/min/1.73 sq.m. Ages 60-69 = 85 mL/min/1.73 sq.m. Ages 70+ = 75 mL/min/1.73 sq.m. Chronic Kidney Disease: Less than 60 mL/min/1.73 square meters End Stage Renal Disease: Less than 15 mL/min/1.73 square meters Globulin 2.7 G/dL Invalid Interpretation Code AO ADM SS Glucose [Mass/Vol] 86 mg/dL Normal 83 - 110 mg/dL AO ADM SS HbA1c (Bld) [Mass fraction] 5.6 % Normal 4.3 - 6.4 % AO ADM SS Hematocrit (Bld) [Volume fraction] 39.3 % Normal 37.0 - 47.0 % AO Workflow SS Hemoglobin (Bld) [Mass/Vol] 13.5 G/dL Normal 12.0 - 16.0 G/dL AO Workflow SS Homocysteine [Moles/Vol] 15.2 umol/L High 3.7 - 13.9 umol/L AH ADM SS Comment on above: Interpretive Data: * *Note - New Reference Range in effect 19 Lymphocyte, Absolute 0.8 103/mcL Normal 0.8 - 3 .9 10^3/mcL AO Workflow SS Lymphocytes/100 WBC (Bld) 21.5 % Normal 10.0 - 50.0 % AO Workflow SS Magnesium [Mass/Vol] 1.9 mg/dL Normal 1.8 - 2 .4 mg/dL AO ADM SS MCH (RBC) [Entitic mass] 32.1 pg High 27.0 - 31.2 pg AO Workflow SS MCHC 34.3 G/dL Normal 33.0 - 37.0 G/dL AO Workflow SS MCV (RBC) [Entitic vol] 93.5 fL Normal 80.0 - 94.0 fL AO Workflow SS Monocyte, Absolute 0.4 103/mcL Normal 0.2 - 1.0 10^3/mcL AO Workflow SS Monocytes/100 WBC (Bld) 10.4 % Normal 1.7 - 13.0 % AO Workflow SS Neutrophil, Absolute 2.4 103/mcL Low 2.9 - 6 .2 10^3/mcL AO Workflow SS Neutrophils/100 WBC (Bld) 65.4 % Normal 37.0 - 80.0 % AO Workflow SS Platelet mean volume (Bld) [Entitic vol] 7.7 fL Normal 7.4 - 10.4 fL AO Workflow SS Platelets (Bld) [#/Vol] 156 103/mcL Normal 130 - 400 10^3/mcL AO Workflow SS Potassium [Moles/Vol] 4.2 mmol/L Normal 3.5 - 5.1 mmol/L AO ADM SS Protein [Mass/Vol] 6.7 G/dL Normal 6.4 - 8.2 G/dL AO ADM SS RBC (Bld) [#/Vol] 4.20 106/mcL Normal 4.20 - 5.40 10^6/mcL AO Workflow SS Sodium [Moles/Vol] 143 mmol/L Normal 136 - 145 mmol/L AO ADM SS TSH Qn 2.64 m[IU]/L Normal 0.36 - 3.74 mcIU/mL AO ADM SS Urea nitrogen [Mass/Vol] 24 mg/dL High 7 - 18 mg/dL AO ADM SS Urea nitrogen/Creatinine [Mass ratio] 26 ratio Normal 7 - 27 ratio AO ADM SS WBC (Bld) [#/Vol] 3.7 103/mcL Low 4.6 - 10.8 10^3/mcL AO Workflow SS LABORATORYOrdered By: Le Rome on 07-18-2023 Cholesterol [Mass/Vol] 187 mg/dL Normal 0 - 2 00 mg/dL AO ADM SS Comment on above: Interpretive Data: C holesterol Reference Interval: Less than 200 Desirable 200-239 Borderline high risk 240 and above High risk Cholesterol in HDL [Mass/Vol] 62 mg/dL High 40 - 60 mg/dL AO ADM SS Cholesterol in LDL [Mass/Vol] 112 mg/dL Normal 0 - 130 mg/dL AO ADM SS Triglyceride [Mass/Vol] 64 mg/dL Normal 0 - 150 mg/dL AO ADM SS Comment on above: Interpretive Data: T riglyceride Reference Interval: Less than 150 Normal 150-199 Borderline high risk 200-499 High risk 500 or higher Very high risk LABORATORYOrdered By: Rani Wei on 07-18-2023 ESR Photometric method (Bld) [Velocity] 4 mm/hr Normal 0 - 30 mm/hr AO Man Heme SS LABORATORYOrdered By: Brooks Arvizu on 07-18-2023 Nuclear Ab IF Ql (S) Neg 40 1 (07/18/23 10:10 AM) Normal Neg 40 AH Man Viro/Sero SS Comment on above: Interpretive Data: A NA Screen and Titer methodology is an immunofluorescent technique utilizing Hep2 Substrate. LABORATORYOrdered By: Rebeca Silverman on 07-18-2023 Rheumatoid factor IgM IA Qn (S) 1 Normal <=5.9 AH Auto Viro/Sero SS Comment on above: Interpretive Data: R F IgM Antibody by Enzyme Immunoassay: Negative < or = 6 Positive > 6 A positive result indicates the presence of RF antibodies and suggests the possibility of rheumatoid arthritis. A negative result indicates no RF IgM antibody or levels below the negative cut-off of the assay. Results of this assay should be used in conjunction with clinical findings and other serological tests. These results were obtained with the [employer] QUANTA Lite RF IgM RODOLFO. RF IgM values obtained with different manufacturers' assay methods may not be used interchangeably. The magnitude of the reported IgM levels cannot be correlated to an endpoint titer. LIPIDon 07-18-2023 Cholesterol [Mass/Vol] 187 mg/dL Normal 0-200 [facility] ([place]) Comment on above: Result Comment: Chol esterol Reference Interval: Less than 200 Desirable 200-239 Borderline high risk 240 and above High risk Performed By: #### B 12, MATEO, FOL, CEA, RF, CRPHS, HOMO #### [facility] [address] [place] [address] #### MG, VIDH, GFR, CMP, ADIFF, CBC, FT4, LIPID, TSH, A1C, ESR, ANEU #### [address] [address] Cholesterol in HDL [Mass/Vol] 62 mg/dL High 40-60 [facility] ([place]) Comment on above: Performed By: #### B 12, MATEO, FOL, CEA, RF, CRPHS, HOMO #### [address] [address] #### MG, VIDH, GFR, CMP, ADIFF, CBC, FT4, LIPID, TSH, A1C, ESR, ANEU #### [address] [address] Cholesterol in LDL [Mass/Vol] 112 mg/dL Normal 0-130 [facility] ([place]) Comment on above: Performed By: #### B 12, MATEO, FOL, CEA, RF, CRPHS, HOMO #### [place] [address] #### MG, VIDH, GFR, CMP, ADIFF, CBC, FT4, LIPID, TSH, A1C, ESR, ANEU #### [address] [address] Triglyceride [Mass/Vol] 64 mg/dL Normal 0-150 [facility] ([place]) Comment on above: Result Comment: Trig lyceride Reference Interval: Less than 150 Normal 150-199 Borderline high risk 200-499 High risk 500 or higher Very high risk Performed By: #### B 12, MATEO, FOL, CEA, RF, CRPHS, HOMO #### [place] [address] #### MG, VIDH, GFR, CMP, ADIFF, CBC, FT4, LIPID, TSH, A1C, ESR, ANEU #### [address] [address] MALBRon 07-18-2023 U Creatinine 26.9 mg/dL Low 28.0-117.0 [facility] ([place]) Comment on above: Performed By: #### B 12, MATEO, FOL, CEA, RF, CRPHS, HOMO #### [place] [address] #### MG, VIDH, GFR, CMP, ADIFF, CBC, FT4, LIPID, TSH, A1C, ESR, ANEU #### [address] [address] U Microalb 527 mcg/dL Normal [facility] ([place]) Comment on above: Performed By: #### B 12, MATEO, FOL, CEA, RF, CRPHS, HOMO #### [address] [address] #### MG, VIDH, GFR, CMP, ADIFF, CBC, FT4, LIPID, TSH, A1C, ESR, ANEU #### [address] [address] U Ratio Alb/Cre 20 mcg/mg Normal 0-30 [facility] ([place]) Comment on above: Performed By: #### B 12, MATEO, FOL, CEA, RF, CRPHS, HOMO #### [place] [address] #### MG, VIDH, GFR, CMP, ADIFF, CBC, FT4, LIPID, TSH, A1C, ESR, ANEU #### [address] [address] MGon 07-18-2023 Magnesium [Mass/Vol] 1.9 mg/dL Normal 1.8-2.4 Counts include 234 beds at the [facility] ([place]) Comment on above: Performed By: #### B 12, MATEO, FOL, CEA, RF, CRPHS, HOMO #### [place] [address] #### MG, VIDH, GFR, CMP, ADIFF, CBC, FT4, LIPID, TSH, A1C, ESR, ANEU #### [address] [address] TSHon 07-18-2023 TSH Qn 2.64 m[IU]/L Normal 0.36-3.74 [facility] ([place]) Comment on above: Performed By: #### B 12, MATEO, FOL, CEA, RF, CRPHS, HOMO #### [place] [address] #### MG, VIDH, GFR, CMP, ADIFF, CBC, FT4, LIPID, TSH, A1C, ESR, ANEU #### [place] [address] [place], [place] [address] VIDHon 07-18-2023 Vit. D 25-Hydroxy 101.5 ng/mL Normal [facility] ([place]) Comment on above: Result Comment: Inte rpretive Values Based on Total 25(OH) Vitamin D: Deficient <20 ng/mL Insufficient 20 - <30 ng/mL Sufficient 30-100 ng/mL Performed By: #### B 12, MATEO, FOL, CEA, RF, CRPHS, HOMO #### [facility] [address] [place] [address] #### MG, VIDH, GFR, CMP, ADIFF, CBC, FT4, LIPID, TSH, A1C, ESR, ANEU #### [place] [address] [place], [place] [address] Absolute lymphocyte countOrd ered By: Mayi Smart on 10-07-2022 Lymphocytes Auto (Unsp spec) [#/Vol] 0.83 10*3/uL 0.83-4.51 [facility] Basophil percentageOrdered B y: Mayi Smart on 10-07-2022 Basophils/100 WBC (Bld) 0.4 % 0-1 [facility] Bilirubin [Mass/Vol] 0.70 mg/dL 0.20-1.00 [facility] Comment on above: For patients on eltr ombopag therapy, use of Dimension [place] TBIL is not recommended. Chloride [Moles/Vol] 109 mmol/L 98-107 [facility] Cholesterol [Mass/Vol] 162 mg/dL <200 [facility] Comment on above: <200 mg/dL Desirable 200-240 mg/dL Borderline >240 mg/dL High Risk Eosinophils/100 WBC (Bld) 2.3 % 0-5 [facility] Glucose [Mass/Vol] 107 mg/dL 74-106 [facility] Comment on above: Fasting Glucose resu lt from 100 to 125 mg/dL suggests IMPAIRED HOMEOSTASIS per A.D.A. criteria. Neutrophils (Bld) [#/Vol] 3.3 10*3/uL 2.0-7.7 [facility] Neutrophils/100 WBC (Bld) 70.8 % 47-70 [facility] Potassium [Moles/Vol] 4.0 mmol/L 3.5-5.1 [facility] Protein [Mass/Vol] 6.5 g/dL 6.4-8.2 [facility] Sodium [Moles/Vol] 142 mmol/L 136-145 [facility] Triglyceride [Mass/Vol] 102 mg/dL <199 [facility] Comment on above: The drugs N-Acetylcy steine and Metamizole may falsely depress this assay.Serum Triglycerides Reference Interval Normal <150 mg/dL Borderline high 150 - 199 mg/dL High 200 - 499 mg/dL Very High > or = 500 mg/dL WBC (Bld) [#/Vol] 4.7 10*3/uL 4.4-11.0 [facility] Blood erythrocytes count (nu mber/volume)Ordered By: Mayi Smart on 10-07-2022 RBC (Bld) [#/Vol] 4.01 10*6/uL 4.2-5.4 [facility] Blood hemoglobin measurement (mass/volume)Ordered By: Mayi Smart on 10-07-2022 Hemoglobin (Bld) [Mass/Vol] 12.7 g/dL 12.0-15.0 [facility] Blood lymphocytes/100 leukoc ytesOrdered By: Mayi Smart on 10-07-2022 Lymphocytes/100 WBC (Bld) 17.6 % 19-41 [facility] Blood monocytes/100 leukocyt esOrdered By: Mayi Smart on 10-07-2022 Monocytes/100 WBC (Bld) 8.5 % 0-10 [facility] Blood platelet mean volumeOr dered By: Mayi Smart on 10-07-2022 Platelet mean volume (Bld) [Entitic vol] 9.9 fL 6.2-12.0 [facility] Determination of erythrocyte mean corpuscular volume (MCV)Ordered By: Mayi Smart on 10-07-2022 MCV (RBC) [Entitic vol] 100.5 fL 81-99 [facility] Hematocrit Auto (Bld) [Volum e fraction]Ordered By: Mayi Smart on 10-07-2022 Hematocrit (Bld) [Volume fraction] 40.3 % 37-47 [facility] Laboratory - Chemistry and C hemistry - challengeOrdered By: Mayi Smart on 10-07-2022 ALP [Catalytic activity/Vol] 54 U/L 45-117 [facility] ALT [Catalytic activity/Vol] 17 U/L 13-56 [facility] CO2 [Moles/Vol] 28.0 mmol/L 21.0-32.0 [facility] Globulin (S) [Mass/Vol] 2.8 g/dL 2.2-4.2 [facility] Magnesium [Mass/Vol] 2.2 mg/dL 1.6-2.6 [facility] Urea nitrogen/Creatinine [Mass ratio] 22.1 mg/mg 10-20 [facility] Laboratory - Hematology and Cell countsOrdered By: Mayi Smart on 10-07-2022 Erythrocyte distribution width (RBC) [Entitic vol] 50.0 fL 35.1-43.9 [facility] Erythrocyte distribution width (RBC) [Ratio] 13.5 % 11.6-14.6 [facility] Immature granulocytes/100 WBC (Bld) 0.400 % 0.0-0.9 [facility] Comment on above: IG% - Immature Granu locytes (promyelocytes, myelocytes and metamyelocytes) > 1% indicates that a LEFT SHIFT is Present. MCH (RBC) [Entitic mass] 31.7 pg 27.0-32.0 [facility] Nucleated RBC/100 WBC (Bld) [Ratio] 0 % 0-5 [facility] MCHC Auto (RBC) [Mass/Vol]Or dered By: Mayi Smart on 10-07-2022 MCHC (RBC) [Mass/Vol] 31.5 g/dL 32-36 [facility] No Panel InformationOrdered By: Mayi Smart on 10-07-2022 Estimated GFR (MDRD) Amer 77 mL/min >60 [facility] Comment on above: GFR Calc Estimated GFR (MDRD) Non-Af Amer 64 mL/min >60 [facility] Comment on above: Non- GFR Calc Thyroid Stimulating Hormone (TSH) 2.04 uIU/mL 0.358-3.74 [facility] Vitamin D 25-Hydroxy 97.1 ng/mL [facility] Comment on above: Vitamin D 25(OH) Sta tus Range Deficiency <20 ng/mL (50nmol/L) Insufficiency 20 - 30 ng/mL (50 - 75 nmol/L) Sufficiency 30 - 100 ng/mL (75 - 250 nmol/L) Toxicity >100 ng/mL (>250 nmol/L) Platelets bldOrdered By: Herminia Smart on 10-07-2022 Platelets (Bld) [#/Vol] 171 10*3/uL 150-450 [facility] Serum or plasma albumin alvaro urement (mass/volume)Ordered By: Mayi Smart on 10-07-2022 Albumin [Mass/Vol] 3.7 g/dL 3.2-5.0 [facility] Serum or plasma albumin/glob ulin mass ratioOrdered By: Mayi Smart on 10-07-2022 Albumin/Globulin [Mass ratio] 1.3 {ratio} 0.9-2.4 [facility] Serum or plasma calcium alvaro urement (mass/volume)Ordered By: Mayi Smart on 10-07-2022 Calcium [Mass/Vol] 9.1 mg/dL 8.5-10.1 [facility] Serum or plasma cholesterol in HDL measurement (mass/volume)Ordered By: Mayi Smart on 10-07-2022 Cholesterol in HDL [Mass/Vol] 52 mg/dL >40 [facility] Comment on above: The drugs N-Acetylcy steine and Metamizole may falsely depress this assay. Reference Range HDL <40 mg/dL Low HDL Cholesterol HDL >or= 60 mg/dL High HDL Cholesterol Serum or plasma cholesterol in VLDL measurement (mass/volume)Ordered By: Mayi Smart on 10-07-2022 Cholesterol in VLDL [Mass/Vol] 20 mg/dL 5-40 [facility] Serum or plasma creatinine m easurement (mass/volume)Ordered By: Mayi Smart on 10-07-2022 Creatinine [Mass/Vol] 0.91 mg/dL 0.55-1.02 [facility] Comment on above: The validity of the calculated GFR & GFRAA in patients over 70 years has not been determined. Clinical correlation is essential. Serum or plasma low density lipoprotein (LDL) cholesterol measurement (mass/volume)Ordered By: Mayi Smart on 10-07-2022 Cholesterol in LDL [Mass/Vol] 90 mg/dL 0-130 [facility] Serum or plasma urea nitroge n measurement (mass/volume)Ordered By: Mayi Smart on 10-07-2022 Urea nitrogen [Mass/Vol] 20 mg/dL 7-18 [facility] Thin prep Papanicolaou smear with manual screeningOrdered By: Mayi Smart on 10-07-2022 Thin prep Papanicolaou smear with manual screening 21 U/L 15-37 [facility] Thin prep Papanicolaou smear with manual screening 5 5-15 [facility] Absolute lymphocyte countOrd ered By: Dr. Smart on 06-21-2022 Lymphocytes Auto (Unsp spec) [#/Vol] 1.10 10*3/uL 0.83-4.51 [facility] Basophil percentageOrdered B y: Dr. Smart on 06-21-2022 Basophils/100 WBC (Bld) 0.6 % 0-1 [facility] Bilirubin [Mass/Vol] 0.70 mg/dL 0.20-1.00 [facility] Comment on above: For patients on eltr ombopag therapy, use of Dimension [place] TBIL is not recommended. Chloride [Moles/Vol] 108 mmol/L 98-107 [facility] Cholesterol [Mass/Vol] 168 mg/dL <200 [facility] Comment on above: <200 mg/dL Desirable 200-240 mg/dL Borderline >240 mg/dL High Risk Eosinophils/100 WBC (Bld) 3.1 % 0-5 [facility] Glucose [Mass/Vol] 102 mg/dL 74-106 [facility] Comment on above: Fasting Glucose resu lt from 100 to 125 mg/dL suggests IMPAIRED HOMEOSTASIS per A.D.A. criteria. Neutrophils (Bld) [#/Vol] 3.6 10*3/uL 2.0-7.7 [facility] Neutrophils/100 WBC (Bld) 66.0 % 47-70 [facility] Potassium [Moles/Vol] 4.2 mmol/L 3.5-5.1 [facility] Protein [Mass/Vol] 6.9 g/dL 6.4-8.2 [facility] Sodium [Moles/Vol] 139 mmol/L 136-145 [facility] Triglyceride [Mass/Vol] 104 mg/dL <199 [facility] Comment on above: The drugs N-Acetylcy steine and Metamizole may falsely depress this assay.Serum Triglycerides Reference Interval Normal <150 mg/dL Borderline high 150 - 199 mg/dL High 200 - 499 mg/dL Very High > or = 500 mg/dL WBC (Bld) [#/Vol] 5.4 10*3/uL 4.4-11.0 [facility] Blood erythrocytes count (nu mber/volume)Ordered By: Dr. Smart on 06-21-2022 RBC (Bld) [#/Vol] 4.27 10*6/uL 4.2-5.4 [facility] Blood hemoglobin measurement (mass/volume)Ordered By: Dr. Smart on 06-21-2022 Hemoglobin (Bld) [Mass/Vol] 13.6 g/dL 12.0-15.0 [facility] Blood lymphocytes/100 leukoc ytesOrdered By: Dr. Smart on 06-21-2022 Lymphocytes/100 WBC (Bld) 20.2 % 19-41 [facility] Blood monocytes/100 leukocyt esOrdered By: Dr. Smart on 06-21-2022 Monocytes/100 WBC (Bld) 9.9 % 0-10 [facility] Blood platelet mean volumeOr dered By: Dr. Smart on 06-21-2022 Platelet mean volume (Bld) [Entitic vol] 9.5 fL 6.2-12.0 [facility] Determination of erythrocyte mean corpuscular volume (MCV)Ordered By: Dr. Smart on 06-21-2022 MCV (RBC) [Entitic vol] 101.4 fL 81-99 [facility] Hematocrit Auto (Bld) [Volum e fraction]Ordered By: Dr. Smart on 06-21-2022 Hematocrit (Bld) [Volume fraction] 43.3 % 37-47 [facility] - Chemistry and C hemistry - challengeOrdered By: Dr. Smart on 06-21-2022 ALP [Catalytic activity/Vol] 59 U/L 45-117 [facility] ALT [Catalytic activity/Vol] 18 U/L 13-56 [facility] CO2 [Moles/Vol] 28.0 mmol/L 21.0-32.0 [facility] Cobalamin (Vitamin B12) [Mass/Vol] 412 pg/mL 211-911 [facility] Free T4 [Mass/Vol] 1.04 ng/dL 0.76-1.46 [facility] Globulin (S) [Mass/Vol] 3.2 g/dL 2.2-4.2 [facility] Urea nitrogen/Creatinine [Mass ratio] 24.0 mg/mg 10-20 [facility] - Hematology and Cell countsOrdered By: Dr. Smart on 06-21-2022 Erythrocyte distribution width (RBC) [Entitic vol] 49.7 fL 35.1-43.9 [facility] Erythrocyte distribution width (RBC) [Ratio] 13.3 % 11.6-14.6 [facility] Immature granulocytes/100 WBC (Bld) 0.200 % 0.0-0.9 [facility] [facility] Comment on above: IG% - Immature Granu locytes (promyelocytes, myelocytes and metamyelocytes) > 1% indicates that a LEFT SHIFT is Present. MCH (RBC) [Entitic mass] 31.9 pg 27.0-32.0 [facility] Nucleated RBC/100 WBC (Bld) [Ratio] 0 % 0-5 [facility] MCHC Auto (RBC) [Mass/Vol]Or dered By: Dr. Smart on 06-21-2022 MCHC (RBC) [Mass/Vol] 31.4 g/dL 32-36 [facility] No Panel InformationOrdered By: Dr. Smart on 06-21-2022 Carcinoembryonic Ag Serial Monitor Not Reportable [facility] Estimated GFR (MDRD) Amer 69 mL/min >60 [facility] Comment on above: GFR Calc Estimated GFR (MDRD) Non-Af Amer 57 mL/min >60 [facility] Comment on above: Non- GFR Calc Free Triiodothyronine (T3) pg/dL 2.6 pg/mL 2.18-3.98 [facility] Thyroid Stimulating Hormone (TSH) 3.38 uIU/mL 0.358-3.74 [facility] Vitamin D 25-Hydroxy 89.8 ng/mL [facility] Comment on above: Vitamin D 25(OH) Sta tus Range Deficiency <20 ng/mL (50nmol/L) Insufficiency 20 - 30 ng/mL (50 - 75 nmol/L) Sufficiency 30 - 100 ng/mL (75 - 250 nmol/L) Toxicity >100 ng/mL (>250 nmol/L) Platelets bldOrdered By: Dr. Smart on 06-21-2022 Platelets (Bld) [#/Vol] 151 10*3/uL 150-450 [facility] Serum or plasma albumin alvaro urement (mass/volume)Ordered By: Dr. Smart on 06-21-2022 Albumin [Mass/Vol] 3.7 g/dL 3.2-5.0 [facility] Serum or plasma albumin/glob ulin mass ratioOrdered By: Dr. Smart on 06-21-2022 Albumin/Globulin [Mass ratio] 1.2 {ratio} 0.9-2.4 [facility] Serum or plasma calcium alvaro urement (mass/volume)Ordered By: Dr. Smart on 06-21-2022 Calcium [Mass/Vol] 9.6 mg/dL 8.5-10.1 [facility] Serum or plasma carcinoembry onic antigen measurement (mass/volume)Ordered By: Dr. Smart on 06-21-2022 Carcinoembryonic Ag [Mass/Vol] 1.5 ng/mL 0.0-4.7 [facility] Comment on above: Nonsmokers <3.9 Smok ers <5.6[employer] Electrochemiluminescence Immunoassay(ECLIA)Values obtained with different assay methods or kitscannot be used interchangeably. Results cannot beinterpreted as absolute evidence of the presence orabsence of malignant disease.Performed at: [facility] [id number] Director: Elan Roach PhD, Phone: [phone] Serum or plasma cholesterol in HDL measurement (mass/volume)Ordered By: Dr. Smart on 06-21-2022 Cholesterol in HDL [Mass/Vol] 50 mg/dL >40 [facility] Comment on above: The drugs N-Acetylcy steine and Metamizole may falsely depress this assay. Reference Range HDL <40 mg/dL Low HDL Cholesterol HDL >or= 60 mg/dL High HDL Cholesterol Serum or plasma cholesterol in VLDL measurement (mass/volume)Ordered By: Dr. Smart on 06-21-2022 Cholesterol in VLDL [Mass/Vol] 21 mg/dL 5-40 [facility] Serum or plasma creatinine m easurement (mass/volume)Ordered By: Dr. Smart on 06-21-2022 Creatinine [Mass/Vol] 1.00 mg/dL 0.55-1.02 [facility] Comment on above: The validity of the calculated GFR & GFRAA in patients over 70 years has not been determined. Clinical correlation is essential. Serum or plasma low density lipoprotein (LDL) cholesterol measurement (mass/volume)Ordered By: Dr. Smart on 06-21-2022 Cholesterol in LDL [Mass/Vol] 97 mg/dL 0-130 [facility] Serum or plasma urea nitroge n measurement (mass/volume)Ordered By: Dr. Smart on 06-21-2022 Urea nitrogen [Mass/Vol] 24 mg/dL 7-18 [facility] Thin prep Papanicolaou smear with manual screeningOrdered By: Dr. Smart on 06-21-2022 Thin prep Papanicolaou smear with manual screening 18 U/L 15-37 [facility] Thin prep Papanicolaou smear with manual screening 3 5-15 [facility] Absolute lymphocyte counton 05-24-2021 Lymphocytes Auto (Unsp spec) [#/Vol] 0.91 10*3/uL 0.83-4.51 [facility] Work Phone: Basophil percentageon 2021 Basophils/100 WBC (Bld) 0.6 % 0-1 [facility] Work Phone: Bilirubin [Mass/Vol] 0.60 mg/dL 0.20-1.00 [facility] Work Phone: Comment on above: For patients on eltr ombopag therapy, use of Dimension [place] TBIL is not recommended. Chloride [Moles/Vol] 107 mmol/L 98-107 [facility] Work Phone: [phone] Cholesterol [Mass/Vol] 183 mg/dL <200 [facility] Work Phone: Comment on above: <200 mg/dL Desirable 200-240 mg/dL Borderline >240 mg/dL High Risk Eosinophils/100 WBC (Bld) 3.4 % 0-5 [facility] Work Phone: Glucose [Mass/Vol] 96 mg/dL 74-106 [facility] Work Phone: Neutrophils (Bld) [#/Vol] 3.6 10*3/uL 2.0-7.7 [facility] Work Phone: Neutrophils/100 WBC (Bld) 67.7 % 47-70 [facility] Work Phone: Potassium [Moles/Vol] 4.1 mmol/L 3.5-5.1 [facility] Work Phone: Protein [Mass/Vol] 6.9 g/dL 6.4-8.2 [facility] Work Phone: Sodium [Moles/Vol] 140 mmol/L 136-145 [facility] Work Phone: Triglyceride [Mass/Vol] 91 mg/dL <199 [facility] Work Phone: Comment on above: The drugs N-Acetylcy steine and Metamizole may falsely depress this assay.Serum Triglycerides Reference Interval Normal <150 mg/dL Borderline high 150 - 199 mg/dL High 200 - 499 mg/dL Very High > or = 500 mg/dL WBC (Bld) [#/Vol] 5.2 10*3/uL 4.4-11.0 [facility] Work Phone: Blood erythrocytes count (nu mber/volume)on 05-24-2021 RBC (Bld) [#/Vol] 4.24 10*6/uL 4.2-5.4 [facility] Work Phone: Blood hemoglobin measurement (mass/volume)on 05-24-2021 Hemoglobin (Bld) [Mass/Vol] 13.4 g/dL 12.0-15.0 [facility] Work Phone: Blood lymphocytes/100 leukoc yteson 05-24-2021 Lymphocytes/100 WBC (Bld) 17.4 % 19-41 [facility] Work Phone: Blood monocytes/100 leukocyt eson 05-24-2021 Monocytes/100 WBC (Bld) 10.5 % 0-10 [facility] Work Phone: Blood platelet mean volumeon 05-24-2021 Platelet mean volume (Bld) [Entitic vol] 10.0 fL 6.2-12.0 [facility] Work Phone: Determination of erythrocyte mean corpuscular volume (MCV)on 05-24-2021 MCV (RBC) [Entitic vol] 101.2 fL 81-99 [facility] Work Phone: Hematocrit Auto (Bld) [Volum e fraction]on 05-24-2021 Hematocrit (Bld) [Volume fraction] 42.9 % 37-47 [facility] Work Phone: Laboratory - Chemistry and C hemistry - challengeon 05-24-2021 ALP [Catalytic activity/Vol] 63 U/L 45-117 [facility] Work Phone: ALT [Catalytic activity/Vol] 17 U/L 13-56 [facility] Work Phone: CO2 [Moles/Vol] 30.0 mmol/L 21.0-32.0 [facility] Work Phone: Cobalamin (Vitamin B12) [Mass/Vol] 353 pg/mL 211-911 [facility] Work Phone: Globulin (S) [Mass/Vol] 3.2 g/dL 2.2-4.2 [facility] Work Phone: Urea nitrogen/Creatinine [Mass ratio] 25.6 mg/mg 10-20 [facility] Work Phone: Laboratory - Hematology and Cell countson 05-24-2021 Erythrocyte distribution width (RBC) [Entitic vol] 50.5 fL 35.1-43.9 [facility] Work Phone: Erythrocyte distribution width (RBC) [Ratio] 13.5 % 11.6-14.6 [facility] Work Phone: Immature granulocytes/100 WBC (Bld) 0.400 % 0.0-0.9 [facility] Work Phone: Comment on above: IG% - Immature Granu locytes (promyelocytes, myelocytes and metamyelocytes) > 1% indicates that a LEFT SHIFT is Present. MCH (RBC) [Entitic mass] 31.6 pg 27.0-32.0 [facility] Work Phone: Nucleated RBC/100 WBC (Bld) [Ratio] 0 % 0-5 [facility] Work Phone: MCHC Auto (RBC) [Mass/Vol]on 05-24-2021 MCHC (RBC) [Mass/Vol] 31.2 g/dL 32-36 [facility] Work Phone: No Panel Informationon 05-24 Carcinoembryonic Ag Serial Monitor Not Reportable [facility] Work Phone: Estimated GFR (MDRD) Amer 75 mL/min >60 [facility] Work Phone: Comment on above: GFR Calc Estimated GFR (MDRD) Non-Af Amer 62 mL/min >60 [facility] Work Phone: Comment on above: Non- GFR Calc Thyroid Stimulating Hormone (TSH) 3.18 uIU/mL 0.358-3.74 [facility] Work Phone: Vitamin D 25-Hydroxy 71.9 ng/mL [facility] Work Phone: Comment on above: Vitamin D 25(OH) Sta tus Range Deficiency <20 ng/mL (50nmol/L) Insufficiency 20 - 30 ng/mL (50 - 75 nmol/L) Sufficiency 30 - 100 ng/mL (75 - 250 nmol/L) Toxicity >100 ng/mL (>250 nmol/L) Platelets bldon 05-24-2021 Platelets (Bld) [#/Vol] 183 10*3/uL 150-450 [facility] Work Phone: Serum or plasma albumin alvaro urement (mass/volume)on 05-24-2021 Albumin [Mass/Vol] 3.7 g/dL 3.2-5.0 [facility] Work Phone: Serum or plasma albumin/glob ulin mass ratioon 05-24-2021 Albumin/Globulin [Mass ratio] 1.2 {ratio} 0.9-2.4 [facility] Work Phone: Serum or plasma calcium alvaro urement (mass/volume)on 05-24-2021 Calcium [Mass/Vol] 9.0 mg/dL 8.5-10.1 [facility] Work Phone: Serum or plasma carcinoembry onic antigen measurement (mass/volume)on 05-24-2021 Carcinoembryonic Ag [Mass/Vol] 1.1 ng/mL 0.0-4.7 [facility] Work Phone: Comment on above: Nonsmokers <3.9 Smok ers <5.6[employer] Electrochemiluminescence Immunoassay(ECLIA)Values obtained with different assay methods or kitscannot be used interchangeably. Results cannot beinterpreted as absolute evidence of the presence orabsence of malignant disease.Performed at: [address] [id number] Director: Elan Roach PhD, Phone: [phone] Serum or plasma cholesterol in HDL measurement (mass/volume)on 05-24-2021 Cholesterol in HDL [Mass/Vol] 50 mg/dL >40 [facility] Work Phone: Comment on above: The drugs N-Acetylcy steine and Metamizole may falsely depress this assay. Reference Range HDL <40 mg/dL Low HDL Cholesterol HDL >or= 60 mg/dL High HDL Cholesterol Serum or plasma cholesterol in VLDL measurement (mass/volume)on 05-24-2021 Cholesterol in VLDL [Mass/Vol] 18 mg/dL 5-40 [facility] Work Phone: Serum or plasma creatinine m easurement (mass/volume)on 05-24-2021 Creatinine [Mass/Vol] 0.94 mg/dL 0.55-1.02 [facility] Work Phone: Comment on above: The validity of the calculated GFR & GFRAA in patients over 70 years has not been determined. Clinical correlation is essential. Serum or plasma folate measu rement (mass/volume)on 05-24-2021 Folate [Mass/Vol] 30.90 ng/mL 3.1-55.4 [facility] Work Phone: Serum or plasma low density lipoprotein (LDL) cholesterol measurement (mass/volume)on 05-24-2021 Cholesterol in LDL [Mass/Vol] 115 mg/dL 0-130 [facility] Work Phone: Serum or plasma urea nitroge n measurement (mass/volume)on 05-24-2021 Urea nitrogen [Mass/Vol] 24 mg/dL 7-18 [facility] Work Phone: Thin prep Papanicolaou smear with manual screeningon 05-24-2021 Thin prep Papanicolaou smear with manual screening 17 U/L 15-37 [facility] Work Phone: Thin prep Papanicolaou smear with manual screening 3 5-15 [facility] Work Phone: [place] 07-01-2020 CNPN Telephone (N([id number]) -- SHABNAM CANO ([id number]) 1945 F Date Time Provider Department 07/01/20 ELENI WOLF) ROSSY During your visit today, we recorded the following information about you: Paula Irby [facility] 07/01/2020 1:59 PM Signed Patient requesting disk and report of knee xray from 01/2018. 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 DAVION HOPE 07/01/2020 2:55 PM Signed CD/REPORT READY FOR DEMAND MANAGER AT [facility] Allergies As of Date: 07/01/2020 Noted Allergy Reaction GABAPENTIN 01/03/2013 14 - Other: See Comments Comments: Tremors INDOMETHACIN 07/05/2012 14 - Other: See Comments Comments: Headache, throbbing LISINOPRIL 01/06/2014 14 - Other: See Comments Comments: headache LYRICA (PREGABALIN) 01/06/2014 14 - Other: See Comments Comments: tremors METHOTREXATE 02/01/2018 14 - Other: See Comments Comments: states increased her pain Date Reviewed: 02/01/2018 Reviewed by: Romeo Tripathi - Fully Assessed Reason for Visit: disk and report [Other] Prescriptions as of 07/01/2020 Sig: CALCITONIN (SALMON) 200 UNIT/* Use 1 Baldwin in the nose once * OMEGA 2-UNW-GKL-FISH OIL 1,00* Take 2 g by mouth once daily. MULTIVITAMIN TABLET Take 1 tablet by mouth once d* MELOXICAM 15 MG TABLET Take 1 tablet by mouth once d* LEVOTHYROXINE 25 MCG TABLET Take 25 mcg by mouth once michelle* LUTEIN ORAL Take 1 tablet by mouth once d* SELENIMIN ORAL Take 200 mcg by mouth once da* ACIDOPHILUS ORAL Take 1 capsule by mouth once * CALCIUM CARB-VIT D2-MAGNESIUM* Take 2 Tablespoonsful by mout* CHOLECALCIFEROL (VITAMIN D3) * Take 400 Units by mouth once * ASPIRIN 81 MG TABLET,DELAYED * Take 81 mg by mouth once martín* METOPROLOL SUCCINATE ER 50 MG* Take 25 mg by mouth once martín* IBUPROFEN 200 MG TABLET Take 200 mg by mouth every 6 * Problem List As Of Date 07/01/2020 Noted Resolved MALIGNANT NEOPL RECTUM [C20] 10/24/2007 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] 11/27/2007 MALIGNANT NEOPLASM COLON NOS [C18.9] Blood in stool [K92.1] 11/17/2010 FEMALE STRESS INCONTINENCE [N39.3] ALLERGIC RHINITIS NOS [J30.9] GENERAL OSTEOARTHROSIS [M15.9] 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 Type: Out Account: [id number] Location: Ordering: MAYI SMART Exam Date: 12/19/2018/11:29 Family Phys: Charge Code: [id number] Physician: Larue Order #: [id number] DLP Dose#: PROCEDURE: MAMM BILAT DIGITAL SCREENING WITH CAD COMPARISON: [facility], BILAT SCREENING, 08/04/2016, 12:57. [facility], BILAT SCREENING, 08/09/2017, 11:18. INDICATIONS: Screening. BREAST COMPOSITION: Heterogeneously dense, which could obscure small masses (51-75% glandular). FINDINGS: DIAGNOSTIC CATEGORY 1--NEGATIVE ASSESSMENT. RIGHT BREAST: No significant suspicious finding. No significant change has occurred. LEFT BREAST: No significant suspicious finding. There are vascular calcifications. No significant change has occurred. RECOMMENDATIONS: ROUTINE MAMMOGRAM AND CLINICAL EVALUATION. PLEASE NOTE: A NORMAL MAMMOGRAM DOES NOT EXCLUDE THE POSSIBILITY OF BREAST CANCER. A CLINICALLY SUSPICIOUS PALPABLE LUMP SHOULD BE BIOPSIED. THIS FACILITY UTILIZES A REMINDER SYSTEM TO ENSURE THAT ALL PATIENTS RECEIVE REMINDER LETTERS FOR APPOINTMENTS. THIS INCLUDES REMINDERS FOR ROUTINE MAMMOGRAMS, DIAGNOSITC MAMMOGRAMS, OR OTHER BREAST IMAGING INTERVENTIONS WHEN APPROPRIATE. THIS PATIENT WILL BE PLACED IN THE APPROPRIATE REMINDER SYSTEM. Dictated by: Lizeth Ramirez MD on 12/19/2018 at 11:38 Approved by: Lizeth Ramirez MD on 12/19/2018 at 11:38 Normal [facility] CEAon 09-21-2018 CEA mehod. Normal 0.0-2.9 [facility] CEA [CCL]on 09-21-2018 CEA 1.1 ng/mL Normal 0.0-2.9 [facility] Comment on above: Result Comment: Test analyzed by the Advizzer DxI method. [facility] [address] [place] [address] Ora Marsh M.D. [id number] Performed By: #### 2 [id number] ####[address] [address] T3, FREE [CCL]on 09-21-2018 Free T3 [Mass/Vol] 2.6 pg/mL Normal 2.3-4.1 [facility] Comment on above: Result Comment: [facility] [address] [place] [address] Ora Marsh M.D. [id number] Performed By: #### 2 10457 ####[address] [address] Free T3on 09-19-2018 Free T3 [Mass/Vol] 2.6 pg/mL Normal 2.3-4.1 [facility] T4-FREE (FREE THYROXINE)on 0 09-18-2018 Free T4 [Mass/Vol] 0.90 ng/dL Normal 0.61 - 1.12 [facility] Comment on above: Result Comment: *SPE CIMENS FROM PATIENTS WHO ARE UNDERGOING BIOTIN THERAPY AND/OR INGESTING BIOTIN SUPPLEMENTS MAY HAVE FALSE HIGH RESULTS. Performed By: #### 2 06719 #### [address] [address] TSHon 09-18-2018 TSH Qn 3.18 uIU/ml Normal 0.34 - 5.60 [facility] Comment on above: Performed By: #### 2 31951 #### [address],[place] [address] US THYROIDon 09-18-2018 [place] [address] Patient: SHABNAM CANO Phone#: : 1945 Age: 72 Gender: F Pt. Type: Out Account: [id number] Location: Ordering: MAYI SMART Exam Date: 09/18/2018/9:16 Family Phys: Charge Code: [id number] Physician: Larue Order #: [id number] DLP Dose#: PROCEDURE: THYROID ULTRASOUND COMPARISON: None. INDICATIONS: Right sided swelling TECHNIQUE: High-resolution ultrasound was performed of the thyroid gland. FINDINGS: RIGHT LOBE: There has been previous right thyroid lobectomy. LEFT LOBE: The left thyroid lobe measures 3.8 x 1.6 x 1.8 cm. There are 2 benign appearing subcentimeter nodules. ISTHMUS: Normal. No visible mass, cyst, calcification, enlargement, or abnormal echotexture. Isthmus measures 0.5 cm. OTHER: None. CONCLUSION: 1. Subcentimeter benign nodules are present in the right thyroid lobe. 2. There is no evidence of mass in the area of palpable abnormality. Dictated by: Roselia Mccrary MD on 09/18/2018 at 11:20 Approved by: Roselia Mccrary MD on 09/18/2018 at 11:20 Normal [facility] CBCon 04-23-2018 Basophils (Bld) [#/Vol] 0.00 x10EE3/UL Normal 0.00 - 0.10 [facility] Comment on above: Performed By: #### 2 [address]4812 #### [address] [address] Basophils/100 WBC (Bld) 0.5 % Normal 0.0 - 2.0 [facility] Comment on above: Performed By: #### 2 85113 #### [place] [id number] CBC Normal [facility] Comment on above: Result Comment: CBC- COMPLETE BLOOD COUNT Performed By: #### 2 04797 #### [facility],[address] [place] [address] Eosinophils (Bld) [#/Vol] 0.20 x10EE3/UL Normal 0.00 - 0.50 [facility] Comment on above: Performed By: #### 2 37926 #### [facility],[address] [place] [address] Eosinophils/100 WBC (Bld) 2.6 % Normal 0.0 - 7.0 [facility] Comment on above: Performed By: #### 2 92319 #### [facility],[address] [place] [address] Erythrocyte distribution width (RBC) [Ratio] 13.8 % Normal 12.0 - 15.6 [facility] Comment on above: Performed By: #### 2 88664 #### [facility],[address] [place] [address] Hematocrit (Bld) [Volume fraction] 39.2 % Normal 34.0 - 46.0 [facility] Comment on above: Performed By: #### 2 60701 #### [facility],[address] [place] [address] Hemoglobin (Bld) [Mass/Vol] 13.2 g/dL Normal 12.0 - 16.0 [facility] Comment on above: Performed By: #### 2 38661 #### [facility],[address] [place] [address] Lymphocytes (Bld) [#/Vol] 0.80 x10EE3/UL Normal 0.80 - 2.80 [facility] Comment on above: Performed By: #### 2 18275 #### [facility],[address] [place] [address] Lymphocytes/100 WBC (Bld) 13.6 % Low 20.0 - 45.0 [facility] Comment on above: Performed By: #### 2 60455 #### [facility],[address] [place] [address] MANUAL DIFF N/A Normal [facility] Comment on above: Performed By: #### 2 53158 #### [facility],[address] [place] [address] MCH (RBC) [Entitic mass] 32 pg Normal 27 - 33 [facility] Comment on above: Performed By: #### 2 74907 #### [facility],[address] [place] [address] MCHC (RBC) [Mass/Vol] 34 X10 3 Normal 32 - 36 [facility] Comment on above: Performed By: #### 2 88143 #### [facility],[address] [place] [address] MCV (RBC) [Entitic vol] 93 fL Normal 80 - 99 [facility] Comment on above: Performed By: #### 2 35034 #### [facility],[address] [place] [address] Monocytes (Bld) [#/Vol] 0.50 x10EE3/UL Normal 0.20 - 1.00 [facility] Comment on above: Performed By: #### 2 92124 #### [facility],[address] [place] [address] MONOS % 9.5 % Normal 0.0 - 10.0 [facility] Comment on above: Performed By: #### 2 02919 #### [facility],[address] [place] [address] Morphology Kali (Bld) [Interp] N/A Normal [facility] Comment on above: Result Comment: {CD] Performed By: #### 2 89321 #### [facility],[address] [place] [address] Neutrophils (Bld) [#/Vol] 4.20 x10EE3/UL Normal 1.50 - 7.10 [facility] Comment on above: Performed By: #### 2 55800 #### [facility],[address] [place] [address] Neutrophils/100 WBC (Bld) 73.8 % Normal 46.0 - 76.0 [facility] Comment on above: Performed By: #### 2 27685 #### [facility],[address] [place] [address] Platelet mean volume (Bld) [Entitic vol] 8.0 fL Normal 6.6 - 10.5 [facility] Comment on above: Result Comment: AUTO MATED DIFFERENTIAL Performed By: #### 2 34412 #### [facility],[address] [place] [address] Platelets (Bld) [#/Vol] 187 x10EE3/UL Normal 150 - 450 [facility] Comment on above: Performed By: #### 2 14490 #### [facility],[address] [place] [address] RBC (Bld) [#/Vol] 4.19 x 10EE6/UL Normal 4.10 - 5.30 [facility] Comment on above: Performed By: #### 2 86658 #### [facility],[address] [place] [address] WBC (Bld) [#/Vol] 5.8 x 10EE3/UL Normal 4.5 - 10.8 [facility] Comment on above: Performed By: #### 2 79737 #### [facility],[address] [place] [address] LIPID PROFILEon 04-23-2018 Cholesterol [Mass/Vol] 184 mg/dL Normal 0 - 200 [facility] Comment on above: Performed By: #### 2 21229 #### [facility],[address] [place] [address] Cholesterol in HDL [Mass/Vol] 41 mg/dL Normal 40 - 60 [facility] Comment on above: Performed By: #### 2 38040 #### [facility],[address] [place] [address] Cholesterol in LDL [Mass/Vol] 120 mg/dL Normal 0 - 129 [facility] Comment on above: Performed By: #### 2 23812 #### [facility],[address] [place] [address] Cholesterol.total/Chol esterol in HDL [Mass ratio] 4.5 {ratio} Normal 0.0 - 5.0 [facility] Comment on above: Performed By: #### 2 86790 #### [facility],[address] [place] [address] Lipid 1996 panel Normal [facility] Comment on above: Result Comment: LIPI D PROFILE Performed By: #### 2 68374 #### [facility],[address] [place] [address] Triglyceride [Mass/Vol] 115 mg/dL Normal 0 - 150 [facility] Comment on above: Performed By: #### 2 85243 #### [facility],[address] [place] [address] TSHon 04-23-2018 TSH Qn 3.69 uIU/ml Normal 0.34 - 5.60 [facility] Comment on above: Performed By: #### 2 26483 #### [facility],[address] [place], [place] [id number] WRIST COMPLETE RTon 04-06-19 19 WRIST COMPLETE RT [place] [address] Patient: SHABNAM CANO Phone#: : 1945 Age: 72 Gender: F Pt. Type: Out Account: [id number] Location: Ordering: MAYI SMART Exam Date: 04/06/2018/9:00 Family Phys: Charge Code: [id number] Physician: Larue Order #: [id number] DLP Dose#: PROCEDURE: X-RAY WRIST RT COMPLETE MIN 3 VIEWS COMPARISON: [facility], XR, WRIST COMPLETE RT, 03/30/2018, 12:15. INDICATIONS: Pain and swelling FINDINGS: BONES: Subchondral cyst formation is seen in the triquetrum. In the adjacent soft tissues are small calcifications. Lucency through the peripheral aspect of the pisiform again noted versus artifact from overlying adjacent ossifications. SOFT TISSUES: Interval she is lying at the level of the distal radius. EFFUSION: None visible. OTHER: Negative. CONCLUSION: Persistent lucency and ossifications in the soft tissues adjacent to the pisiform. Given the lack of interval change these are most likely degenerative though small avulsion fracture cannot be excluded. If there is persistent pain and concern for fracture at this would be better evaluated with CT. Subchondral cyst formation in the triquetrum. Dictated by: Lizeth Ramirez MD on 04/06/2018 at 10:00 Approved by: Lizeth Ramirez MD on 04/06/2018 at 10:00 Normal [facility] WRIST COMPLETE RTon 03-30-19 19 WRIST COMPLETE RT [place] [address] Patient: SHABNAM CANO Phone#: : 1945 Age: 72 Gender: F Pt. Type: Out Account: [id number] Location: Ordering: [place] [facility] Exam Date: 03/30/2018/12:15 Family Phys: Charge Code: 345324 Physician: Larue Order #: [id number] DLP Dose#: PROCEDURE: X-RAY WRIST RT COMPLETE MIN 3 VIEWS COMPARISON: None. INDICATIONS: Pain and swelling of right wrist FINDINGS: BONES: Moderate degenerative changes are present at the wrist. There is chondrocalcinosis. There is a faint lucency at the medial margin of the pisiform and nondisplaced avulsion cannot be completely excluded. SOFT TISSUES: There is mild dorsal soft tissue swelling. EFFUSION: None visible. OTHER: Negative. CONCLUSION: 1. Degenerative changes are present. Nondisplaced cortical avulsion from the medial margin of the pisiform cannot be excluded. Dictated by: Roselia Mccrary MD on 03/30/2018 at 12:35 Approved by: Roselia Mccrary MD on 03/30/2018 at 12:35 Normal [facility] CULTURE URINEon 02-21-2018 CULTURE URINE CULTURE URINE _URINE CULTURE_ M I C R O B I O L O G Y R E P O R T FINAL ------- Antimicrobial Susceptibility and Organism Identification Report -------- Specimen Number : [id number] Requested : 02/21/18 Specimen Source : URINE Collected : 02/21/18 16:07 [place] of Isolation : OUTPATIENT Received : 02/21/18 16:07 Requesting Physician : BING Franco -- Patient/Specimen Tests and Comments Specimen Comments -------- -------- FINAL REPORT: NO GROWTH AT 18 - 24 HOURS NO GROWTH AT 48 HOURS -- Tech : Source : URINE ID # : [id number] FINAL Report Date : / / : Collected : 02/21/18 16:07 02/24/18.46.JLN. 02/23/18.11.JLN. 02/24/18.JLN.COMPLETE Normal [facility] Comment on above: Performed By: #### [id number] #### [facility],[address] [place] [address] Vital Signs Date Time Vital Sign Value Performing Clinician Faci lity 06-16-2024 15:03-0400 Body temperature 97.7 [degF] Dr. Lucien Ramirez MD Work Phone: 3(812)764-478843 [place] [address] 06-16-2024 15:03-0400 Diastolic blood pressure 64 mm[Hg] Dr. Lucien Ramirez MD Work Phone: 4(957)120-063043 [place] [address] 06-16-2024 15:03-0400 Heart rate 66 /min Dr. Lucien Ramirez MD Work Phone: 0(121)057-307543 [place] [address] 06-16-2024 15:03-0400 Respiratory rate 18 /min Dr. Lucien Ramirez MD Work Phone: [facility] 06-16-2024 15:03-0400 SaO2% (BldA) [Mass fraction] 98 % Dr. Lucien Ramirez MD Work Phone: [facility] 06-16-2024 15:03-0400 Systolic blood pressure 107 mm[Hg] Dr. Lucien Ramirez MD Work Phone: [facility] 06-14-2024 14:10-0400 Body height 154.[address] Lucien Ramirez MD Work Phone: 8(086)495-275308 [place] [address] 06-14-2024 14:10-0400 Body weight 40.[address] Lucien Ramirez MD Work Phone: 3(469)797-444808 [place] [address] 06-14-2024 13:11-0400 Body mass index (BMI) [Ratio] 16.7 kg/m2 Dr. Lucien Ramirez MD Work Phone: 4(243)960-170708 [place] [address] 06-14-2024 12:28-0400 Body temperature 97.6 [degF] Dr. Lucein Ramirez MD Work Phone: 6(761)823-409108 [place] [address] 06-14-2024 12:28-0400 Diastolic blood pressure 67 mm[Hg] Dr. Lucien Ramirez MD Work Phone: 7(595)305-982908 [place] [address] 06-14-2024 12:28-0400 Heart rate 64 /min Dr. Lucien Ramirez MD Work Phone: 3(542)704-429508 [place] [address] 06-14-2024 12:28-0400 Respiratory rate 20 /min Dr. Lucien Ramirez MD Work Phone: 8(315)930-467608 [place] [address] 06-14-2024 12:28-0400 SaO2% (BldA) [Mass fraction] 99 % Dr. Lucien Ramirez MD Work Phone: 8(459)579-576008 [place] [address] 06-14-2024 12:28-0400 Systolic blood pressure 145 mm[Hg] Dr. Lucien Ramirez MD Work Phone: 3(700)591-132908 [place] [address] 06-14-2024 09:11-0400 Body height 154.[address] Lucien Ramirez MD Work Phone: 0(050)884-573908 [place] [address] 06-14-2024 09:11-0400 Body mass index (BMI) [Ratio] 17.4 kg/m2 Dr. Lucien Ramirez MD Work Phone: 6(959)805-599208 [place] [address] 06-14-2024 09:11-0400 Body weight 41.[address] Lucien Ramirez MD Work Phone: 9(785)328-834008 [place] [address] 04-23-2024 11:38-0500 Diastolic blood pressure 89 mm[Hg] Dr. Lucien Ramirez MD Work Phone: 4(995)776-315108 [place] [address] 04-23-2024 11:38-0500 Heart rate 92 /min Dr. Lucien Ramirez MD Work Phone: 7(465)349-127008 [place] [address] 04-23-2024 11:38-0500 Systolic blood pressure 123 mm[Hg] Dr. Lucien Ramirez MD Work Phone: 7(288)244-117008 [place] [address] 04-23-2024 09:34-0500 Body mass index (BMI) [Ratio] 18.1 kg/m2 Dr. Lucien Ramirez MD Work Phone: 2(055)169-312308 [place] [address] 04-23-2024 09:34-0500 Body temperature 98.2 [degF] Dr. Lucien Ramirez MD Work Phone: 8(699)797-557308 [place] [address] 04-23-2024 09:34-0500 Body weight 43.[address] Lucien Ramirez MD Work Phone: 8(678)137-087908 [place] [address] 04-23-2024 09:34-0500 Respiratory rate 14 /min Dr. Lucien Ramirez MD Work Phone: 7(877)771-809708 [place] [address] 04-23-2024 09:34-0500 SaO2% (BldA) [Mass fraction] 97 % Dr. Lucien Ramirez MD Work Phone: 7(302)737-409808 [place] [address] 03-07-2024 10:06-0500 Body temperature 98 [degF] Dr. Lucien Ramirez MD Work Phone: 0(170)472-824208 [place] [address] 03-07-2024 10:06-0500 Diastolic blood pressure 84 mm[Hg] Dr. Lucien Ramirez MD Work Phone: 2(698)161-129408 [place] [address] 03-07-2024 10:06-0500 Heart rate 80 /min Dr. Lucien Ramirez MD Work Phone: 1(246)605-732208 [place] [address] 03-07-2024 10:06-0500 Respiratory rate 16 /min Dr. Lucien Ramirez MD Work Phone: 5(439)872-685408 [place] [address] 03-07-2024 10:06-0500 SaO2% (BldA) [Mass fraction] 98 % Dr. Lucien Ramirez MD Work Phone: [facility] 03-07-2024 10:06-0500 Systolic blood pressure 130 mm[Hg] Dr. Lucien Ramirez MD Work Phone: [facility] 03-06-2024 14:40-0500 Body mass index (BMI) [Ratio] 17.7 kg/m2 Dr. Lucien Ramirez MD Work Phone: [facility] 03-06-2024 14:40-0500 Body weight 42.[address] Lucien Ramirez MD Work Phone: [facility] 02-17-2024 16:27-0500 Diastolic Blood Pressure Non-Invasive 64 mm[Hg] SAKSHI KYLE DO [facility] 02-17-2024 16:27-0500 Heart rate 85 /min SAKSHI KYLE DO [facility] 02-17-2024 16:27-0500 Respiratory rate 16 /min SAKSHI KYLE DO [facility] 02-17-2024 16:27-0500 Systolic Blood Pressure Non-Invasive 147 mm[Hg] SAKSHI KYLE DO [facility] 02-17-2024 14:00-0500 Diastolic Blood Pressure Non-Invasive 61 mm[Hg] SAKSHI KYLE DO [facility] 02-17-2024 14:00-0500 Heart rate 90 /min SAKSHI KYLE DO [facility] 02-17-2024 14:00-0500 Mean blood pressure 83 mm[Hg] SAKSHI KYLE DO [facility] 02-17-2024 14:00-0500 Reason For Taking VItal Signs SAKSHIMAG KYLE DO [facility] 02-17-2024 14:00-0500 Systolic Blood Pressure Non-Invasive 136 mm[Hg] SAKSHI KYLE DO [facility] 02-17-2024 12:47-0500 Blood Pressure Cuff Size SAKSHI KYLE DO [facility] 02-17-2024 12:47-0500 Blood Pressure Location SAKSHI KYLE DO [facility] 02-17-2024 12:47-0500 Blood Pressure Method SAKSHI KYLE DO [facility] 02-17-2024 12:47-0500 Body temperature 97.7 [degF] SAKSHI KYLE DO [facility] 02-17-2024 12:47-0500 Diastolic Blood Pressure Non-Invasive 75 mm[Hg] SAKSHI KYLE DO [facility] 02-17-2024 12:47-0500 Heart rate 74 /min SAKSHI KYLE DO [facility] 02-17-2024 12:47-0500 Respiratory rate 18 /min SAKSHI KYLE DO [facility] 02-17-2024 12:47-0500 Systolic Blood Pressure Non-Invasive 166 mm[Hg] SAKSHI KYLE DO [facility] 10-05-2022 14:30-0400 Body height 154.[address] Mayi Smart Work Phone: [facility] 10-05-2022 14:30-0400 Body mass index (BMI) [Ratio] 25.9 kg/m2 Dr. Mayi Smart Work Phone: [facility] 10-05-2022 14:30-0400 Body temperature 98.4 [degF] Dr. Mayi Smart Work Phone: [facility] 10-05-2022 14:30-0400 Body weight 62.[address] Mayi Smart Work Phone: [facility] 10-05-2022 14:30-0400 Diastolic blood pressure 81 mm[Hg] Dr. Mayi Smart Work Phone: [facility] 10-05-2022 14:30-0400 Heart rate 61 /min Dr. Mayi Smart Work Phone: [facility] 10-05-2022 14:30-0400 Respiratory rate 16 /min Dr. Mayi Smart Work Phone: [facility] 10-05-2022 14:30-0400 SaO2% (BldA) [Mass fraction] 94 % Dr. Mayi Smart Work Phone: [facility] 10-05-2022 14:30-0400 Systolic blood pressure 138 mm[Hg] Dr. Mayi Smart Work Phone: [facility] 06-06-2022 09:57-0400 Body temperature 97.8 [degF] Dr. Mayi Smart Work Phone: [facility] 06-06-2022 09:57-0400 Body weight 64.[address] Mayi Smart Work Phone: [facility] 06-06-2022 09:57-0400 Diastolic blood pressure 62 mm[Hg] Dr. Mayi Smart Work Phone: [facility] 06-06-2022 09:57-0400 Heart rate 56 /min Dr. Mayi Smart Work Phone: [facility] 06-06-2022 09:57-0400 Respiratory rate 16 /min Dr. Mayi Smart Work Phone: [facility] 06-06-2022 09:57-0400 SaO2% (BldA) [Mass fraction] 93 % Dr. Mayi Smart Work Phone: [facility] 06-06-2022 09:57-0400 Systolic blood pressure 128 mm[Hg] Dr. Mayi Smart Work Phone: [facility] 08-17-2021 13:25-0400 Body height 154.[address] Mayi Smart Work Phone: [facility] Work Phone: 08-17-2021 13:25-0400 Body mass index (BMI) [Ratio] 27.6 kg/m2 Dr. Maiy Smart Work Phone: [facility] Work Phone: 08-17-2021 13:25-0400 Body temperature 98.8 [degF] Dr. Mayi Smart Work Phone: [facility] Work Phone: 08-17-2021 13:25-0400 Body weight 66.[address] Mayi Smart Work Phone: [facility] Work Phone: 08-17-2021 13:25-0400 Diastolic blood pressure 82 mm[Hg] Dr. Mayi Smart Work Phone: [facility] Work Phone: 08-17-2021 13:25-0400 Heart rate 65 /min Dr. Mayi Smart Work Phone: [facility] Work Phone: 08-17-2021 13:25-0400 Respiratory rate 14 /min Dr. Mayi Smart Work Phone: [facility] Work Phone: 08-17-2021 13:25-0400 SaO2% (BldA) [Mass fraction] 98 % Dr. Mayi Smart Work Phone: [facility] Work Phone: 08-17-2021 13:25-0400 Systolic blood pressure 140 mm[Hg] Dr. Mayi Smart Work Phone: [facility] Work Phone: 06-02-2021 10:09-0400 Body temperature 96.5 [degF] Dr. Mayi Smart Work Phone: [facility] Work Phone: 06-02-2021 10:09-0400 Body weight 64.[address] Mayi Smart Work Phone: [facility] Work Phone: 06-02-2021 10:09-0400 Diastolic blood pressure 88 mm[Hg] Dr. Mayi Smart Work Phone: [facility] Work Phone: 06-02-2021 10:09-0400 Heart rate 66 /min Dr. Mayi Smart Work Phone: [facility] Work Phone: 06-02-2021 10:09-0400 Respiratory rate 16 /min Dr. Mayi Smart Work Phone: [facility] Work Phone: 06-02-2021 10:09-0400 SaO2% (BldA) [Mass fraction] 98 % Dr. Mayi Smart Work Phone: [facility] Work Phone: 06-02-2021 10:09-0400 Systolic blood pressure 138 mm[Hg] Dr. Mayi Smart Work Phone: [facility] Work Phone: 11-02-2020 10:16-0400 Body mass index (BMI) [Ratio] 27.1 kg/m2 Dr. Mayi Smart Work Phone: [facility] Work Phone: Encounters Encounter Date Encounter Type Care Provider Facility Start: 10-08-2024 End: 10-12-2024 ambulatory TRINIDAD KILPATRICK APRN-COMMERCIAL ADMINISTRATOR Facility:[facility] Start: 10-08-2024 End: 10-12-2024 Outreach Lab TRINIDAD KILPATRICK TUNA PURSE SEINER-COMMERCIAL ADMINISTRATOR [facility] Start: 07-03-2024 ambulatory Naveed Dye Facility: [facility] Start: 06-20-2024 End: 06-26-2024 ambulatory NAVEED DYE DO Facility:[facility] Start: 06-16-2024 Non-patient / Non-visit Dr. Ezra de leon DO -[facility] Work Phone: Start: 06-15-2024 Non-patient / Non-visit Dr. Ezra de leon DO -[facility] Work Phone: Start: 06-14-2024 Non-patient / Non-visit Dr. Ezra de leon -[facility] Work Phone: Start: 06-14-2024 ambulatory Ezra Rahman Facility:[facility] Start: 06-14-2024 End: 06-16-2024 Evaluation and management of inpatient Dr. Ezra Rahman DO -Medical Surgical 3 Work Phone: Start: 06-12-2024 End: 06-16-2024 ambulatory NAVEED DYE DO Facility:[facility] Start: 06-12-2024 End: 06-12-2024 ambulatory NAVEED DYE DO Facility:[facility] Start: 04-23-2024 End: 04-23-2024 Emergency department patient visit Dr. Jose M Contreras DO -Emergency Department Work Phone: Start: 03-06-2024 End: 03-07-2024 Emergency department patient visit Dr. Lucien Ramirez MD -Emergency Department Work Phone: Start: 02-17-2024 End: 02-17-2024 Emergency department patient visit SAKSHI KYLE DO [facility] Start: 02-04-2024 End: 02-04-2024 Emergency department patient visit Constantin Harley Facility:[facility] Start: 01-15-2024 End: 01-19-2024 ambulatory NAVEED E DYE DO Facility:[facility] Start: 01-15-2024 End: 01-19-2024 Outreach Lab NAVEED E DYE DO [facility] Start: 01-05-2024 End: 01-09-2024 ambulatory NAVEED E DYE DO Facility:[facility] Start: 01-05-2024 End: 01-09-2024 Encounter for general adult medical examination without abnormal findings NAVEED E DYE DO Facility:[facility] Start: 01-05-2024 End: 01-09-2024 Outreach Lab NAVEED E DYE DO [facility] Start: 08-29-2023 End: 08-29-2023 ambulatory NAVEED E DYE DO Facility:[facility] Start: 08-29-2023 End: 08-29-2023 Patient encounter procedure NAVEED E DYE DO [facility] Start: 07-18-2023 End: 07-22-2023 ambulatory NAVEED E DYE DO Facility:[facility] Start: 07-18-2023 End: 07-22-2023 Encounter for general adult medical examination without abnormal findings NAVEED E DYE DO Facility:[facility] Start: 07-18-2023 End: 07-22-2023 Outreach Lab NAVEED E DYE DO [facility] Start: 03-30-2023 End: 03-30-2023 ambulatory MAYI SMART MD Facility:[facility] Start: 03-30-2023 End: 03-30-[address] CHAIM POOLE MD [facility] Start: 11-01-2022 End: 11-01-[address] Mayi Smart Work Phone: [facility] Work Phone: Start: 11-01-2022 End: 11-01-[address] Mayi Smart Work Phone: [facility]-Outpatient Breast Imaging Work Phone: Start: 10-07-2022 End: 10-07-[address] Mayi Smart Work Phone: [facility] Work Phone: Start: 10-07-2022 End: 10-07-[address] Mayi Smart Work Phone: [facility]-Laboratory Work Phone: Start: 10-05-2022 End: 10-05-[address] Mayi Smart Work Phone: [facility] Work Phone: Start: 06-21-2022 End: 06-21-[address] Mayi Smart Work Phone: [facility] Work Phone: Start: 06-21-2022 End: 06-21-[address] Mayi Smart Work Phone: [facility]atory Start: 06-06-2022 End: 06-06-[address] Mayi Smart Work Phone: [facility] Start: 08-31-2021 End: 08-31-[address] Mayi Smart Work Phone: [facility]-Outpatient Bone Densitometry Start: 08-17-2021 End: 08-17-[address] Mayi Smart Work Phone: [facility] Start: 06-02-2021 End: 06-02-[address] Mayi Smart Work Phone[facility] Start: 06-02-2021 End: 06-02-[address] Mayi Smart Work Phone: [facility] Start: 05-24-2021 End: 05-24-[address] Mayi Smart Work Phone: [facility] [place] Start: 12-31-2018 Patient encounter procedure MAYI TURNER [facility] Start: 12-19-2018 End: 12-19-2018 Patient encounter procedure MAYI TURNER [facility] Start: 09-18-2018 End: 09-18-2018 Patient encounter procedure MAYI TURNER [facility] Start: 05-29-2018 End: 05-29-2018 Patient encounter procedure MAYI TURNER [facility] Start: 04-23-2018 End: 04-23-2018 Patient encounter procedure MAYI TURNER [facility] Start: 04-06-2018 End: 04-06-2018 Patient encounter procedure MAYI TURNER [facility] Start: 03-30-2018 End: 03-30-2018 Patient encounter procedure LOUIS TURNER [facility] Start: 02-21-2018 End: 02-21-2018 Patient encounter procedure MAYI TURNER [facility] Procedures Date Procedure Procedure Detail Performing Clinician Start: 06-14-2024 Plain chest X-ray Dr. Lucien Ramirez MD Work Phone: Start: 04-23-[address] Lucien Ramirez MD Work Phone: Start: 04-23-[address] Lucien Ramirez MD Work Phone: Start: 03-06-2024 CT of head without contrast Dr. Lucien estrada MD Work Phone: Start: 11-01-[address] Mayi Smart Work Phone: Start: 08-31-2021 Dual energy X-ray absorptiometry Dr. Mayi Smart Work Phone: Start: 08-31-[address] Mayi Smart Work Phone: Start: 06-02-2021 Radiography of thoracic spine Dr. Mayi Smart Work Phone: Start: 06-02-2021 X-ray of cervical spine Dr. Mayi Eng er Work Phone: Start: 05-29-2018 Bone density scan MAYI SMART Start: 03-20-2015 Electrocardiographic monitor and recorder, device (physical object) DR CHAIM POOLE MD Start: 03-20-2014 Cardiovascular stress test using pharmacologic stress agent DR CHAIM POOLE MD Start: 03-20-[address] CHAIM POOLE MD Hysterectomy NAVEED Estrada Plan of Treatment Date Care Activity Detail Author Start: 06-16-2024 Patient discharge [facility] Start: 06-15-2024 Speech therapy assessment [facility] Start: 06-14-2024 Following clinical p athway protocol [facility] Start: 06-14-2024 Assessment of risk o f venous thromboembolism [facility] Start: 06-14-2024 Insertion of cathete r into peripheral vein [facility] Start: 06-14-2024 Patient referral to dietitian [facility] Start: 06-14-2024 Providing care accor ding to standard [facility] Start: 06-14-2024 Provision of activit y privileges [facility] Start: 06-14-2024 Referral to occupati onal therapist [facility] Start: 06-14-2024 Referral to service [facility] Start: 06-14-2024 [facility] Start: 06-14-2024 Verification routine [facility] Start: 06-14-2024 Admission procedure [facility] Start: 06-14-2024 Hospital admission, emergency, from emergency room, medical nature [facility] Start: 06-14-2024 [facility] Start: 06-14-2024 [facility] Start: 06-14-2024 Patient referral to dietitian [facility] Start: 04-23-2024 [facility] Start: 04-23-2024 Enteric precautions [facility] Start: 03-07-2024 [facility] Start: 03-06-2024 Referral to service [facility] Start: 06-02-2021 Patient referral [facility] Work Phone: Bilirubin measurement, urine [facility] Hemoglobin [Presence ] in Urine [facility] Measurement of keton es in urine using dipstick [facility] MG Breast - bilatera l Screening [facility] Microscopic urinalysis [facility] Patient Education ED Diarrhea, Unknown Cause [facility] Work Phone: Patient referral [facility] Work Phone: pH of Urine [facility] Specific gravity of Urine [facility] Troponin T.cardiac [Mass/volume] in Serum or Plasma by High sensitivity method [facility] Troponin T.cardiac [Mass/volume] in Serum or Plasma by High sensitivity method [facility] Urine blood test [facility] Urine dipstick for glucose [facility] Urine dipstick for l eukocyte esterase [facility] Urine dipstick for nitrite [facility] Urine dipstick for protein [facility] Urine examination [facility] Urine microscopy: ep ithelial cells [facility] Urine Microscopy: wh ite cells [facility] Urobilinogen [Presen ce] in Urine [facility] Immunizations Immunization Date Immunization Notes Care Provider Ba gonsalez 03-30-2018 influenza virus vacc ine, unspecified formulation [facility] [place] 03-30-2018 pneumococcal polysaccharide vaccine, 23 valent NAVEED DYE DO [facility] Payers Date Payer Category Payer Self-pay [id number] 2024 Private Health Insurance [id number] 2023 Unknown [id number] 2008 Unknown [id number] 1945 Unknown [id number] 2.16.84 0.1.469943.3.579.2.651 1945 Unknown [id number] 2.16.84 0.1.378933.3.579.2.651 1945 Unknown [id number] 2.16.84 0.1.779127.3.579.2.651 1945 Unknown [id number] 2.16.84 0.1.823793.3.579.2.651 1945 Unknown [id number] 2.16.84 0.1.647382.3.579.2.651 1945 Unknown [id number] 2.16.84 0.1.123436.3.579.2.651 1945 Unknown [id number] 2.16.84 0.1.074019.3.579.2.651 1945 Unknown [id number] 2.16.84 0.1.701510.3.579.2.651 1945 Unknown [id number] 2.16.84 0.1.103714.3.579.2.651 1945 Unknown [id number] 2.16.84 0.1.749253.3.579.2.651 1945 Unknown [id number] 2.16.8 40.1.202323.3.579.2.627 1945 Unknown [id number] 2.16.8 40.1.415191.3.579.2.627 1945 Unknown [id number] 2.16.8 40.1.369030.3.579.2.627 1945 Unknown [id number] 2.16. 840.1.114942.3.579.2.627 1945 Unknown [id number] 2.16.8 40.1.576386.3.579.2.627 1945 Unknown [id number] 2.16.8 40.1.874618.3.579.2.627 1945 Unknown [id number] 2.16.8 40.1.827093.3.579.2.627 1945 Unknown [id number] 2.16.8 40.1.100839.3.579.2.627 1945 Unknown [id number] 2.16.8 40.1.440646.3.579.2.627 Unknown [id number] Unknown [id number] 2.16.8 40.1.390980.3.579.2.462 Unknown [id number] 2.16.8 40.1.273786.3.579.2.462 Unknown [id number] 2.16.8 40.1.275504.3.579.2.462 Unknown [id number] 2.16.8 40.1.984039.3.579.2.462 Unknown [id number] 2.16.8 40.1.288404.3.579.2.462 Unknown [id number] 2.16.8 40.1.628694.3.579.2.462 Unknown [id number] 2.16.8 40.1.402658.3.579.2.462 Unknown [id number] 2.16.8 40.1.558437.3.579.2.462 Social History Date Type Detail Facility Start: 08-17-2021 End: 10-05-2022 Tobacco smoking status TXIS Unknown if ever smoked [facility] Start: 1945 Sex Assigned At Female [facility] Start: 02-03-2023 End: 06-12-2024 Tobacco smoking status Never smoked tobacco (finding) [facility] CV Sex Assigned At [facility] Start: 04-28-2005 End: 06-14-2024 Sex Female (finding) [facility] Goals Date Patient Goal Desired Activity /State Functional Status Date Assessment Result Facility 06-16-2024 Functional status Chair [facility] Work Phone: 02-17-2024 Functional Status Minimum assistance [facility] 02-17-2024 Functional Status Up with assistance [facility] 02-17-2024 Functional Status [place] [facility] Mental Status Date Assessment Result Facility 06-16-2024 Cognitive function [place]/Name [facility] [place] 06-16-2024 Cognitive function Cooperative;Anxious [facility] Work Phone: 06-14-2024 Cognitive function Level Of Cons ciousness Awake;Appropriate;Follows Commands [facility] Work Phone: 02-17-2024 Mental Status Orientation Oriented x 4 [facility] 02-17-2024 Mental Status [facility] Clinical Notes 11-16-2020 to 10-10-2024 Note Date & Type Note Facility 10-10-2024 Note . MICRO - Microbiology PROCEDURE: Urine Culture [*1] SOURCE: Urine, Clean Catch BODY SITE: COLLECTED DATE/TIME: 10/08/2024 16:07 EDT RECEIVED DATE/TIME: 10/08/2024 20:25 EDT START DATE/TIME: 10/08/2024 20:25 EDT FREE TEXT SOURCE: FINAL REPORTS Final Report [] Verified Date/Time/Personnel: 10/10/2024 07:20 EDT <10,000 cfu/ml. No Significant growth. Sensitivity not indicated. PRELIMINARY REPORTS Preliminary Report [] Verified Date/Time/Personnel: 10/09/2024 11:25 EDT Culture results pending. Preliminary Report [] Verified Date/Time/Personnel: 10/08/2024 20:59 EDT Specimen received in lab. Performing Locations *1: This test was performed at: [facility], [address] [place] [address], [phone] , [place] [facility] 06-16-2024 Discharge summary [facility] 06-16-2024 Note [facility] Medical Records Department [address] [place] [address] Discharge Summary 06/16/24 1732 MR#: [id number] Acct: [id number] Name: SHABNAM CANO Rep #: [id number] : 1945 78 From: Ezra Rahman DO PCP: Dr. Naveed Dye DO Status:ADM [facility] Prov[facility] Date of Admission: 06/14/24 Primary Care Physician: Dr. Naveed Dye DO Reason For Visit: SEVERE THRUSH OROPHARYNGITIS, HYPOGLYCEMIA Diagnosis Discharge Diagnosis (1) Thrush: Status: Acute Code(s): B37.0 - Candidal stomatitis Plan: Unclear if she has been on antibiotics as contributed to this but patient has not been able to take her nystatin. Very marked. Patient unable to take any oral right now due to the thrush and likely due to lack of trying as well. Will add viscous lidocaine if the patient would permit that would be very concerned that she may not even want to try that. Continue fluconazole, change to PO and treat for total of 14 days (through 06/27) given severity upon admission. Continue the nystatin swish and swallow as the patient permits. (2) Hypoglycemia: Status: Acute Code(s): E16.2 - Hypoglycemia, unspecified Plan: Improved Does not appear to be symptomatic but concerning because she has not been eating much that this could continued to worsen. Patient received bolus of 500 cc of D5. (3) Debility: Status: Acute Code(s): R53.81 - Other malaise Plan: Likely multifactorial due to progressive weight loss. PT OT evaluate and treat. Case management to assist on disposition. (4) Severe protein-calorie malnutrition: Status: Acute Code(s): E43 - Unspecified severe protein-calorie malnutrition Plan: Unclear if this is due to thrush or thrush is somehow related with her being immunocompromise due to severe nutritional deficiency. I will consult nutrition for recommendations. Would avoid putting in NG tube as she would likely not tolerate at all. And additionally not candidate for TPN as her gut works. (5) Dysphagia: Status: Acute Code(s): R13.10 - Dysphagia, unspecified Plan: At least partially due to thrush. Speech therapy on consult. Plan Psychiatric history: Continue with olanzapine. Complicates care and recovery. No overt concerns that necessitate her being admitted to psychiatric facility at this time. Her lack of nutritional intake is due to her severe wen oropharyngitis, at this time. VTE prophylaxis with enoxaparin DW patient's at bedside. Medications at Discharge Home Medications lactobacillus combo no.13 1 billion cell capsule,delayed release (Probiotic Pearls Complete) 1 cap PO DAILY 12/01/17 Handicap Placard #1 ea 11/12/20 multivitamin 1 tab PO DAILY 12/06/21 omega 2-hrk-lhx-fish oil 300 mg-1,000 mg capsule (Fish Oil) 1 cap PO DAILY 10/05/22 chlorhexidine gluconate 0.12 % mouthwash 1 applic mucous membrane QHS dentures 06/14/24 lorazepam 1 mg tablet 1 mg PO TID 06/14/24 mirtazapine 45 mg tablet 45 mg PO QHS 06/14/24 nystatin 100,000 unit/mL oral suspension 5 ml PO 4X/DAY 06/14/24 olanzapine 5 mg tablet 2.5 - 5 mg PO DAILY 06/14/24 acetaminophen 500 mg tablet 1,000 mg (2 x 500 mg) PO Q8 PRN pain #0 tabs 06/16/24 fluconazole 100 mg tablet 100 mg PO DAILY #11 tabs 06/16/24 lidocaine HCl 2 % mucosal solution 5 ml PO Q3H PRN SORE THROAT 10 days #100 mL 06/16/24 Hospital Course Operations None Procedures None Summary of Care Provided Minutes Spent on Discharge: 35 Hospital Course: Patient presents with hypophonia and dysphagia secondary to his severe thrush or pharyngitis. Patient was started on IV fluconazole as patient was unable to tolerate even the oral nystatin that she had previously. Patient's tongue was completely coated in thrush and just after 2 days of the IV fluconazole there is just a small segment still on her tongue. So doing much better. Patient's diet was advanced and she tolerated that well. She has done well also with physical therapy getting up and ambulating without difficulty. So plan is to discharge her. I did discuss with the patient's this morning as well as his evening and she will be discharged today. She did have some transient hypoglycemia when she presented and is likely due to poor oral intake. Patient was on D5 infusion for short period of time. Medical Records Data Medical Nutrition Assessment Dietitian: Malnutrition Criteria Met Start: 06/14/24 15:30 Freq: Status: Active Protocol: Document 06/14/24 15:30 SB (Rec: 06/14/24 15:31 SB [id number]) Nutrition Malnutrition Evidence of Yes Malnutrition Exists Evidenced By Suboptimal Energy Intake (Severe),Weight Loss (Severe), Physical Changes (Severe) Clinical Problem Chronic Disease or Condition Related Malnutrition Etiology severe related to inadequate oral intake and difficulty chewing/swallowing Signs/Symptoms as ev (more content not included)... [facility] 06-16-2024 Progress note Note Date/Time June 16, 2024 1:45pm [facility] Medical Records Department [address] [place] [address] Progress Note - Hospitalist 06/16/24 0748 MR#: [id number] Acct: [id number] Name: SHABNAM CANO Rep #:[id number] : 1945 78 From: Ezra Rahman DO PCP: Dr. Naveed Dye, Status:ADM IN [place] [facility] [place] Reason for Visit Reason for Visit: Diagnoses Candidal stomatitis (06/14/24) Hypoglycemia, unspecified (06/14/24) Unspecified severe protein-calorie malnutrition (06/14/24) Other malaise (06/14/24) Subjective Subjective Feeling better. Speaking better. Swallowing better. Objective Data Objective Data Vital Signs: Vital Signs Temp Pulse Resp BP Pulse Ox O2 Del Method 36.8 C 64 20 H 129/58 H 100 Room Air 06/15/24 21:45 06/15/24 21:45 06/15/24 21:45 06/15/24 21:45 06/15/24 21:45 06/15/24 22:28 Oxygen Delivery Method Room Air Weight: 40.143 kg Body Mass Index (BMI) 16.7 Intake & Output: Intake and Output for Last 24 Hours 06/14/24 06/15/2425 23:59 23:59 23:59 Intake Total 2149 610 / 610 Balance 2149 610 / 610 Medical Nutrition Assessment Dietitian: Malnutrition Criteria Met Start: 06/14/24 15:30 Freq: Status: Active Protocol: Document 06/14/24 15:30 SB (Rec: 06/14/24 15:31 SB [id number]) Nutrition Malnutrition Evidence of Yes Malnutrition Exists Evidenced By Suboptimal Energy Intake (Severe),Weight Loss (Severe), Physical Changes (Severe) Clinical Problem Chronic Disease or Condition Related Malnutrition Etiology severe related to inadequate oral intake and difficulty chewing/swallowing Signs/Symptoms as evidenced by PO meeting <75% of estimated nutrition needs x 4 months, 8% unintentional weight loss x 1.5 months, and severe wasting in clavicle, temples, and orbital region. Status Active Problem Recommendation Dietitian Recommend NPO until MARINE ANIMAL TRAINER has evaluated pt. Recommendations/ Recommend advanced diet as tolerated to regular diet Changes per MARINE ANIMAL TRAINER consistency/texture recommendations. Will consult MARINE ANIMAL TRAINER per pt's difficulty chewing/swallowing foods. Will offer ONS at time of follow-up after MARINE ANIMAL TRAINER has evaluated pt. If PO and weight continue to declines, recommend nutrition support. Will monitor weight trends. Lab / Micro Data 06/14/24 10:30 06/15/24 03:51 Labs: Laboratory Results - last 24 hr 06/15/24 18:33: Urine Color Yellow, Urine Clarity Cloudy, Urine pH 6.0, Ur Specific [place] 1.025, Urine Protein 100 H, Urine Glucose (UA) Normal, Urine Ketones 15 H, Urine Occult Blood 25 H, Urine Nitrite Positive H, Urine Bilirubin1 H, Urine Urobilinogen 4 H, Ur Leukocyte Esterase 500 H, Urine RBC 0 SEEN, Urine WBC 25-50 SEEN, Ur Squamous Epith Cells 0-5 SEEN, Calcium Oxalate Crystal 2+, Urine Bacteria 2+, Urine Mucus 1+ Physical Exam Const alert and no apparent distress HEENT head/scalp atraumatic and moist oral mucous membranes Resp normal respiratory effort and no retractions Cardio regular rate, regular rhythm, S1 normal heart sound and S2 normal heart sound GI normal to inspection, nondistended, normoactive bowel sounds, soft to palpation,non-tender and non-distended Extremity normal to inspection Neuro Sensorium / Orientation: awake and alert Assessment & Plan Assessment/Plan (1) Thrush: PLAN: Unclear if she has been on antibiotics as contributed to this but patient has not been able to take her nystatin. Very marked. Patient unable to take any oral right now due to the thrush and likely due to lack of trying as well. Will add viscous lidocaine if the patient would permit that would be very concerned that she may not even want to try that. Continue fluconazole, change to PO and treat for total of 14 days (through 06/27)given severity upon admission. Continue the nystatin swish and swallow as the patient permits. (2) Hypoglycemia: PLAN: Improved Does not appear to be symptomatic but concerning because she has not been eatingmuch that this could continued to worsen. Patient received bolus of 500 cc of D5. (3) Debility: PLAN: Likely multifactorial due to progressive weight loss. PT OT evaluate and treat. Case management to assist on disposition. (4) Severe protein-calorie malnutrition: PLAN: Unclear if this is due to thrush or thrush is somehow related with her being immunocompromise due to severe nutritional deficiency. I will consult nutrition for recommendations. Would avoid putting in NG tube asshe would likely not tolerate at all. And additionally not candidate for TPN [facility]. (5) Dysphagia: PLAN: At least partially due to thrush. Speech therapy on consult. PLAN: Plan Psychiatric history: Continue with olanzapine. Complicates care and recovery. No overt concerns that necessitate her being admitted to psychiatric facility atthis time. Her lack of nutritional intake is due to her severe wen oropharyngitis, at this time. VTE prophylaxis with enoxaparin DW patient's at bedside. Charges/Coding Visit Charges Inpatient E&M: 61873 Subs Hosp L2 06/16/24 1345 <Electronically signed by Ezra Rahman DO> Cosigner Signature (if applicable): CC: ~ Signed [facility] Work Phone: 1(371) 527-113803-30-2025 Progress note [facility] Medical Records Department [address] [place] [address] Progress Note - Hospitalist 06/16/24 0748 MR#: [id number] Acct: [id number] Name: SHABNAM CANO Rep #:[id number] : 1945 78 From: Ezra Rahman DO PCP: Dr. Naveed Dye, DO Status:ADM IN Location: [facility] BW807-2 Reason for Visit Reason for Visit: Diagnoses Candidal stomatitis (06/14/24) Hypoglycemia, unspecified (06/14/24) Unspecified severe protein-calorie malnutrition (06/14/24) Other malaise (06/14/24) Subjective Subjective Feeling better. Speaking better. Swallowing better. Objective Data Objective Data Vital Signs: Vital Signs Temp Pulse Resp BP Pulse Ox O2 Del Method 36.8 C 64 20 H 129/58 H 100 Room Air 06/15/24 21:45 06/15/24 21:45 06/15/24 21:45 06/15/24 21:45 06/15/24 21:45 06/15/24 22:28 Oxygen Delivery Method Room Air Weight: 40.143 kg Body Mass Index (BMI) 16.7 Intake & Output: Intake and Output for Last 24 Hours 06/14/24 06/15/24 06/16/24 23:59 23:59 23:59 Intake Total 2150 / 0 610 / 610 Balance 2149 610 / 610 Medical Nutrition Assessment Dietitian: Malnutrition Criteria Met Start: 06/14/24 15:30 Freq: Status: Active Protocol: Document 06/14/24 15:30 SB (Rec: 06/14/24 15:31 SB [id number]) Nutrition Malnutrition Evidence of Yes Malnutrition Exists Evidenced By Suboptimal Energy Intake (Severe),Weight Loss (Severe), Physical Changes (Severe) Clinical Problem Chronic Disease or Condition Related Malnutrition Etiology severe related to inadequate oral intake and difficulty chewing/swallowing Signs/Symptoms as evidenced by PO meeting <75% of estimated nutrition needs x 4 months, 8% unintentional weight loss x 1.5 months, and severe wasting in clavicle, temples, and orbital region. Status Active Problem Recommendation Dietitian Recommend NPO until MARINE ANIMAL TRAINER has evaluated pt. Recommendations/ Recommend advanced diet as tolerated to regular diet Changes per MARINE ANIMAL TRAINER consistency/texture recommendations. Will consult MARINE ANIMAL TRAINER per pt's difficulty chewing/swallowing foods. Will offer ONS at time of follow-up after MARINE ANIMAL TRAINER has evaluated pt. If PO and weight continue to declines, recommend nutrition support. Will monitor weight trends. Lab / Micro Data 06/14/24 10:30 06/15/24 03:51 Labs: Laboratory Results - last 24 hr 06/15/24 18:33: Urine Color Yellow, Urine Clarity Cloudy, Urine pH 6.0, Ur Specific [place] 1.025, Urine Protein 100 H, Urine Glucose (UA) Normal, Urine Ketones 15 H, Urine Occult Blood 25 H, Urine Nitrite Positive H, Urine Bilirubin1 H, Urine Urobilinogen 4 H, Ur Leukocyte Esterase 500 H, Urine RBC 0 SEEN, Urine WBC 25-50 SEEN, Ur Squamous Epith Cells 0-5 SEEN, Calcium Oxalate Crystal 2+, Urine Bacteria 2+, Urine Mucus 1+ Physical Exam Const alert and no apparent distress HEENT head/scalp atraumatic and moist oral mucous membranes Resp normal respiratory effort and no retractions Cardio regular rate, regular rhythm, S1 normal heart sound and S2 normal heart sound GI normal to inspection, nondistended, normoactive bowel sounds, soft to palpation,non-tender and non-distended Extremity normal to inspection Neuro Sensorium / Orientation: awake and alert Assessment & Plan Assessment/Plan (1) Thrush: PLAN: Unclear if she has been on antibiotics as contributed to this but patient has not been able to take her nystatin. Very marked. Patient unable to take any oral right now due to the thrush and likely due to lack of trying as well. Will add viscous lidocaine if the patient would permit that would be very concerned that she may not even want to try that. Continue fluconazole, change to PO and treat for total of 14 days (through 06/27)given severity uponadmission. Continue the nystatin swish and swallow as the patient permits. (2) Hypoglycemia: PLAN: Improved Does not appear to be symptomatic but concerning because she has not been eatingmuch that this could continued to worsen. Patient received bolus of 500 cc of D5. (3) Debility: PLAN: Likely multifactorial due to progressive weight loss. PT OT evaluate and treat. Case management to assist on disposition. (4) Severe protein-calorie malnutrition: PLAN: Unclear if this is due to thrush or thrush is somehow related with her being immunocompromisedue to severe nutritional deficiency. I will consult nutrition for recommendations. Would avoid putting in NG tube asshe would likely nottolerate at all. And additionally not candidate for TPN [employer]. (5) Dysphagia: PLAN: At least partially due to thrush. Speech therapy on consult. PLAN: Plan Psychiatric history: Continue with olanzapine. Complicates care and recovery. No overt concerns that necessitate her being admitted to psychiatric facility atthis time. Her lack of nutritional intakeis due to her severe wen oropharyngitis, at this time. VTE prophylaxis with enoxaparin DW patient's at bedside. Charges/Coding Visit Charges Inpatient E&M: 79957 Subs Hosp L2 06/16/24 1345 Cosigner Signature (if applicable): CC: ~ Signed [facility]03-29-2025 Progress note Author Ezra Rahman [facility] Note Date/Time June 15, 2024 12: 22pm [facility] Medical Records Department [address] [place] [address] Progress Note - Hospitalist 06/15/24 0719 MR#: [id number] Acct: [id number] Name: SHABNAM CANO Rep #:[id number] : 1945 78 From: Ezra Rahman DO PCP: Dr. Naveed Dye DO Status:ADM IN Location: [place] [address] Reason for Visit Reason for Visit: Diagnoses Candidal stomatitis (06/14/24) Hypoglycemia, unspecified (06/14/24) Unspecified severe protein-calorie malnutrition (06/14/24) Other malaise (06/14/24) Subjective Subjective Able to take some oral with clears and some medications. Objective Data Objective Data Vital Signs: Vital Signs Temp Pulse Resp BP Pulse Ox O2 Del Method 37.1 C 68 16 136/71 H 96 Room Air 06/15/24 04:08 06/15/24 04:08 06/15/24 04:08 06/15/24 04:08 06/15/24 04:08 06/15/24 04:08 Oxygen Delivery Method Room Air Weight: 40.143 kg Body Mass Index (BMI) 16.7 Intake & Output: Intake and Output for Last 24 Hours 06/13/24 06/14/24 06/15/24 23:59 23:59 23:59 Intake Total 2149 50 / 50 Balance 2149 50 / 50 Medical Nutrition Assessment Dietitian: Malnutrition Criteria Met Start: 06/14/24 15:30 Freq: Status: Active Protocol: Document 06/14/24 15:30 SB (Rec: 06/14/24 15:31 SB [id number]) Nutrition Malnutrition Evidence of Yes Malnutrition Exists Evidenced By Suboptimal Energy Intake (Severe),Weight Loss (Severe), Physical Changes (Severe) Clinical Problem Chronic Disease or Condition Related Malnutrition Etiology severe related to inadequate oral intake and difficulty chewing/swallowing Signs/Symptoms as evidenced by PO meeting <75% of estimated nutrition needs x 4 months, 8% unintentional weight loss x 1.5 months, and severe wasting in clavicle, temples, and orbital region. Status Active Problem Recommendation Dietitian Recommend NPO until MARINE ANIMAL TRAINER has evaluated pt. Recommendations/ Recommend advanced diet as tolerated to regular diet Changes per MARINE ANIMAL TRAINER consistency/texture recommendations. Will consult MARINE ANIMAL TRAINER per pt's difficulty chewing/swallowing foods. Will offer ONS at time of follow-up after MARINE ANIMAL TRAINER has evaluated pt. If PO and weight continue to declines, recommend nutrition support. Will monitor weight trends. Lab / Micro Data 06/14/24 10:30 06/15/24 03:51 Labs: Laboratory Results - last 24 hr 06/14/24 10:30: WBC 5.9, RBC 3.81 L, Hgb 12.2, Hct 38.3, MCV 100.5 H, MCH 32.0, MCHC 31.9 L, RDW Std Deviation 53.1 H, RDW Coeff of Fuentes 14.2, Plt Count 138 L, MPV 9.3, Immature Gran % (Auto) 0.300, Neut % (Auto) 83.8 H, Lymph % (Auto) 7.3 L, Dickens % (Auto) 7.1, Eos % (Auto) 1.2, Baso % (Auto) 0.3, Absolute Neuts (auto)5.0, Absolute Lymphs (auto) 0.43 L, Nucleated RBC % 0, Sodium 140, Potassium 4.3, Chloride 107, Carbon Dioxide 17.6 L, Anion Gap 15, BUN 19, Creatinine 0.79,Estim Creat Clear Calc 38.34 L, Est GFR (MDRD) Non-Af 77, BUN/Creatinine Ratio 24.6 H, Glucose 69 L, Calcium 9.4, Total Bilirubin 0.54, AST 19, ALT < 5, Alkaline Phosphatase 74, Troponin T High Sens 13, Total Protein 5.3 L, Albumin 3.2 L, Globulin 2.0 L, Albumin/Globulin Ratio 1.6, Lipase 19 06/14/24 11:28: POC Glucose 50 L 06/14/24 12:37: Troponin T Hi Sens 2 Hr 13 06/14/24 14:20: Troponin T Hi Sens 4Hr 12 06/15/24 03:51: Sodium 139, Potassium 3.7, Chloride 106, Carbon Dioxide 22.2, Anion Gap 10, BUN 13, Creatinine 0.76, Estim Creat Clear Calc 36.73 L, Est GFR (MDRD) Non-Af 80, BUN/Creatinine Ratio 16.4, Glucose 78, Calcium 9.1, Total Bilirubin 0.53, AST 15, ALT < 5, Alkaline Phosphatase 70, Total Protein 5.3 L, Albumin 3.1 L, Globulin 2.2, Albumin/Globulin Ratio 1.4, TSH 3.240 Radiography Diagnostic Testing: Radiology Impression Chest X-Ray 06/14/24 10:30 IMPRESSION: 1. Trace right lung base airspace disease, possibly due to early pneumonia. Reading Location: [facility] Physical Exam Const alert and no apparent distress Constitutional Narrative: up in chair. HEENT head/scalp atraumatic and moist oral mucous membranes HEENT Narrative: decreased thrush on tongue. Eyes PERRL and EOMs intact bilaterally Neuro Sensorium / Orientation: awake Psych affect normal Assessment & Plan Assessment/Plan (1) Thrush: PLAN: Unclear if she has been on antibiotics as contributed to this but patient has not been able to take her nystatin. Very marked. Patient unable to take any oral right now due to the thrush and likely due to lack of trying as well. Will add viscous lidocaine if the patient would permit that would be very concerned that she may not even want to try that. Continue with IV fluconazole for now. Transition over to oral when she is able. Continue the nystatin swish and swallow as the patient permits. (2) Hypoglycemia: PLAN: Improved Does not appear to be symptomatic but concerning because she has not been eatingmuch that this could continued to worsen. Patient received bolus of 500 cc of D5. Will give her another liter of D5 half-normal saline and monitor. (3) Debility: PLAN: Likely multifactorial due to progressive weight loss. PT OT evaluate and treat. Case management to assist on disposition. (4) Severe protein-calorie malnutrition: PLAN: Unclear if this is due to thrush or thrush is somehow related with her being immunocompromise due to severe nutritional deficiency. I will consult nutrition for recommendations. Would avoid putting in NG tube asshe would likely not tolerate at all. And additionally not candidate for TPN [facility]. PLAN: Plan Psychiatric history: Continue with olanzapine. Complicates care and recovery. Will determine during course of her hospitalization if she is a further risk to herself and that it if she would need a psychiatric facility. It is unclear at this time. VTE prophylaxis with enoxaparin Charges/Coding Visit Charges Inpatient E&M: 84145 Subs Hosp L2 06/15/24 1222 <Electronically signed by Ezra Rahman DO> Cosigner Signature (if applicable): CC: ~ Signed [facility] Work Phone: 1(750) 618-434003-29-2025 Progress note [facility] Medical Records Department [address] [place] [address] Progress Note - Hospitalist 06/15/24 0719 MR#: [id number] Acct: [id number] Name: SHABNAM CANO Rep #:[id number] : 1945 78 From: Ezra Rahman DO PCP: Dr. Naveed Dye, DO Status:ADM IN Location: [place] [address] Reason for Visit Reason for Visit: Diagnoses Candidal stomatitis (06/14/24) Hypoglycemia, unspecified (06/14/24) Unspecified severe protein-calorie malnutrition (06/14/24) Other malaise (06/14/24) Subjective Subjective Able to take some oral with clears and some medications. Objective Data Objective Data Vital Signs: Vital Signs Temp Pulse Resp BP Pulse Ox O2 Del Method 37.1 C 68 16 136/71 H 96 Room Air 06/15/24 04:08 06/15/24 04:08 06/15/24 04:08 06/15/24 04:08 06/15/24 04:08 06/15/24 04:08 Oxygen Delivery Method Room Air Weight: 40.143 kg Body Mass Index (BMI) 16.7 Intake & Output: Intake and Output for Last 24 Hours 06/13/24 06/14/24 06/15/24 23:59 23:59 23:59 Intake Total 2149 50 / 50 Balance 2149 50 / 50 Medical Nutrition Assessment Dietitian: Malnutrition Criteria Met Start: 06/14/24 15:30 Freq: Status: Active Protocol: Document 06/14/24 15:30 SB (Rec: 06/14/24 15:31 SB [id number]) Nutrition Malnutrition Evidence of Yes Malnutrition Exists Evidenced By Suboptimal Energy Intake (Severe),Weight Loss (Severe), Physical Changes (Severe) Clinical Problem Chronic Disease or Condition Related Malnutrition Etiology severe related to inadequate oral intake and difficulty chewing/swallowing Signs/Symptoms as evidenced by PO meeting <75% of estimated nutrition needs x 4 months, 8% unintentional weight loss x 1.5 months, and severe wasting in clavicle, temples, and orbital region. Status Active Problem Recommendation Dietitian Recommend NPO until MARINE ANIMAL TRAINER has evaluated pt. Recommendations/ Recommend advanced diet as tolerated to regular diet Changes per MARINE ANIMAL TRAINER consistency/texture recommendations. Will consult MARINE ANIMAL TRAINER per pt's difficulty chewing/swallowing foods. Will offer ONS at time of follow-up after MARINE ANIMAL TRAINER has evaluated pt. If PO and weight continue to declines, recommend nutrition support. Will monitor weight trends. Lab / Micro Data 06/14/24 10:30 06/15/24 03:51 Labs: Laboratory Results - last 24 hr 06/14/24 10:30: WBC 5.9, RBC 3.81 L, Hgb 12.2, Hct 38.3, MCV 100.5 H, MCH 32.0, MCHC 31.9 L, RDW Std Deviation 53.1 H, RDW Coeff of Fuentes 14.2, Plt Count 138 L, MPV 9.3, Immature Gran % (Auto) 0.300, Neut % (Auto) 83.8 H, Lymph % (Auto) 7.3 L, Dickens % (Auto) 7.1, Eos % (Auto) 1.2, Baso % (Auto) 0.3, Absolute Neuts (auto)5.0, Absolute Lymphs (auto) 0.43 L, Nucleated RBC % 0, Sodium 140, Potassium 4.3, Chloride 107, Carbon Dioxide 17.6 L, Anion Gap 15, BUN 19, Creatinine 0.79,Estim Creat Clear Calc 38.34 L, Est GFR (MDRD) Non-Af 77, BUN/Creatinine Ratio 24.6 H, Glucose 69 L, Calcium 9.4, Total Bilirubin 0.54, AST 19, ALT < 5, Alkaline Phosphatase 74, Troponin T High Sens 13, Total Protein 5.3L, Albumin 3.2 L, Globulin 2.0 L, Albumin/Globulin Ratio 1.6, Lipase 19 06/14/24 11:28: POC Glucose 50 L 06/14/24 12:37: Troponin T Hi Sens 2 Hr 13 06/14/24 14:20: Troponin T Hi Sens 4Hr 12 06/15/24 03:51: Sodium 139, Potassium 3.7, Chloride 106, Carbon Dioxide 22.2, Anion Gap 10, BUN 13,Creatinine 0.76, Estim Creat Clear Calc 36.73 L, Est GFR (MDRD) Non-Af 80, BUN/Creatinine Ratio 16.4, Glucose 78, Calcium 9.1, Total Bilirubin 0.53, AST 15, ALT < 5, Alkaline Phosphatase 70, TotalProtein 5.3 L, Albumin 3.1 L, Globulin 2.2, Albumin/Globulin Ratio 1.4, TSH 3.240 Radiography Diagnostic Testing: Radiology Impression Chest X-Ray 06/14/24 10:30 IMPRESSION: 1. Trace right lung base airspace disease, possibly due to early pneumonia. Reading Location: [facility] Physical Exam Const alert and no apparent distress Constitutional Narrative: up in chair. HEENT head/scalp atraumatic and moist oral mucous membranes HEENT Narrative: decreased thrush on tongue. Eyes PERRL and EOMs intact bilaterally Neuro Sensorium / Orientation: awake Psych affect normal Assessment & Plan Assessment/Plan (1) Thrush: PLAN: Unclear if she has been on antibiotics as contributed to this but patient has not been able to take her nystatin. Very marked. Patient unable to take any oral right now due to the thrush and likely due to lack of trying as well. Will add viscous lidocaine if the patient would permit that would be very concerned that she may not even want to try that. Continue with IV fluconazole for now. Transition over to oral when she is able. Continue the nystatin swish and swallow as the patient permits. (2) Hypoglycemia: PLAN: Improved Does not appear to be symptomatic but concerning because she has not been eatingmuch that this could continued to worsen. Patient received bolus of 500 cc of D5. Will give her another liter of D5 half-normal saline and monitor. (3) Debility: PLAN: Likely multifactorial due to progressive weight loss. PT OT evaluate and treat. Case management to assist on disposition. (4) Severe protein-calorie malnutrition: PLAN: Unclear if this is due to thrush or thrush is somehow related with her being immunocompromisedue to severe nutritional deficiency. I will consult nutrition for recommendations. Would avoid putting in NG tube asshe would likely nottolerate at all. And additionally not candidate for TPN milena velasquez works. PLAN: Plan Psychiatric history: Continue with olanzapine. Complicates care and recovery. Will determine duringcourse of her hospitalization if she is a further risk to herself and that it if she would need a psychiatric facility. It is unclear at this time. VTE prophylaxis with enoxaparin Charges/Coding Visit Charges Inpatient E&M: 02872 Subs Hosp L2 06/15/24 1222 Cosigner Signature (if applicable): CC: ~ Signed [facility]03-28-2025 Discharge summary Author Gary Kim [facility] Note Date/Time June 14, 2024 5:0 2pm [facility] Medical Records Department [address] [place] [address] Emergency Department Summary 06/14/24 MR#: [id number] Acct: [id number] Name: SHABNAM CANO Rep #:[id number] : 1945 78 From: Gary Kim DO PCP: Dr. Naveed Dye, DO Status:ADM IN [place] [id number] HPI History of Present Illness Chief Complaint: Weakness Narrative Narrative: Patient is a 78-year-old female who is presenting to the ER today with chief complaint of oral thrush this been in her mouth since Monday, and therefore is causing patient not able to eat, drink. There is concern for dehydration, patient is talking quieter than she normally does. Patient is at bedside. He has frustration because he cannot take care of her at home currently, patient did see the PCP office on Monday. Patient was placed on chlorhexidine mouthwash along with nystatin swish and swallow. Patient states that she cannot use the nystatin swish or swallow or the chlorhexidine secondaryto it burning in her mouth. There is an effort component to this as well per . Patient did weigh over 120 pounds prior to the recent holidays or Liz. Now patient weighs approximately 80 pounds. Patient was in a psychiatric facility in [place] for over a month in March secondary anxiety and other mental health issues. Patient has been declining at home since. Patient did have diarrhea when she was discharged in psychiatric facility in March, that did slow down and eventually stopped. Patient had loose stool today. Patient is incontinent of stool, she can urinate on her own. Patient isvery frail. Patient came in by EMS. Patient does have moderate amount of thrush on her tongue. You can barely hear patient speak secondary to her effort. There is some noted to the posterior pharynx as well. [facility] Medical History Hypothyroidism Hypertension Bilateral leg pain Depression Fibromyalgia Arthritis of left knee Osteoporosis History of colon cancer (2007) Cardiac murmur Tricuspid insufficiency Mitral insufficiency Home Medications ?Medication ?Instructions ?Recorded ?Last Taken ?Type lactobacillus combo no.13 1 1 cap PO DAILY 12/01/17 Un known History billion cell capsule,delayed release (Probiotic Pearls Complete) Handicap Placard #1 ea 11/12/20 Unknown Rx multivitamin 1 tab PO DAILY 12/06/21 Unkn own History omega 8-aru-kjs-fish oil 300 1 cap PO DAILY 10/05/22 U nknown History mg-1,000 mg capsule (Fish Oil) chlorhexidine gluconate 0.12 % 1 applic mucous membran e QHS 06/14/24 Unknown History mouthwash dentures lorazepam 1 mg tablet 1 mg PO TID 06/14/24 5 History mirtazapine 45 mg tablet 45 mg PO QHS 06/14/24 History nystatin 100,000 unit/mL oral 5 ml PO 4X/DAY 06/14/24 06/13/24 History suspension olanzapine 5 mg tablet 2.5 - 5 mg PO DAILY 06/14/24 Unknown History Allergy/AdvReac Type Severity Reaction Status Date / Time amlodipine Allergy Severe anxiety Verified 04/23/24 09:34 meloxicam Allergy Severe weight gain Verified 04/23/24 09:34 pollen extracts Allergy Intermediate Rhinitis Verified 04/23/24 09:34 atenolol (From Tenoretic) Allergy Unknown Unknown Verified 04/23/24 09:34 chlorthalidone (From Allergy Unknown Unknown Verified 04/23/24 09:34 Tenoretic) ciprofloxacin AdvReac Severe joint pain Verified 04/23/24 09:34 pregabalin (From Lyrica) AdvReac Severe Tremors Verified 04/23/24 09:34 lisinopril AdvReac Intermediate cough Verified 04/23/24 09:34 indomethacin AdvReac Unknown unknown Verified 04/23/24 09:34 Family History Father Hypertension Heart disease Brother Hypertension Diabetes Mother Diabetes Heart disease Aunt Breast cancer Grandmother Breast cancer Surgical History History of partial thyroidectomy (2009) History of vaginal hysterectomy (1977) History of colon surgery (2007) Social History Smoking Status: Never smoker alcohol intake: never substance use type: does not use what type of physical activity do you participate in: walking frequency: daily ROS ROS ED ROS Narrative REVIEW OF SYSTEMS: Unless otherwise stated in this report the patient's positiveand negative responses for review of systems for constitutional, eyes, ENT, cardiovascular, respiratory, gastrointestinal, neurological, , musculoskeletal, and integument systems and related systems to the presenting problem are either stated in the history of present illness or were not pertinent or were negative for the symptoms and/or complaints related to the presenting medical problem. EXAM Physical Exam Narrative Exam Narrative: Vital signs reviewed and patient is not hypoxic. Patient is cachectic in appearance, this has been going on since March, not new or acute. General: The patient appears mild distress secondary to week, poor effort inREVIEW OF SYSTEMS: Unless otherwise stated in this report the patient's positive and negative responses for review of systems for constitutional, eyes, ENT, cardiovascular, respiratory, gastrointestinal, neurological, , musculoskeletal, and integument systems and related systems to the presenting problem are either stated in the history of present illness or were not pertinent or were negative for the symptoms and/or complaints related to the presenting medical problem. speaking, sick but not toxic. Patient is resting uncomfortably on cart. No trismus. Not toxic, lethargic, or listless. Skin: Warm, dry, no pallor noted. There is no rash noted. Head: Normocephalic, atraumatic. Eye: Normal conjunctiva, no drainage, EOMI. PERRL. Ears, Nose, Mouth, and Throat: oral mucosa is dry, patient has thick oral thrushnoted to tongue, not able to be scraped off. No signs of thrush to her buccal mucosa bilateral referral mild, mild thrush noted to the posterior pharynx. No other signs of intraoral infection, no signs of Lupillo angina. Nares patent. Mouth without vesicles. Cardiovascular: Regular Rate and Rhythm, no murmurs, gallops, or rubs Respiratory: Patient is in no distress, no accessory muscle use, lungs are clearto auscultation, no wheezing, rales or rhonchi Back: non-tender, no CVA tenderness bilaterally to percussion. NO CTLS midline or paraspinal tenderness to palpation. GI: Soft, no tenderness to palpation, no masses appreciated. No rebound, guarding, or rigidity noted. Musculoskeletal: The patient has full range of motion of all extremities and joints with no difficulty. Patient has no motor, no sensory deficits. Neurological: A&O x4, extremely soft spoken normal speech, no focal neurologicaldeficits. Psychiatric: Cooperative Const Vital Signs: 06/14/24 09:11 06/14/24 09:44 06/14/24 10:15 Temperature 97.6 F L 97.6 F L Temperature Source Oral Oral Pulse Rate 62 57 L Respiratory Rate 16 16 Respiratory Effort Normal Respiratory Pattern Normal Blood Pressure 158/63 H 131/88 H Blood Pressure Mean 94 102 Pulse Ox 98 98 Oxygen Delivery Method Room Air Room Air 06/14/24 11:00 06/14/24 11:23 Temperature 97.8 F 97.8 F Temperature Source Axillary Axillary Pulse Rate 61 58 L Respiratory Rate 16 16 Respiratory Effort Respiratory Pattern Blood Pressure 136/64 H 128/62 H Blood Pressure Mean 88 84 Pulse Ox 99 99 Oxygen Delivery Method Room Air Room Air MDM MDM MDM Narrative Medical decision making narrative: Patient seen and examined: Decreased oral intake, oral thrush. Patient had IV, IV fluids given, IV Diflucan was given. Patient has chlorhexidine and her nystatin swish and swallow at bedside. Differential diagnosis includes but is not limited to: Oral thrush, decreased oral intake, electrolyte abnormality, dehydration, depression Relevant laboratory interpretation: Patient CO2 level was 17. Anion gap normal. Patient the pain and creatinine were 19/0.79. Patient has evidence of malnourishment, protein and albumin levels were low. Radiological studies: Chest x-ray shows no acute cardiopulmonary disease, no filtrate, no effusion. Reevaluation: Social barriers to healthcare: There are no food insecurities, there is no issuewith transportation, there are no insurance barriers After patient had been here about an hour, patient blood sugar was in the 50s. Patient was given IV Diflucan. Patient attempted to give her oral nystatin swish and swallow, patient does not tolerate it well, will spit most of it out. Patient drink minimal orange juice. Patient has a lack of effort as well to drink and appear to help herself. Patient was started on a dextrose drip. Patient will be admitted. Patient was seen and evaluated in the ER by hospitalist, Dr. Rahman. Patient is aware of this and agrees. agrees. Patient will need PT, OT, possible placement in rehab. Disposition: Admit 1210PM to Dr Rahman Diagnosis: Lab Data Attestation: I reviewed the patient's lab results. Labs: Laboratory Results - last 24 hr 06/14/24 06/14/24 10:30 11:28 WBC 5.9 RBC 3.81 L Hgb 12.2 Hct 38.3 MCV 100.5 H MCH 32.0 MCHC 31.9 L RDW Std Deviation 53.1 H RDW Coeff of Fuentes 14.2 Plt Count 138 L MPV 9.3 Immature Gran % (Auto) 0.300 Neut % (Auto) 83.8 H Lymph % (Auto) 7.3 L Dickens % (Auto) 7.1 Eos % (Auto) 1.2 Baso % (Auto) 0.3 Absolute Neuts (auto) 5.0 Absolute Lymphs (auto) 0.43 L Nucleated RBC % 0 Sodium 140 Potassium 4.3 Chloride 107 Carbon Dioxide 17.6 L Anion Gap 15 BUN 19 Creatinine 0.79 Estim Creat Clear Calc 38.34 L Est GFR (MDRD) Non-Af 77 BUN/Creatinine Ratio 24.6 H Glucose 69 L Calcium 9.4 Total Bilirubin 0.54 AST 19 ALT < 5 Alkaline Phosphatase 74 Troponin T High Sens 13 Total Protein 5.3 L Albumin 3.2 L Globulin 2.0 L Albumin/Globulin Ratio 1.6 Lipase 19 POC Glucose 50 L Radiography Chest X-Ray - ED: Read by ED Physician (Chest x-ray shows no acute cardiopulmonary disease, no filtrate, no effusion.) Diagnostic Testing: Clinical Impression(s) from Imaging Studies Chest X-Ray 06/14/24 10:30 IMPRESSION: 1. Trace right lung base airspace disease, possibly due to early pneumonia. Reading Location: [facility] EKG Initial EKG: Attestation: I personally reviewed and interpreted this EKG as follows: (Normal sinus rhythm, no acute ectopy.) Discharge Plan Dx/Rx/DC Orders Clinical Impression: Candidiasis of mouth, Dysphagia, Hypoglycemia Disposition Disposition: Acute Care [facility] Discharge Date/Time: 06/14/24 12:44 What to do if you have Problems For any increased pain, shortness of breath, bleeding, nausea or vomiting, chestpain, or any unexpected problems, contact your Primary Care Provider. Call [facility] ([phone]) or report to the closest Emergency Room. Call 911 if necessary. 06/14/24 1702 <Electronically signed by Gary Kim DO> Cosigner Signature (if applicable): CC: Dr. Naveed Dye DO ~ Signed [facility] Work Phone: [phone] Discharge summary [facility] Medical Records Department [address] [place] [address] Emergency Department Summary 06/14/24 MR#: [id number] Acct: [id number] Name: SHABNAM CANO Rep #:[id number] : 1945 78 From: Gary Kim DO PCP: Dr. Naveed Dye DO Status:ADM IN Location: [facility] [id number] HPI History of Present Illness Chief Complaint: Weakness Narrative Narrative: Patient is a 78-year-old female who is presenting to the ER today with chief complaint of oral thrush this been in her mouth since Monday, and therefore is causing patient not able to eat, drink. There is concern for dehydration, patient is talking quieter than she normally does. Patient husbandis at bedside. He has frustration because he cannot take care of her at home currently, patient didsee the PCP office on Monday. Patient was placed on chlorhexidine mouthwash along with nystatin swish and swallow. Patient states that she cannot use the nystatin swish or swallow or the chlorhexidine secondaryto it burning in her mouth. There is an effort component to this as well per . Patient did weigh over 120 pounds prior to the recent holidays or Liz. Now patient weighs approximately 80 pounds. Patient was in a psychiatric facility in [place] for over a month in March secondary anxiety and other mental health issues. Patient has been declining at home since. Patient did have diarrhea when she was discharged in psychiatric facility in March, that did slow down and e ventually stopped. Patient had loose stool today. Patient is incontinent of stool, she can urinate on her own. Patient isvery frail. Patient came in by EMS. Patient does have moderate amount of thrush on her tongue. You can barely hear patient speak secondary to her effort. There is some noted to the posterior pharynx as well. [facility] Medical History Hypothyroidism Hypertension Bilateral leg pain Depression Fibromyalgia Arthritis of left knee Osteoporosis History of colon cancer (2007) Cardiac murmur Tricuspid insufficiency Mitral insufficiency Home Medications ?Medication ?Instructions ?Recorded ?Last Taken ?Type lactobacillus combo no.13 1 1 cap PO DAILY 12/01/17 Un known History billion cell capsule,delayed release (Probiotic Pearls Complete) Handicap Placard #1 ea 11/12/20 Unknown Rx multivitamin 1 tab PO DAILY 12/06/21 Unkn own History omega 8-kzs-frv-fish oil 300 1 cap PO DAILY 10/05/22 U nknown History mg-1,000 mg capsule (Fish Oil) chlorhexidine gluconate 0.12 % 1 applic mucous membran e QHS 06/14/24 Unknown History mouthwash dentures lorazepam 1 mg tablet 1 mg PO TID 06/14/24 5 History mirtazapine 45 mg tablet 45 mg PO QHS 06/14/24 History nystatin 100,000 unit/mL oral 5 ml PO 4X/DAY 06/14/24 06/13/24 History suspension olanzapine 5 mg tablet 2.5 - 5 mg PO DAILY 06/14/24 Unknown History Allergy/AdvReac Type Severity Reaction Status Date / Time amlodipine Allergy Severe anxiety Verified 04/23/24 09:34 meloxicam Allergy Severe weight gain Verified 04/23/24 09:34 pollen extracts Allergy Intermediate Rhinitis Verified 04/23/24 09:34 atenolol (From Tenoretic) Allergy Unknown Unknown Verified 04/23/24 09:34 chlorthalidone (From Allergy Unknown Unknown Verified 04/23/24 09:34 Tenoretic) ciprofloxacin AdvReac Severe joint pain Verified 04/23/24 09:34 pregabalin (From Lyrica) AdvReac Severe Tremors Verified 04/23/24 09:34 lisinopril AdvReac Intermediate cough Verified 04/23/24 09:34 indomethacin AdvReac Unknown unknown Verified 04/23/24 09:34 Family History Father Hypertension Heart disease Brother Hypertension Diabetes Mother Diabetes Heart disease Aunt Breast cancer Grandmother Breast cancer Surgical History History of partial thyroidectomy (2009) History of vaginal hysterectomy (1977) History of colon surgery (2007) Social History Smoking Status: Never smoker alcohol intake: never substance use type: does not use what type of physical activity do you participate in: walking frequency: daily ROS ROS ED ROS Narrative REVIEW OF SYSTEMS: Unless otherwise stated in this report the patient's positiveand negative responses for review of systems for constitutional, eyes, ENT, cardiovascular, respiratory, gastrointestinal, neurological, , musculoskeletal, and integument systems and related systems to the presenting p roblem are either stated in the history of present illness or were not pertinent or were negative for the symptoms and/or complaints related to the presenting medical problem. EXAM Physical Exam Narrative Exam Narrative: Vital signs reviewed and patient is not hypoxic. Patient is cachectic in appearance, this has been going on since March, not new or acute. General: The patient appears mild distress secondary to week, poor effort inREVIEW OF SYSTEMS: Unless otherwise stated in this report the patient's positive and negative responses for review of systems for constitutional, eyes, ENT, cardiovascular, respiratory, gastrointestinal, neurological, , mu sculoskeletal, and integument systems and related systems to the presenting problem are either stated in the history of present illness or were not pertinent or were negative for the symptoms and/or complaints related to the presenting medical problem. speaking, sick but not toxic. Patient is resting uncomfortably on cart. No trismus. Not toxic, lethargic, or listless. Skin: Warm, dry, no pallor noted. There is no rash noted. Head: Normocephalic, atraumatic. Eye: Normal conjunctiva, no drainage, EOMI. PERRL. Ears, Nose, Mouth, and Throat: oral mucosa is dry, patient has thick oral thrushnoted to tongue, not able to be scraped off. No signs of thrush to her buccal mucosa bilateral referral mild, mild thrush noted to the posterior pharynx. No other signs of intraoral infection, no signs of Lupillo angina.Nares patent. Mouth without vesicles. Cardiovascular: Regular Rate and Rhythm, no murmurs, gallops, or rubs Respiratory: Patient is in no distress, no accessory muscle use, lungs are clearto auscultation, nowheezing, rales or rhonchi Back: non-tender, no CVA tenderness bilaterally to percussion. NO CTLS midline or paraspinal tenderness to palpation. GI: Soft, no tenderness to palpation, no masses appreciated. No rebound, guarding, or rigidity noted. Musculoskeletal: The patient has full range of motion of all extremities and joints with no difficulty. Patient has no motor, no sensory deficits. Neurological: A&O x4, extremely soft spoken normal speech, no focal neurologicaldeficits. Psychiatric: Cooperative Const Vital Signs: 06/14/24 09:11 06/14/24 09:44 06/14/24 10:15 Temperature 97.6 F L 97.6 F L Temperature Source Oral Oral Pulse Rate 62 57 L Respiratory Rate 16 16 Respiratory Effort Normal Respiratory Pattern Normal Blood Pressure 158/63 H 131/88 H Blood Pressure Mean 94 102 Pulse Ox 98 98 Oxygen Delivery Method Room Air Room Air 06/14/24 11:00 06/14/24 11:23 Temperature 97.8 F 97.8 F Temperature Source Axillary Axillary Pulse Rate 61 58 L Respiratory Rate 16 16 Respiratory Effort Respiratory Pattern Blood Pressure 136/64 H 128/62 H Blood Pressure Mean 88 84 Pulse Ox 99 99 Oxygen Delivery Method Room Air Room Air MDM MDM MDM Narrative Medical decision making narrative: Patient seen and examined: Decreased oral intake, oral thrush. Patient had IV, IV fluids given, IV Diflucan was given. Patient has chlorhexidine and her nystatin swish and swallow at bedside. Differential diagnosis includes but is not limited to: Oral thrush, decreased oral intake, electrolyte abnormality, dehydration, depression Relevant laboratory interpretation: Patient CO2 level was 17. Anion gap normal. Patient the pain and creatinine were 19/0.79. Patient has evidence of malnourishment, protein and albumin levels were low. Radiological studies: Chest x-ray shows no acute cardiopulmonary disease, no filtrate, no effusion. Reevaluation: Social barriers to healthcare: There are no food insecurities, there is no issuewith transportation, there are no insurance barriers After patient had been here about an hour, patient blood sugar was in the 50s. Patient was given IV Diflucan. Patient attempted to give her oral nystatin swish and swallow, patient does not tolerate it well, will spit most of it out. Patient drink minimal orange juice. Patient has a lack of effort as well to drink and appear to help herself. Patient was started on a dextrose drip. Patient will be admitted. Patient was seen and evaluated in the ER by hospitalist, Dr. Ramhan. Patient is aware of this and agrees. agrees. Patient will need PT, OT, possible placement in rehab. Disposition: Admit 1210PM to Dr Rahman Diagnosis: Lab Data Attestation: I reviewed the patient's lab results. Labs: Laboratory Results - last 24 hr 06/14/24 06/14/24 10:30 11:28 WBC 5.9 RBC 3.81 L Hgb 12.2 Hct 38.3 MCV 100.5 H MCH 32.0 MCHC 31.9 L RDW Std Deviation 53.1 H RDW Coeff of Fuentes 14.2 Plt Count 138 L MPV 9.3 Immature Gran % (Auto) 0.300 Neut % (Auto) 83.8 H Lymph % (Auto) 7.3 L Dickens % (Auto) 7.1 Eos % (Auto) 1.2 Baso % (Auto) 0.3 Absolute Neuts (auto) 5.0 Absolute Lymphs (auto) 0.43 L Nucleated RBC % 0 Sodium 140 Potassium 4.3 Chloride 107 Carbon Dioxide 17.6 L Anion Gap 15 BUN 19 Creatinine 0.79 Estim Creat Clear Calc 38.34 L Est GFR (MDRD) Non-Af 77 BUN/Creatinine Ratio 24.6 H Glucose 69 L Calcium 9.4 Total Bilirubin 0.54 AST 19 ALT < 5 Alkaline Phosphatase 74 Troponin T High Sens 13 Total Protein 5.3 L Albumin 3.2 L Globulin 2.0 L Albumin/Globulin Ratio 1.6 Lipase 19 POC Glucose 50 L Radiography Chest X-Ray - ED: Read by ED Physician (Chest x-ray shows no acute cardiopulmonary disease, no filtrate, no effusion.) Diagnostic Testing: Clinical Impression(s) from Imaging Studies Chest X-Ray 06/14/24 10:30 IMPRESSION: 1. Trace right lung base airspace disease, possibly due to early pneumonia. Reading Location: [facility] EKG Initial EKG: Attestation: I personally reviewed and interpreted this EKG as follows: (Normal sinus rhythm, no acute ectopy.) Discharge Plan Dx/Rx/DC Orders Clinical Impression: Candidiasis of mouth, Dysphagia, Hypoglycemia Disposition Disposition: Acute Care Hospital [facility] Discharge Date/Time: 06/14/24 12:44 What to do if you have Problems For any increased pain, shortness of breath, bleeding, nausea or vomiting, chestpain, or any unexpected problems, contact your Primary Care Provider. Call [facility] ([phone]) or report tothe closest Emergency Room. Call 911 if necessary. 06/14/24 1702 Cosigner Signature (if applicable): CC: Dr. Naveed Dye, ~ Signed [facility]03-28-2025 History and physical note Author Ezra Rahman [facility] Note Date/Time June 14, 2024 12: 28pm [facility] Medical Records Department [address] [place] [address] H&P Exam - Hospitalist 06/14/24 1222 MR#: [id number] Acct: [id number] Name: SHABNAM CANO Rep #:[id number] : 1945 78 From: Ezra Rahman DO PCP: Dr. Naveed Dye DO Status:ADM IN Location: MS3 [id number] [facility] - General General Date of Service: 06/14/24 Chief Complaint: Debility. Decreased oral intake. [facility] Narrative SHABNAM CANO, is a 78 F who presents presents due to weakness. Patient is a poor historian so history is obtained through the emergency room physician. Patient has been at home and recent diagnosed with thrush and was ordered nystatin but she has not been able to take it because her mouth is so sore. So she presented to the emergency room where she clearly had thrush involving her tongue and oropharynx. She received a dose of 20 mg of IV fluconazole. Is alsonoted that her blood sugar was low at 50. The try to give her juice but she refused it because of her mouth being sore so she received a bolus of D5 500 cc. Patient also been very debilitated and the has been no longer able to care for her because she is so weak. [facility] Medical History Hypothyroidism Hypertension Bilateral leg pain Depression Fibromyalgia Arthritis of left knee Osteoporosis History of colon cancer (2007) Cardiac murmur Tricuspid insufficiency Mitral insufficiency Home Medications ?Medication ?Instructions ?Recorded ?Last Taken ?Type lactobacillus combo no.13 1 1 cap PO DAILY 12/01/17 Un known History billion cell capsule,delayed release (Probiotic Pearls Complete) Handicap Placard #1 ea 11/12/20 Unknown Rx multivitamin 1 tab PO DAILY 12/06/21 Unkn own History omega 2-hcb-lbf-fish oil 300 1 cap PO DAILY 10/05/22 U nknown History mg-1,000 mg capsule (Fish Oil) chlorhexidine gluconate 0.12 % 1 applic QHS dentures 0 06/14/24 Unknown History mouthwash lorazepam 1 mg tablet 1 mg PO TID 06/14/24 5 History mirtazapine 45 mg tablet 45 mg PO QHS 06/14/24 History nystatin 100,000 unit/mL oral 5 ml PO 4X/DAY 06/14/24 06/13/24 History suspension olanzapine 5 mg tablet 2.5 - 5 mg PO DAILY 06/14/24 Unknown History Allergy/AdvReac Type Severity Reaction Status Date / Time amlodipine Allergy Severe anxiety Verified 04/23/24 09:34 meloxicam Allergy Severe weight gain Verified 04/23/24 09:34 pollen extracts Allergy Intermediate Rhinitis Verified 04/23/24 09:34 atenolol (From Tenoretic) Allergy Unknown Unknown Verified 04/23/24 09:34 chlorthalidone (From Allergy Unknown Unknown Verified 04/23/24 09:34 Tenoretic) ciprofloxacin AdvReac Severe joint pain Verified 04/23/24 09:34 pregabalin (From Lyrica) AdvReac Severe Tremors Verified 04/23/24 09:34 lisinopril AdvReac Intermediate cough Verified 04/23/24 09:34 indomethacin AdvReac Unknown unknown Verified 04/23/24 09:34 Family History Father Hypertension Heart disease Brother Hypertension Diabetes Mother Diabetes Heart disease Aunt Breast cancer Grandmother Breast cancer Surgical History History of partial thyroidectomy (2009) History of vaginal hysterectomy (1977) History of colon surgery (2007) Social History Smoking Status: Never smoker alcohol intake: never substance use type: does not use what type of physical activity do you participate in: walking frequency: daily ROS ROS Narrative Unable to adequately obtain as the patient is just very weak and not able to effectively answer questions because of her weak voice. Vital Signs Vital Signs Vital Signs: 06/14/24 09:11 06/14/24 09:44 06/14/24 10:15 Temperature 36.4 C L 36.4 C L Temperature Source Oral Oral Pulse Rate 62 57 L Respiratory Rate 16 16 Respiratory Effort Normal Respiratory Pattern Normal Blood Pressure 158/63 H 131/88 H Blood Pressure Mean 94 102 Pulse Ox 98 98 Oxygen Delivery Method Room Air Room Air 06/14/24 11:00 06/14/24 11:23 Temperature 36.6 C 36.6 C Temperature Source Axillary Axillary Pulse Rate 61 58 L Respiratory Rate 16 16 Respiratory Effort Respiratory Pattern Blood Pressure 136/64 H 128/62 H Blood Pressure Mean 88 84 Pulse Ox 99 99 Oxygen Delivery Method Room Air Room Air Weight Weight: 41.9 kg Body Mass Index (BMI) 17.4 Physical Exam Const Constitutional Narrative: Cachectic. Afebrile. HEENT normocephalic, head/scalp atraumatic, hearing grossly normal bilaterally and moist oral mucous membranes HEENT Narrative: Marked thrush involving her tongue and oropharynx. Resp normal respiratory effort, no retractions, no use of accessory muscles and clearto auscultation bilaterally Cardio regular rate, regular rhythm, S1 normal heart sound and S2 normal heart sound GI normal to inspection, nondistended, normoactive bowel sounds, soft to palpation,non-tender and non-distended Extremity normal to inspection Neuro Sensorium / Orientation: awake and alert Results Lab / Micro Data 06/14/24 10:30 06/14/24 10:30 Labs: Laboratory Results - last 24 hr 06/14/24 10:30: WBC 5.9, RBC 3.81 L, Hgb 12.2, Hct 38.3, MCV 100.5 H, MCH 32.0, MCHC 31.9 L, RDW Std Deviation 53.1 H, RDW Coeff of Fuentes 14.2, Plt Count 138 L, MPV 9.3, Immature Gran % (Auto) 0.300, Neut % (Auto) 83.8 H, Lymph % (Auto) 7.3 L, Dickens % (Auto) 7.1, Eos % (Auto) 1.2, Baso % (Auto) 0.3, Absolute Neuts (auto)5.0, Absolute Lymphs (auto) 0.43 L, Nucleated RBC % 0, Sodium 140, Potassium 4.3, Chloride 107, Carbon Dioxide 17.6 L, Anion Gap 15, BUN 19, Creatinine 0.79,Estim Creat Clear Calc 38.34 L, Est GFR (MDRD) Non-Af 77, BUN/Creatinine Ratio 24.6 H, Glucose 69 L, Calcium 9.4, Total Bilirubin 0.54, AST 19, ALT < 5, Alkaline Phosphatase 74, Troponin T High Sens 13, Total Protein 5.3 L, Albumin 3.2 L, Globulin 2.0 L, Albumin/Globulin Ratio 1.6, Lipase 19 06/14/24 11:28: POC Glucose 50 L Imaging Radiology Impression Chest X-Ray 06/14/24 10:30 IMPRESSION: 1. Trace right lung base airspace disease, possibly due to early pneumonia. Reading Location: [facility] Assessment & Plan Assessment/Plan (1) Thrush: PLAN: Unclear if she has been on antibiotics as contributed to this but patient has not been able to take her nystatin. Very marked. Patient unable to take any oral right now due to the thrush and likely due to lack of trying as well. Will add viscous lidocaine if the patient would permit that would be very concerned that she may not even want to try that. Continue with IV fluconazole for now. Transition over to oral when she is able. Continue the nystatin swish and swallow as the patient permits. (2) Hypoglycemia: PLAN: Does not appear to be symptomatic but concerning because she has not been eating much that this could continued to worsen. Patient received bolus of 500 cc of D5. Will give her another liter of D5 half-normal saline and monitor. (3) Debility: PLAN: Likely multifactorial due to progressive weight loss. PT OT evaluate and treat. Case management to assist on disposition. (4) Severe protein-calorie malnutrition: PLAN: Unclear if this is due to thrush or thrush is somehow related with her being immunocompromise due to severe nutritional deficiency. I will consult nutrition for recommendations. Would avoid putting in NG tube asshe would likely not tolerate at all. And additionally not can for TPN as her gut works. PLAN: Plan Psychiatric history: Continue with olanzapine. Complicates care and recovery. Will determine during course of her hospitalization if she is a further risk to herself and that it if she would need a psychiatric facility. It is unclear at this time. VTE prophylaxis with enoxaparin Charges/Coding Visit Charges Inpatient E&M: 93341 Init Hosp L3 06/14/24 1228 <Electronically signed by Ezra Rahman DO> Cosigner Signature (if applicable): CC: Dr. Ezra Rahman DO; Dr. Naveed Dye DO~ Signed [facility] Work Phone: 1(247) 795-291003-28-2025 Evaluation note* Diagnosis Onset Date Resolution Status Admit Date Candidiasis of mouth acute [place] 2024 12:15pm Debility acute June 14 12:15pm Dysphagia acute June 14 12:15pm Hypoglycemia acute June 14, 2024 12:15pm Severe protein-calorie malnutrition acute June 14, 2024 12:15pm Thrush acute June 14 12:15pm [facility] Work Phone: 1(161) 495-275703-28-2025 History and physical note [facility] Medical Records Department [address] [place] [address] H&P Exam - Hospitalist 06/14/24 1222 MR#: [id number] Acct: [id number] Name: SHABNAM CANO Rep #:[id number] : 1945 78 From: Ezra Rahman DO PCP: Dr. Naveed Dye, DO Status:ADM IN Location: [facility] [id number] HPI - General General Date of Service: 06/14/24 Chief Complaint: Debility. Decreased oral intake. HPI Narrative SHABNAM CANO, is a 78 F who presents presents due to weakness. Patient is a poor historian so history is obtained through the emergency room physician. Patient has been at home and recent diagnosed with thrush and was ordered nystatin but she has not been able to take it because her mouth is so sore. So she presented to the emergency room where she clearly had thrush involving her tongue and oropharynx. She received a dose of 20 mg of IV fluconazole. Is alsonoted that her blood sugar was low at 50. The try to give her juice but she refused it because of her mouth being sore so she received abolus of D5 500 cc. Patient also been very debilitated and the has been no longer able to ca re for her because she is so weak. [facility] Medical History Hypothyroidism Hypertension Bilateral leg pain Depression Fibromyalgia Arthritis of left knee Osteoporosis History of colon cancer (2007) Cardiac murmur Tricuspid insufficiency Mitral insufficiency Home Medications ?Medication ?Instructions ?Recorded ?Last Taken ?Type lactobacillus combo no.13 1 1 cap PO DAILY 12/01/17 Un known History billion cell capsule,delayed release (Probiotic Pearls Complete) Handicap Placard #1 ea 11/12/20 Unknown Rx multivitamin 1 tab PO DAILY 12/06/21 Unkn own History omega 0-xjk-lvr-fish oil 300 1 cap PO DAILY 10/05/22 U nknown History mg-1,000 mg capsule (Fish Oil) chlorhexidine gluconate 0.12 % 1 applic QHS dentures 0 06/14/24 Unknown History mouthwash lorazepam 1 mg tablet 1 mg PO TID 06/14/24 5 History mirtazapine 45 mg tablet 45 mg PO QHS 06/14/24 History nystatin 100,000 unit/mL oral 5 ml PO 4X/DAY 06/14/24 06/13/24 History suspension olanzapine 5 mg tablet 2.5 - 5 mg PO DAILY 06/14/24 Unknown History Allergy/AdvReac Type Severity Reaction Status Date / Time amlodipine Allergy Severe anxiety Verified 04/23/24 09:34 meloxicam Allergy Severe weight gain Verified 04/23/24 09:34 pollen extracts Allergy Intermediate Rhinitis Verified 04/23/24 09:34 atenolol (From Tenoretic) Allergy Unknown Unknown Verified 04/23/24 09:34 chlorthalidone (From Allergy Unknown Unknown Verified 04/23/24 09:34 Tenoretic) ciprofloxacin AdvReac Severe joint pain Verified 04/23/24 09:34 pregabalin (From Lyrica) AdvReac Severe Tremors Verified 04/23/24 09:34 lisinopril AdvReac Intermediate cough Verified 04/23/24 09:34 indomethacin AdvReac Unknown unknown Verified 04/23/24 09:34 Family History Father Hypertension Heart disease Brother Hypertension Diabetes Mother Diabetes Heart disease Aunt Breast cancer Grandmother Breast cancer Surgical History History of partial thyroidectomy (2009) History of vaginal hysterectomy (1977) History of colon surgery (2007) Social History Smoking Status: Never smoker alcohol intake: never substance use type: does not use what type of physical activity do you participate in: walking frequency: daily ROS ROS Narrative Unable to adequately obtain as the patient is just very weak and not able to effectively answer questions because of her weak voice. Vital Signs Vital Signs Vital Signs: 06/14/24 09:11 06/14/24 09:44 06/14/24 10:15 Temperature 36.4 C L 36.4 C L Temperature Source Oral Oral Pulse Rate 62 57 L Respiratory Rate 16 16 Respiratory Effort Normal Respiratory Pattern Normal Blood Pressure 158/63 H 131/88 H Blood Pressure Mean 94 102 Pulse Ox 98 98 Oxygen Delivery Method Room Air Room Air 06/14/24 11:00 06/14/24 11:23 Temperature 36.6 C 36.6 C Temperature Source Axillary Axillary Pulse Rate 61 58 L Respiratory Rate 16 16 Respiratory Effort Respiratory Pattern Blood Pressure 136/64 H 128/62 H Blood Pressure Mean 88 84 Pulse Ox 99 99 Oxygen Delivery Method Room Air Room Air Weight Weight: 41.9 kg Body Mass Index (BMI) 17.4 Physical Exam Const Constitutional Narrative: Cachectic. Afebrile. HEENT normocephalic, head/scalp atraumatic, hearing grossly normal bilaterally and moist oral mucous membranes HEENT Narrative: Marked thrush involving her tongue and oropharynx. Resp normal respiratory effort, no retractions, no use of accessory muscles and clearto auscultation bilaterally Cardio regular rate, regular rhythm, S1 normal heart sound and S2 normal heart sound GI normal to inspection, nondistended, normoactive bowel sounds, soft to palpation,non-tender and non-distended Extremity normal to inspection Neuro Sensorium / Orientation: awake and alert Results Lab / Micro Data 06/14/24 10:30 06/14/24 10:30 Labs: Laboratory Results - last 24 hr 06/14/24 10:30: WBC 5.9, RBC 3.81 L, Hgb 12.2, Hct 38.3, MCV 100.5 H, MCH 32.0, MCHC 31.9 L, RDW Std Deviation 53.1 H, RDW Coeff of Fuentes 14.2, Plt Count 138 L, MPV 9.3, Immature Gran % (Auto) 0.300, Neut % (Auto) 83.8 H, Lymph % (Auto) 7.3 L, Dickens % (Auto) 7.1, Eos % (Auto) 1.2, Baso % (Auto) 0.3, Absolute Neuts (auto)5.0, Absolute Lymphs (auto) 0.43 L, Nucleated RBC % 0, Sodium 140, Potassium 4.3, Chloride 107, Carbon Dioxide 17.6 L, Anion Gap 15, BUN 19, Creatinine 0.79,Estim Creat Clear Calc 38.34 L, Est GFR (MDRD) Non-Af 77, BUN/Creatinine Ratio 24.6 H, Glucose 69 L, Calcium 9.4, Total Bilirubin 0.54, AST 19, ALT < 5, Alkaline Phosphatase 74, Troponin T High Sens 13, Total Protein 5.3L, Albumin 3.2 L, Globulin 2.0 L, Albumin/Globulin Ratio 1.6, Lipase 19 06/14/24 11:28: POC Glucose 50 L Imaging Radiology Impression Chest X-Ray 06/14/24 10:30 IMPRESSION: 1. Trace right lung base airspace disease, possibly due to early pneumonia. Reading [facility]: [facility] Assessment & Plan Assessment/Plan (1) Thrush: PLAN: Unclear if she has been on antibiotics as contributed to this but patient has not been able to take her nystatin. Very marked. Patient unable to take any oral right now due to the thrush and likely due to lack of trying as well. Will add viscous lidocaine if the patient would permit that would be very concerned that she may not even want to try that. Continue with IV fluconazole for now. Transition over to oral when she is able. Continue the nystatin swish and swallow as the patient permits. (2) Hypoglycemia: PLAN: Does not appear to be symptomatic but concerning because she has not been eating much that this could continued to worsen. Patient received bolus of 500 cc of D5. Will give her another liter of D5 half-normal saline and monitor. (3) Debility: PLAN: Likely multifactorial due to progressive weight loss. PT OT evaluate and treat. Case management to assist on disposition. (4) Severe protein-calorie malnutrition: PLAN: Unclear if this is due to thrush or thrush is somehow related with her being immunocompromisedue to severe nutritional deficiency. I will consult nutrition for recommendations. Would avoid putting in NG tube asshe would likely nottolerate at all. And additionally not can for TPN as her gut works. PLAN: Plan Psychiatric history: Continue with olanzapine. Complicates care and recovery. Will determine duringcourse of her hospitalization if she is a further risk to herself and that it if she would need a psychiatric facility. It is unclear at this time. VTE prophylaxis with enoxaparin Charges/Coding Visit Charges Inpatient E&M: 14993 Init Hosp L3 06/14/24 1228 Cosigner Signature (if applicable): CC: Dr. Ezra Rahman DO; Dr. Naveed Dye DO~ Signed [facility]03-28-2025 Radiology Diagnostic study note [facility] Imaging Services [address] [place] [id number] Chest 1 View (Portable) MR#: [id number] Acct: [id number] Name: SHABNAM CANO Rep #: [id number] : 1945 F 78 From: Jennifer Marie MD PCP: Dr. Naveed Dye DO Status: REG ER Study:Chest 1 View (Portable) Date of Exam: 06/14/24 Exam# [id number] Ordering Dr: Constantin Kim DO PROCEDURE: CHEST 1 VIEW (PORTABLE) 06/14/2024 REASON FOR EXAM: SOB TECHNIQUE: Frontal view of the chest. COMPARISON: None FINDINGS: There is minimal hazy airspace opacity in the right lung base laterally, possibly due to early pneumonia. No pleural effusion or pneumothorax. The cardiac silhouette is enlarged. The thoracic aorta is tortuous. No acute osseous or soft tissue abnormality. A surgical clip is noted at the right lower neck. RAD/Chest 1 View (Portable) IMPRESSION: 1. Trace right lung base airspace disease, possibly due to early pneumonia. [facility] CC: Dr. Gary Kim DO; Dr. Naveed Dye DO ~ Dietary Tech: Signed [facility]03-28-2025 Note. MICRO - Microbiology PROCEDURE: Throat Culture [*1] SOURCE: Throat BODY SITE: COLLECTED DATE/TIME: 06/12/2024 13:25 EDT RECEIVED DATE/TIME: 06/12/2024 18:52 EDT START DATE/TIME: 06/12/2024 18:52 EDT FREE TEXT SOURCE: FINAL REPORTS Final Report [] Verified Date/Time/Personnel: 06/14/2024 07:14 EDT Normal throat higinio present Sensitivity Testing: Not Indicated PRELIMINARY REPORTS Preliminary Report [] Verified Date/Time/Personnel: 06/13/2024 11:09 EDT Negative for upper respiratory pathogens at 24 hours. Performing Locations *1: This test was performed at: [facility], [address] [place] [address], [id number] , [facility]24 Hospital Discharge instructions Patient Education 02/17/2024 16:12:02 Dehydration (Adult) Dehydration (Adult) Dehydration occurs when your body loses too much fluid. This may be the result of prolonged vomiting or diarrhea, excessive sweating, or a high fever. It may also happen if you don t drink enough fluid when you re sick or out in the heat. Misuse of diuretics (water pills) can also be a cause. Symptoms include thirst and decreased urine output. You may also feel dizzy, weak, fatigued, or very drowsy. The diet described below is usually enough to treat dehydration. In some cases, you may need medicine. Home care Drink at least 12 8-ounce glasses of fluid every day to resolve the dehydration. Fluid may include water; orange juice; lemonade; apple, grape, or cranberry juice; clear fruit drinks; electrolyte replacement and sports drinks; and teas and coffee without caffeine. Don't drink alcohol. If you have been diagnosed with a kidney disease, ask your doctor how much and what types of fluids you should drink to prevent dehydration. If you have kidney disease, fluid can build up in the body. This can be dangerous to your health. If you have a fever, muscle aches, or a headache as a result of a cold or flu, you may take acetaminophen or ibuprofen, unless another medicine was prescribed. If you have chronic liver or kidney disease, or have ever had a stomach ulcer or gastrointestinal bleeding, talk with your healthcare provider before using these medicines. Don't take aspirin if you are younger than 18 and have a fever. Aspirin raises the chance for severe liver injury. Follow-up care Follow up with your healthcare provider, or as advised. When to seek medical advice Call your healthcare provider right away if any of these occur: Continued vomiting Frequent diarrhea (more than 5 times a day); blood (red or black color) or mucus in diarrhea Blood in vomit or stool Swollen abdomen or increasing abdominal pain Weakness, dizziness, or fainting Unusual drowsiness or confusion Reduced urine output or extreme thirst Fever of 100.4 F (38 C) or higher 6535-[address] [employer] [place] [address]. All rights reserved. This information is not intended as a substitute for professional medical care. Always follow yourhealthcare professional's instructions. Follow Up Care 02/17/2024 12:36:14 With:Go to emergency room if symptoms worsen Address:Unknown When:2-4 days With:NAVEED DYE DO Address: [address] [place] [phone] When:2-4 days [facility] 11-30-2024 Emergency department Discharge summary Discharge Instructions Thank you for allowing [facility] to assist you with your healthcare needs. The following is importantdischarge information regarding your hospital visit. Diagnosis from Today's Visit Mild dehydration What to Do Next Instructions from Your Care Team Please call Dr Dye office Monday morning about scheduling appointment sooner to possibly start a medication for anxiety and for further evaluation of symptoms you've been experiencing. Please return to the emergency department for more emergent evaluation if you experience any chest pain, shortness of breath or other acute concerns. No qualifying data available. Post Acute Orders No qualifying data available. You Need to Schedule the Following Appointments Follow Up with Go to emergency room if symptoms worsen When:Within 2-4 days Follow Up with NAVEED DYE DO When:Within 2-4 days Where:[address] [place] [phone] Allergies DilTIAZem (Eqv-Cardizem CD) nerve pain Lyrica Tremor amLODIPine Anxiety atenolol Respiratory distress ciprofloxacin Pain indomethacin Headache lisinopril Headache, Coughing meloxicam Weight gain Medications Please ask your primary doctor or pharmacist before taking any other medication not listed, including over the counter drugs, herbal medications, vitamins and or supplements as they may interact withyour home medications. What How Much When Why Instructions Last Dose Unchanged bromfenac ophthalmic (BromSite 0.075% ophthalmic solution) Unchanged calcium carbonate (calcium (as carbonate) 500 mg oral tablet) Unchanged cholecalciferol (Vitamin D3) Once a day Unchanged denosumab (Prolia 60 mg/ mL subcutaneous solution) 1 Milliliter Subcutaneous Every 6 months Preventative health care Osteoporosis M81.0 Unchanged herbal/ nutritional product (Probiotic) Unchanged magnesium glycinate (magnesium glycinate 200 mg oral tablet) by mouth Unchanged multivitamin (Multivitamin) 1 tab(s) by mouth Every day Unchanged polymyxin B-trimethoprim ophthalmic (polymyxin B-trimethoprim 10,000 units-1 mg/ mL ophthalmic solution) Unchanged propranolol (propranolol 20 mg oral tablet) 1 tab(s) by mouth Three (3) times a day Anxiety Tremor Take 30-60 min before triggering events Consider taking twice daily every day to help Unchanged selenium by mouth Once a day Unchanged traZODone (traZODone 50 mg oral tablet) 1 tab(s) by mouth Daily at bedtime Insomnia Please take this list to your next doctor s visit. Bring all medications you take, including over the counter medications, herbals and other supplements with you to your doctor s visit. Patients and families are reminded to discard old lists and to update any records with all medication providers or retail pharmacies. Education Materials Dehydration (Adult) Dehydration occurs when your body loses too much fluid. This may be the result of prolonged vomiting or diarrhea, excessive sweating, or a high fever. It may also happen if you don t drink enough fluid when you re sick or out in the heat. Misuse of diuretics (water pills) can also be a cause. Symptoms include thirst and decreased urine output. You may also feel dizzy, weak, fatigued, or very drowsy. The diet described below is usually enough to treat dehydration. In some cases, you may need medicine. Home care Drink at least 12 8-ounce glasses of fluid every day to resolve the dehydration. Fluid may include water; orange juice; lemonade; apple, grape, or cranberry juice; clear fruit drinks; electrolyte replacement and sports drinks; and teas and coffee without caffeine. Don't drink alcohol. If you have been diagnosed with a kidney disease, ask your doctor how much and what types of fluids you should drink to prevent dehydration. If you have kidney disease, fluid can build up in the body. This can be dangerous to your health. If you have a fever, muscle aches, or a headache as a result of a cold or flu, you may take acetaminophen or ibuprofen, unless another medicine was prescribed. If you have chronic liver or kidney disease, or have ever had a stomach ulcer or gastrointestinal bleeding, talk with your healthcare provider before using these medicines. Don't take aspirin if you are younger than 18 and have a fever. Aspirin raises the chance for severe liver injury. Follow-up care Follow up with your healthcare provider, or as advised. When to seek medical advice Call your healthcare provider right away if any of these occur: Continued vomiting Frequent diarrhea (more than 5 times a day); blood (red or black color) or mucus in diarrhea Blood in vomit or stool Swollen abdomen or increasing abdominal pain Weakness, dizziness, or fainting Unusual drowsiness or confusion Reduced urine output or extreme thirst Fever of 100.4 F (38 C) or higher [id number] [employer]. [address] [place] [address], [place] [address]. All rights reserved. This information is not intended as a substitute for professional medical care. Always follow yourhealthcare professional's instructions. Additional Information VACCINATE! IT SAVES LIVES! Members of the community who have not yet received the COVID-19 vaccine and would like to receive it can visit one of [facility] vaccine clinics. There are many vaccine clinic locations within the [facility]. For locations and available times, please visit www.gettheshot.coronavirus.[place].gov/. It is important to note that some COVID mobile vaccine clinics are held outdoors and may be canceled in rainy or stormy conditions. To learn more about pediatric vaccinations (ages 5-11), we invite you to visit the [facility] webpage. https://www.[email or web address].org/pages/5065-Zqjej-Dbwnkckpjht-Rvitbtqthy-Qnuiv-[email or web address] stions.htmlTo learn more about the COVID-19 vaccine, we invite you to visit the CDC website for a list of frequently asked questions. https://www.cdc.gov/coronavirus/2019-ncov/vaccines/faq.html [facility] Patient Portal Access Instructions: Stay connected with your healthcare team and access your personal medical information anytime with the [facility] Patient Portal. If you would like a full copy of your medical records please contact the [facility] Medical Records Department Monday through Monday between 8a.m. and 4:30p.m. Please follow the directions below to access the portal: 1.Access the email account you provided upon registration to the [facility].2.Look for an invitation email from [facility].3.Open the email and access the invitation link: Accept Invitation to [employer]4.Fill in the required zamorano to create your account. Sign into [email or web address] with your username and password that you created in the above steps to stay up to date. You can then view a summary of results, a summary of your visits, and the ability to download your summaries to your computer or send the information securely to a physician. Remember that your healthcare information is confidential, so carefully consider who you will allow to register on the [facility] Patient Portal for access to your information. You can also access the [employer] Patient Portal on the [employer]. Simply click on Health Records under [place] and then click on the [employer] logo. HOW TO SAFELY DISPOSE OF PRESCRIPTION MEDICATIONS Please use one of the following methods to safely dispose of your unused medications. 1.Use a drug disposal kit: the drug disposal pouch allows you to safely discard your old and unuseddrugs. Ask your nurse to give you one when you are discharged.2.Visit a local take-back location: Many local pharmacies and police departments have programs that collect old and unwanted prescriptiondrugs. Call your local pharmacy or go to http://[employer]/7O6Qm6y to find one close to you.3.Make use of household items: Use cat litter or old coffee grounds to dispose medications if other options arenot available. Mix your drugs with these household products, seal them in an airtight container andthrow it into the garbage. Call [facility]: [phone] to be sure your drugs can be disposed of in this way. Some medicines may require a different approach.4.Never flush your medications down the toilet. IF YOU HAVE BEEN PRESCRIBED AN OPIOIDS FOR PAIN If you have been prescribed an opioid (such as hydrocodone, oxycodone or morphine), it is critical to understand the possible side effects and risks of opioid pain medications. Even when taken as directed, opioids can have several side effects including: Tolerance, meaning you might need to take more of a medication for the same pain relief. Nausea, vomiting and/or constipation. Sleepiness, dizziness, dry mouth, confusion, depression or itching. Physical dependence, meaning you have withdrawal symptoms when a medication is stopped ? this can develop within a few days. KNOW YOUR RESPONSIBILITIES It is important to know exactly how much and how often to take the opioid pain medications you are prescribed. Never take opioids in higher amounts or more often than prescribed. Do not combine opioids with alcohol or other drugs that cause drowsiness, such as benzodiazepines, also known as benzos,including diazepam and alprazolam, muscle relaxants or sleep aids. Never sell or share prescriptionopioids. This is illegal. Store opioids in a secure place and out of reach of others (including children, family, friends and visitors). The last page(s) of this document has been signed and retained as a CHART COPY Signatures Patient Education Materials Dehydration (Adult) Medication Leaflets My discharge plan and instructions have been reviewed and explained to me and I,SHABNAM CANO understand my current condition and have read and understand these discharge instructions. I have received a written copy of the plan/instructions. If I have questions, I am aware that I should contact my doctor. Patient/Cover Inspector Signature: Date/Time: Relationship to Patient: Witness Name/Signature: Date/Time: [facility]06-11-2024 Note ORIGINAL EXAMINATION: BONE DENSITOMETRY 08/29/2023 10:28 am TECHNIQUE: A bone density dual x-ray absorptiometry (DEXA) scan was performed of the axial (e.g. hips, spine) and/or appendicular (e.g. radius) skeleton as appropriate. COMPARISON: None. HISTORY: ORDERING SYSTEM PROVIDED HISTORY: Reason for Exam: Osteoporosis Screening FINDINGS: T Score Left Femoral Neck: -2.8 Left Femoral Neck: 0.541 (g/cm2) T Score Left Hip: -2.1 Left Hip: 0.691 (g/cm2) T Score Lumbar Spine: -4.4 Lumbar Spine: 0.562 (g/cmd2) IMPRESSION: Osteoporosis by WHO criteria. World Health Organization criteria: (Comparing with young normal sex matched population) - Normal: T-score at or above -1 SD (standard deviation) - Osteopenia: T-score between -1 and -2.5 SD - Osteoporosis: T-score at or below -2.5 SD The NOF recommends that FDA-approved medical therapies be considered in post-menopausal women and men age >/= 50 years with a: * Hip or vertebral fracture, or * T-score of /= 20% for major osteoporotic fractures or * >/= 3% for hip fractures All treatment decisions require clinical judgement and consideration of individual patient factors, including patient preferences, comorbidities, previous drug use, risk factors not captured in the FRAX registered model (e.g., frailty, falls, vitamin D deficiency, increased bone turnover, interval significant decline in bone density) and possible under- or over-estimation of fracture risk by FRAX. Interpreted by: aDvid Baum DO Preliminary Report By: David Baum DO Electronically signed By David Baum DO Dictated Date: 08/29/2023 11:45:21 PM Prelim Date: 08/29/2023 11:45:47 PM Sign Date: 08/29/2023 11:45:47 PM Ordering Provider: [facility]01-11-2024 Note * Exam Date Time Procedure Performing Provider Status 03/30/23 9:45 AM Echocardiogram, Adult ([facility]) Auth (Verified) [facility] 08-30-2021 NoteHNO ID: [id number] Author: Aysha Bear Population Health Navigator Service: ? Author Type: ? Type: Progress Notes Filed: 11/16/2020 2:46 PM Note Text: POPULATION HEALTH NAVIGATION OUTREACH Action/FYI I left a voice message re: pcp No care everywhere Contact made with patient or family member? NO Pt identified by name and : NO Outreach Outcome/Action Unable to reach patient: Left message Reason for Outreach Attribution: Provider Off-boarding Payer: Payor: [employer] [place] [employer] / [facility] / Product Type: HMO / Care Gap Reviewed:: Reminder: Reminder note to check Health Maintenance for items below Health Maintenance items due: DEPRESSION SCREENING Never done COVID-19 VACCINE(1) Never done ANNUAL PCP TEAM CHRONIC DISEASE VISIT Never done HEPATITIS C SCREENING Never done BP CONTROLLED (<130/80) Never done DTAP,TDAP,TD(1 - Tdap) Never done SHINGRIX VACCINE(1 of 2) Never done ADVANCE DIRECTIVE DISCUSSION Never done PNEUMOVAX AGE 65 AND OVER WITH 5YR LOOKBACK(1) Never done MAMMOGRAM due on 12/10/2013 DIABETES SCREEN due on 06/02/2015 LIPID SCREEN due on 06/01/2017 COLORECTAL CANCER SCREENING due on 08/20/2019 Advanced Directives Completed: Have you ever planned for future healthcare decisions with a power of disability attorney, living will, or advance directives? No. Please bring a copy to your next appointment or email to Referrals: N/A Message Sent to Practice: NO Navigation Signature: Aysha Bear Population Health Navigator November 16, 2020 2:46 [facility]08-30-2021 NotePatient Outreach (KIRSTINNAV) SHABNAM CANO ([id number]) 1945 F Date Time Provider Department 11/16/20 AYSHA BEAR During your visit today, we recorded the following information about you: Aysha Bear Population Health Navigator 11/16/2020 2:46 PM Signed POPULATION HEALTH NAVIGATION OUTREACH Action/FYI I left a voice message re: pcp No care everywhere Contact made with patient or family member? NO Pt identified by name and : NO Outreach Outcome/Action Unable to reach patient: Left message Reason for Outreach Attribution: Provider Off-boarding Payer: Payor: [employer] [place] [place] [employer] / Plan: [facility] HMO / Product Type: HMO / Care Gap Reviewed:: Reminder: Reminder note to check Health Maintenance for items below Health Maintenance items due: DEPRESSION SCREENING Never done COVID-19 VACCINE(1) Never done ANNUAL PCP TEAM CHRONIC DISEASE VISIT Never done HEPATITIS C SCREENING Never done BP CONTROLLED (<130/80) Never done DTAP,TDAP,TD(1 - Tdap) Never done SHINGRIX VACCINE(1 of 2) Never done ADVANCE DIRECTIVE DISCUSSION Never done PNEUMOVAX AGE 65 AND OVER WITH 5YR LOOKBACK(1) Never done MAMMOGRAM due on 12/10/2013 DIABETES SCREEN due on 06/02/2015 LIPID SCREEN due on 06/01/2017 COLORECTAL CANCER SCREENING due on 08/20/2019 Advanced Directives Completed: Have you ever planned for future healthcare decisions with a power of disability attorney, living will, or advance directives? No. Please bring a copy to your next appointment or email to Referrals: N/A Message Sent to Practice: NO Navigation Signature: Aysha Bear Population Health Navigator November 16, 2020 2:46 PM Allergies As of Date: 11/16/2020 Noted Allergy Reaction GABAPENTIN 01/03/2013 14 - Other: See Comments Comments: Tremors INDOMETHACIN 07/05/2012 14 - Other: See Comments Comments: Headache, throbbing LISINOPRIL 01/06/2014 14 - Other: See Comments Comments: headache LYRICA (PREGABALIN) 01/06/2014 14 - Other: See Comments Comments: tremors METHOTREXATE 02/01/2018 14 - Other: See Comments Comments: states increased her pain Date Reviewed: 02/01/2018 Reviewed by: Romeo Tripathi - Fully Assessed Reason for Visit: Population Health Navigation Outreach [3910] Cmt: Offboarding Prescriptions as of 11/16/2020 - calcitonin,salmon, (MIACALCIN) 200 unit/actuation nasal spray Use 1 Baldwin in the nose once daily. one spray in alternating nostrils daily - Bytlx-6-DHR-EPA-Fish Oil (FISH OIL) 1,000 mg (120 mg-180 mg) cap Take 2 g by mouth once daily. - multivitamin (DAILY MULTI-VITAMIN) tablet Take 1 tablet by mouth once daily. - meloxicam (MOBIC) 15 mg tablet Take 1 tablet by mouth once daily. - levothyroxine (SYNTHROID) 25 mcg tablet Take 25 mcg by mouth once daily. - LUTEIN ORAL Take 1 tablet by mouth once daily. - SELENIUM (SELENIMIN ORAL) Take 200 mcg by mouth once daily. - LACTOBACILLUS ACIDOPHILUS (ACIDOPHILUS ORAL) Take 1 capsule by mouth once daily. - CA CARBONATE/MAG/VITAMIN D2 (CALCIUM CARB-VIT D2-MAGNESIUM ORAL) Take 2 Tablespoonsful by mouth once daily. - cholecalciferol, vitamin D3, (VITAMIN D-3) 400 unit cap Take 400 Units by mouth once daily. taking 2000 iu daily - aspirin, enteric coated (ASPIRIN, ENTERIC COATED) 81 mg EC tablet Take 81 mg by mouth once daily. - metoprolol succinate XL, long acting, 50 mg 24 hr tablet Take 25 mg by mouth once daily. - ibuprofen 200 mg tablet Take 200 mg by mouth every 6 hours as needed. 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] 11/27/2007 MALIGNANT NEOPLASM COLON NOS [C18.9] Blood in stool [K92.1] 11/17/2010 FEMALE STRESS INCONTINENCE [N39.3] ALLERGIC RHINITIS NOS [J30.9] GENERAL OSTEOARTHROSIS [M15.9] TRICUSPID VALVE DISEASE [I07.9] HYPERTENSION NOS [I10] ASYMPTOMATIC VARICOSE VEINS [I83.90] PAIN IN LIMB [M79.609] 10/17/2008 ACQ ANKLE-FOOT DEF NOS [M21.969] 10/17/2008 OTHER HAMMER TOE [M20.40] 10/17/2008 Thyroid Nodule [E04.1] 12/04/2008 History of rectal cancer [Z85.048] 10/11/2011 Encounter Status:Closed by MARIANELA POPULATION HEALTH NAVIGATORAYSHA on 11/16/20[facility] summary Author Ezra Rahman [facility] Note Date/Time June 16, 2024 5:3 8pm [facility] Medical Records Department [address] [place] [address] Discharge Summary 06/16/24 1732 MR#: [id number] Acct: [id number] Name: SHABNAM CANO Rep #:[id number] : 1945 78 From: Ezra Rahman DO PCP: Dr. Naveed Dye, DO Status:ADM IN [facility]: [id number] Providers Date of Admission: 06/14/24 Primary Care Physician: Dr. Naveed Dye DO Reason For Visit: SEVERE THRUSH OROPHARYNGITIS, HYPOGLYCEMIA Diagnosis Discharge Diagnosis (1) Thrush: Status: Acute Code(s): B37.0 - Candidal stomatitis Plan: Unclear if she has been on antibiotics as contributed to this but patient has not been able to take her nystatin. Very marked. Patient unable to take any oral right now due to the thrush and likely due to lack of trying as well. Will add viscous lidocaine if the patient would permit that would be very concerned that she may not even want to try that. Continue fluconazole, change to PO and treat for total of 14 days (through 06/27)given severity upon admission. Continue the nystatin swish and swallow as the patient permits. (2) Hypoglycemia: Status: Acute Code(s): E16.2 - Hypoglycemia, unspecified Plan: Improved Does not appear to be symptomatic but concerning because she has not been eatingmuch that this could continued to worsen. Patient received bolus of 500 cc of D5. (3) Debility: Status: Acute Code(s): R53.81 - Other malaise Plan: Likely multifactorial due to progressive weight loss. PT OT evaluate and treat. Case management to assist on disposition. (4) Severe protein-calorie malnutrition: Status: Acute Code(s): E43 - Unspecified severe protein-calorie malnutrition Plan: Unclear if this is due to thrush or thrush is somehow related with her being immunocompromise due to severe nutritional deficiency. I will consult nutrition for recommendations. Would avoid putting in NG tube asshe would likely not tolerate at all. And additionally not candidate for TPN [employer]. (5) Dysphagia: Status: Acute Code(s): R13.10 - Dysphagia, unspecified Plan: At least partially due to thrush. Speech therapy on consult. Plan Psychiatric history: Continue with olanzapine. Complicates care and recovery. No overt concerns that necessitate her being admitted to psychiatric facility atthis time. Her lack of nutritional intake is due to her severe wen oropharyngitis, at this time. VTE prophylaxis with enoxaparin DW patient's at bedside. Medications at Discharge Home Medications lactobacillus combo no.13 1 billion cell capsule,delayed release (Probiotic Pearls Complete) 1 cap PO DAILY 12/01/17 Handicap Placard #1 ea 11/12/20 multivitamin 1 tab PO DAILY 12/06/21 omega 5-mdr-msd-fish oil 300 mg-1,000 mg capsule (Fish Oil) 1 cap PO DAILY 10/05/22 chlorhexidine gluconate 0.12 % mouthwash 1 applic mucous membrane QHS dentures 06/14/24 lorazepam 1 mg tablet 1 mg PO TID 06/14/24 mirtazapine 45 mg tablet 45 mg PO QHS 06/14/24 nystatin 100,000 unit/mL oral suspension 5 ml PO 4X/DAY 06/14/24 olanzapine 5 mg tablet 2.5 - 5 mg PO DAILY 06/14/24 acetaminophen 500 mg tablet 1,000 mg (2 x 500 mg) PO Q8 PRN pain #0 tabs 06/16/24 fluconazole 100 mg tablet 100 mg PO DAILY #11 tabs 06/16/24 lidocaine HCl 2 % mucosal solution 5 ml PO Q3H PRN SORE THROAT 10 days #100 mL 06/16/24 Hospital Course Operations None Procedures None Summary of Care Provided Minutes Spent on Discharge: 35 Hospital Course: Patient presents with hypophonia and dysphagia secondary to his severe thrush orpharyngitis. Patient was started on IV fluconazole as patient was unable to tolerate even the oral nystatin that she had previously. Patient's tongue was completely coated in thrush and just after 2 days of the IV fluconazole there isjust a small segment still on her tongue. So doing much better. Patient's dietwas advanced and she tolerated that well. She has done well also with physical therapy getting up and ambulating without difficulty. So plan is to discharge her. I did discuss with the patient's this morning as well as his evening and she will be discharged today. She did have some transient hypoglycemia when she presented and is likely due to poor oral intake. Patient was on D5 infusion for short period of time. Medical Records Data Medical Nutrition Assessment Dietitian: Malnutrition Criteria Met Start: 06/14/24 15:30 Freq: Status: Active Protocol: Document 06/14/24 15:30 SB (Rec: 06/14/24 15:31 SB [id number]) Nutrition Malnutrition Evidence of Yes Malnutrition Exists Evidenced By Suboptimal Energy Intake (Severe),Weight Loss (Severe), Physical Changes (Severe) Clinical Problem Chronic Disease or Condition Related Malnutrition Etiology severe related to inadequate oral intake and difficulty chewing/swallowing Signs/Symptoms as evidenced by PO meeting <75% of estimated nutrition needs x 4 months, 8% unintentional weight loss x 1.5 months, and severe wasting in clavicle, temples, and orbital region. Status Active Problem Recommendation Dietitian Recommend NPO until MARINE ANIMAL TRAINER has evaluated pt. Recommendations/ Recommend advanced diet as tolerated to regular diet Changes per MARINE ANIMAL TRAINER consistency/texture recommendations. Will consult MARINE ANIMAL TRAINER per pt's difficulty chewing/swallowing foods. Will offer ONS at time of follow-up after MARINE ANIMAL TRAINER has evaluated pt. If PO and weight continue to declines, recommend nutrition support. Will monitor weight trends. Weight / BMI Weight Weight: 40.143 kg Body Mass Index (BMI) 16.7 ABG / Lab / Microbiology Data 06/14/24 10:30 06/15/24 03:51 Laboratory: Laboratory Results - last 24 hr 06/15/24 18:33: Urine Color Yellow, Urine Clarity Cloudy, Urine pH 6.0, Ur Specific [place] 1.025, Urine Protein 100 H, Urine Glucose (UA) Normal, Urine Ketones 15 H, Urine Occult Blood 25 H, Urine Nitrite Positive H, Urine Bilirubin1 H, Urine Urobilinogen 4 H, Ur Leukocyte Esterase 500 H, Urine RBC 0 SEEN, Urine WBC 25-50 SEEN, Ur Squamous Epith Cells 0-5 SEEN, Calcium Oxalate Crystal 2+, Urine Bacteria 2+, Urine Mucus 1+ D/C Instructions Discharge Diet: - (Soft, easy to chew food and then advance as tolerated.) DC O2, CPAP, BIPAP Needs Home O2 Discharge instructions: No Meaningful Use Info Meaningful Use Meaningful Use Diagnoses (Choose all that apply): None applicable Ischemic Stroke Statin Dosing Therapy Reference: STATIN DOSE THERAPY REFERENCE: * Patients > 75 years receive moderate or high dose statin therapy. * Patients 75 years or YOUNGER should receive HIGH intensity statin dose unless contraindicated. You will be required to document reason for non-treatment if statin daily dose does not meet guidelines. HIGH DOSE STATIN THERAPY DAILY Atorvastatin > than or = to 40 mg Rosuvastatin > than or = to 20 mg Amlodipine + Atorvastatin > than or = to 2.5/40 mg Ezetimibe + Simvastatin 10/80 mg Simvastatin 80mg Discharge Plan Admission Admit Date/Time: 06/14/24 12:15 Primary Reason for Your Visit: Thrush Attending Provider: Ezra Rahman Primary Care Provider: Naveed Dye Discharge Orders/Prescriptions Prescriptions: New acetaminophen 500 mg Tablet 1,000 mg PO Q8 PRN (Reason: pain) Qty: 0 0RF fluconazole 100 mg Tablet 100 mg PO DAILY Qty: 11 0RF lidocaine HCl 2 % Solution 5 ml PO Q3H PRN (Reason: SORE THROAT) 10 Days Qty: 100 0RF Continued multivitamin Tablet 1 tab PO DAILY Patient Comments: PT TAKES SPARINGLY, UNABLE TO SWALLOW omega 9-yjf-gjk-fish oil [Fish Oil] 300-1,000 mg capsule 1 cap PO DAILY Patient Comments: PT TAKES SPARINGLY, UNABLE TO SWALLOW chlorhexidine gluconate 0.12 % mouthwash 1 applic mucous membrane QHS Rx Instructions: SOAK DENTURES IN SOLUTION EVERY NIGHT nystatin 100,000 unit/mL suspension 5 ml PO 4X/DAY olanzapine 5 mg tablet 2.5 - 5 mg PO DAILY mirtazapine 45 mg tablet 45 mg PO QHS lorazepam 1 mg tablet 1 mg PO TID (DME) Handicap Placard See Rx Instructions .Route .MEDSUPPLY Qty: 1 0RF Rx Instructions: As directed for medical reasons Duration 4 years No Action lactobacillus combo no.13 [Probiotic Pearls Complete] 1 billion cell capsule,delayed release(DR/EC) 1 cap PO DAILY Patient Comments: PT TAKES SPARINGLY, UNABLE TO SWALLOW Referrals / Follow Up: Naveed Dye DO [Primary Care Provider] - Within 2 Weeks Disposition Disposition (needs filled in before D/C Order can be placed): Home, Self Care Charges/Coding Visit Charges Inpatient E&M: 31381 Disch Hosp >30min 06/16/24 2797 <Electronically signed by Ezra Rahman DO> Cosigner Signature (if applicable): CC: Dr. Ezra Rahman DO; Dr. Naveed Dye DO~ Signed [facility] Work Phone: Evaluation + Plan note Future Appointments Appointment Date:04/07/2023 10:00:00 AM Scheduled Provider:ANI LOMBARDO Location:[facility] Appointment Type:PC SUPERVISOR REACTOR [employer]UELING [facility] Evaluation + Plan note Future Appointments Appointment Date:07/26/2023 12:30:00 PM Scheduled Provider:NAVEED DYE DO Location:[facility] Appointment Type:PC OV Appointment Date:08/29/2023 10:30:00 AM Scheduled Provider: Location:[facility] Appointment Type:MA Mammogram Screening Bilateral w/ Benito Appointment Date:08/29/2023 11:00:00 AM Scheduled Provider: Location:[facility] Appointment Type:BD Bone Density DEXA Axial Skeleton Future Scheduled Tests Radiology* MA Mammo Screening Bilateral w/ Benito 08/29/23 * BD Bone Density DEXA Axial Skeleton 08/29/23 [facility] Evaluation + Plan note Future Appointments Appointment Date:11/28/2023 01:30:00 PM Scheduled Provider:NAVEED DYE DO Location:[facility] Appointment Type: OV Future Scheduled Tests Laboratory* Zinc, Plasma or Serum 07/26/23 * Methylmalonic Acid, Serum 07/26/23 * Vitamin B6, Plasma 07/26/23 * Vitamin B1 (Thiamine), Blood 07/26/23 * Basic Metabolic Panel 07/26/23 * Ferritin 07/26/23 * Folate Level 07/26/23 * Magnesium Level 07/26/23 * Phosphorus Level 07/26/23 * Iron Studies 07/26/23 * Vitamin D Level 07/26/23 * Homocysteine 07/26/23 * N-Terminal proBNP 07/26/23 [facility] Evaluation + Plan note Future Appointments Appointment Date:03/01/2024 10:30:00 AM Scheduled Provider:NAVEED DYE DO Location:[facility] Appointment Type:PC Wellness Medicare Diagnostic Tests Pending * Vitamin B6, Plasma 01/05/24 * Vitamin B1 (Thiamine), Blood 01/05/24 * Zinc, Plasma or Serum 01/05/24 * Methylmalonic Acid, Serum 01/05/24 Future Scheduled Tests Laboratory* HIV 1/2 Ab 01/05/24 * Prealbumin 01/05/24 [facility] Evaluation + Plan note Future Appointments Appointment Date:03/01/2024 10:30:00 AM Scheduled Provider:NAVEED DYE DO Location:[facility] Appointment Type:PC Wellness Medicare Future Scheduled Tests Laboratory* Prealbumin 01/05/24 [facility] Evaluation + Plan note Future Appointments Appointment Date:10/18/2024 08:45:00 AM Scheduled Provider:NAVEED DYE DO Location:[facility] Appointment Type:PC OV Future Scheduled Tests Laboratory* Prealbumin 01/05/24 [facility] Evaluation note* Diagnosis Onset Date Resolution Status Acute thoracic back pain acu te Cervical pain (neck) acute Elevated MCV acute Vitamin B12 deficiency acute Vitamin D deficiency acute History of colon cancer 2007 [facility] Hypertension chronic Hypothyroidism chronic Varicose veins of both lower extremities acute Venous mckeon acute Vitamin B12 deficiency acute History of colon cancer 2007 [facility] Osteoporosis [facility] Work Phone: Evaluation note* Diagnosis Onset Date Resolution Status Vitamin B12 deficiency acute Vitamin D deficiency acute Aortic insufficiency chronic History of colon cancer 2007 [facility] Hypertension chronic Hypothyroidism chronic Mitral insufficiency [facility] Work Phone: Evaluation note* Diagnosis Onset Date Resolution Status Vitamin B12 deficiency acute Vitamin D deficiency acute History of colon cancer 2007 [facility] Hypertension chronic Hypothyroidism chronic Osteoporosis [facility] Work Phone: evaluation note* Diagnosis Onset Date Resolution Status Admit Date Candidiasis of mouth acute [place] 2024 12:15pm Debility acute June 14 12:15pm Dysphagia acute June 14 12:15pm Hypoglycemia acute June 14, 2024 12:15pm Severe protein-calorie malnutrition acute June 14, 2024 12:15pm Thrush acute June 14 12:15pm [facility] Work Phone: History and physical note Author Ezra Rahman [facility] Note Date/Time June 14, 2024 12: 28pm [facility] Medical Records Department [address] [place] [address] H&P Exam - Hospitalist 06/14/24 1222 MR#: [id number] Acct: [id number] Name: SHABNAM CANO Rep #:[id number] : 1945 78 From: Ezra Rahman DO PCP: Dr. Naveed Dye, DO Status:ADM IN Location: [facility]3 [id number] HPI - General General Date of Service: 06/14/24 Chief Complaint: Debility. Decreased oral intake. HPI Narrative SHABNAM CANO, is a 78 F who presents presents due to weakness. Patient is a poor historian so history is obtained through the emergency room physician. Patient has been at home and recent diagnosed with thrush and was ordered nystatin but she has not been able to take it because her mouth is so sore. So she presented to the emergency room where she clearly had thrush involving her tongue and oropharynx. She received a dose of 20 mg of IV fluconazole. Is alsonoted that her blood sugar was low at 50. The try to give her juice but she refused it because of her mouth being sore so she received a bolus of D5 500 cc. Patient also been very debilitated and the has been no longer able to care for her because she is so weak. [facility] Medical History Hypothyroidism Hypertension Bilateral leg pain Depression Fibromyalgia Arthritis of left knee Osteoporosis History of colon cancer (2007) Cardiac murmur Tricuspid insufficiency Mitral insufficiency Home Medications ?Medication ?Instructions ?Recorded ?Last Taken ?Type lactobacillus combo no.13 1 1 cap PO DAILY 12/01/17 Un known History billion cell capsule,delayed release (Probiotic Pearls Complete) Handicap Placard #1 ea 11/12/20 Unknown Rx multivitamin 1 tab PO DAILY 12/06/21 Unkn own History omega 9-hzn-atc-fish oil 300 1 cap PO DAILY 10/05/22 U nknown History mg-1,000 mg capsule (Fish Oil) chlorhexidine gluconate 0.12 % 1 applic QHS dentures 0 06/14/24 Unknown History mouthwash lorazepam 1 mg tablet 1 mg PO TID 06/14/24 5 History mirtazapine 45 mg tablet 45 mg PO QHS 06/14/24 History nystatin 100,000 unit/mL oral 5 ml PO 4X/DAY 06/14/24 06/13/24 History suspension olanzapine 5 mg tablet 2.5 - 5 mg PO DAILY 06/14/24 Unknown History Allergy/AdvReac Type Severity Reaction Status Date / Time amlodipine Allergy Severe anxiety Verified 04/23/24 09:34 meloxicam Allergy Severe weight gain Verified 04/23/24 09:34 pollen extracts Allergy Intermediate Rhinitis Verified 04/23/24 09:34 atenolol (From Tenoretic) Allergy Unknown Unknown Verified 04/23/24 09:34 chlorthalidone (From Allergy Unknown Unknown Verified 04/23/24 09:34 Tenoretic) ciprofloxacin AdvReac Severe joint pain Verified 04/23/24 09:34 pregabalin (From Lyrica) AdvReac Severe Tremors Verified 04/23/24 09:34 lisinopril AdvReac Intermediate cough Verified 04/23/24 09:34 indomethacin AdvReac Unknown unknown Verified 04/23/24 09:34 Family History Father Hypertension Heart disease Brother Hypertension Diabetes Mother Diabetes Heart disease Aunt Breast cancer Grandmother Breast cancer Surgical History History of partial thyroidectomy (2009) History of vaginal hysterectomy (1977) History of colon surgery (2007) Social History Smoking Status: Never smoker alcohol intake: never substance use type: does not use what type of physical activity do you participate in: walking frequency: daily ROS ROS Narrative Unable to adequately obtain as the patient is just very weak and not able to effectively answer questions because of her weak voice. Vital Signs Vital Signs Vital Signs: 06/14/24 09:11 06/14/24 09:44 06/14/24 10:15 Temperature 36.4 C L 36.4 C L Temperature Source Oral Oral Pulse Rate 62 57 L Respiratory Rate 16 16 Respiratory Effort Normal Respiratory Pattern Normal Blood Pressure 158/63 H 131/88 H Blood Pressure Mean 94 102 Pulse Ox 98 98 Oxygen Delivery Method Room Air Room Air 06/14/24 11:00 06/14/24 11:23 Temperature 36.6 C 36.6 C Temperature Source Axillary Axillary Pulse Rate 61 58 L Respiratory Rate 16 16 Respiratory Effort Respiratory Pattern Blood Pressure 136/64 H 128/62 H Blood Pressure Mean 88 84 Pulse Ox 99 99 Oxygen Delivery Method Room Air Room Air Weight Weight: 41.9 kg Body Mass Index (BMI) 17.4 Physical Exam Const Constitutional Narrative: Cachectic. Afebrile. HEENT normocephalic, head/scalp atraumatic, hearing grossly normal bilaterally and moist oral mucous membranes HEENT Narrative: Marked thrush involving her tongue and oropharynx. Resp normal respiratory effort, no retractions, no use of accessory muscles and clearto auscultation bilaterally Cardio regular rate, regular rhythm, S1 normal heart sound and S2 normal heart sound GI normal to inspection, nondistended, normoactive bowel sounds, soft to palpation,non-tender and non-distended Extremity normal to inspection Neuro Sensorium / Orientation: awake and alert Results Lab / Micro Data 06/14/24 10:30 06/14/24 10:30 Labs: Laboratory Results - last 24 hr 06/14/24 10:30: WBC 5.9, RBC 3.81 L, Hgb 12.2, Hct 38.3, MCV 100.5 H, MCH 32.0, MCHC 31.9 L, RDW Std Deviation 53.1 H, RDW Coeff of Fuentes 14.2, Plt Count 138 L, MPV 9.3, Immature Gran % (Auto) 0.300, Neut % (Auto) 83.8 H, Lymph % (Auto) 7.3 L, Dickens % (Auto) 7.1, Eos % (Auto) 1.2, Baso % (Auto) 0.3, Absolute Neuts (auto)5.0, Absolute Lymphs (auto) 0.43 L, Nucleated RBC % 0, Sodium 140, Potassium 4.3, Chloride 107, Carbon Dioxide 17.6 L, Anion Gap 15, BUN 19, Creatinine 0.79,Estim Creat Clear Calc 38.34 L, Est GFR (MDRD) Non-Af 77, BUN/Creatinine Ratio 24.6 H, Glucose 69 L, Calcium 9.4, Total Bilirubin 0.54, AST 19, ALT < 5, Alkaline Phosphatase 74, Troponin T High Sens 13, Total Protein 5.3 L, Albumin 3.2 L, Globulin 2.0 L, Albumin/Globulin Ratio 1.6, Lipase 19 06/14/24 11:28: POC Glucose 50 L Imaging Radiology Impression Chest X-Ray 06/14/24 10:30 IMPRESSION: 1. Trace right lung base airspace disease, possibly due to early pneumonia. Reading Location: [facility] Assessment & Plan Assessment/Plan (1) Thrush: PLAN: Unclear if she has been on antibiotics as contributed to this but patient has not been able to take her nystatin. Very marked. Patient unable to take any oral right now due to the thrush and likely due to lack of trying as well. Will add viscous lidocaine if the patient would permit that would be very concerned that she may not even want to try that. Continue with IV fluconazole for now. Transition over to oral when she is able. Continue the nystatin swish and swallow as the patient permits. (2) Hypoglycemia: PLAN: Does not appear to be symptomatic but concerning because she has not been eating much that this could continued to worsen. Patient received bolus of 500 cc of D5. Will give her another liter of D5 half-normal saline and monitor. (3) Debility: PLAN: Likely multifactorial due to progressive weight loss. PT OT evaluate and treat. Case management to assist on disposition. (4) Severe protein-calorie malnutrition: PLAN: Unclear if this is due to thrush or thrush is somehow related with her being immunocompromise due to severe nutritional deficiency. I will consult nutrition for recommendations. Would avoid putting in NG tube asshe would likely not tolerate at all. And additionally not can for TPN as her gut works. PLAN: Plan Psychiatric history: Continue with olanzapine. Complicates care and recovery. Will determine during course of her hospitalization if she is a further risk to herself and that it if she would need a psychiatric facility. It is unclear at this time. VTE prophylaxis with enoxaparin Charges/Coding Visit Charges Inpatient E&M: 68795 Init Hosp L3 06/14/24 1228 <Electronically signed by Ezra Rahman DO> Cosigner Signature (if applicable): CC: Dr. Ezra Rahman DO; Dr. Naveed Dye DO~ Signed [facility] Work Phone: Hospital course Narrative No data available for this section [facility] Hospital Discharge instructions No data available for this section [facility] Progress note No data available for this section [facility] Reason for referral (narrative)No reason for referral information available[facility] Work Phone: Summary Purpose Family History No Family History Records Found Relationship Condition Age at Onset Recorded Date/T woo father Hypertension Unknown Cardiac disease Unknown brother Hypertension Unknown Diabetes mellitus Unknown mother Diabetes mellitus Unknown aunt Malignant neoplasm of breast Unknown grandmother Malignant neoplasm of breast Unknown Advance Directives No Advanced Directives Records Found Advance Directive Response Recorded Date/ Time Living Will No March 06 4:22pm Do you have a Healthcare Power of Claims Examiner? No March 06, 2024 4:22pm Living Will No April 23 11:21am Do you have a Healthcare Power of Claims Examiner? No April 23, 2024 11:21am Living Will Yes June 14, 2024 9:16am Do you have a Healthcare Power of Claims Examiner? Yes June 14, 2024 9:16am Name of Medical Power of Claims Examiner NITO June 14, 2024 9:16am Advance Directive Response Recorded Date/ Time Living Will No March 06 4:22pm Do you have a Healthcare Power of Claims Examiner? No March 06, 2024 4:22pm Living Will No April 23 11:21am Do you have a Healthcare Power of Claims Examiner? No April 23, 2024 11:21am Living Will Yes June 14, 2024 1:11pm Do you have a Healthcare Power of Claims Examiner? Yes June 14, 2024 1:11pm Name of Medical Power of Claims Examiner NITO June 14, 2024 1:11pm Chief Complaint and Reason for Visit Chief Complaint 3 M FU NECK AND BACK PAIN bleeding on the ankle SCREENING/OSTEO Reason for Visit Acute thoracic back pain Cervical pain (neck) Elevated MCV Vitamin B12 deficiency Vitamin D deficiency History of colon cancer Hypertension Hypothyroidism Varicose veins of both lower extremities Venous mckeon Vitamin B12 deficiency History of colon cancer Osteoporosis Chief Complaint 6 M FU INT LABS Reason for Visit Vitamin B12 deficien cy Vitamin D deficiency Aortic insufficiency History of colon cancer Hypertension Hypothyroidism Mitral insufficiency Chief Complaint INT LABS 5 M FU E-ORDER Reason for Visit Vitamin B12 deficien cy Vitamin D deficiency History of colon cancer Hypertension Hypothyroidism Osteoporosis Chief Complaint 5 M FU E-ORDER SCREENING Reason for Visit Vitamin B12 deficien cy Vitamin D deficiency History of colon cancer Hypertension Hypothyroidism Osteoporosis Chief Complaint Admit Date ANXIETY March 06, 2024 2:38pm DIARRHEA April 23, 2024 9 :34am SEVERE THRUSH OROPHARYNGITIS, HYPOGLYCEM IA June 14, 2024 12:15pm SEVERE THRUSH OROPHARYNGITIS, HYPOGLYCEM IA June 14, 2024 12:22pm Reason for Visit Admit Date Candidiasis of mouth June 14, 2024 12 :15pm Debility June 14, 2024 12: 15pm Dysphagia June 14, 2024 12: 15pm Hypoglycemia June 14, 2024 12: 15pm Severe protein-calorie malnutrition [facility] 2024 12:15pm Thrush June 14, 2024 12: 15pm Chief Complaint Admit Date ANXIETY March 06, 2024 2:38pm DIARRHEA April 23, 2024 9 :34am SEVERE THRUSH OROPHARYNGITIS, HYPOGLYCEM IA June 14, 2024 12:15pm SEVERE THRUSH OROPHARYNGITIS, HYPOGLYCEM IA June 14, 2024 12:22pm SEVERE THRUSH OROPHARYNGITIS, HYPOGLYCEM IA June 15, 2024 7:19am SEVERE THRUSH OROPHARYNGITIS, HYPOGLYCEM IA June 16, 2024 7:48am Additional Source Comments INFORMATION SOURCE (unrecogn ized section and content) DATE CREATED AUTHOR 09/21/2018 [facility] DATE CREATED AUTHOR AUTHOR'S ORGANIZ ATION 12/31/2018 [facility] DATE CREATED AUTHOR AUTHOR'S ORGANIZ ATION 05/03/2021 [facility] DATE CREATED AUTHOR AUTHOR'S ORGANIZ ATION 09/17/2023 [facility] ([place]) DATE CREATED AUTHOR AUTHOR'S ORGANIZ ATION 07/23/2024 [facility] DATE CREATED AUTHOR AUTHOR'S ORGANIZ ATION 08/02/[address] [facility] DATE CREATED AUTHOR AUTHOR'S ORGANIZ ATION 10/13/2024 [facility] Goals (unrecognized section and content) Goals may be documented in a n alternate sectionGoals may be documented in an alternate sectionGoals may be documented in an alternate sectionGoals may be documented in an alternate section No data available for this section No data available for this section No data available for this section No data available for this section No data available for this section No data available for this sectionGoals may be documented in an alternate section No data available for this section Care Teams (unrecognized sec tion and content) Team Status: Active Member Role Status Dates Dr. Mayi Smart MD Family Provider Active Dr. Mayi Smart MD Primary Care Provider Active Team Status: Inactive Member Role Status Dates Dr. Mayi Smart MD Primary Care Provider, Attendi ng Provider Active Team Status: Inactive Member Role Status Dates Dr. Mayi Smart MD Primary Care Pro vider, Attending Provider, Referring Provider Active Team Status: Active Member Role Status Dates Dr. Naveed Dye DO Primary Care Provider Active Team Status: Inactive Member Role Status Dates Dr. Lucien Ramirez MD Attending Provider Active Sta rt: March 06, 2024 End: March 07, 2024 Dr. Lucien Ramirez MD Emergency Provider Active Sta rt: March 06, 2024 End: March 07, 2024 Dr. Naveed Dye DO Primary Care Provider Active Start: March 06, 2024 End: March 07, 2024 Team Status: Inactive Member Role Status Dates Dr. Naveed Dye DO Primary Care Provider Active Start: April 23, 2024 End: April 23, 2024 Dr. Jose M Contreras DO Attending Provider Active S tart: April 23, 2024 End: April 23, 2024 Dr. Jose M Contreras DO Emergency Provider Active S tart: April 23, 2024 End: April 23, 2024 Team Status: Active Member Role Status Dates Dr. Naveed Dye DO Primary Care Provider Active Start: June 14, 2024 Dr. Gary Kim DO Emergency Provider Active S tart: June 14, 2024 Dr. Ezra Rahman DO Admit Provider Active Star t: June 14, 2024 Dr. Ezra Rahman DO Attending Provider Active Start: June 14, 2024 Team Status: Active Member Role Status Dates Dr. Naveed Dye DO Primary Care Provider Active Start: June 14, 2024 Dr. Gary Kim DO Emergency Provider Active S tart: June 14, 2024 Dr. Ezra Rahman , Admit Provider Active Star t: June 14, 2024 Dr. Ezra Rahman DO Attending Provider Active Start: June 14, 2024 Dr. Ezra Rahman DO Other Provider Active Star t: June 14, 2024 Team Status: Inactive Member Role Status Dates Dr. Naveed Dye DO Primary Care Provider Active Start: June 14, 2024 End: June 16, 2024 Dr. Gary Kim DO Emergency Provider Active S tart: June 14, 2024 End: June 16, 2024 Dr. Ezra Rahman DO Admit Provider Active Star t: June 14, 2024 End: June 16, 2024 Dr. Ezra Rahman DO Attending Provider Active Start: June 14, 2024 End: June 16, 2024 Team Status: Active Member Role Status Dates Dr. Naveed Dye DO Primary Care Provider Active Start: June 15, 2024 Dr. Gary Kim DO Emergency Provider Active S tart: June 15, 2024 Dr. Ezra Rahman DO Admit Provider Active Star t: June 15, 2024 Dr. Ezra Rahman DO Attending Provider Active Start: June 15, 2024 Dr. Ezra Rahman DO Other Provider Active Star t: June 15, 2024 Team Status: Active Member Role Status Dates Dr. Naveed Dye DO Primary Care Provider Active Start: June 16, 2024 Dr. Gary Kim DO Emergency Provider Active S tart: June 16, 2024 Dr. Ezra Rahman DO Admit Provider Active Star t: June 16, 2024 Dr. Ezra Rahman DO Attending Provider Active Start: June 16, 2024 Dr. Ezra Rahman DO Other Provider Active Star t: June 16, 2024 FOR RECORDS PERTAINING TO PATIENTS WHO ARE OR HAVE BEEN ENROLLED IN A CHEMICAL DEPENDENCY/SUBSTANCEABUSE PROGRAM, SOME INFORMATION MAY BE OMITTED. This clinical summary was aggregated from multiple sources. Caution should be exercised in using it in the provision of clinical care. This summary normalizes information from multiple sources, and as a consequence, information in this document may materially change the coding, format and clinical context of patient data. In addition, data may be omitted in some cases. CLINICAL DECISIONS SHOULD BE BASED ON THE PRIMARY CLINICAL RECORDS. [facility] [employer] [facility]. provides no warranty or guarantee of the accuracy or completeness of information in this document.
[2024-11-11 20:33] LABS: Color, Urine Yellow (Yellow); Glucose, Dipstick Normal (Normal); Ketone-Dipstick Negative (Negative); Leukocyte Esterase-Dipstick 500 /ul (Negative); Nitrite-Dipstick Negative (Negative); Occult Blood-Urine 10 /ul (Negative); Protein-Dipstick 30 mg/dl (Negative); Specific Gravity, Urine 1.030 (1.002-1.030); Urine Bilirubin Dipstick Negative (Negative)
[2024-11-11 21:49] LABS: Red Blood Cells-Urine 0-5 SEEN /hpf (0-5); Squamous Epithelial Cells - UA 0-5 SEEN /hpf (5-10)
[2024-11-11 21:51] LABS: Calcium Oxalate Crystals Ur 2+ /hpf (<or=2+)
== END | disposition home or self-care (01) ==
LOC: LABSPEC 20:19
PROVIDERS: Visit Provider Family Medicine
DX: N39.0 Urinary tract infection, site not specified (principal)
CPT/HCPCS: 81001

== ENCOUNTER 2025-01-07 17:29 | Inpatient (IN) | payer MEDICARE, MEDICAID, SELFPAY ==
[2025-01-07 17:32] VITALS: PULSE 93; RESP 18; TEMP 36.3; O2SAT 94
[2025-01-07 17:44] LABS: Hematocrit 42.9 % (37-47); Hemoglobin 14.0 g/dL (12.0-15.0); Immature Granulocytes Count 0.020 X10^3/uL (0.0-0.0); Mean Corp Hgb Conc 32.6 g/dL (32-36); Mean Corpuscular Volume 102.9 fL (81-99); Mean Platelet Vol. 9.1 fl (6.2-12.0); NRBC Flagged by Analyzer 0 % (0-5); POSITIVE DIFFERENTIAL YES; Platelet Count 172 K/mm3 (150-450); RBC Distribution Width CV 13.9 % (11.6-14.6); RBC Distribution Width SD 53.1 fl (35.1-43.9); Red Blood Count 4.17 M/mm3 (4.2-5.4); White Blood Count 9.0 K/mm3 (4.4-11.0)
[2025-01-07 18:05] VITALS: BMI 17.4
[2025-01-07 18:05] LABS: AST(SGOT) 27 U/L (<=31); Alanine Aminotransfer ALT/SGPT 26 U/L (<=34); Albumin, Serum 4.3 g/dL (3.4-4.8); Alkaline Phosphatase 60 U/L (35-104); Anion Gap 12 (5-15); BUN 29 mg/dL (4-19); BUN/Creat Ratio 43.6 RATIO (10-20); Calcium,Total 10.1 mg/dL (7.6-11.0); Carbon Dioxide 27.2 mmol/L (21.0-32.0); Chloride 104 mmol/L (98-108); Estimated Creatinine Clearance 37.63 ml/min (50-250); Globulin 2.7 g/dL (2.2-4.2); Glucose 145 mg/dL (70-99); Lipase 29 U/L (13-75); Potassium 4.0 mmol/L (3.3-5.1)
--- NOTE | 2025-01-07 18:33 | EX.ED.DYSGE1 ---
HPI History of Present Illness Chief Complaint: Nausea/Vomiting Detail of Chief Complaint: Abdominal pain and vomiting Informant: patient and spouse/S.O. Narrative Narrative: Patient presents with abdominal pain that started yesterday. She has vomited multiple times. She denies diarrhea. She has had no fever. She denies urinary symptoms. She rates her pain a 10 out of 10. She denies chest pain. She denies any sick contacts. Patient has had prior hysterectomy but still has her gallbladder and appendix. Patient recently treated for UTI. [facility] Medical History Hypothyroidism Hypertension Bilateral leg pain Depression Fibromyalgia Arthritis of left knee Osteoporosis History of colon cancer (2007) Cardiac murmur Tricuspid insufficiency Mitral insufficiency Home Medications ?Medication ?Instructions ?Recorded ?Last Taken ?Type Handicap Placard #1 ea 11/12/20 Unknown Rx multivitamin 1 tab PO DAILY 12/06/21 Unknown History nystatin 100,000 unit/mL oral 5 ml PO 4X/DAY 06/14/24 06/13/24 History suspension acetaminophen 500 mg tablet 1,000 mg (2 x 500 mg) PO Q8 PRN 06/16/24 Unknown Rx pain #0 tabs lorazepam 0.5 mg tablet 0.5 mg PO TID anxiety 01/07/25 Unknown History Allergy/AdvReac Type Severity Reaction Status Date / Time amlodipine Allergy Severe anxiety Verified 01/07/25 17:31 meloxicam Allergy Severe weight gain Verified 01/07/25 17:31 pollen extracts Allergy Intermediate Rhinitis Verified 01/07/25 17:31 atenolol (From Tenoretic) Allergy Unknown Unknown Verified 01/07/25 17:31 chlorthalidone (From Allergy Unknown Unknown Verified 01/07/25 17:31 Tenoretic) ciprofloxacin AdvReac Severe joint pain Verified 01/07/25 17:31 pregabalin (From Lyrica) AdvReac Severe Tremors Verified 01/07/25 17:31 lisinopril AdvReac Intermediate cough Verified 01/07/25 17:31 indomethacin AdvReac Unknown unknown Verified 01/07/25 17:31 Family History Father Hypertension Heart disease Brother Hypertension Diabetes Mother Diabetes Heart disease Aunt Breast cancer Grandmother Breast cancer Surgical History History of partial thyroidectomy (2009) History of vaginal hysterectomy (1977) History of colon surgery (2007) Social History Smoking Status: Never smoker alcohol intake: never substance use type: does not use what type of physical activity do you participate in: walking frequency: daily ROS ROS ED Review of Systems ROS Unobtainable: other Constitutional Constitutional ED: Reports lethargy; Denies chills, fever(s), sweats or weight loss Eyes Eyes: Denies blurry vision, change in vision or diplopia ENT ENT ED: Denies rhinorrhea or sore throat Cardiovascular Cardiovascular: Denies chest pain, orthopnea or racing heartbeat Respiratory/Chest Respiratory/Chest: Denies cough, dyspnea, dyspnea on exertion, orthopnea or sputum Gastrointestinal Gastrointestinal: Reports abdominal pain, nausea and vomiting; Denies diarrhea Genitourinary Genitourinary ED: Denies dysuria, hematuria or urinary frequency Musculoskeletal Musculoskeletal: Denies arthralgias, back pain, myalgias or neck pain Integumentary Denies abscess, Abrasions or rash Neurologic Neurologic: Denies headache(s) or weakness Psychiatric Psychiatric: Denies anxiety, depression or suicidal thoughts Endocrine Endocrinology: Denies polydipsia, polyphagia or polyuria Hematologic/Lymphatic Hematologic/Lymphatic: Denies easy bleeding, easy bruising or lymphadenopathy Allergic/Immunologic Allergic/Immunologic ED: Denies mouth swelling, tongue swelling or urticaria EXAM Physical Exam Const Vital Signs: 01/07/25 17:32 01/07/25 19:29 01/07/25 20:53 Temperature 97.4 F L 98.3 F Temperature Source Temporal Pulse Rate 93 82 79 Respiratory Rate 18 18 16 Blood Pressure 136/61 H 156/70 H Blood Pressure Mean 86 98 Pulse Ox 94 93 94 Oxygen Delivery Method Room Air 01/07/25 21:00 Temperature Temperature Source Pulse Rate 80 Respiratory Rate 16 Blood Pressure 169/72 H Blood Pressure Mean 104 Pulse Ox 93 Oxygen Delivery Method Room Air Positive well nourished and well developed General Appearance ED: well developed and NAD HEENT Reports TM's clear and moist mucous membranes normocephalic and atraumatic; Negative for trauma or tenderness Tympanic Membrane ED: Yes TM's clear Eyes PERRL and EOMs intact bilaterally General Eye ED: Negative for pale conjunctiva or scleral icterus Neck no lymphadenopathy, supple and no JVD General: Negative for tenderness Chest Wall inspection of chest normal and palpation of chest normal Chest: Negative for tenderness Resp normal respiratory effort and clear to auscultation bilaterally Effort and Inspection: Negative for respiratory distress or pain with movement Auscultation: Negative for rhonchi, wheezes or diminished lung sounds Cardio regular rate, regular rhythm, S1 normal heart sound, S2 normal heart sound and no murmurs Peripheral Pulses: pulses 2+ throughout GI normal to inspection, nondistended, normoactive bowel sounds, soft to palpation, non-distended and no masses GI Narrative: Diffuse tenderness palpation specifically more localized to the left lower quadrant with guarding. No rebound or rigidity. Actively vomiting while I evaluate the patient Back/Spine no CVA tenderness and no thoracic nor lumbar tenderness Extremity normal to inspection General Extremety ED: Negative for edema General Extremity: Negative for edema Neuro oriented x3, CN's II-XII intact bilaterally, no sensory deficits noted and gait normal Sensorium / Orientation: awake, alert, oriented to person, oriented to place and oriented to time Motor Exam: strength 5/5 throughout and strength abnormal Psych mental status grossly normal Skin no rashes or lesions noted and no wounds MDM MDM MDM Narrative Medical decision making narrative: Patient presents with abdominal pain and vomiting that started yesterday. Actively vomiting on arrival to the emergency department. IV established. CBC with differential obtained showed a white count of 9.0 with hemoglobin 14 and platelet count 172. Chemistries unremarkable. LFTs unremarkable. Lactate normal 1.3. LFTs and lipase normal. CT scan of the abdomen pelvis obtained showed distention of the stomach and multiple proximal mid small bowel loops with air-fluid levels suggesting small bowel obstruction versus ileus. Patient initially on arrival was given morphine and Zofran. I discussed case with general surgeon on-call Dr. Paez who evaluated the CT images and recommended placing an NG tube to low intermittent suction. Discussed case with hospitalist will evaluate patient for admission. NG tube was placed and KUB obtained showed tip of the NG tube in the stomach. Lab Data Attestation: I reviewed the patient's lab results. Labs: Laboratory Results - last 24 hr 01/07/25 01/07/25 17:40 18:48 WBC 9.0 RBC 4.17 L Hgb 14.0 Hct 42.9 MCV 102.9 H MCH 33.6 H MCHC 32.6 RDW Std Deviation 53.1 H RDW Coeff of Fuentes 13.9 Plt Count 172 MPV 9.1 Immature Gran % (Auto) 0.200 Neut % (Auto) 85.9 H Lymph % (Auto) 6.3 L Victoria % (Auto) 7.1 Eos % (Auto) 0.3 Baso % (Auto) 0.2 Absolute Neuts (auto) 7.7 Absolute Lymphs (auto) 0.57 L Nucleated RBC % 0 Sodium 143 Potassium 4.0 Chloride 104 Carbon Dioxide 27.2 Anion Gap 12 BUN 29 H Creatinine 0.67 L Estim Creat Clear Calc 37.63 L Est GFR (MDRD) Non-Af 89 BUN/Creatinine Ratio 43.6 H Glucose 145 H Lactic Acid 1.3 Calcium 10.1 Total Bilirubin 0.72 AST 27 ALT 26 Alkaline Phosphatase 60 Total Protein 7.0 Albumin 4.3 Globulin 2.7 Albumin/Globulin Ratio 1.6 Lipase 29 Radiography Diagnostic Testing: Clinical Impression(s) from Imaging Studies Abdomen/Pelvis CT 01/07/25 19:20 IMPRESSION: 1. Distention of the stomach and multiple proximal-mid small bowel loops with air-fluid levels, suggesting small-bowel obstruction versus ileus. No discrete transition point. 2. Trace bibasilar pleural effusions and scattered dependent atelectasis. 3. Atrophic right kidney with cortical scarring. Subcentimeter nonobstructive left renal stone. 4. Ancillary findings noted above. Reading Location: [id number] KUB X-Ray 01/07/25 19:48 IMPRESSION: Enteric tube terminates appropriately within the stomach on most recent image. Reading Location: [id number] KUB X-Ray 01/07/25 20:15 IMPRESSION: Enteric tube terminates appropriately within the stomach on most recent image. Reading Location: [id number] 1 view KUB obtained post NG tube placement shows tip of the tube within the stomach. Discharge Plan Dx/Rx/DC Orders Clinical Impression: Abdominal pain, Small bowel obstruction Disposition Disposition: Acute Care Hospital [facility]
[2025-01-07] MEDS: 0.9% Normal Saline (1000mL) 1,000 ML 999 ML IV (19:14)
--- NOTE | 2025-01-07 19:20 | CT_ITS ---
PROCEDURE: CT/Abdomen/Pelvis W IV Cont ONLY
[2025-01-07 19:29] VITALS: BP 136/61; PULSE 82; RESP 18; O2SAT 93
--- NOTE | 2025-01-07 19:48 | RAD_ITS ---
PROCEDURE: RAD/Abdomen Single View (Portable)
--- NOTE | 2025-01-07 20:15 | RAD_ITS ---
PROCEDURE: RAD/Abdomen Single View (Portable)
[2025-01-07 20:53] VITALS: BP 156/70; PULSE 79; RESP 16; TEMP 36.8; O2SAT 94
[2025-01-07 21:00] VITALS: BP 169/72; PULSE 80; RESP 16; O2SAT 93
--- NOTE | 2025-01-07 21:08 | PCM.HP.STD ---
[facility] - General General Date of Admission: 01/07/25 Date of Service: 01/07/25 Chief Complaint: Abdominal Pain Nausea and Vomiting. HPI Narrative SHABNAM CASTANEDA, is a 79 F with a past medical history of essential hypertension; currently not on treatment, hypothyroidism; s/p partial/Right thyroidectomy (2009) currently not on treatment, history of colon cancer (2007); s/p surgery, chemotherapy and radiation, history of cardiac murmur, history of aortic/tricuspid/mitral insufficiency, fibromyalgia, history of B12 deficiency, history of vitamin D deficiency, generalized anxiety; on lorazepam 3 times daily, history of vaginal hysterectomy (1977), osteoporosis, OA; with neck/back/Left knee pain and history of admission here from June 14, 2024 to June 16, 2024 for treatment of acute candidal stomatitis complicated by hypoglycemia and acute debility with severe protein calorie malnutrition due to dysphagia who presents to [facility] ER complaining of abdominal pain with nausea and vomiting. Ms. Castaneda reports her symptoms began approximately 1 day prior to admission with the abrupt-onset of nausea followed by vomiting with several episodes of bilious emesis. She also admits to associated abdominal pain that was generalized, severe and radiating to the LLQ with lethargy. She denies associated fever, chills, changes in vision, runny nose, sore throat, chest pain, heart racing, palpitations, lower extremity edema, dysuria, hematuria, headache or rash. In the ER she was noted to have a CT scan of the abdomen and pelvis that revealed distention of the stomach and multiple proximal-mid small bowel loops with air-fluid levels suggesting SBO versus ileus with no discrete transition point with trace bilateral pleural effusions and scattered dependent atelectasis and atrophic Right kidney with cortical scarring and subcentimeter nonobstructive Left renal stone with patient subsequently undergoing NG tube placement with KUB showing enteric tube terminates approximately within the stomach on most recent image. She was then admitted to the general medical floor with telemetry monitoring for ongoing care for status expected to extend beyond 2 midnights. [facility] Medical History Hypothyroidism Hypertension Bilateral leg pain Depression Fibromyalgia Arthritis of left knee Osteoporosis History of colon cancer (2007) Cardiac murmur Tricuspid insufficiency Mitral insufficiency Home Medications ?Medication ?Instructions ?Recorded ?Last Taken ?Type Handicap Placard #1 ea 11/12/20 Unknown Rx acetaminophen 500 mg tablet 1,000 mg (2 x 500 mg) PO Q8 PRN 06/16/24 Unknown Rx pain #0 tabs lorazepam 0.5 mg tablet 0.5 mg PO TID anxiety 01/07/25 Unknown History Allergy/AdvReac Type Severity Reaction Status Date / Time amlodipine Allergy Severe anxiety Verified 01/07/25 17:31 meloxicam Allergy Severe weight gain Verified 01/07/25 17:31 pollen extracts Allergy Intermediate Rhinitis Verified 01/07/25 17:31 atenolol (From Tenoretic) Allergy Unknown Unknown Verified 01/07/25 17:31 chlorthalidone (From Allergy Unknown Unknown Verified 01/07/25 17:31 Tenoretic) ciprofloxacin AdvReac Severe joint pain Verified 01/07/25 17:31 pregabalin (From Lyrica) AdvReac Severe Tremors Verified 01/07/25 17:31 lisinopril AdvReac Intermediate cough Verified 01/07/25 17:31 indomethacin AdvReac Unknown unknown Verified 01/07/25 17:31 Family History Father Hypertension Heart disease Brother Hypertension Diabetes Mother Diabetes Heart disease Aunt Breast cancer Grandmother Breast cancer Surgical History History of partial thyroidectomy (2009) History of vaginal hysterectomy (1977) History of colon surgery (2007) Social History Smoking Status: Never smoker alcohol intake: never substance use type: does not use what type of physical activity do you participate in: walking frequency: daily ROS ROS Narrative Review of Systems: Constitutional: Patient admits to lethargy but she denies fever or chills. Eyes: Patient denies change in vision or discharge from eyes. ENT: Patient denies runny nose, sore throat or ear pain. Resp: Patient denies shortness of breath or cough. CV: Patient denies chest pain, palpitations, heart racing or lower extremity edema. GI: Patient admits to diffuse abdominal pain radiating to the LLQ with nausea and vomiting causing bilious emesis as per HPI. She denies diarrhea. : Patient denies dysuria, hematuria or urinary frequency. MSK: Patient denies arthralgias or myalgias. Skin: Patient denies rash, abscess, wounds or jaundice. Psych: Patient denies symptoms of uncontrolled depression or anxiety. Neuro: Patient denies headache, paresthesias or focal neurologic deficits. Allergy: Patient denies lip swelling, tongue swelling or urticaria. Hematology: Patient denies easy bleeding or easy bruisability. Endocrinology: Patient denies polyuria, polydipsia, polyphagia or heat/cold intolerance. 14 point ROS otherwise negative except for positives noted above in HPI. Vital Signs Vital Signs Vital Signs: 01/07/25 17:32 01/07/25 19:29 01/07/25 20:53 Temperature 97.4 F L 98.3 F Temperature Source Temporal Pulse Rate 93 82 79 Respiratory Rate 18 18 16 Blood Pressure 136/61 H 156/70 H Blood Pressure Mean 86 98 Pulse Ox 94 93 94 Oxygen Delivery Method Room Air 01/07/25 21:00 Temperature Temperature Source Pulse Rate 80 Respiratory Rate 16 Blood Pressure 169/72 H Blood Pressure Mean 104 Pulse Ox 93 Oxygen Delivery Method Room Air Weight Weight: 92 lb 2.452 oz Body Mass Index (BMI) 17.4 Physical Exam Const alert, oriented x3 and average body habitus Constitutional Narrative: Patient appears chronically ill and miserable. HEENT normocephalic, head/scalp atraumatic and hearing grossly normal bilaterally HEENT Narrative: Mucous membranes dry with NGT in Right naris. Eyes PERRL, EOMs intact bilaterally and conjunctivae normal Neck no lymphadenopathy and supple Resp normal respiratory effort, no retractions, no use of accessory muscles and clear to auscultation bilaterally Cardio regular rate and regular rhythm GI GI Narrative: Diffuse TTP most specifically localized to the LLQ with guarding. Negative rebound or rigidity. Extremity normal to inspection, full ROM and no clubbing, cyanosis or edema Skin Skin Narrative: Patient has no evidence of rash, abscess, wounds or jaundice. Neuro oriented x3, CN's II-XII intact bilaterally, moves all extremities and no focal motor deficits Sensorium / Orientation: awake, alert, oriented to person, oriented to place and oriented to time Speech: speech normal Psych Mood & Affect: depressed Results Medical Records Data Attestation: I reviewed the patient's medical records Lab / Micro Data Attestation: I reviewed the patient's lab results. 01/07/25 17:40 01/07/25 17:40 Labs: Laboratory Results - last 24 hr 01/07/25 17:40: WBC 9.0, RBC 4.17 L, Hgb 14.0, Hct 42.9, MCV 102.9 H, MCH 33.6 H, MCHC 32.6, RDW Std Deviation 53.1 H, RDW Coeff of Fuentes 13.9, Plt Count 172, MPV 9.1, Immature Gran % (Auto) 0.200, Neut % (Auto) 85.9 H, Lymph % (Auto) 6.3 L, Hendry % (Auto) 7.1, Eos % (Auto) 0.3, Baso % (Auto) 0.2, Absolute Neuts (auto) 7.7, Absolute Lymphs (auto) 0.57 L, Nucleated RBC % 0, Sodium 143, Potassium 4.0, Chloride 104, Carbon Dioxide 27.2, Anion Gap 12, BUN 29 H, Creatinine 0.67 L, Estim Creat Clear Calc 37.63 L, Est GFR (MDRD) Non-Af 89, BUN/Creatinine Ratio 43.6 H, Glucose 145 H, Calcium 10.1, Total Bilirubin 0.72, AST 27, ALT 26, Alkaline Phosphatase 60, Total Protein 7.0, Albumin 4.3, Globulin 2.7, Albumin/Globulin Ratio 1.6, Lipase 29 01/07/25 18:48: Lactic Acid 1.3 Imaging Radiology Impression Abdomen/Pelvis CT 01/07/25 19:20 IMPRESSION: 1. Distention of the stomach and multiple proximal-mid small bowel loops with air-fluid levels, suggesting small-bowel obstruction versus ileus. No discrete transition point. 2. Trace bibasilar pleural effusions and scattered dependent atelectasis. 3. Atrophic right kidney with cortical scarring. Subcentimeter nonobstructive left renal stone. 4. Ancillary findings noted above. Reading Location: [facility] KUB X-Ray 01/07/25 19:48 IMPRESSION: Enteric tube terminates appropriately within the stomach on most recent image. Reading Location: [facility] KUB X-Ray 01/07/25 20:15 IMPRESSION: Enteric tube terminates appropriately within the stomach on most recent image. Reading Location: [facility] Assessment & Plan Assessment/Plan (1) Small bowel obstruction: (2) Abdominal pain: QUALIFIERS: Abdominal location: generalized Qualified Code(s): R10.84 - Generalized abdominal pain (3) Nausea and vomiting: QUALIFIERS: Vomiting type: bilious vomiting Qualified Code(s): R11.14 - Bilious vomiting (4) Dehydration: (5) Uncontrolled hypertension: (6) History of colon cancer: (7) Macrocytosis: (8) History of anemia due to vitamin B12 deficiency: PLAN: Plan 1. CT scan of the abdomen and pelvis that revealed distention of the stomach and multiple proximal-mid small bowel loops with air-fluid levels suggesting SBO versus ileus with no discrete transition point with trace bilateral pleural effusions and scattered dependent atelectasis and atrophic Right kidney with cortical scarring and subcentimeter nonobstructive Left renal stone with patient subsequently undergoing NG tube placement with KUB showing enteric tube terminates approximately within the stomach on most recent image - Admit to general medical floor with telemetry monitoring. Maintain NGT to IWS and keep strict NPO. Start pantoprazole 40 mg IV daily. We will give soapsuds enema as recommended by general surgeon in light of heavy stool burden on imaging. Recheck KUB in AM to reassess. Finally, we will consult Dr. Paez of general surgery see this patient on rounds in the a.m. for further recommendations with help appreciated in advance. 2. Abdominal Pain with Nausea and Vomiting causing bilious emesis and Dehydration; evidenced by elevated BUN/creatinine ratio of 43.6 present on admission attributable to #1 - Give NS IVF. Give acetaminophen ID as needed for [id number] (level 1-5/10) pain or fever. Give morphine IV prn for severe (level 6-10/10) pain. Give ondansetron IV as needed for nausea and vomiting. Give prochlorperazine IV as needed for breakthrough nausea. 3. Uncontrolled Hypertension likely due to #1 & #2 - Give hydralazine IV as needed for systolic blood pressure greater than 160 mmHg. 4. History of colon cancer (2007); s/p surgery, chemotherapy and radiation adding to the medical complexity of #1 - #3 - Noted with possible adhesions from previous surgery causing #1 5. History of B12 deficiency with Macrocytosis of 102.9 fL present on admission - Check B12 and Folate levels. Likely stable with hemoglobin of 14 g/dL present on admission. 6. History of admission here from June 14, 2024 to June 16, 2024 for treatment of acute candidal stomatitis complicated by hypoglycemia and acute debility with severe protein calorie malnutrition due to dysphagia - Noted. 7. Hypothyroidism; s/p partial/Right thyroidectomy (2009) currently not on treatment - Noted. Check TSH. 8. History of cardiac murmur with history of aortic/tricuspid/mitral insufficiency - Noted. Check echocardiogram to reassess in case surgical intervention is necessary. 9. Fibromyalgia - Stable. 10. History of vitamin D deficiency with osteoporosis - Check vitamin D level. 11. Generalized anxiety; on lorazepam 3 times daily - Give low-dose SL lorazepam prn for breakthrough symptoms. 12. History of vaginal hysterectomy (1977) - Noted for the sake of completeness. 13. OA; with neck/back/Left knee pain - We will follow pain regimen and scales outlined in #1. 14. DVT/GI prophylaxis - Heparin 5,000U sq BID plus SCD's. Pantoprazole 40 mg IV daily as outlined in #1. Total time: Approximately (but not less than) 75 minutes. Charges/Coding Visit Charges Inpatient E&M: 05535 Init Hosp L3
--- NOTE | 2025-01-07 21:52 | ECHOD_ITS ---
Reason For Study ECHO/Echo Complete
[2025-01-07 22:27] VITALS: BMI 17.9
[2025-01-07 22:32] VITALS: BP 170/90; PULSE 81; RESP 17; TEMP 36.4; O2SAT 94
[2025-01-07] MEDS: 0.9% Normal Saline (1000mL) 1,000 ML 100 ML IV (22:42)
[2025-01-07 23:03] LABS: Magnesium 2.3 mg/dL (1.5-2.2)
[2025-01-07] MEDS: Pantoprazole Sodium 40 MG in 0.9% Normal Saline (100mL MB+) 100 ML 330 MG IV (23:16)
[2025-01-07 23:29] VITALS: BP 149/68; PULSE 84
[2025-01-07 23:33] LABS: Mucous, Urine 0 SEEN /hpf (<or=2+); Red Blood Cells-Urine 0 SEEN /hpf (0-5); Squamous Epithelial Cells - UA 0 SEEN /hpf (5-10)
[2025-01-07 23:34] LABS: Color, Urine Yellow (Yellow); Glucose, Dipstick Normal (Normal); Ketone-Dipstick Negative (Negative); Leukocyte Esterase-Dipstick 25 /ul (Negative); Nitrite-Dipstick Negative (Negative); Occult Blood-Urine 10 /ul (Negative); Protein-Dipstick 15 mg/dl (Negative); Specific Gravity, Urine 1.010 (1.002-1.030); Urine Bilirubin Dipstick Negative (Negative)
[2025-01-07] MEDS: Heparin Injection (Vial) 5,000 UNIT/ML VIAL 5000 UNIT SC (23:34)
[2025-01-08 01:17] LABS: FOLATES,SERUM (FOLIC ACID) 21.20 ng/mL (4.60-34.80)
[2025-01-08 01:59] LABS: Vitamin B12 373 pg/mL (180-914)
[2025-01-08 03:55] VITALS: BP 135/71; PULSE 80; RESP 16; TEMP 36.8; O2SAT 94
[2025-01-08 05:12] VITALS: BMI 17.9
--- NOTE | 2025-01-08 05:30 | RAD_ITS ---
PROCEDURE: RAD/Abdomen Single View (Portable)
[2025-01-08 07:00] VITALS: PULSE 79
[2025-01-08 07:04] LABS: Hematocrit 34.8 % (37-47); Hemoglobin 11.6 g/dL (12.0-15.0); Immature Granulocytes Count 0.010 X10^3/uL (0.0-0.0); Mean Corp Hgb Conc 33.3 g/dL (32-36); Mean Corpuscular Volume 102.7 fL (81-99); Mean Platelet Vol. 9.6 fl (6.2-12.0); NRBC Flagged by Analyzer 0 % (0-5); POSITIVE DIFFERENTIAL YES; Platelet Count 148 K/mm3 (150-450); RBC Distribution Width CV 13.7 % (11.6-14.6); RBC Distribution Width SD 52.7 fl (35.1-43.9); Red Blood Count 3.39 M/mm3 (4.2-5.4); White Blood Count 4.0 K/mm3 (4.4-11.0)
[2025-01-08 07:22] LABS: Differential Indicated SCAN CRITERIA MET
--- NOTE | 2025-01-08 07:23 | EX.PCM.CON.S ---
Assessment & Plan Assessment/Plan (1) Small bowel obstruction: PLAN: I have been consulted in conjunction with Dr. Paez. She will independently evaluate this patient. Patient is a 79 y/o F who presented with a 2 day history of acute abdominal pain, nausea, vomiting. She believes her symptoms may be from chili that she ate on Monday. She denies having any difficulty with bowel movements. She notes her bowel have been loose. Patient had to be redirected multiple times as she wanted to get up out of the chair. She notes her symptoms have improved. She denies any urinary issues however on this mornings KUB, her bladder appears full. May need to be straight cathed with urine sent for analysis and culture. KUB appears to be improved today. She continues to have stool and air within her colon. Will plan to give a soap suds enema today. Continue with the NG tube at this time. Will plan to possible pull NG tomorrow. Plan for a KUB in the morning. Patient likely has more of an ileus/constipation picture currently than a small bowel obstruction. No surgical intervention planned for today. Patient has had the opportunity to ask and have questions answered. Patient verbally understands and agrees with the proposed plan. Thank you for allowing us to participate in this patient's care. HPI Consult Data Date of Consult: 01/08/25 HPI Narrative Reason for Consultation: Small bowel obstruction HPI Narrative: SHABNAM CANO, is a 79 F who presents with a 2 day history of worsening abdominal pain, nausea and vomiting. Patient note son Monday night she had started with vomiting. She relates this to having chili for dinner. She notes yesterday the nausea and vomiting continued and she developed abdominal pain. She notes she has been having diarrhea and passing flatus. She denies having any previous episodes such as this. She had an NG tube placed in the ED which put out [address] scan of the ab/pel demonstrated distention of the stomach, small bowel obstruction, atrophic right kidney. Patient notes this morning she feels much improved since yesterday. She notes she lives at home with her . She states in 2007 she had colorectal cancer which included a colectomy, radiation and chemotherapy at [facility] [place]. Unsure when patient's last colonoscopy was. A record was found from 2014 of a colonoscopy by Dr. Miller which was found at that time to have a rectal stricture on digital exam. Patient denies any urinary issues. [facility] Medical History Hypothyroidism Hypertension Bilateral leg pain Depression Fibromyalgia Arthritis of left knee Osteoporosis History of colon cancer (2007) Cardiac murmur Tricuspid insufficiency Mitral insufficiency Home Medications ?Medication ?Instructions ?Recorded ?Last Taken ?Type Handicap Placard #1 ea 11/12/20 Unknown Rx acetaminophen 500 mg tablet 1,000 mg (2 x 500 mg) PO Q8 PRN 06/16/24 Unknown Rx pain #0 tabs lorazepam 0.5 mg tablet 0.5 mg PO TID anxiety 01/07/25 Unknown History Allergy/AdvReac Type Severity Reaction Status Date / Time amlodipine Allergy Severe anxiety Verified 01/07/25 17:31 meloxicam Allergy Severe weight gain Verified 01/07/25 17:31 pollen extracts Allergy Intermediate Rhinitis Verified 01/07/25 17:31 atenolol (From Tenoretic) Allergy Unknown Unknown Verified 01/07/25 17:31 chlorthalidone (From Allergy Unknown Unknown Verified 01/07/25 17:31 Tenoretic) ciprofloxacin AdvReac Severe joint pain Verified 01/07/25 17:31 pregabalin (From Lyrica) AdvReac Severe Tremors Verified 01/07/25 17:31 lisinopril AdvReac Intermediate cough Verified 01/07/25 17:31 indomethacin AdvReac Unknown unknown Verified 01/07/25 17:31 Family History Father Hypertension Heart disease Brother Hypertension Diabetes Mother Diabetes Heart disease Aunt Breast cancer Grandmother Breast cancer Surgical History History of partial thyroidectomy (2009) History of vaginal hysterectomy (1977) History of colon surgery (2007) Social History Smoking Status: Never smoker alcohol intake: never substance use type: does not use what type of physical activity do you participate in: walking frequency: daily ROS Constitutional Constitutional: Reports systems reviewed and no addt'l complaints, except as documented Eyes Eyes: Reports systems reviewed and no addt'l complaints, except as documented ENT HEENT: Reports systems reviewed and no addt'l complaints, except as documented Cardiovascular Cardiovascular: Reports systems reviewed and no addt'l complaints, except as documented Respiratory/Chest Respiratory/Chest: Reports systems reviewed and no addt'l complaints, except as documented Gastrointestinal Gastrointestinal: Reports systems reviewed and no addt'l complaints, except as documented Genitourinary Genitourinary: Reports systems reviewed and no addt'l complaints, except as documented Musculoskeletal Musculoskeletal: Reports systems reviewed and no addt'l complaints, except as documented Integumentary Integumentary: Reports systems reviewed and no addt'l complaints, except as documented Neurologic Neurologic: Reports systems reviewed and no addt'l complaints, except as documented Psychiatric Psychiatric: Reports systems reviewed and no addt'l complaints, except as documented Endocrine Endocrinology: Reports systems reviewed and no addt'l complaints, except as documented Hematologic/Lymphatic Hematologic/Lymphatic: Reports systems reviewed and no addt'l complaints, except as documented Allergic/Immunologic Allergic/Immunologic: Reports systems reviewed and no addt'l complaints, except as documented Physical Exam Const alert and no apparent distress General Appearance: cooperative Orientation / Consciousness: confused HEENT normocephalic and head/scalp atraumatic HEENT Narrative: NG tube intact Eyes PERRL Neck full ROM Resp normal respiratory effort and clear to auscultation bilaterally Cardio regular rate and regular rhythm GI GI Narrative: Abdomen- soft, nondistended. Positive bowel sounds. Nontender. no CVA tenderness Back/Spine no CVA tenderness Extremity normal to inspection Skin no rashes or lesions noted Neuro no focal motor deficits and no sensory deficits noted Psych cooperative Attitude: guarded Activity / Motor Behavior: appropriate eye contact Speech: normal speech Mood & Affect: anxious Lab / Micro Data 01/08/25 06:33 01/08/25 06:33 Labs: Laboratory Results - last 24 hr 01/07/25 17:40: WBC 9.0, RBC 4.17 L, Hgb 14.0, Hct 42.9, MCV 102.9 H, MCH 33.6 H, MCHC 32.6, RDW Std Deviation 53.1 H, RDW Coeff of Fuentes 13.9, Plt Count 172, MPV 9.1, Immature Gran % (Auto) 0.200, Neut % (Auto) 85.9 H, Lymph % (Auto) 6.3 L, [place] % (Auto) 7.1, Eos % (Auto) 0.3, Baso % (Auto) 0.2, Absolute Neuts (auto) 7.7, Absolute Lymphs (auto) 0.57 L, Nucleated RBC % 0, Sodium 143, Potassium 4.0, Chloride 104, Carbon Dioxide 27.2, Anion Gap 12, BUN 29 H, Creatinine 0.67 L, Estim Creat Clear Calc 37.63 L, Est GFR (MDRD) Non-Af 89, BUN/Creatinine Ratio 43.6 H, Glucose 145 H, Calcium 10.1, Magnesium 2.3 H, Total Bilirubin 0.72, AST 27, ALT 26, Alkaline Phosphatase 60, Total Protein 7.0, Albumin 4.3, Globulin 2.7, Albumin/Globulin Ratio 1.6, Lipase 29, Vitamin B12 373, TSH 4.090 01/07/25 18:48: Lactic Acid 1.3 01/07/25 22:44: Serum Folate 21.20 01/07/25 23:24: Urine Color Yellow, Urine Clarity Clear, Urine pH 8.0, Ur Specific [place] 1.010, Urine Protein 15 H, Urine Glucose (UA) Normal, Urine Ketones Negative, Urine Occult Blood 10 H, Urine Nitrite Negative, Urine Bilirubin Negative, Urine Urobilinogen 1 H, Ur Leukocyte Esterase 25 H, Urine RBC 0 SEEN, Urine WBC 0-5 SEEN, Ur Squamous Epith Cells 0 SEEN, Amorphous Sediment 2+, Urine Bacteria RARE, Urine Mucus 0 SEEN 01/08/25 06:33: WBC 4.0 L, RBC 3.39 L, Hgb 11.6 L, Hct 34.8 L, MCV 102.7 H, MCH 34.2 H, MCHC 33.3, RDW Std Deviation 52.7 H, RDW Coeff of Fuentes 13.7, Plt Count 148 L, MPV 9.6, Immature Gran % (Auto) 0.300, Neut % (Auto) 74.1 H, Lymph % (Auto) 12.0 L, [place] % (Auto) 10.3 H, Eos % (Auto) 2.8, Baso % (Auto) 0.5, Absolute Neuts (auto) 3.0, Absolute Lymphs (auto) 0.48 L, Nucleated RBC % 0 Imaging Radiology Impression Abdomen/Pelvis CT 01/07/25 19:20 IMPRESSION: 1. Distention of the stomach and multiple proximal-mid small bowel loops with air-fluid levels, suggesting small-bowel obstruction versus ileus. No discrete transition point. 2. Trace bibasilar pleural effusions and scattered dependent atelectasis. 3. Atrophic right kidney with cortical scarring. Subcentimeter nonobstructive left renal stone. 4. Ancillary findings noted above. Reading Location: [id number] KUB X-Ray 01/07/25 19:48 IMPRESSION: Enteric tube terminates appropriately within the stomach on most recent image. Reading Location: [id number] KUB X-Ray 01/07/25 20:15 IMPRESSION: Enteric tube terminates appropriately within the stomach on most recent image. Reading Location: [id number] KUB X-Ray 01/08/25 05:30 IMPRESSION: Nonobstructive bowel gas pattern. Reading Location: [facility] Charges/Coding Visit Charges Inpatient E&M: 81718 Init Hosp L2
[2025-01-08 07:43] LABS: AST(SGOT) 19 U/L (<=31); Alanine Aminotransfer ALT/SGPT 18 U/L (<=34); Albumin, Serum 3.6 g/dL (3.4-4.8); Alkaline Phosphatase 48 U/L (35-104); BUN 22 mg/dL (4-19); BUN/Creat Ratio 38.9 RATIO (10-20); Calcium,Total 8.6 mg/dL (7.6-11.0); Carbon Dioxide 26.8 mmol/L (21.0-32.0); Chloride 108 mmol/L (98-108); Estimated Creatinine Clearance 36.19 ml/min (50-250); Globulin 1.8 g/dL (2.2-4.2); Glucose 96 mg/dL (70-99); Potassium 4.2 mmol/L (3.3-5.1)
[2025-01-08 07:44] LABS: Anion Gap 9 (5-15)
[2025-01-08 08:44] VITALS: BP 157/70; PULSE 84; RESP 18; TEMP 37.1; O2SAT 95
[2025-01-08] MEDS: 0.9% Normal Saline (1000mL) 1,000 ML 100 ML IV (10:51)
[2025-01-08] MEDS: Pantoprazole Sodium 40 MG in 0.9% Normal Saline (100mL MB+) 100 ML 330 MG IV (11:14)
--- NOTE | 2025-01-08 11:26 | PN.HOSP_ITS ---
Reason for Visit
--- NOTE | 2025-01-08 11:26 | PCM.PN.HOSP ---
Reason for Visit Chief Complaint: Abdominal Pain Nausea and Vomiting. Subjective Subjective Saw patient bedside this morning, and daughter present. Patient had NG tube in place to suction and was tolerating this without significant issue. Nursing staff was also present and noted that she was about to give the patient a soapsuds enema per general surgery recommendations. Patient denies any abdominal pain or discomfort currently. She does report feeling somewhat anxious which family notes is chronic and she is on Ativan for this. No other acute concerns currently. Objective Data Objective Data Vital Signs: Vital Signs Temp Pulse Resp BP Pulse Ox O2 Del Method 98.8 F 84 18 157/70 H 95 Room Air 01/08/25 08:44 01/08/25 08:44 01/08/25 08:44 01/08/25 08:44 01/08/25 08:44 01/08/25 08:52 Oxygen Delivery Method Room Air Weight: 40.2 kg Body Mass Index (BMI) 17.9 Intake & Output: Intake and Output for Last 24 Hours 01/06/25 01/07/25 01/08/25 23:59 23:59 23:59 Intake Total 1000 / 1000 1200 / 1200 Output Total 500 / 500 600 / 600 Balance 500 / 500 600 / 600 Lab / Micro Data 01/08/25 06:33 01/08/25 06:33 Labs: Laboratory Results - last 24 hr 01/07/25 17:40: WBC 9.0, RBC 4.17 L, Hgb 14.0, Hct 42.9, MCV 102.9 H, MCH 33.6 H, MCHC 32.6, RDW Std Deviation 53.1 H, RDW Coeff of Fuentes 13.9, Plt Count 172, MPV 9.1, Immature Gran % (Auto) 0.200, Neut % (Auto) 85.9 H, Lymph % (Auto) 6.3 L, [place] % (Auto) 7.1, Eos % (Auto) 0.3, Baso % (Auto) 0.2, Absolute Neuts (auto) 7.7, Absolute Lymphs (auto) 0.57 L, Nucleated RBC % 0, Sodium 143, Potassium 4.0, Chloride 104, Carbon Dioxide 27.2, Anion Gap 12, BUN 29 H, Creatinine 0.67 L, Estim Creat Clear Calc 37.63 L, Est GFR (MDRD) Non-Af 89, BUN/Creatinine Ratio 43.6 H, Glucose 145 H, Calcium 10.1, Magnesium 2.3 H, Total Bilirubin 0.72, AST 27, ALT 26, Alkaline Phosphatase 60, Total Protein 7.0, Albumin 4.3, Globulin 2.7, Albumin/Globulin Ratio 1.6, Lipase 29, Vitamin B12 373, TSH 4.090 01/07/25 18:48: Lactic Acid 1.3 01/07/25 22:44: Serum Folate 21.20 01/07/25 23:24: Urine Color Yellow, Urine Clarity Clear, Urine pH 8.0, Ur Specific [place] 1.010, Urine Protein 15 H, Urine Glucose (UA) Normal, Urine Ketones Negative, Urine Occult Blood 10 H, Urine Nitrite Negative, Urine Bilirubin Negative, Urine Urobilinogen 1 H, Ur Leukocyte Esterase 25 H, Urine RBC 0 SEEN, Urine WBC 0-5 SEEN, Ur Squamous Epith Cells 0 SEEN, Amorphous Sediment 2+, Urine Bacteria RARE, Urine Mucus 0 SEEN 01/08/25 06:33: WBC 4.0 L, RBC 3.39 L, Hgb 11.6 L, Hct 34.8 L, MCV 102.7 H, MCH 34.2 H, MCHC 33.3, RDW Std Deviation 52.7 H, RDW Coeff of Fuentes 13.7, Plt Count 148 L, MPV 9.6, Immature Gran % (Auto) 0.300, Neut % (Auto) 74.1 H, Lymph % (Auto) 12.0 L, [place] % (Auto) 10.3 H, Eos % (Auto) 2.8, Baso % (Auto) 0.5, Absolute Neuts (auto) 3.0, Absolute Lymphs (auto) 0.48 L, Nucleated RBC % 0, Sodium 143, Potassium 4.2, Chloride 108, Carbon Dioxide 26.8, Anion Gap 9, BUN 22 H, Creatinine 0.57 L, Estim Creat Clear Calc 36.19 L, Est GFR (MDRD) Non-Af 92, BUN/Creatinine Ratio 38.9 H, Glucose 96, Calcium 8.6, Phosphorus 2.9, Total Bilirubin 1.03, AST 19, ALT 18, Alkaline Phosphatase 48, Total Protein 5.5 L, Albumin 3.6, Globulin 1.8 L, Albumin/Globulin Ratio 2.0 Radiography Diagnostic Testing: Radiology Impression Abdomen/Pelvis CT 01/07/25 19:20 IMPRESSION: 1. Distention of the stomach and multiple proximal-mid small bowel loops with air-fluid levels, suggesting small-bowel obstruction versus ileus. No discrete transition point. 2. Trace bibasilar pleural effusions and scattered dependent atelectasis. 3. Atrophic right kidney with cortical scarring. Subcentimeter nonobstructive left renal stone. 4. Ancillary findings noted above. Reading Location: [facility] KUB X-Ray 01/07/25 19:48 IMPRESSION: Enteric tube terminates appropriately within the stomach on most recent image. Reading Location: [facility] KUB X-Ray 01/07/25 20:15 IMPRESSION: Enteric tube terminates appropriately within the stomach on most recent image. Reading Location: [facility] KUB X-Ray 01/08/25 05:30 IMPRESSION: Nonobstructive bowel gas pattern. Reading Location: [facility] Physical Exam Const alert and no apparent distress Constitutional Narrative: Elderly female, thin appearing, mildly fatigued and anxious appearing, otherwise sitting back in bed and answering questions appropriately. General Appearance: cooperative HEENT normocephalic, head/scalp atraumatic, hearing grossly normal bilaterally, nasal mucous membranes and turbinates normal and moist oral mucous membranes HEENT Narrative: NG tube in place to suction. Eyes PERRL, EOMs intact bilaterally and conjunctivae normal Neck full ROM Chest inspection of chest normal Resp normal respiratory effort, normal air movement, no use of accessory muscles and clear to auscultation bilaterally Cardio regular rate, regular rhythm, no murmurs and peripheral pulses 2+ throughout GI normal to inspection, nondistended, normoactive bowel sounds, soft to palpation, non-tender and non-distended Back/Spine normal ROM Extremity normal to inspection and no pedal edema Skin no rashes or lesions noted Psych mental status grossly normal Assessment & Plan Assessment/Plan (1) Ileus: PLAN: Plan Patient is a 79-year-old female who presented to [facility] ED on 01/07/2025 with abdominal pain and nausea with vomiting. 1. Small bowel obstruction versus ileus ? Surgery following. Presented with abdominal pain and nausea with vomiting. CT abdomen pelvis showed distention of the stomach and multiple proximal mid small bowel loops with air-fluid levels suggesting small bowel obstruction versus ileus; notably no discrete transition point was noted. NG tube placed in admission and placed to suction. Most recent KUB on 01/08 improving. Per surgery, appears more consistent with an ileus/constipation picture rather than SBO. Had difficulty with holding enemas so trialing lactulose suppositories this afternoon. Will then plan to give p.o. lactulose once patient has more bowel movements from below. Maintain n.p.o. status. Appreciate further surgery recommendations. 2. Generalized anxiety disorder ? Patient with significant anxiety at baseline, is on home Ativan 0.5 mg 3 times daily scheduled. Ativan solution was ordered as needed on admission and patient became more anxious especially with NG tube in place, so IV Ativan 0.5 mg 3 times daily scheduled ordered on 01/08. Monitor. 3. Underweight BMI with suspected protein calorie malnutrition ? Nutrition consulted. BMI 17.9 on admit. Patient hospitalized here in May for oropharyngeal candidiasis as below and was noted to have severe protein calorie malnutrition at that time. NG tube in place and patient n.p.o. now as above. Once NG tube removed and patient is okay for p.o. intake, will plan to add on protein supplementation to meals. 4. 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 Hospitalized here in May with severe oropharyngeal candidiasis with stomatitis. She was also noted to have some degree of dysphagia at that time as well. Per speech therapy notes, appears it was difficult to ascertain if dysphagia was secondary to the stomatitis versus a pre-existing condition. Will plan to consult speech therapy for evaluation once NG tube has been removed. 5. Chronic debility ? PT/OT/case management following. Patient lives in single-story home with her . Reports requiring some assistance from her on a regular basis and his home health care and palliative care services on board as well. Therapy scores fairly good on 01/08, should be fine to return home with home health care and palliative care. DVT prophylaxis: Heparin subcu CODE STATUS: Full code, unverified Expected disposition: TBD Total clinical time spent by myself addressing the patient's medical issues, reviewing all the data, and collaborating with patient's care team: 39 minutes. Charges/Coding Visit Charges Inpatient E&M: 98556 Subs Hosp L2
[2025-01-08 14:49] VITALS: BP 142/85; PULSE 83; RESP 16; TEMP 36.9; O2SAT 97
--- NOTE | 2025-01-08 14:56 | CASEMGMT ---
ODILON SAUER Assessment Face to Face with patient for initial transition planning/care coordination assessment. ODILON SAUER introduced self and role at [facility], pt voices understanding. Pt is A&Ox4 and is resting comfortably in bed and is calm. Care providers, pharmacy, and demographics verified. Admitting dx: SBO vs Ileus with N/V PCP: Naveed Martinez Specialists: Denies [facility] Insurance: [employer] Prescription Benefit: Yes LNOK: Robert Castaneda (H), Alissa (Daughter) Living Arrangements: Pt lives with her in a single story home with a flat entrance ADLs/IADLs: Pt reports that she requires some assistance at home and that her is able to support her. Pt states that she is also active with [facility] M-F x 5 hours per day. Pt is unsure who this is through or how it was set up. Transportation: DME: Walker, shower chair, grab bars. HHC/SNF: Denies SNF hx. Pt states that she is active with [facility] services. Pt denies skilled HHC hx. Pt wishes to resume [facility] and Palliative Care services. Pt?s goal:Home Plan: Anticipate DC home with pt's once medically ready. Resume [facility] and Palliative Care services. PT is not recommendation additional therapy. At this time, the pt states that she feels safe with this plan and denies further questions or concerns at this time. Report given to [facility] ODILON SAUER who plans to f/u as needed. Kristine Stark RN, CM
[2025-01-08 15:00] VITALS: PULSE 85
--- NOTE | 2025-01-08 15:43 | CASEMGMT ---
Addendum entered by Joelle Ordaz 01/08/25 15:55: Updated hospitalist of code status reported from hospice. Original Note: Email sent to [facility] palliative care to confirm that pt is active, received response back that pt is actually active with hospice. Sender stated they would add the triage center for hospice to the email for their follow up. Notified SW of this. Notified Dr. Mora as well. He requests code status on pt. TC to [facility], spoke with Veda, she states pt is a DNR CC and she will fax a copy of the order to [facility]. She states she does see the email that was sent that the patient is admitted for their team to follow up on.
--- NOTE | 2025-01-08 16:25 | PCM.HOSP.N ---
Hospitalist Note Notified by case management this afternoon that patient is enrolled in hospice care. We were not aware of this on admission and her qualifying diagnosis is unclear. Patient has papers designating her DNR CC code status, will change code status in the chart at this time. Patient's hospice team will be faxing her medical records of importance to us. Appreciate further case management assistance with this.
--- NOTE | 2025-01-08 17:41 | NURSING ---
[facility] revoked. For questions or to request services call Christa @ [phone].
[2025-01-08 22:20] VITALS: BP 142/71; PULSE 67; RESP 16; TEMP 36.8; O2SAT 94
--- NOTE | 2025-01-08 22:29 | PCM.HOSP.N ---
Hospitalist Note Previous IV fluids completed and NPO status continued, nrsg communicates concerns for pt becoming dehydrated. Pt is now DNRCC, NGT in place for decompression(comfort) as SBO is not resolved per KUB performed today. I reviewed daily chemistries and 24hr output. Order placed for D5 0.45%NS @ 50ml/hr.
[2025-01-08] MEDS: 0.9% Saline Lock 10 ML Syringe IV (22:30)
[2025-01-08] MEDS: Dext 5%-0.45% NS 1,000 ML 50 ML IV (22:48)
[2025-01-09] VITALS (7 sets, daily range): BP systolic 125–158; BP diastolic 59–75; PULSE 58–68; RESP 16–18; TEMP 36.7–36.9; O2SAT 94–97; BMI 19.4
[2025-01-09 06:25] LABS: Hematocrit 32.4 % (37-47); Hemoglobin 10.5 g/dL (12.0-15.0); Mean Corp Hgb Conc 32.4 g/dL (32-36); Mean Corpuscular Volume 105.2 fL (81-99); Mean Platelet Vol. 9.6 fl (6.2-12.0); Platelet Count 135 K/mm3 (150-450); RBC Distribution Width CV 13.5 % (11.6-14.6); RBC Distribution Width SD 52.0 fl (35.1-43.9); Red Blood Count 3.08 M/mm3 (4.2-5.4); White Blood Count 4.2 K/mm3 (4.4-11.0)
--- NOTE | 2025-01-09 06:50 | RAD_ITS ---
PROCEDURE: RAD/Abd Inc Decub and/or Erect
[2025-01-09 06:56] LABS: Anion Gap 10 (5-15); BUN 15 mg/dL (4-19); BUN/Creat Ratio 29.2 RATIO (10-20); Calcium,Total 8.7 mg/dL (7.6-11.0); Carbon Dioxide 23.2 mmol/L (21.0-32.0); Chloride 105 mmol/L (98-108); Estimated Creatinine Clearance 39.34 ml/min (50-250); Glucose 84 mg/dL (70-99); Potassium 3.7 mmol/L (3.3-5.1)
--- NOTE | 2025-01-09 08:36 | PCM.PN.SRG ---
Subjective Subjective Patient evaluated resting comfortably in bed. She denies any abdominal pain. She notes discomfort with palpation. She states she had multiple bowel movements yesterday. She notes passing flatus. Objective Data Objective Data Vital Signs: Vital Signs Temp Pulse Resp BP Pulse Ox O2 Del Method 98.0 F 67 18 144/75 H 95 Room Air 01/09/25 07:44 01/09/25 07:44 01/09/25 07:44 01/09/25 07:44 01/09/25 07:44 01/09/25 07:44 Oxygen Delivery Method Room Air Weight: 96 lb 5.472 oz Body Mass Index (BMI) 19.4 Intake & Output: Intake and Output for Last 24 Hours 01/07/25 01/08/25 01/09/25 23:59 23:59 23:59 Intake Total 1000 / 1000 2500 / 2500 50 / 50 Output Total 500 / 500 1550 / 1550 50 / 50 Balance 500 / 500 950 / 950 0 / 0 Lab / Micro Data 01/09/25 05:37 01/09/25 05:37 Labs: Laboratory Results - last 24 hr 01/09/25 05:37: WBC 4.2 L, RBC 3.08 L, Hgb 10.5 L, Hct 32.4 L, MCV 105.2 H, MCH 34.1 H, MCHC 32.4, RDW Std Deviation 52.0 H, RDW Coeff of Fuentes 13.5, Plt Count 135 L, MPV 9.6, Sodium 138, Potassium 3.7, Chloride 105, Carbon Dioxide 23.2, Anion Gap 10, BUN 15, Creatinine 0.51 L, Estim Creat Clear Calc 39.34 L, Est GFR (MDRD) Non-Af 95, BUN/Creatinine Ratio 29.2 H, Glucose 84, Calcium 8.7, Phosphorus 2.7 Radiography Diagnostic Testing: Radiology Impression Echocardiogram 01/07/25 21:52 Interpretation Summary The left ventricular ejection fraction is 60 %. Stage 2 diastolic dysfunction. The left atrium is moderately enlarged. Moderate (2+) posteriorly directed mitral valve insufficiency. Moderate (2+) tricuspid valve insufficiency. Right ventricular systolic pressure estimated to be 43 mmHg. Moderate (2+) aortic valve insufficiency. Ordering Physician: David Hussein Referring Physician: Naveed Martinez Performed By: Henry Barlow RDCS Abdomen X-Ray 01/09/25 06:50 IMPRESSION: Residual fecal material and gas is seen throughout the colon although this has improved as compared to prior study. Reading Location: [facility] Physical Exam GI GI Narrative: Abdomen- soft, nondistended. Generalized tenderness on palpation. Positive bowel sounds Assessment & Plan Assessment/Plan (1) Ileus: PLAN: I am following this patient in conjunction with Dr. Paez. She will independently evaluate this patient. Labs reviewed. Hgb decreasing KUB this morning shows improvement within the colon. Still seeing residual fcal material and gas throughout the colon Plan to remove NG tube Start sips and chips Give dose of Lactulose orally and rectally Likely clear liquids by lunch. Will check progress. No surgical intervention planned at this time We will continue to monitor this patient Charges/Coding Visit Charges Inpatient E&M: 02707 Subs Hosp L2
--- NOTE | 2025-01-09 09:07 | NURSING ---
NG removed as ordered with no complications. Pt tolerated well. No issues with water and ice chips.
--- NOTE | 2025-01-09 09:14 | NURSING ---
Attempted to notify dtg Alissa of NG tube removal as requested. No answer and voicemail not activated.
--- NOTE | 2025-01-09 09:23 | CASEMGMT ---
Social Work- SW received a call from [facility] that pt has a case worker, Mraika ([phone]), a medical alert, and [facility] BOBY Angulo
--- NOTE | 2025-01-09 09:42 | PN.HOSP_ITS ---
Reason for Visit
--- NOTE | 2025-01-09 09:42 | PCM.PN.HOSP ---
Reason for Visit Chief Complaint: Abdominal Pain Nausea and Vomiting. Subjective Subjective Saw patient at bedside this morning. NG tube had been pulled shortly before I saw her per surgery's recommendation. Patient noted she was feeling more comfortable after that was pulled. She denies any abdominal pain or discomfort this morning. She does feel somewhat anxious but improved from yesterday. No other new concerns as well. Objective Data Objective Data Vital Signs: Vital Signs Temp Pulse Resp BP Pulse Ox O2 Del Method 98.0 F 67 18 144/75 H 95 Room Air 01/09/25 07:44 01/09/25 07:44 01/09/25 07:44 01/09/25 07:44 01/09/25 07:44 01/09/25 07:44 Oxygen Delivery Method Room Air Weight: 43.7 kg Body Mass Index (BMI) 19.4 Intake & Output: Intake and Output for Last 24 Hours 01/07/25 01/08/25 01/09/25 23:59 23:59 23:59 Intake Total 1000 / 1000 2500 / 2500 50 / 50 Output Total 500 / 500 1550 / 1550 50 / 50 Balance 500 / 500 950 / 950 0 / 0 Lab / Micro Data 01/09/25 05:37 01/09/25 05:37 Labs: Laboratory Results - last 24 hr 01/09/25 05:37: WBC 4.2 L, RBC 3.08 L, Hgb 10.5 L, Hct 32.4 L, MCV 105.2 H, MCH 34.1 H, MCHC 32.4, RDW Std Deviation 52.0 H, RDW Coeff of Fuentes 13.5, Plt Count 135 L, MPV 9.6, Sodium 138, Potassium 3.7, Chloride 105, Carbon Dioxide 23.2, Anion Gap 10, BUN 15, Creatinine 0.51 L, Estim Creat Clear Calc 39.34 L, Est GFR (MDRD) Non-Af 95, BUN/Creatinine Ratio 29.2 H, Glucose 84, Calcium 8.7, Phosphorus 2.7 Radiography Diagnostic Testing: Radiology Impression Echocardiogram 01/07/25 21:52 Interpretation Summary The left ventricular ejection fraction is 60 %. Stage 2 diastolic dysfunction. The left atrium is moderately enlarged. Moderate (2+) posteriorly directed mitral valve insufficiency. Moderate (2+) tricuspid valve insufficiency. Right ventricular systolic pressure estimated to be 43 mmHg. Moderate (2+) aortic valve insufficiency. Ordering Physician: David Hussein Referring Physician: Naveed Martinez Performed By: Henry Barlow RDCS Abdomen X-Ray 01/09/25 06:50 IMPRESSION: Residual fecal material and gas is seen throughout the colon although this has improved as compared to prior study. Reading Location: [place] [address] Physical Exam Const alert and no apparent distress Constitutional Narrative: Elderly female, thin appearing, mildly fatigued and anxious appearing but improved from yesterday, otherwise sitting back in bed and answering questions appropriately. General Appearance: cooperative HEENT normocephalic, head/scalp atraumatic, hearing grossly normal bilaterally, nasal mucous membranes and turbinates normal and moist oral mucous membranes Eyes PERRL, EOMs intact bilaterally and conjunctivae normal Neck full ROM Chest inspection of chest normal Resp normal respiratory effort, normal air movement, no use of accessory muscles and clear to auscultation bilaterally Cardio regular rate, regular rhythm, no murmurs and peripheral pulses 2+ throughout GI normal to inspection, nondistended, normoactive bowel sounds, soft to palpation, non-tender and non-distended Back/Spine normal ROM Extremity normal to inspection and no pedal edema Skin no rashes or lesions noted Psych mental status grossly normal Assessment & Plan Assessment/Plan (1) Ileus: PLAN: Plan Patient is a 79-year-old female who presented to [facility] ED on 01/07/2025 with abdominal pain and nausea with vomiting. 1. Ileus ? Surgery following. Presented with abdominal pain and nausea with vomiting. CT abdomen pelvis showed distention of the stomach and multiple proximal mid small bowel loops with air-fluid levels suggesting small bowel obstruction versus ileus; notably no discrete transition point was noted. NG tube placed on admission in place to suction, and patient with good improvement. Patient with multiple bowel movements as well while NG tube in place. KUB on 01/09 with residual fecal material and gas in the colon but with continued improvement from previous. Per surgery, NG tube removed on the morning of 01/09. Advancing diet as tolerated per surgery recommendations. Giving lactulose orally and rectally to assist with further stooling. 2. Generalized anxiety disorder ? Patient with significant anxiety at baseline, is on home Ativan 0.5 mg 3 times daily scheduled. Noted to be anxious on 01/08 so was placed on IV Ativan 0.5 mg 3 times daily scheduled. With NG tube removed, will reinitiate home p.o. Ativan 0.5 mg 3 times daily scheduled. 3. Underweight BMI without malnutrition ? Nutrition following. BMI 17.9 on admit. Patient hospitalized here in May for oropharyngeal candidiasis as below and was noted to have severe protein calorie malnutrition at that time. Nutrition noted that patient does not have evidence of malnutrition at this time; do recommend increase protein intake with diet once patient is able to resume a regular diet. 4. 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 Hospitalized here in May with severe oropharyngeal candidiasis with stomatitis. She was also noted to have some degree of dysphagia at that time as well. Per speech therapy notes, appears it was difficult to ascertain if dysphagia was secondary to the stomatitis versus a pre-existing condition. Will plan to consult speech therapy for evaluation once NG tube has been removed. 5. Chronic debility ? PT/OT/case management following. Was noted on 01/08 that patient appeared to follow with [facility] as opposed to palliative care. However, it is remains unclear currently if patient is hospice or palliative care there. Case management assisting with this. Patient was confirmed to be a DNR CCA, DNI code status as opposed to DNRCC status on 01/09, status changed. DVT prophylaxis: Heparin subcu CODE STATUS: DNR CCA, DNI Expected disposition: TBD Total clinical time spent by myself addressing the patient's medical issues, reviewing all the data, and collaborating with patient's care team: 37 minutes. Charges/Coding Visit Charges Inpatient E&M: 75259 Subs Hosp L2
[2025-01-09] MEDS: Pantoprazole Sodium 40 MG in 0.9% Normal Saline (100mL MB+) 100 ML 330 MG IV (11:28)
--- NOTE | 2025-01-09 15:22 | CASEMGMT ---
Social Work- MELODIE called pt dtr Alissa. Alissa is at work, but confirms plans for pt to d/c home with [facility] and aide services. Pt dtr will be available for coordination tomorrow morning, as she works 05-28. MELODIE called [facility] and spoke with Day to confirm that discuss services and discharge plans. Hospice reports that pt will need new referral. MELODIE emailed referral and requested pt dtr not be called until tomorrow. MELODIE remains available to follow. BOBY Angulo
[2025-01-09] MEDS: Heparin Injection (Vial) 5,000 UNIT/ML VIAL 5000 UNIT SC (20:30)
[2025-01-09] MEDS: Dext 5%-0.45% NS 1,000 ML 50 ML IV (20:44)
[2025-01-10 02:39] VITALS: BP 134/59; PULSE 61; RESP 18; TEMP 36.8; O2SAT 95
[2025-01-10 05:34] LABS: Anion Gap 9 (5-15); BUN 11 mg/dL (4-19); BUN/Creat Ratio 21.5 RATIO (10-20); Calcium,Total 8.8 mg/dL (7.6-11.0); Carbon Dioxide 24.0 mmol/L (21.0-32.0); Chloride 105 mmol/L (98-108); Estimated Creatinine Clearance 39.34 ml/min (50-250); Glucose 96 mg/dL (70-99); Potassium 3.7 mmol/L (3.3-5.1)
--- NOTE | 2025-01-10 07:19 | PCM.PN.SRG ---
Subjective Subjective Patient seen and examined during AM rounds. She is found resting in the chair out of bed. It appears as though she has just completed breakfast tray of liquids. She is reporting that she feels as though she is leaking. She denies any nausea. However, she also denies any unstimulated bowel movements. Objective Data Objective Data Vital Signs: Vital Signs Temp Pulse Resp BP Pulse Ox O2 Del Method 98.3 F 61 18 134/59 H 95 Room Air 01/10/25 02:39 01/10/25 02:39 01/10/25 02:39 01/10/25 02:39 01/10/25 02:39 01/10/25 02:40 Oxygen Delivery Method Room Air Weight: 96 lb 5.472 oz Body Mass Index (BMI) 19.4 Intake & Output: Intake and Output for Last 24 Hours 01/08/25 01/09/25 01/10/25 23:59 23:59 23:59 Intake Total 2500 / 2500 1950 / 1950 100 / 100 Output Total 1550 / 1550 750 / 750 Balance 950 / 950 1200 / 1200 100 / 100 Lab / Micro Data 01/09/25 05:37 01/10/25 04:44 Labs: Laboratory Results - last 24 hr 01/10/25 04:44: Sodium 138, Potassium 3.7, Chloride 105, Carbon Dioxide 24.0, Anion Gap 9, BUN 11, Creatinine 0.51 L, Estim Creat Clear Calc 39.34 L, Est GFR (MDRD) Non-Af 95, BUN/Creatinine Ratio 21.5 H, Glucose 96, Calcium 8.8 Radiography Diagnostic Testing: Radiology Impression Abdomen X-Ray 01/09/25 06:50 IMPRESSION: Residual fecal material and gas is seen throughout the colon although this has improved as compared to prior study. Reading Location: [facility] Physical Exam Const Constitutional Narrative: Oriented to person Resp normal respiratory effort GI GI Narrative: Patient exhibits mild lower abdominal distention. There is no tenderness with palpation. Assessment & Plan Assessment/Plan (1) Ileus: PLAN: Patient with persistent ileus as exhibited by distention on exam and persistent dilated bowel with KUB. It looks as though dilation is present through both small and large bowel. With this picture would maintain at clear liquid threshold and await signs of further bowel function/improvement of abdominal exam before advancing further. Will plan to repeat suppository today. Impression shared with primary hospitalist, Dr. Mora. Dr. Zavala will be rounding over the weekend. Jayden Chavis MD General Surgery Endocrine Surgery Pager: [facility] [address] [place] [address], [address] [place] [address] Office: [phone] Charges/Coding Visit Charges Inpatient E&M: 74260 Subs Hosp L2
[2025-01-10 07:29] VITALS: O2SAT 95
[2025-01-10 08:27] VITALS: BP 152/74; PULSE 66; RESP 16; TEMP 36.4; O2SAT 100
[2025-01-10] MEDS: Heparin Injection (Vial) 5,000 UNIT/ML VIAL 5000 UNIT SC ×2 (09:17→23:03)
[2025-01-10] MEDS: Pantoprazole Sodium 40 MG in 0.9% Normal Saline (100mL MB+) 100 ML 330 MG IV (09:23)
--- NOTE | 2025-01-10 10:30 | RAD_ITS ---
PROCEDURE: RAD/Abdomen Single View (Portable)
--- NOTE | 2025-01-10 10:56 | CASEMGMT ---
Addendum entered by Paulette Chau 01/10/25 12:15: Social Work Return call from [facility] and appointment has been set for tomorrow (01/10) at 11:30. Physician notified. Pt is not ready for discharge today and will remain hospitalized at this time. Message with with [facility] to update that pt meeting can be held in the hospital tomorrow at 11:30. Nursing updated. BOBY Norris Original Note: Social Work Message received from [facility] at 7:42am that Hospice called pt dgt and was unable to reach dgt and unable to schedule. MELODIE placed call to [facility] and spoke with Yanet who states dgt was called with no answer and no ability to leave VM. MELODIE requested hospice call dgt again. MELODIE placed call to pt's dgt Alissa. Alissa did answer phone and MELODIE explained that Hospice needs to set up a meeting to reestablish care for pt. MELODIE provided Alissa with the phone number to [facility] and informed her to ask for scheduling. Alissa agreeable. BOBY Norris
[2025-01-10 11:23] VITALS: BP 156/66; PULSE 65; RESP 16; TEMP 36.4; O2SAT 99
--- NOTE | 2025-01-10 12:04 | PN.HOSP_ITS ---
Reason for Visit
--- NOTE | 2025-01-10 12:04 | PCM.PN.HOSP ---
Reason for Visit Chief Complaint: Abdominal Pain Nausea and Vomiting. Subjective Subjective Saw patient at bedside this morning, present. Patient laying back fairly comfortably in bed. Reports having some bowel movement this morning and tolerated clear liquid diet with breakfast well. Denies any significant abdominal pain or distention. No other new concerns today. Objective Data Objective Data Vital Signs: Vital Signs Temp Pulse Resp BP Pulse Ox O2 Del Method 97.6 F L 65 16 156/66 H 99 Room Air 01/10/25 11:23 01/10/25 11:23 01/10/25 11:23 01/10/25 11:23 01/10/25 11:23 01/10/25 11:23 Oxygen Delivery Method Room Air Weight: 43.7 kg Body Mass Index (BMI) 19.4 Intake & Output: Intake and Output for Last 24 Hours 01/08/25 01/09/25 01/10/25 23:59 23:59 23:59 Intake Total 2500 / 2500 1950 / 1950 1225 / 1225 Output Total 1550 / 1550 750 / 750 Balance 950 / 950 1200 / 1200 1225 / 1225 Lab / Micro Data 01/09/25 05:37 01/10/25 04:44 Labs: Laboratory Results - last 24 hr 01/10/25 04:44: Sodium 138, Potassium 3.7, Chloride 105, Carbon Dioxide 24.0, Anion Gap 9, BUN 11, Creatinine 0.51 L, Estim Creat Clear Calc 39.34 L, Est GFR (MDRD) Non-Af 95, BUN/Creatinine Ratio 21.5 H, Glucose 96, Calcium 8.8 Physical Exam Const alert and no apparent distress Constitutional Narrative: Elderly female, thin appearing, mildly fatigued and anxious appearing but improved from admission, otherwise laying back in bed and answering questions appropriately. General Appearance: cooperative HEENT normocephalic, head/scalp atraumatic, hearing grossly normal bilaterally, nasal mucous membranes and turbinates normal and moist oral mucous membranes Eyes PERRL, EOMs intact bilaterally and conjunctivae normal Neck full ROM Chest inspection of chest normal Resp normal respiratory effort, normal air movement, no use of accessory muscles and clear to auscultation bilaterally Cardio regular rate, regular rhythm, no murmurs and peripheral pulses 2+ throughout GI GI Narrative: Abdomen mildly distended but otherwise soft and nontender to palpation. Back/Spine normal ROM Extremity normal to inspection and no pedal edema Skin no rashes or lesions noted Psych mental status grossly normal Assessment & Plan Assessment/Plan (1) Ileus: PLAN: Plan Patient is a 79-year-old female who presented to [facility] ED on 01/07/2025 with abdominal pain and nausea with vomiting. 1. Ileus ? Surgery following. Presented with abdominal pain and nausea with vomiting. CT abdomen pelvis showed distention of the stomach and multiple proximal mid small bowel loops with air-fluid levels suggesting small bowel obstruction versus ileus; notably no discrete transition point was noted. NG tube placed on admission in place to suction, and patient with good improvement. Patient with multiple bowel movements as well while NG tube in place. KUB on 01/09 with residual fecal material and gas in the colon but with continued improvement from previous. Per surgery, NG tube removed on the morning of 01/09. Advancing diet as tolerated per surgery recommendations. 2. Generalized anxiety disorder ? Patient with significant anxiety at baseline, is on home Ativan 0.5 mg 3 times daily scheduled. Noted to be anxious on 01/08 so was placed on IV Ativan 0.5 mg 3 times daily scheduled. With NG tube removed, reinitiated home p.o. Ativan 0.5 mg 3 times daily scheduled. 3. Underweight BMI without malnutrition ? Nutrition following. BMI 17.9 on admit. Patient hospitalized here in May for oropharyngeal candidiasis as below and was noted to have severe protein calorie malnutrition at that time. Nutrition noted that patient does not have evidence of malnutrition at this time; do recommend increase protein intake with diet once patient is able to resume a regular diet. 4. 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 Hospitalized here in May with severe oropharyngeal candidiasis with stomatitis. She was also noted to have some degree of dysphagia at that time as well. Per speech therapy notes, appears it was difficult to ascertain if dysphagia was secondary to the stomatitis versus a pre-existing condition. Patient doing well with close over diet since NG tube removed, no need for speech therapy at this time. 5. Chronic debility ? PT/OT/case management following. Patient was following with [facility] for the past 3 to 4 months and was receiving care 5 days/week at home. Hospice qualifying diagnosis remains unclear. Hospice had to be revoked for this hospitalization and per case management, hospice will be coming into the hospital tomorrow morning to meet with family to discuss restarting hospice care. Will monitor. DVT prophylaxis: Heparin subcu CODE STATUS: DNR CCA, DNI Expected disposition: TBD Total clinical time spent by myself addressing the patient's medical issues, reviewing all the data, and collaborating with patient's care team: 37 minutes. Charges/Coding Visit Charges Inpatient E&M: 43579 Subs Hosp L2
[2025-01-10 12:08] LABS: Vitamin D 1,25-Dihydroxy 41.5 pg/mL (24.8-81.5)
--- NOTE | 2025-01-10 12:18 | CASEMGMT ---
Social Work Pt is active with [facility] for in home services including home health aids M-F for 5 hours each day. Green sheet placed on the chart to facilitate weekend discharge. [facility] to meet with pt tomorrow and will restart services at [place] as well. BOBY Whiting
[2025-01-10 15:28] VITALS: BP 132/57; PULSE 63; RESP 16; TEMP 36.7; O2SAT 97
[2025-01-10] MEDS: Dext 5%-0.45% NS 1,000 ML 50 ML IV (16:52)
[2025-01-10 22:54] VITALS: BP 133/69; PULSE 81; RESP 24; TEMP 37; O2SAT 94
[2025-01-11 05:37] VITALS: BP 112/62; PULSE 89; RESP 24; TEMP 37.1; O2SAT 95
[2025-01-11 05:50] LABS: Hematocrit 34.2 % (37-47); Hemoglobin 11.5 g/dL (12.0-15.0); Mean Corp Hgb Conc 33.6 g/dL (32-36); Mean Corpuscular Volume 99.1 fL (81-99); Mean Platelet Vol. 9.3 fl (6.2-12.0); Platelet Count 163 K/mm3 (150-450); RBC Distribution Width CV 13.0 % (11.6-14.6); RBC Distribution Width SD 46.5 fl (35.1-43.9); Red Blood Count 3.45 M/mm3 (4.2-5.4); White Blood Count 7.6 K/mm3 (4.4-11.0)
[2025-01-11 06:00] VITALS: BMI 17.9
[2025-01-11 06:28] LABS: Anion Gap 9 (5-15); BUN 7 mg/dL (4-19); BUN/Creat Ratio 11.3 RATIO (10-20); Calcium,Total 8.5 mg/dL (7.6-11.0); Carbon Dioxide 24.7 mmol/L (21.0-32.0); Chloride 102 mmol/L (98-108); Estimated Creatinine Clearance 36.37 ml/min (50-250); Glucose 128 mg/dL (70-99); Potassium 3.3 mmol/L (3.3-5.1)
[2025-01-11] MEDS: 0.9% Saline Lock 10 ML Syringe IV (07:45)
--- NOTE | 2025-01-11 07:50 | RAD_ITS ---
PROCEDURE: RAD/Abdomen Single View (Portable)
[2025-01-11 08:07] VITALS: BP 106/54; PULSE 91; RESP 16; TEMP 37.2; O2SAT 94
[2025-01-11] MEDS: Pantoprazole Sodium 40 MG in 0.9% Normal Saline (100mL MB+) 100 ML 330 MG IV (09:58)
[2025-01-11] MEDS: Heparin Injection (Vial) 5,000 UNIT/ML VIAL 5000 UNIT SC (10:00)
--- NOTE | 2025-01-11 10:46 | PN.HOSP_ITS ---
Reason for Visit
--- NOTE | 2025-01-11 10:46 | PCM.PN.HOSP ---
Reason for Visit Chief Complaint: Abdominal Pain Nausea and Vomiting. Subjective Subjective Saw patient at bedside this morning. Patient remains mildly fatigued and weak appearing but is otherwise stable from yesterday. No abdominal pain noted this morning. No other new concerns this morning. Objective Data Objective Data Vital Signs: Vital Signs Temp Pulse Resp BP Pulse Ox O2 Del Method 98.9 F 91 16 106/54 L 94 Room Air 01/11/25 08:07 01/11/25 08:07 01/11/25 08:07 01/11/25 08:07 01/11/25 08:07 01/11/25 08:07 Oxygen Delivery Method Room Air Weight: 40.4 kg Body Mass Index (BMI) 17.9 Intake & Output: Intake and Output for Last 24 Hours 01/09/25 01/10/25 01/11/25 23:59 23:59 23:59 Intake Total 1950 / 1950 960.84 / 960.84 Output Total 750 / 750 Balance 1200 / 1200 960.84 / 960.84 Lab / Micro Data 01/11/25 05:19 01/11/25 05:19 Labs: Laboratory Results - last 24 hr 01/07/25 22:44: Vit D 1,25-Dihydroxy 41.5 01/11/25 05:19: WBC 7.6, RBC 3.45 L, Hgb 11.5 L, Hct 34.2 L, MCV 99.1 H D, MCH 33.3 H, MCHC 33.6, RDW Std Deviation 46.5 H, RDW Coeff of Fuentes 13.0, Plt Count 163, MPV 9.3, Sodium 136, Potassium 3.3, Chloride 102, Carbon Dioxide 24.7, Anion Gap 9, BUN 7, Creatinine 0.59 L, Estim Creat Clear Calc 36.37 L, Est GFR (MDRD) Non-Af 92, BUN/Creatinine Ratio 11.3, Glucose 128 H, Calcium 8.5 Radiography Diagnostic Testing: Radiology Impression KUB X-Ray 01/10/25 10:30 IMPRESSION: Air-filled distended bowel may reflect ileus or bowel obstruction. Reading Location: [id number] KUB X-Ray 01/11/25 07:50 IMPRESSION: No significant change in air-filled distended bowel loops, ileus or bowel obstruction. Reading Location: [id number] Physical Exam Const alert and no apparent distress Constitutional Narrative: Elderly female, thin appearing, mildly fatigued and anxious appearing but improved from admission, otherwise laying back in bed and answering questions appropriately. General Appearance: cooperative HEENT normocephalic, head/scalp atraumatic, hearing grossly normal bilaterally, nasal mucous membranes and turbinates normal and moist oral mucous membranes Eyes PERRL, EOMs intact bilaterally and conjunctivae normal Neck full ROM Chest inspection of chest normal Resp normal respiratory effort, normal air movement, no use of accessory muscles and clear to auscultation bilaterally Cardio regular rate, regular rhythm, no murmurs and peripheral pulses 2+ throughout GI GI Narrative: Abdomen mildly distended but otherwise soft and nontender to palpation. Stable. Back/Spine normal ROM Extremity normal to inspection and no pedal edema Skin no rashes or lesions noted Psych mental status grossly normal Assessment & Plan Assessment/Plan (1) Ileus: PLAN: Plan Patient is a 79-year-old female who presented to [facility] ED on 01/07/2025 with abdominal pain and nausea with vomiting. 1. Ileus ? Surgery following. Presented with abdominal pain and nausea with vomiting. CT abdomen pelvis showed distention of the stomach and multiple proximal mid small bowel loops with air-fluid levels suggesting small bowel obstruction versus ileus; notably no discrete transition point was noted. NG tube placed on admission in place to suction, and patient with good improvement. Patient with multiple bowel movements as well while NG tube in place. KUB on 01/09 with residual fecal material and gas in the colon but with continued improvement from previous. Per surgery, NG tube removed on the morning of 01/09. Giving bowel regimen and advancing diet as tolerated per surgery recommendations. 2. Generalized anxiety disorder ? Patient with significant anxiety at baseline, is on home Ativan 0.5 mg 3 times daily scheduled. Noted to be anxious on 01/08 so was placed on IV Ativan 0.5 mg 3 times daily scheduled. With NG tube removed, reinitiated home p.o. Ativan 0.5 mg 3 times daily scheduled. 3. Underweight BMI without malnutrition ? Nutrition following. BMI 17.9 on admit. Patient hospitalized here in May for oropharyngeal candidiasis as below and was noted to have severe protein calorie malnutrition at that time. Nutrition noted that patient does not have evidence of malnutrition at this time; do recommend increase protein intake with diet once patient is able to resume a regular diet. 4. 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 Hospitalized here in May with severe oropharyngeal candidiasis with stomatitis. She was also noted to have some degree of dysphagia at that time as well. Per speech therapy notes, appears it was difficult to ascertain if dysphagia was secondary to the stomatitis versus a pre-existing condition. Patient doing well with close over diet since NG tube removed, no need for speech therapy at this time. 5. Chronic debility ? PT/OT/case management following. Patient was following with [facility] for the past 3 to 4 months and was receiving care 5 days/week at home. Hospice qualifying diagnosis remains unclear. Hospice had to be revoked for this hospitalization and per case management, hospice will be meeting with family this morning to discuss restarting hospice care. Will follow-up. DVT prophylaxis: Heparin subcu CODE STATUS: DNR CCA, DNI Expected disposition: TBD Total clinical time spent by myself addressing the patient's medical issues, reviewing all the data, and collaborating with patient's care team: 36 minutes. Charges/Coding Visit Charges Inpatient E&M: 33218 Subs Hosp L2
--- NOTE | 2025-01-11 13:26 | PCM.PN.SRG ---
Subjective Subjective Patient seen and evaluated on rounds. Patient somewhat drowsy this afternoon. Patient not a very good historian. She denies any abdominal pain. No nausea or vomiting. Objective Data Objective Data Vital Signs: Vital Signs Temp Pulse Resp BP Pulse Ox O2 Del Method 98.9 F 91 16 106/54 L 94 Room Air 01/11/25 08:07 01/11/25 08:07 01/11/25 08:07 01/11/25 08:07 01/11/25 08:07 01/11/25 08:07 Oxygen Delivery Method Room Air Weight: 89 lb 1.068 oz Body Mass Index (BMI) 17.9 Intake & Output: Intake and Output for Last 24 Hours 01/09/25 01/10/25 01/11/25 23:59 23:59 23:59 Intake Total 1950 / 1950 960.84 / 960.84 Output Total 750 / 750 Balance 1200 / 1200 960.84 / 960.84 Lab / Micro Data 01/11/25 05:19 01/11/25 05:19 Labs: Laboratory Results - last 24 hr 01/11/25 05:19: WBC 7.6, RBC 3.45 L, Hgb 11.5 L, Hct 34.2 L, MCV 99.1 H D, MCH 33.3 H, MCHC 33.6, RDW Std Deviation 46.5 H, RDW Coeff of Fuentes 13.0, Plt Count 163, MPV 9.3, Sodium 136, Potassium 3.3, Chloride 102, Carbon Dioxide 24.7, Anion Gap 9, BUN 7, Creatinine 0.59 L, Estim Creat Clear Calc 36.37 L, Est GFR (MDRD) Non-Af 92, BUN/Creatinine Ratio 11.3, Glucose 128 H, Calcium 8.5 Radiography Diagnostic Testing: Radiology Impression KUB X-Ray 01/11/25 07:50 IMPRESSION: No significant change in air-filled distended bowel loops, ileus or bowel obstruction. Reading Location: [facility] Physical Exam Narrative She appears to be in no acute distress. Abdomen is soft, nontender and nondistended. Assessment & Plan Assessment/Plan (1) Ileus: PLAN: Plan Patient is a 79-year-old female who initially presented with abdominal pain and ileus versus small bowel obstruction. Would favor ileus at this point. Ileus seems to be improving as she is having bowel function by way of bowel movements as noted by nursing flowsheets. Patient cannot state if she has passed flatus. Seems to be tolerating a clear liquid diet thus far. Will advance to full liquid diet Encourage ambulation Charges/Coding Visit Charges Inpatient E&M: 66117 Subs Hosp L3
[2025-01-11 13:45] VITALS: BP 132/82; PULSE 96; RESP 17; TEMP 36.7; O2SAT 94
--- NOTE | 2025-01-11 13:47 | DCINST_ITS ---
Discharge Instructions
--- NOTE | 2025-01-11 13:47 | PCM.DC ---
Discharge Instructions DC O2, CPAP, BIPAP needs Home O2 Discharge instructions: No Dressing / Incision Discharge Activity: No Restrictions Follow Up Care Test Results: Test results from this visit will be discussed in further detail at your follow-up appointment, if applicable. Discharge Plan Admission Admit Date/Time: 01/07/25 21:09 Primary Reason for Your Visit: Abdominal pain Attending Provider: Camden Mora Primary Care Provider: Naveed Martinez Consulting Providers: Tanisha Paez; David Hussein; David Carmen; Maritza Parra; Lizbeth Vaughn; Alba Mirza; Erica Jacob NP; Mala Leon Discharge Orders/Prescriptions Prescriptions: Continued acetaminophen 500 mg Tablet 1,000 mg PO Q8 PRN (Reason: pain) Qty: 0 0RF lorazepam 0.5 mg tablet 0.5 mg PO .COMPLEX Rx Instructions: 1 tab (.5mg) in am. 1/2 tab (.25mg) 3 times daily total 1.25 mg in 24 hours (DME) Handicap Placard See Rx Instructions .Route .MEDSUPPLY Qty: 1 0RF Rx Instructions: As directed for medical reasons Duration 4 years Referrals / Follow Up: Naveed Martinez DO [Primary Care Provider, Medical] Disposition Disposition (needs filled in before D/C Order can be placed): Hospice in Home
--- NOTE | 2025-01-11 13:49 | PCM.DC.SUM ---
Providers Date of Admission: 01/07/25 Date of Discharge: 01/11/25 Primary Care Physician: Dr. Naveed Martinez, Consultations 01/07/25 21:51 Consult: General Surgery Routine Consulting Provider: Tanisha Paez Reason for Consult: SBO vs Ileus. EMERGENT Consult: No MD Notified: Yes Date Notified: 01/07/25 Time Notified: 21:51 Method of Notification: ED Physician Initiated 01/09/25 15:48 Consult: Hospice / Outpatient Palliative Care Routine Consulting Provider: [facility] Reason for Consult: Resumption of services at discharge EMERGENT Consult: No MD Notified: Yes Date Notified: 01/09/25 Time Notified: 15:49 Method of Notification: Text Reason For Visit: SBO VS ILEUS WITH N/V Diagnosis Discharge Diagnosis (1) Ileus: Status: Acute Code(s): K56.7 - Ileus, unspecified Medications at Discharge Home Medications Handicap Placard #1 ea 11/12/20 acetaminophen 500 mg tablet 1,000 mg (2 x 500 mg) PO Q8 PRN pain #0 tabs 06/16/24 lorazepam 0.5 mg tablet 0.5 mg PO .COMPLEX anxiety 01/07/25 Hospital Course Operations None Procedures Transthoracic echo and - (KUB x 6, CT abdomen pelvis) Summary of Care Provided Minutes Spent on Discharge: 36 Hospital Course: Patient is a 79-year-old female who presented to [facility] ED on 01/07/2025 with abdominal pain and nausea with vomiting. Hospital course as noted below. Patient discharged home with home hospice care on 01/11. 1. Ileus ? Surgery followed. Presented with abdominal pain and nausea with vomiting. CT abdomen pelvis showed distention of the stomach and multiple proximal mid small bowel loops with air-fluid levels suggesting small bowel obstruction versus ileus; notably no discrete transition point was noted. NG tube placed on admission in place to suction, and patient with good improvement. Patient with multiple bowel movements as well while NG tube in place. KUB on 01/09 with residual fecal material and gas in the colon but with continued improvement from previous. Per surgery, NG tube removed on the morning of 01/09. Patient with improvement in ileus with bowel movements and tolerating regular diet by day of discharge. Will defer bowel regimen to home hospice care on discharge. 2. Generalized anxiety disorder ? Patient with significant anxiety at baseline, is on home Ativan 0.5 mg 3 times daily scheduled. Noted to be anxious on 01/08 so was placed on IV Ativan 0.5 mg 3 times daily scheduled. Home Ativan resumed once NG tube removed and will continue home regimen at discharge. 3. Underweight BMI without malnutrition ? Nutrition followed. BMI 17.9 on admit. Patient hospitalized here in May for oropharyngeal candidiasis as below and was noted to have severe protein calorie malnutrition at that time. Nutrition noted that patient does not have evidence of malnutrition at this time; did recommend increase protein intake with diet as able. 4. 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 Hospitalized here in May with severe oropharyngeal candidiasis with stomatitis. She was also noted to have some degree of dysphagia at that time as well. Per speech therapy notes, appears it was difficult to ascertain if dysphagia was secondary to the stomatitis versus a pre-existing condition. Patient did well with close over diet since NG tube removed, no need for speech therapy while inpatient. 5. Chronic debility ? PT/OT/case management followed. Patient was following with [facility] for the past 3 to 4 months and was receiving care 5 days/week at home. Hospice qualifying diagnosis was apparently severe protein calorie malnutrition. Hospice was revoked at admission, but hospice met with family on day of discharge and patient was accepted and was able to be discharged home with home hospice on 01/11. Total clinical time spent by myself addressing the patient's medical issues, reviewing all the data, and collaborating with patient's care team: 36 minutes. Physical Exam Const alert and no apparent distress Constitutional Narrative: Elderly female, thin appearing, mildly fatigued and anxious appearing but improved from admission, otherwise laying back in bed and answering questions appropriately. General Appearance: cooperative HEENT normocephalic, head/scalp atraumatic, hearing grossly normal bilaterally, nasal mucous membranes and turbinates normal and moist oral mucous membranes Eyes PERRL, EOMs intact bilaterally and conjunctivae normal Neck full ROM Chest inspection of chest normal Resp normal respiratory effort, normal air movement, no use of accessory muscles and clear to auscultation bilaterally Cardio regular rate, regular rhythm, no murmurs and peripheral pulses 2+ throughout GI GI Narrative: Abdomen mildly distended but otherwise soft and nontender to palpation. Stable. Back/Spine normal ROM Extremity normal to inspection and no pedal edema Skin no rashes or lesions noted Psych mental status grossly normal Weight / BMI Weight Weight: 40.4 kg Body Mass Index (BMI) 17.9 ABG / Lab / Microbiology Data 01/11/25 05:19 01/11/25 05:19 Laboratory: Laboratory Results - last 24 hr 01/11/25 05:19: WBC 7.6, RBC 3.45 L, Hgb 11.5 L, Hct 34.2 L, MCV 99.1 H D, MCH 33.3 H, MCHC 33.6, RDW Std Deviation 46.5 H, RDW Coeff of Fuentes 13.0, Plt Count 163, MPV 9.3, Sodium 136, Potassium 3.3, Chloride 102, Carbon Dioxide 24.7, Anion Gap 9, BUN 7, Creatinine 0.59 L, Estim Creat Clear Calc 36.37 L, Est GFR (MDRD) Non-Af 92, BUN/Creatinine Ratio 11.3, Glucose 128 H, Calcium 8.5 Radiography Diagnostic Testing: Radiology Impression KUB X-Ray 01/11/25 07:50 IMPRESSION: No significant change in air-filled distended bowel loops, ileus or bowel obstruction. Reading Location: [id number] D/C Instructions DC O2, CPAP, BIPAP Needs Home O2 Discharge instructions: No Meaningful Use Info Meaningful Use Meaningful Use Diagnoses (Choose all that apply): None applicable Discharge Plan Admission Admit Date/Time: 01/07/25 21:09 Primary Reason for Your Visit: Abdominal pain Attending Provider: Camden Mora Primary Care Provider: Naveed Martinez Consulting Providers: Tanisha Paez; David Hussein; David Carmen; Maritza Parra; Lizbeth Vaughn; Alba Mirza; Erica Jacob NP; Mala Leon Discharge Orders/Prescriptions Prescriptions: Continued acetaminophen 500 mg Tablet 1,000 mg PO Q8 PRN (Reason: pain) Qty: 0 0RF lorazepam 0.5 mg tablet 0.5 mg PO .COMPLEX Rx Instructions: 1 tab (.5mg) in am. 1/2 tab (.25mg) 3 times daily total 1.25 mg in 24 hours (DME) Handicap Placard See Rx Instructions .Route .MEDSULY Qty: 1 0RF Rx Instructions: As directed for medical reasons Duration 4 years Referrals / Follow Up: Naveed Martinez DO [Primary Care Provider, Medical] Disposition Disposition (needs filled in before D/C Order can be placed): Hospice in Home Charges/Coding Visit Charges Inpatient E&M: 38931 Disch Hosp >30min
== END 2025-01-11 16:26 | disposition hospice, home (50) | DRG 389 ==
LOC: ED 21:20 → MS3 01-08 01:10
PROVIDERS: Admitting Provider Internal Medicine; Emergency Provider Emergency Medicine; Visit Provider Hospitalist
DX: K56.7 Ileus, unspecified (principal); Z68.1 Body mass index [BMI] 19.9 or less, adult; D75.89 Other specified diseases of blood and blood-forming organs; Z66 Do not resuscitate; I10 Essential (primary) hypertension; I34.0 Nonrheumatic mitral (valve) insufficiency; E86.0 Dehydration; M79.7 Fibromyalgia; K59.00 Constipation, unspecified; I35.1 Nonrheumatic aortic (valve) insufficiency; M54.2 Cervicalgia; M25.562 Pain in left knee; M19.90 Unspecified osteoarthritis, unspecified site; F41.1 Generalized anxiety disorder; R63.6 Underweight; M81.0 Age-related osteoporosis without current pathological fracture; R53.81 Other malaise; Z92.21 Personal history of antineoplastic chemotherapy; Z92.3 Personal history of irradiation; Z87.440 Personal history of urinary (tract) infections; Z90.710 Acquired absence of both cervix and uterus; Z79.899 Other long term (current) drug therapy; Z85.038 Personal history of other malignant neoplasm of large intestine; Z90.89 Acquired absence of other organs
CPT/HCPCS: 36415; 74018; 74019; 74177; 80048; 80053; 81001; 82607; 82652; 82746; 83605; 83690; 83735; 84100; 84443; 85025; 85027; 93306; 97162; 97165; 97530; 97535; 99285; Q9967; A4216; J2405